=== PATIENT | male | born 1940 | race Caucasian/White ===

== ENCOUNTER 2017-02-04 22:18 | Inpatient (IN) | payer OTHER, MEDICARE ==
[2017-02-04 22:47] LABS: Basophils # (A) 0.1 k/uL (0-0.2); Basophils % (A) 0 %; CH 32.6; CHCM 33.8; Eosinophils # (A) 0.1 k/uL (0-0.7); Eosinophils % (A) 1 %; HCT 38.1 % (39.0-53.0); HDW 2.18; HGB 12.8 gm/dL (13.0-17.5); Luc # (Auto) 0.37; Luc % (Auto) 2; Lymphocytes % (A) 13 %; MCH 32.4 pg (25.0-35.0); MCHC 33.5 g/dL (31.0-37.0); MCV 96.7 fL (80.0-100.0); Monocytes % (A) 7 %; Neutrophils # (A) 11.8 k/uL (1.3-7.7); Neutrophils % (A) 77 %; RBC 3.94 m/uL (4.30-5.90); RDW 13.5 % (11.5-15.5); WBC 15.4 k/uL (3.8-10.6); WBC (Perox) 15.28
--- NOTE | 2017-02-04 22:56 | ED ---
General Adult HPI - General Chief complaint: Extremity Problem,Nontraumatic Stated complaint: Brusing Time Seen by Provider: 02/04/17 22:19 Source: patient, RN notes reviewed, old records reviewed Mode of arrival: EMS Limitations: physical limitation - History of Present Illness Initial comments: This is a 76-year-old male here for evaluation. Patient is here today for evaluation of right groin pain. Patient is noted heart catheterization with stent placement. Denies chest pain or shortness of breath. Patient's concerned bruising and pain in his right groin. Patient taking all medications as prescribed, he is currently taking Plavix and aspirin. Denies any feelings of lightheadedness dizziness or weakness. Denies foot pain or lower leg pain - Related Data Home Medications Medication Instructions Recorded Confirmed Ascorbic Acid [Vitamin C] 500 mg PO DAILY 02/04/17 02/04/17 Aspirin 81 mg PO DAILY 02/04/17 02/04/17 Atorvastatin [Lipitor] 80 mg PO DAILY 02/04/17 02/04/17 Calcium Carbonate 500 mg PO DAILY 02/04/17 02/04/17 Cholecalciferol [Vitamin D3] 400 unit PO DAILY 02/04/17 02/04/17 Clopidogrel Bisulfate [Plavix] 75 mg PO DAILY 02/04/17 02/04/17 Docusate [Colace] 300 mg PO DAILY PRN 02/04/17 02/04/17 Ferrous Sulfate [Feosol] 325 mg PO BID 02/04/17 02/04/17 Finasteride [Proscar] 5 mg PO DAILY 02/04/17 02/04/17 Lisinopril [Zestril] 5 mg PO DAILY 02/04/17 02/04/17 Metoprolol Tartrate [Lopressor] 12.5 mg PO BID 02/04/17 02/04/17 Multivitamins, Thera [Multivitamin 1 tab PO DAILY 02/04/17 02/04/17 (formulary)] Nitroglycerin Sl Tabs [Nitrostat] 0.4 mg SUBLINGUAL Q5M PRN 02/04/17 02/04/17 Omeprazole 20 mg PO DAILY 02/04/17 02/04/17 Sennosides-Docusate Sodium 2 tab PO HS 02/04/17 02/04/17 [Senokot-S] Tamsulosin [Flomax] 0.8 mg PO DAILY 02/04/17 02/04/17 Allergies Allergy/AdvReac Type Severity Reaction Status Date / Time No Known Allergies Allergy Verified 02/04/17 22:58 Review of Systems ROS Statement: Those systems with pertinent positive or pertinent negative responses have been documented in the HPI. ROS Other: All systems not noted in ROS Statement are negative. Past Medical History Past Medical History: Coronary Artery Disease (CAD), CVA/TIA, GERD/Reflux, Hyperlipidemia, Hypertension Additional Past Medical History / Comment(s): MS History of Any Multi-Drug Resistant Organisms: None Reported Past Surgical History: Adenoidectomy, Appendectomy, Heart Catheterization With Stent, Hernia Repair, Tonsillectomy Past Psychological History: No Psychological Hx Reported Smoking Status: Former smoker Past Alcohol Use History: None Reported Past Drug Use History: None Reported General Exam - General Exam Comments Initial Comments: Right groin has significant bruising Limitations: physical limitation General appearance: alert, in no apparent distress Head exam: Present: atraumatic, normocephalic, normal inspection Eye exam: Present: normal appearance, PERRL, EOMI. Absent: scleral icterus, conjunctival injection, periorbital swelling ENT exam: Present: normal exam, mucous membranes moist Neck exam: Present: normal inspection. Absent: tenderness, meningismus, lymphadenopathy Respiratory exam: Present: normal lung sounds bilaterally. Absent: respiratory distress, wheezes, rales, rhonchi, stridor Cardiovascular Exam: Present: regular rate, normal rhythm, normal heart sounds. Absent: systolic murmur, diastolic murmur, rubs, gallop, clicks GI/Abdominal exam: Present: soft, normal bowel sounds. Absent: distended, tenderness, guarding, rebound, rigid Extremities exam: Present: normal inspection, full ROM, normal capillary refill. Absent: tenderness, pedal edema, joint swelling, calf tenderness Back exam: Present: normal inspection Neurological exam: Present: alert, oriented X3, CN II-XII intact Psychiatric exam: Present: normal affect, normal mood Skin exam: Present: warm, dry, intact, normal color. Absent: rash Course Vital Signs 02/04/17 22:25 Temperature 98.1 F Pulse Rate 81 Respiratory 18 Rate Blood Pressure 157/71 O2 Sat by Pulse 94 L Oximetry - Reevaluation(s) Reevaluation #1: 02/05/17 00:37 Troponin is elevated Reevaluation #2: 02/05/17 01:00 patient has elevated troponin, likely from recent heart cath will obs for trending of troponin Medical Decision Making - Medical Decision Making 76 male to the ER for evaluation. Patient concern for postop edema and swelling of right groin, no significant pain, no pain in his feet, no neurological deficit, patient is concerned amount of color change and bruising. Ultrasound is negative, lab work is normal, hemoglobin is normal, troponin will be trended - Lab Data Result diagrams: 02/04/17 22:32 02/04/17 22:32 Lab Results 02/04/17 02/04/17 02/04/17 Range/Units 22:32 22:32 22:32 WBC 15.4 H (3.8-10.6) k/uL RBC 3.94 L (4.30-5.90) m/uL Hgb 12.8 L (13.0-17.5) gm/dL Hct 38.1 L (39.0-53.0) % MCV 96.7 (80.0-100.0) fL MCH 32.4 (25.0-35.0) pg MCHC 33.5 (31.0-37.0) g/dL RDW 13.5 (11.5-15.5) % Plt Count 222 (150-450) k/uL Neutrophils % 77 % Lymphocytes % 13 % Monocytes % 7 % Eosinophils % 1 % Basophils % 0 % Neutrophils # 11.8 H (1.3-7.7) k/uL Lymphocytes # 2.0 (1.0-4.8) k/uL Monocytes # 1.0 (0-1.0) k/uL Eosinophils # 0.1 (0-0.7) k/uL Basophils # 0.1 (0-0.2) k/uL PT (9.0-12.0) sec INR (<1.2) APTT (22.0-30.0) sec Sodium 136 L (137-145) mmol/L Potassium 4.9 (3.5-5.1) mmol/L Chloride 105 (98-107) mmol/L Carbon Dioxide 22 (22-30) mmol/L Anion Gap 9 mmol/L BUN 20 (9-20) mg/dL Creatinine 1.10 (0.66-1.25) mg/dL Est GFR (MDRD) Af Amer >60 (>60 ml/min/1.73 sqM) Est GFR (MDRD) Non-Af >60 (>60 ml/min/1.73 sqM) Glucose 117 H (74-99) mg/dL Calcium 9.8 (8.4-10.2) mg/dL Phosphorus 3.6 (2.5-4.5) mg/dL Magnesium 1.6 (1.6-2.3) mg/dL Total Bilirubin 0.5 (0.2-1.3) mg/dL AST 27 (17-59) U/L ALT 39 (21-72) U/L Alkaline Phosphatase 62 (38-126) U/L Total Creatine Kinase 94 (55-170) U/L CK-MB (CK-2) 2.4 (0.0-2.4) ng/mL CK-MB (CK-2) Rel Index 2.6 Troponin I 0.132 H* (0.000-0.034) ng/mL Total Protein 6.8 (6.3-8.2) g/dL Albumin 3.8 (3.5-5.0) g/dL 02/04/17 Range/Units 22:32 WBC (3.8-10.6) k/uL RBC (4.30-5.90) m/uL Hgb (13.0-17.5) gm/dL Hct (39.0-53.0) % MCV (80.0-100.0) fL MCH (25.0-35.0) pg MCHC (31.0-37.0) g/dL RDW (11.5-15.5) % Plt Count (150-450) k/uL Neutrophils % % Lymphocytes % % Monocytes % % Eosinophils % % Basophils % % Neutrophils # (1.3-7.7) k/uL Lymphocytes # (1.0-4.8) k/uL Monocytes # (0-1.0) k/uL Eosinophils # (0-0.7) k/uL Basophils # (0-0.2) k/uL PT 10.5 (9.0-12.0) sec INR 1.0 (<1.2) APTT 23.3 (22.0-30.0) sec Sodium (137-145) mmol/L Potassium (3.5-5.1) mmol/L Chloride (98-107) mmol/L Carbon Dioxide (22-30) mmol/L Anion Gap mmol/L BUN (9-20) mg/dL Creatinine (0.66-1.25) mg/dL Est GFR (MDRD) Af Amer (>60 ml/min/1.73 sqM) Est GFR (MDRD) Non-Af (>60 ml/min/1.73 sqM) Glucose (74-99) mg/dL Calcium (8.4-10.2) mg/dL Phosphorus (2.5-4.5) mg/dL Magnesium (1.6-2.3) mg/dL Total Bilirubin (0.2-1.3) mg/dL AST (17-59) U/L ALT (21-72) U/L Alkaline Phosphatase (38-126) U/L Total Creatine Kinase (55-170) U/L CK-MB (CK-2) (0.0-2.4) ng/mL CK-MB (CK-2) Rel Index Troponin I (0.000-0.034) ng/mL Total Protein (6.3-8.2) g/dL Albumin (3.5-5.0) g/dL - Radiology Data Radiology results: report reviewed (Ultrasound right groin is negative for pseudoaneurysm, chest x-ray negative for acute disease), image reviewed Critical Care Time Critical Care Time: Yes Total Critical Care Time: 31 Disposition Clinical Impression: Contusion of right groin, Postoperative hematoma, Elevated troponin Disposition: ADMITTED IP TO THIS [facility] Condition: Good Instructions: Hematoma (ED) Referrals: Rashi Briscoe DO [Primary Care Provider] - 1-2 days
[2017-02-04 22:57] LABS: Partial Thromboplastin Time 23.3 sec (22.0-30.0); Prothrombin Time 10.5 sec (9.0-12.0)
--- NOTE | 2017-02-04 23:01 | XR ---
EXAM: XR Chest, 2 Views CLINICAL HISTORY: Reason: Weakness TECHNIQUE: Frontal and lateral views of the chest. COMPARISON: No relevant prior studies available. FINDINGS: Lungs: Unremarkable. No consolidation. Pleural space: Unremarkable. No pneumothorax. Heart: Unremarkable. No cardiomegaly. Mediastinum: Unremarkable. Bones/joints: Unremarkable. IMPRESSION: Normal chest x-rays.
[2017-02-04 23:17] LABS: ALT 39 U/L (21-72); AST 27 U/L (17-59); Alkaline Phosphatase 62 U/L (38-126); Anion Gap 9 mmol/L; Blood Urea Nitrogen 20 mg/dL (9-20); Calcium 9.8 mg/dL (8.4-10.2); Carbon Dioxide 22 mmol/L (22-30); Chloride 105 mmol/L (98-107); Glucose 117 mg/dL (74-99); Magnesium 1.6 mg/dL (1.6-2.3); Non-African American GFR(MDRD) >60 (>60 ml/min/1.73 sqM); Phosphorous 3.6 mg/dL (2.5-4.5); Potassium 4.9 mmol/L (3.5-5.1); Sodium 136 mmol/L (137-145); Total Bilirubin 0.5 mg/dL (0.2-1.3); Total Protein 6.8 g/dL (6.3-8.2)
[2017-02-04 23:28] LABS: Creatine Kinase MB 2.4 ng/mL (0.0-2.4)
[2017-02-04 23:35] LABS: Troponin I 0.132 ng/mL (0.000-0.034)
--- NOTE | 2017-02-05 00:04 | US ---
ADDENDUM - Added by Eric Sykes MD on 02/08/2017 3:56 PM (-07:00) Addendum: Please disregard the subsections in the Findings regarding Right superficial femoral artery, Right popliteal artery, and Right calf/foot arteries. These areas were not imaged in this exam. The Impression above is still correct. Thank you Eric Sykes EXAM: US Duplex Right Lower Extremity Arteries CLINICAL HISTORY: Reason: Pain TECHNIQUE: Real-time ultrasound scan of the arteries of the right lower extremity with 2-D patrick scale, color Doppler flow and spectral waveform analysis. COMPARISON: No relevant prior studies available. FINDINGS: Right common femoral artery: Atherosclerotic calcified plaques noted in the right common femoral artery at the level of the right groin causing approximately 50% stenosis. Right superficial femoral artery: No acute findings. No occlusion or significant stenosis. Normal waveform. Right popliteal artery: No acute findings. No occlusion or significant stenosis. Normal waveform. Right calf/foot arteries: No acute findings. No occlusion or significant stenosis. Normal waveform. Soft tissues: Unremarkable. Other findings: No evidence of pseudoaneurysm or leak. IMPRESSION: 1. No evidence of pseudoaneurysm or leak. 2. Atherosclerotic plaque in the right common femoral artery causing approximately 50% stenosis.
[2017-02-05] MEDS ORDERED: NITROGLYCERIN SL TABS 0.4 MG TAB SUBLINGUAL PRN (00:58)
[2017-02-05] MEDS ORDERED: ASPIRIN 81 MG CHEW PO STA (00:58)
[2017-02-05 03:02] VITALS: BMI 29.1
[2017-02-05 05:00] LABS: Creatine Kinase MB 3.9 ng/mL (0.0-2.4); Troponin I 0.116 ng/mL (0.000-0.034)
[2017-02-05 11:26] LABS: Creatine Kinase MB 12.9 ng/mL (0.0-2.4); Troponin I 0.096 ng/mL (0.000-0.034)
[2017-02-05] MEDS: TAMSULOSIN 0.4 MG CAP.ER.24H PO SCH (14:25)
[2017-02-05] MEDS: CLOPIDOGREL 75 MG TAB PO SCH (17:07)
[2017-02-05] MEDS: METOPROLOL TARTRATE 12.5 MG TAB PO SCH (20:45)
[2017-02-05] MEDS: FERROUS SULFATE 325 MG TAB PO SCH (20:45)
[2017-02-05 21:23] LABS: Amorphous Sediment,Urine Rare /hpf; Appearance,Urine Cloudy (Clear); Bacteria,Urine Occasional /hpf; Bilirubin,Urine Negative (Negative); Glucose,Urine (UA) Negative (Negative); Ketones,Urine Negative (Negative); Leukocyte Esterase,Urine Large (Negative); Mucus,Urine Rare /hpf; Nitrite,Urine Positive (Negative); Particle Count 21541; Protein,Urine Negative (Negative); RBC,Urine 3 /hpf (0-5); Specific Gravity,Urine 1.011 (1.001-1.035); Squamous Epithelial Cell,Urine 3 /hpf (0-4); UA Billing (MACRO vs. MICRO) MICRO; Urobilinogen,Urine <2.0 mg/dL (<2.0); WBC,Urine 90 /hpf (0-5)
[2017-02-05] MEDS ORDERED: ACETAMINOPHEN TAB 325 MG TAB PO PRN (22:02)
[2017-02-05] MEDS ORDERED: traMADol 50 MG TAB PO PRN (22:25)
[2017-02-06 03:41] LABS: Cholesterol 133 mg/dL (<200); HDL Cholesterol 37 mg/dL (40-60)
[2017-02-06] MEDS: CLOPIDOGREL 75 MG TAB PO SCH (07:40)
[2017-02-06] MEDS: FERROUS SULFATE 325 MG TAB PO SCH (07:40)
[2017-02-06] MEDS: METOPROLOL TARTRATE 12.5 MG TAB PO SCH (07:40)
[2017-02-06] MEDS: TAMSULOSIN 0.4 MG CAP.ER.24H PO SCH (07:40)
[2017-02-06 08:50] VITALS: PULSE 80; RESP 16
[2017-02-06] MEDS ORDERED: FINASTERIDE 5 MG TAB PO SCH (09:00)
[2017-02-06] MEDS ORDERED: ASPIRIN 325 MG TAB PO SCH (09:00)
[2017-02-06] MEDS ORDERED: LISINOPRIL 5 MG TAB PO SCH (09:00)
[2017-02-06] MEDS ORDERED: ATORVASTATIN 80 MG TAB PO SCH (09:00)
--- NOTE | 2017-02-06 09:07 | P.GSCN ---
History of Present Illness History of present illness: 76-year-old white male, patient came to the emergency room he noticed some bruising and pain in his right groin post heart catheterization at [facility] in [place]. Patient had a heart catheterization and stent placement was consulted for hematoma and follow-up of the right groin post heart catheterization On examination patient was seen in his room Neck is supple no bruit appreciated Chest clear first and second sound normal Abdomen soft nontender Vascular examination brachial radial pulses are present patient has ecchymosis a right groin with slight tenderness femoral pulses palpable posterior tibial dorsal pedis by the Doppler Plan is ultrasound reviewed there is no evidence of pseudoaneurysm is some atherosclerosis occlusive disease involving the femoral artery and there is no evidence of expanding hematoma patient is stable from a vascular point of view we will follow with you thank very much Past Medical History Past Medical History: Coronary Artery Disease (CAD), CVA/TIA, GERD/Reflux, Hyperlipidemia, Hypertension Additional Past Medical History / Comment(s): MS History of Any Multi-Drug Resistant Organisms: None Reported Past Surgical History: Adenoidectomy, Appendectomy, Heart Catheterization With Stent, Hernia Repair, Tonsillectomy Additional Past Surgical History / Comment(s): RECENT HEART CATH AT [facility] ON 02/02/17, PT HAD THREE STENTS PLACED. UNSURE WHICH ARTERIES STENTS WERE PLACED IN. PT HAS RADHA GROIN BRUSING. Date of Last Stent Placement:: 02-02-17 Past Psychological History: No Psychological Hx Reported Smoking Status: Former smoker Past Alcohol Use History: None Reported Past Drug Use History: None Reported - Past Family History Father Family Medical History: Coronary Artery Disease (CAD) Medications and Allergies Home Medications Medication Instructions Recorded Confirmed Type Ascorbic Acid [Vitamin C] 500 mg PO DAILY 02/04/17 02/04/17 History Aspirin 81 mg PO DAILY 02/04/17 02/04/17 History Atorvastatin [Lipitor] 80 mg PO DAILY 02/04/17 02/04/17 History Calcium Carbonate 500 mg PO DAILY 02/04/17 02/04/17 History Cholecalciferol [Vitamin D3] 400 unit PO DAILY 02/04/17 02/04/17 History Clopidogrel Bisulfate [Plavix] 75 mg PO DAILY 02/04/17 02/04/17 History Docusate [Colace] 300 mg PO DAILY PRN 02/04/17 02/04/17 History Ferrous Sulfate [Feosol] 325 mg PO BID 02/04/17 02/04/17 History Finasteride [Proscar] 5 mg PO DAILY 02/04/17 02/04/17 History Lisinopril [Zestril] 5 mg PO DAILY 02/04/17 02/04/17 History Metoprolol Tartrate [Lopressor] 12.5 mg PO BID 02/04/17 02/04/17 History Multivitamins, Thera [Multivitamin 1 tab PO DAILY 02/04/17 02/04/17 History (formulary)] Nitroglycerin Sl Tabs [Nitrostat] 0.4 mg SUBLINGUAL Q5M PRN 02/04/17 02/04/17 History Omeprazole 20 mg PO DAILY 02/04/17 02/04/17 History Sennosides-Docusate Sodium 2 tab PO HS 02/04/17 02/04/17 History [Senokot-S] Tamsulosin [Flomax] 0.8 mg PO DAILY 02/04/17 02/04/17 History Allergies Allergy/AdvReac Type Severity Reaction Status Date / Time No Known Allergies Allergy Verified 02/04/17 22:58 Surgical - Exam Vital Signs Temp Pulse Resp BP Pulse Ox 98.1 F 81 18 157/71 94 L 02/04/17 22:25 02/04/17 22:25 02/04/17 22:25 02/04/17 22:25 02/04/17 22:25 Results - Labs 02/04/17 22:32 02/04/17 22:32 Abnormal Lab Results - Last 24 Hours (Table) 02/04/17 02/05/17 02/05/17 Range/Units 22:32 10:15 20:53 Total Creatine Kinase 441 H (55-170) U/L CK-MB (CK-2) 12.9 H* (0.0-2.4) ng/mL Troponin I 0.096 H* (0.000-0.034) ng/mL HDL Cholesterol 37 L (40-60) mg/dL Ur Leukocyte Esterase Large H (Negative) Urine WBC 90 H (0-5) /hpf Urine WBC Clumps Few H (None) /hpf Amorphous Sediment Rare H (None) /hpf Urine Bacteria Occasional H (None) /hpf Urine Mucus Rare H (None) /hpf Diabetes panel 02/04/17 Range/Units 22:32 Triglycerides 75 (<150) mg/dL HDL Cholesterol 37 L (40-60) mg/dL
--- NOTE | 2017-02-06 11:15 | HP ---
DATE OF ADMISSION: 02/05/17 CHIEF COMPLAINT: Bruising in the groin area. HISTORY OF PRESENT ILLNESS: This 76-year-old gentleman with past medical history of multiple medical problems including CAD, GERD, hypertension, hyperlipidemia, being followed by Dr. Briscoe in [facility] in the outpatient setting, recently was treated at [facility]. The patient had apparently cardiac catheterization, stent placement with backup LV support. The patient had catheterization marked in the right arm as well as both groins also. The patient went home. The patient complaining of significant swelling and also bruising and pain on walking also. The patient came to [facility] and was admitted to the hospital for further evaluation and treatment. A duplex scan of the lower extremity was done on admission which showed no evidence of pseudoaneurysm or leak but atherosclerotic plaque in the right common femoral artery causing approximately 50% stenosis noted, pulses are Doppler palpable in both lower legs. There is no history of fever, rigors or chills. No history of headache, loss of consciousness or seizures. Past medical history of stent to the LAD, CVA, TIA, GERD, hypertension, hyperlipidemia. Mediations prior to admission include: 1. Nitro 0.4 sublingual prn. 2. Multivitamins. 3. Colace 100 mg prn. 4. Omeprazole 20 mg daily. 5. Iron sulfate 320 mg b.i.d. 6. Vitamin D3 400 units daily. 7. Calcium carbonate 500 mg po daily. 8. Vitamin C 500 mg po daily. 9. Flomax 0.8 daily. 10. Senokot-S two tablets q.h.s. 11. Proscar 5 mg po daily. 12. Lopressor 12.5 mg po b.i.d. 13. Zestril 5 mg po daily. 14. Plavix 75 mg po daily. 15. Lipitor 80 mg po daily. 16. Aspirin 81 mg po daily. ALLERGIES: None. FAMILY HISTORY: History of coronary artery disease in the family. SOCIAL HISTORY: Previous history of smoking. Occasional alcohol intake. REVIEW OF SYSTEMS: HEENT: No diminished vision. No diminished hearing. Cardiovascular system: As mentioned earlier. Respiratory: No cough, hemoptysis. GI: No nausea or vomiting. : No dysuria. Nervous system: No numbness, weakness. Allergy/Immunology: No asthma or hayfever. Musculoskeletal: As mentioned earlier. Hematology/oncology: No history of anemia. Endocrine: No history of diabetes or hypothyroidism. Constitutional: As mentioned earlier. Dermatology: Negative. Rheumatology: Negative. Psychiatry: As mentioned earlier. PHYSICAL EXAMINATION: The patient is alert, oriented times three. Pulse 66. Blood pressure 131/77. Respiratory rate 18, temperature 98.2. Pulse ox 94% on room air. HEENT: Conjunctivae normal. Oral mucosa moist. NECK: No JVD. No thyroid enlargement. No lymph node enlargement. Cardiovascular: S1, S2 muffled. No S3, no S4. No murmur. No thrills Respiratory: Breath sounds diminished at the bases. No rhonchi and no crackles. Abdomen is soft , nontender. No mass palpable. Legs: No edema. No swelling. Examination of the groin, significant erythema and as well as swelling with in both groins , right more than the left. Pulses diminished. Nervous system: Higher functions as mentioned earlier. Cranial nerves 2 thru 12 grossly intact. No focal motor or sensory deficits. Lymphatics: No lymph nodes palpable in the neck, axilla or groin. Skin: No ulcer, rash or bleeding. LABS: WBC 15.1, hemoglobin 12.8, troponin noted. FINAL DIAGNOSES: 1. Bilateral groin hematomas. 2. Troponin 0.116, rule out acute non-ST segment elevation myocardial infarction. 3. History of recent cardiac catheterization and stenting from elsewhere. 4. Hyponatremia. 5. Increased WBC. 6. Anemia of chronic disease. 7. History of coronary artery disease. 8. Hypertension. 9. Hyperlipidemia. 10. History of multiple sclerosis. RECOMMENDATIONS AND DISCUSSION: Continue the current medications. Continue with monitoring and symptomatic treatment. Otherwise at this time, I would recommend continue with current medications. Cardiology consultation. I would also recommend vascular surgery consultation. Continue with antiplatelet agents because of recent stent. Guarded prognosis because of multiple medical problems. Further recommendations to follow. MTDD
[2017-02-06 11:42] VITALS: BP 99/55; TEMP 98.8
[2017-02-06] MEDS ORDERED: CHOLECALCIFEROL 400 UNIT TAB PO SCH (12:00)
--- NOTE | 2017-02-06 18:31 | P.DS ---
Providers Date of admission: 02/05/17 00:58 Attending physician: Delia Witt Consults: 02/05/17 16:05 Consult Physician Urgent Consulting Provider: Jadon Kuhn Consult Reason/Comments: hematoma. Do you want consulting provider notified?: Yes, Notify in am 02/05/17 16:06 Consult Physician Urgent Consulting Provider: Chuck Blackwood Consult Reason/Comments: Hematoma Do you want consulting provider notified?: Yes [facility] Course: This 76-year-old gentleman was admitted with bilateral white groin hematoma following cardiac cath done elsewhere. The patient had CAD stent placement in [facility] in [place] recently. Treated symptomatically. Seen by cardiology and restless surgery. No evidence of pseudoaneurysm. Patient improved significantly. Patient be discharged home. On exam vitals stable. S1 and S2 normal. Respirator system no rhonchi. Abdomen soft nontender. Groin hematomas. Legs pulses present. Final diagnosis 1. Bilateral groin hematoma. 2. Troponin 0.116 of undetermined etiology. 3. History of recent cardiac cath and CAD stent from elsewhere Patient Condition at Discharge: Good Plan - Discharge Summary New Discharge Prescriptions: New traMADol HCl [Ultram] 50 mg PO QID PRN #20 tab PRN Reason: Pain Cefuroxime Axetil [Ceftin] 500 mg PO BID #10 tab Continue Nitroglycerin Sl Tabs [Nitrostat] 0.4 mg SUBLINGUAL Q5M PRN PRN Reason: Chest Pain Multivitamins, Thera [Multivitamin (formulary)] 1 tab PO DAILY Omeprazole 20 mg PO DAILY Ferrous Sulfate [Feosol] 325 mg PO BID Cholecalciferol [Vitamin D3] 400 unit PO DAILY Calcium Carbonate 500 mg PO DAILY Ascorbic Acid [Vitamin C] 500 mg PO DAILY Tamsulosin [Flomax] 0.8 mg PO DAILY Sennosides-Docusate Sodium [Senokot-S] 2 tab PO HS Finasteride [Proscar] 5 mg PO DAILY Docusate [Colace] 300 mg PO DAILY PRN PRN Reason: Constipation Metoprolol Tartrate [Lopressor] 12.5 mg PO BID Lisinopril [Zestril] 5 mg PO DAILY Clopidogrel Bisulfate [Plavix] 75 mg PO DAILY Atorvastatin [Lipitor] 80 mg PO DAILY Aspirin 81 mg PO DAILY Discharge Medication List Ascorbic Acid [Vitamin C] 500 mg PO DAILY 02/04/17 [History] Aspirin 81 mg PO DAILY 02/04/17 [History] Atorvastatin [Lipitor] 80 mg PO DAILY 02/04/17 [History] Calcium Carbonate 500 mg PO DAILY 02/04/17 [History] Cholecalciferol [Vitamin D3] 400 unit PO DAILY 02/04/17 [History] Clopidogrel Bisulfate [Plavix] 75 mg PO DAILY 02/04/17 [History] Docusate [Colace] 300 mg PO DAILY PRN 02/04/17 [History] Ferrous Sulfate [Feosol] 325 mg PO BID 02/04/17 [History] Finasteride [Proscar] 5 mg PO DAILY 02/04/17 [History] Lisinopril [Zestril] 5 mg PO DAILY 02/04/17 [History] Metoprolol Tartrate [Lopressor] 12.5 mg PO BID 02/04/17 [History] Multivitamins, Thera [Multivitamin (formulary)] 1 tab PO DAILY 02/04/17 [History ] Nitroglycerin Sl Tabs [Nitrostat] 0.4 mg SUBLINGUAL Q5M PRN 02/04/17 [History] Omeprazole 20 mg PO DAILY 02/04/17 [History] Sennosides-Docusate Sodium [Senokot-S] 2 tab PO HS 02/04/17 [History] Tamsulosin [Flomax] 0.8 mg PO DAILY 02/04/17 [History] Cefuroxime Axetil [Ceftin] 500 mg PO BID #10 tab 02/06/17 [Rx] traMADol HCl [Ultram] 50 mg PO QID PRN #20 tab 02/06/17 [Rx] Follow up Appointment(s)/Referral(s): Rashi Briscoe DO [Primary Care Provider] - 3 Days Ambulatory/Diagnostic Orders: Complete Blood Count w/diff [LAB.AMB] Time Frame: 3 Days, Location: Determined By Patient Patient Instructions/Handouts: Hematoma (ED) Activity/Diet/Wound Care/Special Instructions: Confirm cardiology follow-up appointment prior to discharge. Diet: Cardiac Activity: Limited until follow up Final urine culture results to PCP Discharge Disposition: HOME SELF-CARE
== END 2017-02-06 13:36 | disposition home or self-care (01) | DRG 920 ==
LOC: EC 22:18 → 6SEL 02-05 00:58
PROVIDERS: ADMIT Hospitalist; ATTEND Hospitalist
DX: I97.630 Postprocedural hematoma of a circulatory system organ or structure following a cardiac catheterization (principal); E87.1 Hypo-osmolality and hyponatremia; D63.8 Anemia in other chronic diseases classified elsewhere; I70.201 Unspecified atherosclerosis of native arteries of extremities, right leg; D72.829 Elevated white blood cell count, unspecified; I25.10 Atherosclerotic heart disease of native coronary artery without angina pectoris; I10 Essential (primary) hypertension; E78.5 Hyperlipidemia, unspecified; K21.9 Gastro-esophageal reflux disease without esophagitis; R74.8 Abnormal levels of other serum enzymes; Z79.899 Other long term (current) drug therapy; Z79.82 Long term (current) use of aspirin; Z82.49 Family history of ischemic heart disease and other diseases of the circulatory system; Z86.73 Personal history of transient ischemic attack (TIA), and cerebral infarction without residual deficits; Z87.891 Personal history of nicotine dependence; Z79.02 Long term (current) use of antithrombotics/antiplatelets; Z95.5 Presence of coronary angioplasty implant and graft; Z90.49 Acquired absence of other specified parts of digestive tract; Z86.69 Personal history of other diseases of the nervous system and sense organs
CPT/HCPCS: 36415; 71020; 80053; 80061; 81001; 82550; 82553; 83735; 84100; 84484; 85025; 85610; 85730; 87077; 87086; 87186; 93005; 93975; 99291

== ENCOUNTER 2017-06-19 05:29 | Inpatient (IN) | payer OTHER, MEDICARE ==
[2017-06-19] MEDS ORDERED: LORazepam 2 MG/ML INJ IV STA (05:39)
[2017-06-19] MEDS ORDERED: SODIUM CHLORIDE 0.9% 500 ML IV STA (05:39)
[2017-06-19] MEDS ORDERED: DILTIAZEM 5 MG/ML 5 ML VIAL IVP STA ×2 (05:39→07:34)
[2017-06-19] MEDS ORDERED: DILTIAZEM 125 MG in SODIUM CHLORIDE 0.9% 100 ML IV ONE (05:39)
[2017-06-19] MEDS ORDERED: SODIUM CHLORIDE 0.9% 1,000 ML IV STA (05:39)
[2017-06-19 05:52] LABS: Basophils # (A) 0.1 k/uL (0-0.2); Basophils % (A) 0 %; Eosinophils # (A) 0.2 k/uL (0-0.7); Eosinophils % (A) 2 %; HCT 41.9 % (39.0-53.0); HGB 12.7 gm/dL (13.0-17.5); Lymphocytes # (A) 1.8 k/uL (1.0-4.8); Lymphocytes % (A) 12 %; MCH 28.6 pg (25.0-35.0); MCHC 30.4 g/dL (31.0-37.0); MCV 94.3 fL (80.0-100.0); Mean Platelet Volume 8.9; Monocytes # (A) 1.2 k/uL (0-1.0); Monocytes % (A) 8 %; Neutrophils % (A) 76 %; Platelet Count 214 k/uL (150-450); RBC 4.44 m/uL (4.30-5.90); RDW 14.9 % (11.5-15.5); WBC 14.6 k/uL (3.8-10.6)
--- NOTE | 2017-06-19 05:52 | ED ---
General Adult HPI - General Chief complaint: Shortness of Breath Stated complaint: SOB Time Seen by Provider: 06/19/17 05:33 Source: patient, RN notes reviewed, old records reviewed Mode of arrival: EMS Limitations: no limitations - History of Present Illness Initial comments: This is a 76-year-old male the ER for evaluation today. Patient's coming everything evaluation of anxiety and shortness of breath. Patient has multiple medical issues including heart disease. Patient denies history of smoking or COPD. Patient has no recent fevers. Does admit to increased shortness of breath, inability to lay down flat, increasing shortness of breath and inability to sleep. Exertional shortness of breath. Patient denies chest pain currently. No recent travel history no sick contacts. Patient denies anticoagulation - Related Data Home Medications Medication Instructions Recorded Confirmed Ascorbic Acid [Vitamin C] 500 mg PO DAILY 02/04/17 02/04/17 Aspirin 81 mg PO DAILY 02/04/17 02/04/17 Atorvastatin [Lipitor] 80 mg PO DAILY 02/04/17 02/04/17 Calcium Carbonate 500 mg PO DAILY 02/04/17 02/04/17 Cholecalciferol [Vitamin D3] 400 unit PO DAILY 02/04/17 02/04/17 Clopidogrel Bisulfate [Plavix] 75 mg PO DAILY 02/04/17 02/04/17 Docusate [Colace] 300 mg PO DAILY PRN 02/04/17 02/04/17 Ferrous Sulfate [Feosol] 325 mg PO BID 02/04/17 02/04/17 Finasteride [Proscar] 5 mg PO DAILY 02/04/17 02/04/17 Lisinopril [Zestril] 5 mg PO DAILY 02/04/17 02/04/17 Metoprolol Tartrate [Lopressor] 12.5 mg PO BID 02/04/17 02/04/17 Multivitamins, Thera [Multivitamin 1 tab PO DAILY 02/04/17 02/04/17 (formulary)] Nitroglycerin Sl Tabs [Nitrostat] 0.4 mg SUBLINGUAL Q5M PRN 02/04/17 02/04/17 Omeprazole 20 mg PO DAILY 02/04/17 02/04/17 Sennosides-Docusate Sodium 2 tab PO HS 02/04/17 02/04/17 [Senokot-S] Tamsulosin [Flomax] 0.8 mg PO DAILY 02/04/17 02/04/17 Previous Rx's Medication Instructions Recorded Cefuroxime Axetil [Ceftin] 500 mg PO BID #10 tab 02/06/17 traMADol HCl [Ultram] 50 mg PO QID PRN #20 tab 02/06/17 Allergies Allergy/AdvReac Type Severity Reaction Status Date / Time No Known Allergies Allergy Verified 06/19/17 05:41 Review of Systems ROS Statement: Those systems with pertinent positive or pertinent negative responses have been documented in the HPI. ROS Other: All systems not noted in ROS Statement are negative. Past Medical History Past Medical History: Coronary Artery Disease (CAD), CVA/TIA, GERD/Reflux, Hyperlipidemia, Hypertension Additional Past Medical History / Comment(s): MS History of Any Multi-Drug Resistant Organisms: None Reported Past Surgical History: Adenoidectomy, Appendectomy, Heart Catheterization With Stent, Hernia Repair, Tonsillectomy Additional Past Surgical History / Comment(s): RECENT HEART CATH AT [facility] ON 02/02/17, PT HAD THREE STENTS PLACED. UNSURE WHICH ARTERIES STENTS WERE PLACED IN. PT HAS RADHA GROIN BRUSING. Date of Last Stent Placement:: 02-02-17 Past Psychological History: No Psychological Hx Reported Smoking Status: Former smoker Past Alcohol Use History: None Reported Past Drug Use History: None Reported - Past Family History Father Family Medical History: Coronary Artery Disease (CAD) General Exam Limitations: no limitations General appearance: alert, anxious, in distress Head exam: Present: atraumatic, normocephalic, normal inspection Eye exam: Present: normal appearance, PERRL, EOMI. Absent: scleral icterus, conjunctival injection, periorbital swelling ENT exam: Present: normal exam, mucous membranes moist Neck exam: Present: normal inspection. Absent: tenderness, meningismus, lymphadenopathy Respiratory exam: Present: accessory muscle use, decreased breath sounds, prolonged expiratory. Absent: respiratory distress, wheezes, rales, rhonchi, stridor Cardiovascular Exam: Present: tachycardia, irregular rhythm, normal heart sounds. Absent: systolic murmur, diastolic murmur, rubs, gallop, clicks GI/Abdominal exam: Present: soft, normal bowel sounds. Absent: distended, tenderness, guarding, rebound, rigid Extremities exam: Present: normal inspection, full ROM, normal capillary refill. Absent: tenderness, pedal edema, joint swelling, calf tenderness Back exam: Present: normal inspection Neurological exam: Present: alert, oriented X3, CN II-XII intact Psychiatric exam: Present: normal affect, normal mood Skin exam: Present: warm, dry, intact, normal color. Absent: rash Course Vital Signs 06/19/17 06/19/17 06/19/17 05:35 06:11 07:09 Temperature 97.2 F L Pulse Rate 150 H 135 H 142 H Respiratory 20 20 17 Rate Blood Pressure 158/110 168/87 157/100 O2 Sat by Pulse 97 94 L 95 Oximetry - Reevaluation(s) Reevaluation #1: 06/19/17 07:22 Patient isn't improving slightly with rate control, there is a decreased anxiety , still short of breath EKG Findings - EKG Comments: EKG Findings:: EKG shows A. fib with RVR rate 160, QRS 120, QTc 447 Medical Decision Making - Medical Decision Making 70 formality ER for evaluation shortness of breath, patient significant shortness of breath A. fib with RVR CHF. Patient admitted for diaphoresis rate control. Anticoagulation secondary to elevated troponin - Lab Data Result diagrams: 06/19/17 05:37 06/19/17 05:37 Lab Results 06/19/17 06/19/17 06/19/17 Range/Units 05:37 05:37 05:37 WBC 14.6 H (3.8-10.6) k/uL RBC 4.44 (4.30-5.90) m/uL Hgb 12.7 L (13.0-17.5) gm/dL Hct 41.9 (39.0-53.0) % MCV 94.3 (80.0-100.0) fL MCH 28.6 (25.0-35.0) pg MCHC 30.4 L (31.0-37.0) g/dL RDW 14.9 (11.5-15.5) % Plt Count 214 (150-450) k/uL Neutrophils % 76 % Lymphocytes % 12 % Monocytes % 8 % Eosinophils % 2 % Basophils % 0 % Neutrophils # 11.0 H (1.3-7.7) k/uL Lymphocytes # 1.8 (1.0-4.8) k/uL Monocytes # 1.2 H (0-1.0) k/uL Eosinophils # 0.2 (0-0.7) k/uL Basophils # 0.1 (0-0.2) k/uL PT (9.0-12.0) sec INR (<1.2) APTT (22.0-30.0) sec Sodium 142 (137-145) mmol/L Potassium 4.9 (3.5-5.1) mmol/L Chloride 109 H (98-107) mmol/L Carbon Dioxide 26 (22-30) mmol/L Anion Gap 7 mmol/L BUN 14 (9-20) mg/dL Creatinine 0.90 (0.66-1.25) mg/dL Est GFR (MDRD) Af Amer >60 (>60 ml/min/1.73 sqM) Est GFR (MDRD) Non-Af >60 (>60 ml/min/1.73 sqM) Glucose 108 H (74-99) mg/dL Calcium 9.2 (8.4-10.2) mg/dL Phosphorus 3.2 (2.5-4.5) mg/dL Magnesium 1.8 (1.6-2.3) mg/dL Total Bilirubin 0.7 (0.2-1.3) mg/dL AST 41 (17-59) U/L ALT 43 (21-72) U/L Alkaline Phosphatase 74 (38-126) U/L Total Creatine Kinase 141 (55-170) U/L CK-MB (CK-2) 6.8 H* (0.0-2.4) ng/mL CK-MB (CK-2) Rel Index 4.8 Troponin I 0.327 H* (0.000-0.034) ng/mL Total Protein 6.7 (6.3-8.2) g/dL Albumin 3.6 (3.5-5.0) g/dL 06/19/17 Range/Units 05:37 WBC (3.8-10.6) k/uL RBC (4.30-5.90) m/uL Hgb (13.0-17.5) gm/dL Hct (39.0-53.0) % MCV (80.0-100.0) fL MCH (25.0-35.0) pg MCHC (31.0-37.0) g/dL RDW (11.5-15.5) % Plt Count (150-450) k/uL Neutrophils % % Lymphocytes % % Monocytes % % Eosinophils % % Basophils % % Neutrophils # (1.3-7.7) k/uL Lymphocytes # (1.0-4.8) k/uL Monocytes # (0-1.0) k/uL Eosinophils # (0-0.7) k/uL Basophils # (0-0.2) k/uL PT 10.4 (9.0-12.0) sec INR 1.1 (<1.2) APTT 23.1 (22.0-30.0) sec Sodium (137-145) mmol/L Potassium (3.5-5.1) mmol/L Chloride (98-107) mmol/L Carbon Dioxide (22-30) mmol/L Anion Gap mmol/L BUN (9-20) mg/dL Creatinine (0.66-1.25) mg/dL Est GFR (MDRD) Af Amer (>60 ml/min/1.73 sqM) Est GFR (MDRD) Non-Af (>60 ml/min/1.73 sqM) Glucose (74-99) mg/dL Calcium (8.4-10.2) mg/dL Phosphorus (2.5-4.5) mg/dL Magnesium (1.6-2.3) mg/dL Total Bilirubin (0.2-1.3) mg/dL AST (17-59) U/L ALT (21-72) U/L Alkaline Phosphatase (38-126) U/L Total Creatine Kinase (55-170) U/L CK-MB (CK-2) (0.0-2.4) ng/mL CK-MB (CK-2) Rel Index Troponin I (0.000-0.034) ng/mL Total Protein (6.3-8.2) g/dL Albumin (3.5-5.0) g/dL - Radiology Data Radiology results: report reviewed (Chest x-ray positive for CHF pulmonary edema bilateral pleural effusions), image reviewed Critical Care Time Critical Care Time: Yes Total Critical Care Time: 31 Disposition Clinical Impression: Elevated troponin, Congestive heart failure, Acute pulmonary edema, NSTEMI (non -ST elevated myocardial infarction), Atrial fibrillation with RVR Disposition: ADMITTED IP TO THIS HOSP Condition: Serious Referrals: Rashi Briscoe DO [Primary Care Provider] - 1-2 days
[2017-06-19 06:01] LABS: INR 1.1 (<1.2); Partial Thromboplastin Time 23.1 sec (22.0-30.0); Prothrombin Time 10.4 sec (9.0-12.0)
[2017-06-19 06:07] LABS: ALT 43 U/L (21-72); AST 41 U/L (17-59); Albumin 3.6 g/dL (3.5-5.0); Alkaline Phosphatase 74 U/L (38-126); Anion Gap 7 mmol/L; Blood Urea Nitrogen 14 mg/dL (9-20); Calcium 9.2 mg/dL (8.4-10.2); Carbon Dioxide 26 mmol/L (22-30); Chloride 109 mmol/L (98-107); Glucose 108 mg/dL (74-99); Magnesium 1.8 mg/dL (1.6-2.3); Phosphorus 3.2 mg/dL (2.5-4.5); Sodium 142 mmol/L (137-145); Total Bilirubin 0.7 mg/dL (0.2-1.3); Total Protein 6.7 g/dL (6.3-8.2)
[2017-06-19 06:09] LABS: Potassium 4.9 mmol/L (3.5-5.1)
[2017-06-19 06:26] LABS: Creatine Kinase MB 6.8 ng/mL (0.0-2.4); Troponin I 0.327 ng/mL (0.000-0.034)
--- NOTE | 2017-06-19 06:32 | XR ---
EXAM: XR Chest, 2 Views CLINICAL HISTORY: Reason: Weakness TECHNIQUE: Frontal and lateral views of the chest. COMPARISON: 02/04/17 FINDINGS: Lungs: Interstitial and air space opacities favoring edema. Flattening of the diaphragm and increased AP diameter of the lungs consistent with chronic obstructive pulmonary disease. Pleural space: Questionable small pleural effusions with blunting of the costophrenic sulci. No pneumothorax. Heart: Cardiomegaly. Bones/joints: Stable. Vasculature: Pulmonary venous congestion. Stable atherosclerosis and degenerative osseous changes. IMPRESSION: 1. Cardiomegaly with venous congestion as well as interstitial and airspace disease which could represent edema or other infiltrate such as pneumonia. Correlate for congestive failure. 2. COPD.
[2017-06-19] MEDS ORDERED: ASPIRIN 325 MG TAB PO STA (07:19)
[2017-06-19] MEDS ORDERED: IPRATROPIUM-ALBUTEROL 3 ML NEB INHALATION STA (07:37)
[2017-06-19] MEDS ORDERED: FUROSEMIDE 10 MG/ML 4 ML VIAL IV SCH (09:00)
[2017-06-19] MEDS ORDERED: METOPROLOL TARTRATE 25 MG TAB PO SCH (09:00)
[2017-06-19] MEDS ORDERED: HEPARIN SODIUM,PORCINE 5,000 UNIT/ML 1 ML VIAL IV PRN (09:18)
[2017-06-19] MEDS ORDERED: HEPARIN SODIUM,PORCINE 5,000 UNIT/ML 1 ML VIAL IV ONE (09:18)
[2017-06-19] MEDS: NITROGLYCERIN OINT 1 INCH/GM PACKET TOPICAL SCH ×4 (09:40→21:06)
[2017-06-19] MEDS: HEPARIN SOD,PORK IN 0.45% NACL 25,000 UNIT in 0.45% NACL 1 500ML.BAG IV SCH (09:41)
[2017-06-19] MEDS: METOPROLOL TARTRATE 50 MG TAB PO SCH ×2 (10:06→21:06)
--- NOTE | 2017-06-19 11:09 | CONS ---
CONSULTATION Mr. Tee is a 76-year-old male who [facility], who presented with symptoms of progressive dyspnea as well as symptoms of not feeling well. He has underwent stenting in the [facility] in [place] in January of 2017 and at that time received 3 stents, the details of that procedure is not available to me. According to him, he has been having some dyspnea, but much worse yesterday, came into the emergency room and was found to be in atrial fibrillation with rapid ventricular response and evidence of congestive heart failure. The patient denies any symptoms of chest discomfort, although it is out not clear that he had any discomfort at the time of his presentation in January. He denies any dizziness or palpitation. He is unaware of the arrhythmia. He has been having peripheral edema, but according to him, much worse recently. He has no clear PND. He denies any fever. No wheezing. He has a prior history of smoking, but not recently. He is on the BiPAP at the time my evaluation in the emergency room. His coronary risk factors are positive for hypertension, hyperlipidemia. He has a prior history of smoking. MEDICATION: Include Lipitor 80 mg daily, aspirin once a day, Plavix 75 mg daily. Proscar, Zestril 5 mg daily, metoprolol tartrate 12.5 mg twice a day, omeprazole, tramadol, and Flomax. REVIEW OF SYSTEMS: RESPIRATORY SYSTEM: He has a history of dyspnea on exertion. No recent wheezing. There is no clear documentation of chronic obstructive lung disease. GI SYSTEM: He denies any GI bleeding or no peptic ulcer disease. SYSTEM: No dysuria or hematuria. NERVOUS SYSTEM: No history of stroke or seizure. PHYSICAL EXAMINATION: He is a 76-year-old male, alert, oriented, on the BiPAP. Blood pressure 144/80 with a heart rate in the 130s to 140s. HEAD: Normocephalic. EYES: Sclerae anicteric. NECK: No bruit. LUNGS: With decreased air exchange and rales bilaterally. HEART: Irregular regular, tachycardic, S1, S2. No S3 with systolic murmur at the base. No diastolic murmur. ABDOMEN: Soft, nontender. Positive bowel sounds. No megaly. EXTREMITIES: +3 edema bilaterally. LAB DATA: Lab data revealed a hemoglobin 12.7, white blood cell 14.6, BUN and creatinine 14 and 0.9, troponin 0.327. EKG revealed atrial fibrillation with a left bundle branch block, left axis deviation and nonspecific ST-T wave changes. The left bundle branch block and the atrial fibrillation are new compared with an EKG that was performed in January. Chest x-ray is consistent with congestive heart failure. IMPRESSION: 1. Acute pulmonary edema with atrial fibrillation. It is unclear if the elevation of troponin is related to the congestive heart failure or if he had a primary ischemic event. The patient had no symptoms of chest pain at this time. I have no prior evaluation of his left ventricular systolic function. His peripheral edema apparently has been going on for a while. 2. Mild elevation of troponin, most likely representing a non ST elevation myocardial infarction. 3. History of coronary artery disease. 4. Atrial fibrillation, new since January. 5. History of hypertension. 6. Hyperlipidemia. 7. Prior history of smoking. RECOMMENDATION: I have recommended to add heparin to his regimen. I will increase his dose of intravenous diuretic. Continue on the beta efrain and the calcium channel efrain to control his ventricular response. I will try to obtain the report from the [facility] in [place] to see his prior workup. The patient will need further cardiac evaluation once he is stabilized and that can be done here or at the [facility] depending on the decision and his status. Thank you for this consult. We will follow with you. RORY / EDA: [id number] /
[2017-06-19 12:11] LABS: Creatine Kinase MB 19.5 ng/mL (0.0-2.4); Troponin I 1.83 ng/mL (0.000-0.034)
[2017-06-19 12:39] LABS: Glucose,Whole Blood 103 mg/dL (75-99)
[2017-06-19 15:11] LABS: Amorphous Sediment,Urine Rare /hpf; Appearance,Urine Turbid (Clear); Bilirubin,Urine Negative (Negative); Blood,Urine Trace (Negative); Color,Urine Yellow; Glucose,Urine (UA) Negative (Negative); Ketones,Urine 1+ (Negative); Leukocyte Esterase,Urine Large (Negative); Mucus,Urine Many /hpf; Nitrite,Urine Positive (Negative); Protein,Urine 1+ (Negative); RBC,Urine 27 /hpf (0-5); Specific Gravity,Urine 1.017 (1.001-1.035); Squamous Epithelial Cell,Urine 26 /hpf (0-4); WBC,Urine >182 /hpf (0-5)
[2017-06-19] MEDS ORDERED: NITROGLYCERIN SL TABS 0.4 MG TAB SUBLINGUAL PRN (15:14)
[2017-06-19] MEDS ORDERED: NALOXONE 0.4 MG/ML 1 ML VIAL IV PRN (15:20)
[2017-06-19] MEDS: SODIUM CHLORIDE 0.9% 1,000 ML IV SCH (15:49)
--- NOTE | 2017-06-19 15:53 | P.CNPUL ---
History of Present Illness Consult date: 06/19/17 Reason for consult: dyspnea History of present illness: This is a 76-year-old male patient, who has been followed up at the [facility], who presented to our emergency department this morning because of progressive increase in shortness of breath. The patient is known to have coronary artery disease and the patient undergone previous coronary stenting in the [facility] in [place] in January 2017. Apparently he was given a total of 3 coronary stents. The stents were inserted in the LAD and left main, 2 in the LAD and one in the left main. He also has history of hypertension, hyperlipidemia, BPH. The patient came into the hospital because of progressive increased shortness of breath. She was also found to be in atrial fibrillation with rapid ventricular response and he was found to be in acute heart failure. The patient denies having any chest pain or angina. No significant pleurisy. No hemoptysis. No palpitation. No dizziness. He has progressive increase in lower extremities edema typical of CHF. In the emergency department, the patient was found to track on a 14.6. Troponin was elevated. Initial troponin was at 0.3 and subsequent level came up that 1.8. There proBNP level is at 2760. TSH is at 1.2. LDL cholesterol is at 68. The EKG showed atrial fibrillation with rapid ventricular response. The patient also has an underlying left axis deviation and possible anterolateral infarct age undetermined. The chest x-ray showed Bjorn megaly and pulmonary vessel congestion as well as interstitial and airspace disease. This has typical of an underlying CHF. The patient was started on IV heparin. The patient was asked to continue the aspirin and Plavix. The patient was started on Cardizem drip for rate control. The patient was started on Lasix 60 mg IV push every 8 hours. The patient was placed on a BiPAP. The patient got moved to the intensive care unit for further evaluation and treatment. Review of Systems A full review of system was done and the positive findings were mentioned above in history of present illness. A 14 system review of system was done. Essentially negative other than things mentioned above. Past Medical History Past Medical History: Coronary Artery Disease (CAD), CVA/TIA, Diabetes Mellitus , GERD/Reflux, Hyperlipidemia, Hypertension Additional Past Medical History / Comment(s): 4 and a artery disease, hypertension, hyperlipidemia, BPH, diabetes mellitus which has been on diet: The patient is on no oral treatment, congestion heart failure, MS, acid reflux, history of CVA/TIA. History of Any Multi-Drug Resistant Organisms: None Reported Past Surgical History: Adenoidectomy, Appendectomy, Heart Catheterization With Stent, Hernia Repair, Tonsillectomy Additional Past Surgical History / Comment(s): RECENT HEART CATH AT [facility] ON 02/02/17: stents were placed in the mid LAD, proximal LAD, and LEFT MAIN. Right hip repair 2011 Past Anesthesia/Blood Transfusion Reactions: No Reported Reaction Date of Last Stent Placement:: 02-02-17 Past Psychological History: No Psychological Hx Reported Smoking Status: Former smoker Past Alcohol Use History: None Reported Past Drug Use History: None Reported - Past Family History Father Family Medical History: Coronary Artery Disease (CAD) Medications and Allergies Home Medications Medication Instructions Recorded Confirmed Type Ascorbic Acid [Vitamin C] 500 mg PO DAILY 02/04/17 06/19/17 History Aspirin 81 mg PO DAILY 02/04/17 06/19/17 History Atorvastatin [Lipitor] 80 mg PO HS 02/04/17 06/19/17 History Calcium Carbonate 500 mg PO DAILY 02/04/17 06/19/17 History Cholecalciferol [Vitamin D3] 800 unit PO DAILY 02/04/17 06/19/17 History Clopidogrel Bisulfate [Plavix] 75 mg PO DAILY 02/04/17 06/19/17 History Ferrous Sulfate [Feosol] 325 mg PO BID 02/04/17 06/19/17 History Finasteride [Proscar] 5 mg PO DAILY 02/04/17 06/19/17 History Lisinopril [Zestril] 5 mg PO DAILY 02/04/17 06/19/17 History Metoprolol Tartrate [Lopressor] 25 mg PO BID 02/04/17 06/19/17 History Multivitamins, Thera [Multivitamin 1 tab PO DAILY 02/04/17 06/19/17 History (formulary)] Nitroglycerin Sl Tabs [Nitrostat] 0.4 mg SUBLINGUAL Q5M PRN 02/04/17 06/19/17 History Omeprazole 20 mg PO DAILY 02/04/17 06/19/17 History Sennosides-Docusate Sodium 2 tab PO HS 02/04/17 06/19/17 History [Senokot-S] Tamsulosin [Flomax] 0.8 mg PO DAILY 02/04/17 06/19/17 History Allergies Allergy/AdvReac Type Severity Reaction Status Date / Time No Known Allergies Allergy Verified 06/19/17 10:01 Physical Exam Vitals: Vital Signs Temp Pulse Resp BP Pulse Ox 06/19/17 15:00 67 24 118/63 97 06/19/17 14:00 71 27 H 99/69 98 06/19/17 13:00 75 28 H 131/86 96 06/19/17 11:14 136 H 31 H 128/74 95 06/19/17 10:24 142 H 32 H 133/91 97 06/19/17 09:26 160 H 32 H 167/80 95 06/19/17 08:08 136 H 18 144/87 98 06/19/17 08:05 158 H 06/19/17 07:53 146 H 06/19/17 07:09 142 H 17 157/100 95 06/19/17 06:11 135 H 20 168/87 94 L 06/19/17 05:35 97.2 F L 150 H 20 158/110 97 Intake and Output 06/19/17 06/19/17 06/19/17 06:59 14:59 22:59 Intake Total 248 124 Output Total 150 Balance 248 -26 Intake: IV 248 124 Diltiazem 125 mg In 10 5 Sodium Chloride 0.9% 100 ml @ 5 MG/HR 5 mls/hr IV .Q24H ONE Rx#:[id number] Heparin Sod,Pork in 0.45% 38 19 NaCl 25,000 unit In 0.45 % NaCl 1 500ml.bag @ 10.1 UNITS/KG/HR 19.97 mls/hr IV .Q24H BLAYNE Rx#: [id number] Sodium Chloride 0.9% 1, 200 100 000 ml @ 100 mls/hr IV . Q10H STA Rx#:[id number] Output: Urine 150 Other: Voiding Method Self-Catheterization Weight 98.883 kg 106.8 kg Patient Weight 06/20/17 06:59 Weight 106.8 kg Examination shows a 76-year-old male patient was a mild degree of respiratory distress even at rest.Head exam was generally normal. There was no scleral icterus or corneal arcus. Mucous membranes were moist. Neck is supple and there is positive JVDs no bruits no goiter or neck masses. Lungs sounds are diminished bilaterally along with some bibasilar crackles. Heart sounds are irregular S1-S2 and there tachycardic. No significant murmurs could be appreciated.Abdominal exam revealed normal bowel sounds. The abdomen was soft, non-tender, and without masses, organomegaly, or appreciable enlargement of the abdominal aorta. Extremities shows +2-3 pitting edema there is no cyanosis or clubbing. Neurologically the patient is awake and alert and the patient is following commands and answering questions appropriately and there is no focal neurological deficit.Examination of the skin revealed no evidence of significant rashes, suspicious appearing nevi or other concerning lesions. Results - Laboratory Findings CBC and BMP: 06/19/17 05:37 06/19/17 05:37 PT/INR, D-dimer PT 10.4 sec (9.0-12.0) 06/19/17 05:37 INR 1.1 (<1.2) 06/19/17 05:37 Abnormal lab findings: Abnormal Labs 06/19/17 06/19/17 06/19/17 05:37 05:37 05:37 WBC 14.6 H Hgb 12.7 L MCHC 30.4 L Neutrophils # 11.0 H Monocytes # 1.2 H Chloride 109 H Glucose 108 H POC Glucose (mg/dL) CK-MB (CK-2) 6.8 H* Troponin I 0.327 H* HDL Cholesterol Urine Protein Urine Ketones Urine Blood Ur Leukocyte Esterase Urine RBC Urine WBC Urine WBC Clumps Ur Squamous Epith Cells Amorphous Sediment Urine Mucus 06/19/17 06/19/17 06/19/17 05:37 11:11 12:36 WBC Hgb MCHC Neutrophils # Monocytes # Chloride Glucose POC Glucose (mg/dL) 103 H CK-MB (CK-2) 19.5 H* Troponin I 1.830 H* HDL Cholesterol 38 L Urine Protein Urine Ketones Urine Blood Ur Leukocyte Esterase Urine RBC Urine WBC Urine WBC Clumps Ur Squamous Epith Cells Amorphous Sediment Urine Mucus 06/19/17 14:25 WBC Hgb MCHC Neutrophils # Monocytes # Chloride Glucose POC Glucose (mg/dL) CK-MB (CK-2) Troponin I HDL Cholesterol Urine Protein 1+ H Urine Ketones 1+ H Urine Blood Trace H Ur Leukocyte Esterase Large H Urine RBC 27 H Urine WBC >182 H Urine WBC Clumps Few H Ur Squamous Epith Cells 26 H Amorphous Sediment Rare H Urine Mucus Many H - Diagnostic Findings Chest x-ray: image reviewed Assessment and Plan Plan: Assessment 1 acute non-ST segment elevation myocardial infarction 2 coronary artery disease with recent coronary intervention and stenting of the LAD and left main that was done at [facility] in [place] 3 acute decompensated heart failure, rule out systolic dysfunction and echocardiogram is still pending. 4 acute pulmonary edema with secondary shortness of breath and acute hypoxic respiratory failure 5 progressive lower extremity edema secondary to CHF 6 atrial fibrillation with rapid better response currently on Cardizem drip for rate control 7 hypertension 8 hyperlipidemia 9 BPH 10 multiple sclerosis and the patient has significant limitation in exercise capacity and mobility due to MS. 11 neurogenic bladder secondary to a massive the patient performs self- catheterization at home and currently has a Esteves catheter in place. Plan The patient was moved to the intensive care unit. The patient will be supported with BiPAP if needed for respiratory support. The patient is currently on 6 L about 2 by nasal cannula and his saturations around 97%. Continue Cardizem for rate control. IV heparin. Aspirin and Plavix. Echocardiogram. Lasix to achieve a negative fluid balance and the patient will placed on 60 mg IV Lasix every 8 hours. Continue metoprolol. Continue Salty inhibitors. Resume outpatient medications. Cardiology is on the case. We'll continue to follow.
--- NOTE | 2017-06-19 16:15 | HP ---
HISTORY AND PHYSICAL DATE OF SERVICE: 06/19/2017 CHIEF COMPLAINT: Shortness of breath. HISTORY OF PRESENT ILLNESS: This 76-year-old gentleman with a past history of CAD, history of diabetes, GERD, hypertension, hyperlipidemia, history of multiple sclerosis, history of recurrent diabetes, being followed by [facility] in the outpatient setting also had stenting in [facility] also. Currently the patient complaining of shortness of breath. Patient is significantly anxious also. The patient did not have any fever, cough, or sputum. Minimal bilateral leg edema noted. Acute murmur is noted and patient started on IV diuretics. Patient improved significantly. Troponin elevated to 1.83. Patient also noted to have atrial fibrillation with fast ventricular rate. TSH is normal. UA showed UTI. PAST MEDICAL HISTORY: History of CVA, CAD, history of CVA, TIA, history of diabetes type 2, GERD, hypertension, multiple sclerosis, recurrent diabetes type 2, CAD stent. HOME MEDICATIONS: 1. Flomax 0.8 daily. 2. Senokot-S 2 tablets q.h.s. 3. Omeprazole 20 mg b.i.d. 4. Nitrostat 0.4 sublingual p.r.n. 5. Multivitamins 1 p.o. daily. 6. Lopressor 25 mg p.o. b.i.d. 7. Zestril 5 mg p.o. daily. 8. Proscar 5 mg p.o. daily. 9. Iron sulfate 325 mg p.o. b.i.d. 10.Plavix 75 mg p.o. daily. 11.Vitamin D3 800 units daily. 12.Calcium carbonate 500 mg p.o. daily. 13.Lipitor 80 mg q.h.s. 14.Aspirin 81 mg. 15.Vitamin C 500 mg p.o. daily. ALLERGIES: None. FAMILY HISTORY: History of coronary artery disease in the family. SOCIAL HISTORY: Previous history of smoking. No history of current smoking or alcohol. REVIEW OF SYSTEMS: ENT: No diminished hearing or vision. CARDIOVASCULAR: As mentioned. RESPIRATORY: As mentioned earlier. GI: No nausea. : No dysuria. NERVOUS SYSTEM: No numbness, weakness. ALLERGY/IMMUNOLOGY: No asthma or hayfever. MUSCULOSKELETAL: As mentioned earlier. HEMATOLOGY/ONCOLOGY: No history of anemia. ENDOCRINE: No history of diabetes or hypothyroidism. CONSTITUTIONAL: As mentioned. DERMATOLOGY: Negative. RHEUMATOLOGY: Negative. PSYCHIATRY: As mentioned earlier. PHYSICAL EXAMINATION: Alert and oriented x3. Pulse 71, blood pressure 131/86, respirations 20, temperature normal, pulse ox 96% on BiPAP. HEENT: Conjunctivae normal. Oral mucosa moist. NECK: Jugular venous distention at root of neck. No carotid bruit. CARDIOVASCULAR: S1, S1. RESPIRATORY: Breath sounds diminished in the bases. A few scattered rhonchi and crackles. Expiratory wheezing also present. ABDOMEN: Soft, nontender. No mass palpable. LEGS: Minimal leg edema bilaterally. NERVOUS SYSTEM: Higher functions as mentioned earlier, moves all 4 limbs, no focal motor sensory deficits. LYMPHATICS: No lymphadenopathy in the neck, axillae, groin. SKIN: No ulcer, rash, bleeding. JOINT: No active deforming arthropathy. LABS: WBC 14.6, hemoglobin 12.7. Otherwise, NT proBNP is 2760. Troponin 1.833. ASSESSMENT: 1. Congestive heart failure acute exacerbation with ejection fraction unknown. 2. Troponin 1.830, possible acute non ST-segment elevation myocardial infarction. 3. Atrial fibrillation with fast ventricular rate. 4. Acute urinary tract infection present on admission. 5. Increased WBC. 6. History of coronary artery disease, stent. 7. History of cerebrovascular accident, transient ischemic attack. 8. Diabetes mellitus type 2. 9. Hypertension. 10.Hyperlipidemia. 11.Gastroesophageal reflux disease. 12.Multiple sclerosis. 13.History recurrent diabetes mellitus type 2. 14.History atrial fibrillation. 15.History of hernia repair. RECOMMENDATIONS AND DISCUSSION: This 76-year-old gentleman who presented with multiple complex medical issues, will monitor the patient closely. Continue the current management and symptomatic treatment. I recommend broad-spectrum antibiotics, diuretics, resume the home medications and IV heparin, beta blockers, antiplatelet agents for the myocardial infarction. Overall prognosis is extremely guarded because of multiple complex medical issues. Further recommendations to follow. Home medications will be ordered. DVT prophylaxis. Prognosis guarded. Further recommendations to follow. MMODL / IJN: [id number] /
[2017-06-19] MEDS: FUROSEMIDE 10 MG/ML 10 ML VIAL IV SCH ×2 (16:53→23:50)
[2017-06-19] MEDS: FERROUS SULFATE 325 MG TAB PO SCH (16:53)
[2017-06-19 19:37] LABS: Creatine Kinase MB 22.9 ng/mL (0.0-2.4); Troponin I 3.94 ng/mL (0.000-0.034)
[2017-06-19] MEDS: LISINOPRIL 5 MG TAB PO SCH (21:06)
[2017-06-19] MEDS: SENNOSIDES-DOCUSATE SODIUM 1 EACH TAB PO SCH (21:06)
[2017-06-19] MEDS: ATORVASTATIN 80 MG TAB PO SCH (21:06)
[2017-06-20 04:33] LABS: Basophils # (A) 0.1 k/uL (0-0.2); Basophils % (A) 0 %; Eosinophils # (A) 0.2 k/uL (0-0.7); Eosinophils % (A) 1 %; HCT 36.5 % (39.0-53.0); HGB 11.6 gm/dL (13.0-17.5); Lymphocytes # (A) 2.3 k/uL (1.0-4.8); Lymphocytes % (A) 20 %; MCH 29.1 pg (25.0-35.0); MCHC 31.9 g/dL (31.0-37.0); MCV 91.2 fL (80.0-100.0); Mean Platelet Volume 8.2; Monocytes # (A) 0.9 k/uL (0-1.0); Monocytes % (A) 7 %; Neutrophils # (A) 8.2 k/uL (1.3-7.7); Neutrophils % (A) 69 %; Platelet Count 207 k/uL (150-450); RDW 13.3 % (11.5-15.5); WBC 11.9 k/uL (3.8-10.6)
[2017-06-20 05:07] LABS: Anion Gap 9 mmol/L; Blood Urea Nitrogen 16 mg/dL (9-20); Calcium 9.4 mg/dL (8.4-10.2); Carbon Dioxide 32 mmol/L (22-30); Chloride 101 mmol/L (98-107); Glucose 102 mg/dL (74-99); Magnesium 1.8 mg/dL (1.6-2.3); Phosphorus 3.7 mg/dL (2.5-4.5); Potassium 3.6 mmol/L (3.5-5.1); Sodium 142 mmol/L (137-145)
[2017-06-20] MEDS ORDERED: PANTOPRAZOLE 40 MG TABLET PO SCH (07:30)
[2017-06-20] MEDS ORDERED: POTASSIUM CHLORIDE ER 20 MEQ TAB.ER PO SCH (07:45)
[2017-06-20] MEDS: HEPARIN SOD,PORK IN 0.45% NACL 25,000 UNIT in 0.45% NACL 1 500ML.BAG IV SCH (07:49)
--- NOTE | 2017-06-20 08:23 | XR ---
EXAMINATION TYPE: XR chest 1V DATE OF EXAM: 06/20/2017 COMPARISON: Prior chest x-ray 06/19/2017 HISTORY: Congestive heart failure, pulmonary edema TECHNIQUE: Single frontal view of the chest is obtained. FINDINGS: There is improvement in aeration as compared to previous exam. Heart remains enlarged. No pneumothorax or sizable effusion. There are overlying cardiac leads. IMPRESSION: Improvement in patient's volume status and aeration.
[2017-06-20] MEDS ORDERED: ASPIRIN 325 MG TAB PO SCH (09:00)
[2017-06-20] MEDS: FERROUS SULFATE 325 MG TAB PO SCH ×2 (09:11→17:35)
[2017-06-20] MEDS: PANTOPRAZOLE 40 MG TABLET PO SCH (09:12)
[2017-06-20] MEDS: CLOPIDOGREL 75 MG TAB PO SCH (09:12)
[2017-06-20] MEDS: TAMSULOSIN 0.4 MG CAP.ER.24H PO SCH (09:12)
[2017-06-20] MEDS: ASPIRIN 81 MG PO SCH (09:12)
[2017-06-20] MEDS: FINASTERIDE 5 MG TAB PO SCH (09:13)
[2017-06-20] MEDS: METOPROLOL TARTRATE 50 MG TAB PO SCH ×3 (09:13→21:51)
[2017-06-20] MEDS: LISINOPRIL 5 MG TAB PO SCH ×2 (09:15→20:26)
[2017-06-20] MEDS: FUROSEMIDE 10 MG/ML 10 ML VIAL IV SCH (09:15)
[2017-06-20] MEDS: NITROGLYCERIN OINT 1 INCH/GM PACKET TOPICAL SCH ×4 (09:16→21:52)
[2017-06-20] MEDS: FUROSEMIDE 10 MG/ML 4 ML VIAL IV SCH ×2 (09:21→20:31)
--- NOTE | 2017-06-20 09:26 | P.PN ---
Subjective Progress Note Date: 06/20/17 Principal diagnosis: Acute non-ST segment elevation myocardial infarction This is a 76-year-old male patient, who has been followed up at the [facility], who presented to our emergency department this morning because of progressive increase in shortness of breath. The patient is known to have coronary artery disease and the patient undergone previous coronary stenting in the [facility] in [place] in January 2017. Apparently he was given a total of 3 coronary stents. The stents were inserted in the LAD and left main, 2 in the LAD and one in the left main. He also has history of hypertension, hyperlipidemia, BPH. The patient came into the hospital because of progressive increased shortness of breath. She was also found to be in atrial fibrillation with rapid ventricular response and he was found to be in acute heart failure. The patient denies having any chest pain or angina. No significant pleurisy. No hemoptysis. No palpitation. No dizziness. He has progressive increase in lower extremities edema typical of CHF. In the emergency department, the patient was found to track on a 14.6. Troponin was elevated. Initial troponin was at 0.3 and subsequent level came up that 1.8. There proBNP level is at 2760. TSH is at 1.2. LDL cholesterol is at 68. The EKG showed atrial fibrillation with rapid ventricular response. The patient also has an underlying left axis deviation and possible anterolateral infarct age undetermined. The chest x-ray showed Bjorn megaly and pulmonary vessel congestion as well as interstitial and airspace disease. This has typical of an underlying CHF. The patient was started on IV heparin. The patient was asked to continue the aspirin and Plavix. The patient was started on Cardizem drip for rate control. The patient was started on Lasix 60 mg IV push every 8 hours. The patient was placed on a BiPAP. The patient got moved to the intensive care unit for further evaluation and treatment. Patient was reevaluated today on 06/20/2017, seems to be doing much better today, not requiring any pressors, he is even off IV Cardizem, and he is in normal sinus rhythm today. Hemodynamically, the patient is stable. Chest x-ray is showing definite improvement in his pulmonary status, less pulmonary edema is noted. Labs showed relatively normal CBC and normal electrolytes and normal renal profile. Troponin is elevated at 3.94. Urine is suggestive of urinary tract infection. Hence urine cultures will be ordered, and the patient will be started empirically on Rocephin. Objective - Vital Signs Vital signs: Vital Signs Temp 98 F 06/20/17 08:00 Pulse 77 06/20/17 08:00 Resp 17 06/20/17 08:00 BP 134/69 06/20/17 08:00 Pulse Ox 96 06/20/17 07:00 Intake & Output 06/19/17 06/20/17 06/20/17 18:59 06:59 18:59 Intake Total 657.251 358.233 394.764 Output Total 1195 3145 130 Balance -537.749 -2786.767 264.764 Weight 106.8 kg 101.5 kg Intake: IV 513.8 268.9 40 Diltiazem 125 mg In 30 5 Sodium Chloride 0.9% 100 ml @ 5 MG/HR 5 mls/hr IV .Q24H ONE Rx#:[id number] Heparin Sod,Pork in 0.45% 123.8 23.9 NaCl 25,000 unit In 0.45 % NaCl 1 500ml.bag @ 10.1 UNITS/KG/HR 19.97 mls/hr IV .Q24H BLAYNE Rx#: [id number] Sodium Chloride 0.9% 1, 300 000 ml @ 100 mls/hr IV . Q10H STA Rx#:[id number] Sodium Chloride 0.9% 1, 60 240 40 000 ml @ 20 mls/hr IV . Q24H BLAYNE Rx#:[id number] Intake, IV Titration 143.451 89.333 354.764 Amount Diltiazem 125 mg In 89.333 Sodium Chloride 0.9% 100 ml @ 5 MG/HR 5 mls/hr IV .Q24H ONE Rx#:[id number] Heparin Sod,Pork in 0.45% 143.451 354.764 NaCl 25,000 unit In 0.45 % NaCl 1 500ml.bag @ 10.1 UNITS/KG/HR 19.97 mls/hr IV .Q24H BLAYNE Rx#: [id number] Output: Urine 1195 3145 130 Other: Voiding Method Self-Catheterization Indwelling Catheter - Exam Physical Exam: Revealed a 76-year-old white male in no distress. HEENT:[Neck is supple.] [No neck masses.] [No thyromegaly.] [No JVD.] Chest: [Minimal fine crackles at the bases with diminished breath sounds at the bases..] Cardiac Exam: [Normal S1 and S2, no S3 gallop, no murmur.] Abdomen: [Soft, nontender, no megaly, no rebound, no guarding, normal bowel sounds.] Extremities: [No clubbing, no edema, no cyanosis.] Neurological Exam: [No focal neurologic deficit.] Lymphatics: No lymphadenopathy. Psychiatric: Normal mood affect and mental status exam - Labs CBC & Chem 7: 06/20/17 04:08 06/20/17 04:08 Labs: Abnormal Lab Results - Last 24 Hours (Table) 06/19/17 06/19/17 06/19/17 Range/Units 05:37 11:11 12:36 WBC (3.8-10.6) k/uL RBC (4.30-5.90) m/uL Hgb (13.0-17.5) gm/dL Hct (39.0-53.0) % Neutrophils # (1.3-7.7) k/uL APTT (22.0-30.0) sec Carbon Dioxide (22-30) mmol/L Glucose (74-99) mg/dL POC Glucose (mg/dL) 103 H (75-99) mg/dL CK-MB (CK-2) 19.5 H* (0.0-2.4) ng/mL Troponin I 1.830 H* (0.000-0.034) ng/mL HDL Cholesterol 38 L (40-60) mg/dL Urine Protein (Negative) Urine Ketones (Negative) Urine Blood (Negative) Ur Leukocyte Esterase (Negative) Urine RBC (0-5) /hpf Urine WBC (0-5) /hpf Urine WBC Clumps (None) /hpf Ur Squamous Epith Cells (0-4) /hpf Amorphous Sediment (None) /hpf Urine Mucus (None) /hpf 06/19/17 06/19/17 06/19/17 Range/Units 14:25 15:30 18:24 WBC (3.8-10.6) k/uL RBC (4.30-5.90) m/uL Hgb (13.0-17.5) gm/dL Hct (39.0-53.0) % Neutrophils # (1.3-7.7) k/uL APTT 43.6 H (22.0-30.0) sec Carbon Dioxide (22-30) mmol/L Glucose (74-99) mg/dL POC Glucose (mg/dL) (75-99) mg/dL CK-MB (CK-2) 22.9 H* (0.0-2.4) ng/mL Troponin I 3.940 H* (0.000-0.034) ng/mL HDL Cholesterol (40-60) mg/dL Urine Protein 1+ H (Negative) Urine Ketones 1+ H (Negative) Urine Blood Trace H (Negative) Ur Leukocyte Esterase Large H (Negative) Urine RBC 27 H (0-5) /hpf Urine WBC >182 H (0-5) /hpf Urine WBC Clumps Few H (None) /hpf Ur Squamous Epith Cells 26 H (0-4) /hpf Amorphous Sediment Rare H (None) /hpf Urine Mucus Many H (None) /hpf 06/19/17 06/20/17 06/20/17 Range/Units 22:09 04:08 04:08 WBC 11.9 H (3.8-10.6) k/uL RBC 4.00 L (4.30-5.90) m/uL Hgb 11.6 L (13.0-17.5) gm/dL Hct 36.5 L (39.0-53.0) % Neutrophils # 8.2 H (1.3-7.7) k/uL APTT 61.3 H (22.0-30.0) sec Carbon Dioxide 32 H (22-30) mmol/L Glucose 102 H (74-99) mg/dL POC Glucose (mg/dL) (75-99) mg/dL CK-MB (CK-2) (0.0-2.4) ng/mL Troponin I (0.000-0.034) ng/mL HDL Cholesterol (40-60) mg/dL Urine Protein (Negative) Urine Ketones (Negative) Urine Blood (Negative) Ur Leukocyte Esterase (Negative) Urine RBC (0-5) /hpf Urine WBC (0-5) /hpf Urine WBC Clumps (None) /hpf Ur Squamous Epith Cells (0-4) /hpf Amorphous Sediment (None) /hpf Urine Mucus (None) /hpf 06/20/17 Range/Units 04:08 WBC (3.8-10.6) k/uL RBC (4.30-5.90) m/uL Hgb (13.0-17.5) gm/dL Hct (39.0-53.0) % Neutrophils # (1.3-7.7) k/uL APTT 55.0 H (22.0-30.0) sec Carbon Dioxide (22-30) mmol/L Glucose (74-99) mg/dL POC Glucose (mg/dL) (75-99) mg/dL CK-MB (CK-2) (0.0-2.4) ng/mL Troponin I (0.000-0.034) ng/mL HDL Cholesterol (40-60) mg/dL Urine Protein (Negative) Urine Ketones (Negative) Urine Blood (Negative) Ur Leukocyte Esterase (Negative) Urine RBC (0-5) /hpf Urine WBC (0-5) /hpf Urine WBC Clumps (None) /hpf Ur Squamous Epith Cells (0-4) /hpf Amorphous Sediment (None) /hpf Urine Mucus (None) /hpf Microbiology - Last 24 Hours (Table) 06/19/17 14:25 Urine Culture - Preliminary Urine,Catheterized Assessment and Plan Assessment: 1 acute non-ST segment elevation myocardial infarction 2 coronary artery disease with recent coronary intervention and stenting of the LAD and left main that was done at in [place] 3 acute decompensated heart failure, rule out systolic dysfunction and echocardiogram is still pending. 4 acute pulmonary edema with secondary shortness of breath and acute hypoxic respiratory failure 5 progressive lower extremity edema secondary to CHF 6 atrial fibrillation with rapid better response currently on Cardizem drip for rate control 7 hypertension 8 hyperlipidemia 9 BPH 10 multiple sclerosis and the patient has significant limitation in exercise capacity and mobility due to MS. 11 neurogenic bladder secondary to a massive the patient performs self- catheterization at home and currently has a Esteves catheter in place. Recommendation: Patient is doing quite well today, he is off BiPAP, presently on nasal cannula, in no distress, presently in normal sinus rhythm, off Cardizem , not requiring any pressors, hence we'll arrange for the patient be transferred to a monitored bed on selective, discussed with Dr. Yung who was planning to transfer the patient to the [place] hopefully today. Time with Patient: Less than 30
[2017-06-20] MEDS: cefTRIAXone IN SWFI 1,000 MG/10 ML SYRINGE IVP SCH (10:07)
[2017-06-20 11:05] VITALS: BMI 31.1
--- NOTE | 2017-06-20 11:14 | ECHOF ---
Referral Reason:Heart Failure MEASUREMENTS -------- HEIGHT: 162.6 cm WEIGHT: 101.2 kg BP: 146/67 RVIDd: 2.8 cm (< 3.3) IVSd: 1.2 cm (0.6 - 1.1) LVIDd: 4.7 cm (3.9 - 5.3) LVPWd: 1.1 cm (0.6 - 1.1) IVSs: 1.6 cm LVIDs: 3.2 cm LVPWs: 1.2 cm LA Diam: 4.2 cm (2.7 - 3.8) LAESV Index (A-L): 30.88 ml/m Ao Diam: 3.2 cm (2.0 - 3.7) AV Cusp: 1.5 cm (1.5 - 2.6) LA Diam: 3.8 cm (2.7 - 3.8) MV EXCURSION: 20.824 mm (> 18.000) MV EF SLOPE: 93 mm/s (70 - 150) EPSS: 0.6 cm MV E Gaudencio: 0.76 m/s MV DecT: 217 ms MV A Gaudencio: 0.81 m/s MV E/A Ratio: 0.93 RAP: 5.00 mmHg RVSP: 21.18 mmHg FINDINGS -------- Sinus rhythm. This was a technically adequate study. The left ventricular size is normal. There is mild concentric left ventricular hypertrophy. Overa ll left ventricular systolic function is normal with, an EF between 55 - 60 %. The right ventricle is normal in size. LA is midly dilated 29-33ml/m2. The right atrial size is normal. There is mild aortic valve sclerosis. There is no evidence of aortic regurgitation. Mild mitral regurgitation is present. Mild tricuspid regurgitation present. There is no evidence of pulmonary hypertension. The right v entricular systolic pressure, as measured by Doppler, is 21.18mmHg. Trace/mild (physiologic) pulmonic regurgitation. The aortic root size is normal. There is no pericardial effusion. CONCLUSIONS -------- 1. The left ventricular size is normal. 2. There is mild concentric left ventricular hypertrophy. 3. Overall left ventricular systolic function is normal with, an EF between 55 - 60 %. 4. LA is midly dilated 29-33ml/m2. 5. There is mild aortic valve sclerosis. 6. Mild mitral regurgitation is present. 7. Mild tricuspid regurgitation present. 8. There is no evidence of pulmonary hypertension. 9. The right ventricular systolic pressure, as measured by Doppler, is 21.18mmHg. 10. Trace/mild (physiologic) pulmonic regurgitation. 11. The aortic root size is normal. 12. There is no pericardial effusion. ANTIQUE FURNITURE RESTORER: Yaz Andrade RDCS
[2017-06-20] MEDS: MULTIVITAMINS, THERA 1 EACH TAB PO SCH (12:08)
[2017-06-20] MEDS: CALCIUM CARBONATE 500 MG CHEWABLE PO SCH (12:08)
[2017-06-20] MEDS: ASCORBIC ACID 500 MG TAB PO SCH (12:08)
[2017-06-20] MEDS: CHOLECALCIFEROL 400 UNIT TAB PO SCH (12:08)
--- NOTE | 2017-06-20 12:46 | PN ---
PROGRESS NOTE Mr. Tee is a 76-year-old male who presented to the emergency room with symptoms of pulmonary edema as well as evidence of atrial fibrillation with rapid ventricular response. He subsequently converted to normal sinus rhythm. He has rate-related intraventricular conduction delay. He is feeling much better today. He is on nasal cannula. He has no chest pain. His breathing is stable. He has no dizziness or palpitation. Hemodynamically, he is stable. He has no nausea or vomiting. He continues on aspirin once a day, Lipitor 80 mg daily, Plavix 75 mg daily, metoprolol tartrate 50 mg twice a day, lisinopril 5 mg twice a day, IV heparin, Lasix 60 mg IV q.6 hours, in addition to nitro paste 1 inch q.6 hours. PHYSICAL EXAMINATION: Blood pressure 134/60 with a heart rate in the 90s. LUNGS: Clear with a few crackles. HEART: Regular rate and rhythm, S1, S2. No S3 with systolic murmur. No diastolic murmur. ABDOMEN: Soft, nontender. EXTREMITIES: 1+ edema, improved compared with yesterday. I reviewed the results of his workup at the [facility] in [place]. He has underwent high- risk stenting of the left main and LAD using an Impella support. LAB WORK: Revealed a troponin of 3.94. His BUN and creatinine 16 and 1.0, potassium 3.6, hemoglobin 11.6. IMPRESSION: 1. Status post [id number] elevation myocardial infarction. 2. Pulmonary edema, improved. 3. History of paroxysmal atrial fibrillation, back in sinus mechanism. 4. Hypertension. 5. Hyperlipidemia. RECOMMENDATION: I will cut down his IV diuretics, continue rest of his medical regimen, except increasing the dose of his beta efrain. He had an echocardiogram and will review the results. Patient would require repeat coronary angiography because of the fact that he underwent a high-risk stenting using Impella done recently. I feel that he is better served going back to the [facility] to undergo the repeat procedure. I have discussed those findings with the patient. MMODL / IJN: [id number] /
[2017-06-20] MEDS: SODIUM CHLORIDE 0.9% 1,000 ML IV SCH (15:56)
[2017-06-20] MEDS: ATORVASTATIN 80 MG TAB PO SCH (20:26)
[2017-06-20] MEDS: SENNOSIDES-DOCUSATE SODIUM 1 EACH TAB PO SCH (20:26)
[2017-06-21] MEDS: HEPARIN SOD,PORK IN 0.45% NACL 25,000 UNIT in 0.45% NACL 1 500ML.BAG IV SCH (04:34)
[2017-06-21 05:14] LABS: Basophils % (A) 0 %; Eosinophils # (A) 0.2 k/uL (0-0.7); Eosinophils % (A) 2 %; HCT 36.6 % (39.0-53.0); HGB 11.8 gm/dL (13.0-17.5); Lymphocytes # (A) 2.2 k/uL (1.0-4.8); Lymphocytes % (A) 19 %; MCH 29.4 pg (25.0-35.0); MCHC 32.3 g/dL (31.0-37.0); MCV 90.8 fL (80.0-100.0); Monocytes # (A) 0.9 k/uL (0-1.0); Monocytes % (A) 8 %; Neutrophils # (A) 7.7 k/uL (1.3-7.7); Neutrophils % (A) 68 %; Platelet Count 186 k/uL (150-450); RBC 4.03 m/uL (4.30-5.90); RDW 13.1 % (11.5-15.5); WBC 11.4 k/uL (3.8-10.6)
[2017-06-21 05:43] LABS: Anion Gap 7 mmol/L; Blood Urea Nitrogen 21 mg/dL (9-20); Calcium 9.2 mg/dL (8.4-10.2); Carbon Dioxide 31 mmol/L (22-30); Chloride 101 mmol/L (98-107); Glucose 104 mg/dL (74-99); Magnesium 1.9 mg/dL (1.6-2.3); Phosphorus 3.6 mg/dL (2.5-4.5); Potassium 3.9 mmol/L (3.5-5.1); Sodium 139 mmol/L (137-145)
[2017-06-21] MEDS: CLOPIDOGREL 75 MG TAB PO SCH (08:44)
[2017-06-21] MEDS: FUROSEMIDE 10 MG/ML 4 ML VIAL IV SCH (08:44)
[2017-06-21] MEDS: PANTOPRAZOLE 40 MG TABLET PO SCH (08:44)
[2017-06-21] MEDS: ASPIRIN 81 MG PO SCH (08:44)
[2017-06-21] MEDS: FERROUS SULFATE 325 MG TAB PO SCH ×2 (08:44→16:11)
[2017-06-21] MEDS: TAMSULOSIN 0.4 MG CAP.ER.24H PO SCH (08:45)
[2017-06-21] MEDS: FINASTERIDE 5 MG TAB PO SCH (08:46)
[2017-06-21] MEDS: cefTRIAXone IN SWFI 1,000 MG/10 ML SYRINGE IVP SCH (08:46)
[2017-06-21] MEDS: METOPROLOL TARTRATE 50 MG TAB PO SCH ×2 (09:12→16:11)
--- NOTE | 2017-06-21 10:02 | P.PN ---
Subjective Progress Note Date: 06/21/17 Principal diagnosis: Acute non-ST segment elevation myocardial infarction This is a 76-year-old male patient, who has been followed up at the [facility], who presented to our emergency department this morning because of progressive increase in shortness of breath. The patient is known to have coronary artery disease and the patient undergone previous coronary stenting in the [facility] in [place] in January 2017. Apparently he was given a total of 3 coronary stents. The stents were inserted in the LAD and left main, 2 in the LAD and one in the left main. He also has history of hypertension, hyperlipidemia, BPH. The patient came into the hospital because of progressive increased shortness of breath. She was also found to be in atrial fibrillation with rapid ventricular response and he was found to be in acute heart failure. The patient denies having any chest pain or angina. No significant pleurisy. No hemoptysis. No palpitation. No dizziness. He has progressive increase in lower extremities edema typical of CHF. In the emergency department, the patient was found to track on a 14.6. Troponin was elevated. Initial troponin was at 0.3 and subsequent level came up that 1.8. There proBNP level is at 2760. TSH is at 1.2. LDL cholesterol is at 68. The EKG showed atrial fibrillation with rapid ventricular response. The patient also has an underlying left axis deviation and possible anterolateral infarct age undetermined. The chest x-ray showed Bjorn megaly and pulmonary vessel congestion as well as interstitial and airspace disease. This has typical of an underlying CHF. The patient was started on IV heparin. The patient was asked to continue the aspirin and Plavix. The patient was started on Cardizem drip for rate control. The patient was started on Lasix 60 mg IV push every 8 hours. The patient was placed on a BiPAP. The patient got moved to the intensive care unit for further evaluation and treatment. Patient was reevaluated today on 06/20/2017, seems to be doing much better today, not requiring any pressors, he is even off IV Cardizem, and he is in normal sinus rhythm today. Hemodynamically, the patient is stable. Chest x-ray is showing definite improvement in his pulmonary status, less pulmonary edema is noted. Labs showed relatively normal CBC and normal electrolytes and normal renal profile. Troponin is elevated at 3.94. Urine is suggestive of urinary tract infection. Hence urine cultures will be ordered, and the patient will be started empirically on Rocephin. Patient was reevaluated today on 07/01/2017, continues to do well, presently in sinus rhythm, he is hemodynamically stable, plans are in progress to consider sending the patient to the [facility] where he had his initial cardiac cath and stenting. Today the patient is relatively asymptomatic, his PTT is therapeutic at 61.7. CBC is relatively normal and his basic metabolic profile is normal. Objective - Vital Signs Vital signs: Vital Signs Temp 98.3 F 06/21/17 04:00 Pulse 57 L 06/21/17 06:00 Resp 10 L 06/21/17 06:00 BP 126/74 06/21/17 06:00 Pulse Ox 97 06/21/17 06:00 Intake & Output 06/20/17 06/21/17 06/21/17 18:59 06:59 18:59 Intake Total 1394.764 732.398 Output Total 1835 1270 Balance -440.236 -537.602 Weight 101.5 kg 100.6 kg Intake: IV 240 240 Sodium Chloride 0.9% 1, 240 240 000 ml @ 20 mls/hr IV . Q24H BLAYNE Rx#:[id number] Intake, IV Titration 354.764 492.398 Amount Heparin Sod,Pork in 0.45% 354.764 492.398 NaCl 25,000 unit In 0.45 % NaCl 1 500ml.bag @ 10.1 UNITS/KG/HR 19.97 mls/hr IV .Q24H BLAYNE Rx#: [id number] Oral 800 Output: Urine 1835 1270 Other: Voiding Method Indwelling Catheter Indwelling Catheter - Exam Physical Exam: Revealed a 76-year-old white male in no distress. HEENT:[Neck is supple.] [No neck masses.] [No thyromegaly.] [No JVD.] Chest: [Minimal fine crackles at the bases with diminished breath sounds at the bases..] Cardiac Exam: [Normal S1 and S2, no S3 gallop, no murmur.] Abdomen: [Soft, nontender, no megaly, no rebound, no guarding, normal bowel sounds.] Extremities: [No clubbing, no edema, no cyanosis.] Neurological Exam: [No focal neurologic deficit.] Lymphatics: No lymphadenopathy. Psychiatric: Normal mood affect and mental status exam - Labs CBC & Chem 7: 06/21/17 04:38 06/21/17 04:38 Labs: Abnormal Lab Results - Last 24 Hours (Table) 06/21/17 06/21/17 06/21/17 Range/Units 04:38 04:38 04:38 WBC 11.4 H (3.8-10.6) k/uL RBC 4.03 L (4.30-5.90) m/uL Hgb 11.8 L (13.0-17.5) gm/dL Hct 36.6 L (39.0-53.0) % APTT 61.7 H (22.0-30.0) sec Carbon Dioxide 31 H (22-30) mmol/L BUN 21 H (9-20) mg/dL Glucose 104 H (74-99) mg/dL Microbiology - Last 24 Hours (Table) 06/19/17 14:25 Urine Culture - Preliminary Urine,Catheterized Gram Neg Bacilli Aerococcus urinae Assessment and Plan Assessment: 1 acute non-ST segment elevation myocardial infarction 2 coronary artery disease with recent coronary intervention and stenting of the LAD and left main that was done at in [place] 3 acute decompensated heart failure, rule out systolic dysfunction and echocardiogram is still pending. 4 acute pulmonary edema with secondary shortness of breath and acute hypoxic respiratory failure 5 progressive lower extremity edema secondary to CHF 6 atrial fibrillation with rapid better response currently on Cardizem drip for rate control 7 hypertension 8 hyperlipidemia 9 BPH 10 multiple sclerosis and the patient has significant limitation in exercise capacity and mobility due to MS. 11 neurogenic bladder secondary to a massive the patient performs self- catheterization at home and currently has a Esteves catheter in place. Recommendation: Patient is doing quite well today, he is off BiPAP, presently on nasal cannula, in no distress, presently in normal sinus rhythm, off Cardizem , not requiring any pressors, and plans are in progress to possibly transfer the patient to the . In [place]. Time with Patient: Less than 30
[2017-06-21] MEDS: NITROGLYCERIN OINT 1 INCH/GM PACKET TOPICAL SCH ×3 (10:54→17:00)
[2017-06-21] MEDS: LISINOPRIL 5 MG TAB PO SCH (10:54)
[2017-06-21] MEDS: CALCIUM CARBONATE 500 MG CHEWABLE PO SCH (11:25)
[2017-06-21] MEDS: ASCORBIC ACID 500 MG TAB PO SCH (11:25)
[2017-06-21] MEDS: CHOLECALCIFEROL 400 UNIT TAB PO SCH (11:25)
[2017-06-21] MEDS: MULTIVITAMINS, THERA 1 EACH TAB PO SCH (11:26)
[2017-06-21 12:11] LABS: Glucose,Whole Blood 113 mg/dL (75-99)
--- NOTE | 2017-06-21 12:35 | PN ---
PROGRESS NOTE Mr. Tee is a 76-year-old male who presented with symptoms of congestive heart failure, atrial fibrillation, has a known history of coronary artery disease, status post high-risk stenting using Impella down in [facility] recently. He is feeling much better at this time. He is back in sinus mechanism. He has no chest pain. His breathing has been stable. He denies any dizziness or palpitation. He denies any nausea. He continues to be on aspirin once a day, Lipitor 80 mg daily, Plavix 75 mg daily, finasteride, Lasix 40 mg IV q.12 hours, lisinopril 5 mg twice a day, metoprolol tartrate 50 mg 3 times a day, and nitro paste 1 inch q.6 hours. PHYSICAL EXAMINATION: Blood pressure 99/50 with the heart rate in the 60s. LUNGS: No wheezes. HEART: Regular rate and rhythm. S1, S2. No S3 with systolic murmur. No diastolic murmur. No rub. ABDOMEN: Soft, nontender. EXTREMITIES: No edema. IMPRESSION: 1. Pulmonary edema, resolved. 2. [id number] elevation myocardial infarction in a patient recent high-risk stenting of the left main and the left anterior descending artery. 3. Paroxysmal atrial fibrillation, remains sinus mechanism. 4. Hypertension. RECOMMENDATION: I will change his Lasix to oral. Continue the rest of his medical regimen. Because of his high-risk procedure that was done recently, I feel that he is better served having the repeat cardiac catheterization done in [facility] and I have discussed with him those findings. We are awaiting an availability of a bed there to be transferred. Otherwise, we will continue present therapy and depending on his progress, further recommendation will be made. MMODL / IJN: [id number] /
--- NOTE | 2017-06-21 12:42 | XR ---
EXAMINATION TYPE: XR chest 1V DATE OF EXAM: 06/21/2017 COMPARISON: Prior chest x-ray 06/20/2017 HISTORY: Congestive heart failure, pulmonary edema TECHNIQUE: Single frontal view of the chest is obtained. FINDINGS: Patient is rotated. There are overlying cardiac leads. Heart is enlarged. No evident pneum othorax. Mild increased density present at the lung bases. Pulmonary vascularity and billie within norm al limits. IMPRESSION: There may be some small basilar effusions and associated atelectasis. Persistent cardiom egaly. Mild improvement in aeration suspected.
[2017-06-21] MEDS: SODIUM CHLORIDE 0.9% 1,000 ML IV SCH (14:32)
[2017-06-21 16:10] VITALS: BP 168/76; PULSE 75; RESP 18; TEMP 97.6
[2017-06-21 17:17] LABS: Glucose,Whole Blood 100 mg/dL (75-99)
[2017-06-21] MEDS ORDERED: FUROSEMIDE 40 MG TAB PO SCH (18:00)
--- NOTE | 2017-06-21 18:22 | P.PN ---
Subjective Progress Note Date: 06/20/17 Progress note being dictated for Dr. Witt. Interval history: This is a 76-year-old gentleman admitted with acute CHF exacerbation, elevated troponin, possible acute non-STEMI, atrial fibrillation with RVR, acute UTI, short runs of V. tach, and multiple other medical issues in a patient with recent cardiac stents in January 2017 at the [facility]. Cardizem drip weaned off at midnight, telemetry currently sinus rhythm with PACs , PVCs and bundle branch block. Chest x-ray reporting improving pulmonary edema. Maintained on Rocephin for acute UTI, cultures in progress. Troponins 0.327, 1.830, 3.94. Review of systems: CONSTITUTIONAL: No fever, no malaise, no fatigue. HEENT: No recent visual problems or hearing problems. Denied any sore throat. CARDIOVASCULAR: No chest pain, orthopnea, PND, no palpitations, no syncope. PULMONARY: No shortness of breath, no cough, no hemoptysis. GASTROINTESTINAL: No diarrhea, no nausea, no vomiting, no abdominal pain. Normoactive bowel sounds. NEUROLOGICAL: No headaches, no weakness, no numbness. HEMATOLOGICAL: Denies any bleeding or petechiae. GENITOURINARY: Denies any burning micturition, frequency, or urgency. MUSCULOSKELETAL/RHEUMATOLOGICAL: Denies any joint pain, swelling, or any muscle pain. ENDOCRINE: Denies any polyuria or polydipsia. PSYCHIATRIC: No anxiety, no depression The rest of the 14 point review of systems is negative Active Medications Ascorbic Acid (Vitamin C) 500 mg PO 1200 [facility] Last Admin: 06/20/17 12:08 Dose: 500 mg Aspirin (Aspirin) 81 mg PO DAILY [facility] Last Admin: 06/20/17 09:12 Dose: 81 mg Atorvastatin Calcium (Lipitor) 80 mg PO HS [facility] Last Admin: 06/19/17 21:06 Dose: 80 mg Calcium Carbonate/Glycine (Tums) 500 mg PO 1200 [facility] Last Admin: 06/20/17 12:08 Dose: 500 mg Ceftriaxone Sodium (Rocephin) 1,000 mg IVP Q24HR [facility] Last Admin: 06/20/17 10:07 Dose: 1,000 mg Cholecalciferol (Vitamin D3) 800 unit PO 1200 [facility] Last Admin: 06/20/17 12:08 Dose: 800 unit Clopidogrel Bisulfate (Plavix) 75 mg PO DAILY [facility] Last Admin: 06/20/17 09:12 Dose: 75 mg Ferrous Sulfate (Feosol) 325 mg PO BID-W/MEALS [facility] Last Admin: 06/20/17 17:35 Dose: 325 mg Finasteride (Proscar) 5 mg PO DAILY [facility] Last Admin: 06/20/17 09:13 Dose: 5 mg Furosemide (Lasix) 40 mg IV Q12HR [facility] Last Admin: 06/20/17 09:21 Dose: 40 mg Heparin Sodium (Porcine) (Heparin) 0 unit IV PER PROTOCOL PRN; Protocol PRN Reason: Low PTT Last Admin: 06/19/17 16:52 Dose: 2,500 unit Heparin Sodium/Sodium Chloride (25,000 unit/ Sodium Chloride) 500 mls @ 19.97 mls/hr IV .Q24H [facility]; 10.1 UNITS/KG/HR PRN Reason: Protocol Last Admin: 06/20/17 07:49 Dose: 12 units/kg/hr, 23.73 mls/hr Sodium Chloride (Saline 0.9%) 1,000 mls @ 20 mls/hr IV .Q24H [facility] Last Admin: 06/20/17 15:56 Dose: 20 mls/hr Lisinopril (Zestril) 5 mg PO BID [facility] Last Admin: 06/20/17 09:15 Dose: 5 mg Metoprolol Tartrate (Lopressor) 50 mg PO TID [facility] Last Admin: 06/20/17 15:55 Dose: 50 mg Multivitamins (Theragran) 1 each PO 1200 [facility] Last Admin: 06/20/17 12:08 Dose: 1 each Naloxone HCl (Narcan) 0.2 mg IV Q2M PRN PRN Reason: Opioid Reversal Nitroglycerin (Nitro-Bid Oint) 1 inch TOPICAL QID [facility] Last Admin: 06/20/17 14:20 Dose: 1 inch Nitroglycerin (Nitrostat) 0.4 mg SUBLINGUAL Q5M PRN PRN Reason: Chest Pain Pantoprazole Sodium (Protonix) 40 mg PO AC-BRKFST [facility] Last Admin: 06/20/17 09:12 Dose: 40 mg Senna/Docusate Sodium (Senokot-S) 2 each PO HS [facility] Last Admin: 06/19/17 21:06 Dose: 2 each Tamsulosin HCl (Flomax) 0.8 mg PO DAILY [facility] Last Admin: 06/20/17 09:12 Dose: 0.8 mg Objective - Vital Signs Vital signs: Vital Signs Temp 98.5 F 06/20/17 16:00 Pulse 79 06/20/17 17:00 Resp 30 H 06/20/17 17:00 BP 122/68 06/20/17 17:00 Pulse Ox 93 L 06/20/17 17:00 Intake & Output 06/19/17 06/20/17 06/20/17 18:59 06:59 18:59 Intake Total 657.251 019.793 7846.764 Output Total 1195 3145 1795 Balance -537.749 -2786.767 -420.236 Weight 106.8 kg 101.5 kg 101.5 kg Intake: IV 513.8 268.9 220 Diltiazem 125 mg In 30 5 Sodium Chloride 0.9% 100 ml @ 5 MG/HR 5 mls/hr IV .Q24H [facility] Rx#:[id number] Heparin Sod,Pork in 0.45% 123.8 23.9 NaCl 25,000 unit In 0.45 % NaCl 1 500ml.bag @ 10.1 UNITS/KG/HR 19.97 mls/hr IV .Q24H [facility] Rx#: [id number] Sodium Chloride 0.9% 1, 300 000 ml @ 100 mls/hr IV . Q10H [facility] Rx#:[id number] Sodium Chloride 0.9% 1, 60 240 220 000 ml @ 20 mls/hr IV . Q24H [facility] Rx#:[id number] Intake, IV Titration 143.451 89.333 354.764 Amount Diltiazem 125 mg In 89.333 Sodium Chloride 0.9% 100 ml @ 5 MG/HR 5 mls/hr IV .Q24H [facility] Rx#:[id number] Heparin Sod,Pork in 0.45% 143.451 354.764 NaCl 25,000 unit In 0.45 % NaCl 1 500ml.bag @ 10.1 UNITS/KG/HR 19.97 mls/hr IV .Q24H [facility] Rx#: [id number] Oral 800 Output: Urine 1195 3145 1795 Other: Voiding Method Self-Catheterization Indwelling Catheter Indwelling Catheter - Exam PHYSICAL EXAM: VITAL SIGNS: As above GENERAL: Sitting up in bed, no acute distress HEENT: Conjunctivae normal. eyes normal. NECK: No JVD. No thyroid enlargement. No LNs CARDIOVASCULAR: S1, S2 muffled. Positive systolic murmur RESPIRATION: Breath sounds diminished in the bases. Occasional scattered rhonchi, fine basilar crackles. No bronchial breathing. ABDOMEN: Soft, nontender . No guarding. no masses palpable..Bowel sounds heard. LEGS: No edema. no swelling PSYCHIATRY: Alert and oriented -3, mood and affect normal. NERVOUS SYSTEM: Cranial N 2-12 grossly normal. Moves all 4 limbs. Diffuse weakness No focal deficits. No sensory deficit. Skin: no ulcer no rash Joints: No active swelling. No inflammation. Lymphatic system. No LN neck axilla or groin. - Labs CBC & Chem 7: 06/21/17 04:38 06/21/17 04:38 Labs: Abnormal Lab Results - Last 24 Hours (Table) 06/19/17 06/19/17 06/20/17 Range/Units 18:24 22:09 04:08 WBC 11.9 H (3.8-10.6) k/uL RBC 4.00 L (4.30-5.90) m/uL Hgb 11.6 L (13.0-17.5) gm/dL Hct 36.5 L (39.0-53.0) % Neutrophils # 8.2 H (1.3-7.7) k/uL APTT 61.3 H (22.0-30.0) sec Carbon Dioxide (22-30) mmol/L Glucose (74-99) mg/dL CK-MB (CK-2) 22.9 H* (0.0-2.4) ng/mL Troponin I 3.940 H* (0.000-0.034) ng/mL 06/20/17 06/20/17 Range/Units 04:08 04:08 WBC (3.8-10.6) k/uL RBC (4.30-5.90) m/uL Hgb (13.0-17.5) gm/dL Hct (39.0-53.0) % Neutrophils # (1.3-7.7) k/uL APTT 55.0 H (22.0-30.0) sec Carbon Dioxide 32 H (22-30) mmol/L Glucose 102 H (74-99) mg/dL CK-MB (CK-2) (0.0-2.4) ng/mL Troponin I (0.000-0.034) ng/mL Microbiology - Last 24 Hours (Table) 06/19/17 14:25 Urine Culture - Preliminary Urine,Catheterized Assessment and Plan Assessment: 1. Acute non-STEMI 2. Acute CHF, EF currently unknown, acute hypoxic respiratory failure, status post BiPAP 3. Proximal acute on chronic atrial fibrillation with RVR, status post Cardizem drip, currently sinus rhythm 4. Acute UTI, present on admission 5. CAD, recent cardiac cath with stent of the LAD and left main in January 2017 at [facility] 6. Diabetes mellitus type 2 7. History of CVA, TIA 8. Hypertension 9. Hyperlipidemia 10. Gastroesophageal reflux disease 11. Multiple sclerosis 12. Neurogenic bladder secondary to the above Plan: Continue on current medication regime ,monitoring and symptomatic treatment. Maintained on IV heparin, beta blockers, antiplatelets. Evaluated by cardiology, recommendations noted and transfer is being arranged for [facility]. Prognosis guarded given multiple complex medical issues. The impression and plan of care has been dictated as directed. : I performed a history and examination of this patient, discussed the same with the dictator. I agree with the dictator's note ,documented as a scribe. Any additional findings or plans will be noted.
--- NOTE | 2017-06-21 18:31 | P.DS ---
Providers Date of admission: 06/19/17 07:19 Expected date of discharge: 06/21/17 Attending physician: Delia Santana Consults: 06/19/17 07:19 Consult Physician Routine Consulting Provider: Dario Castanon Consult Reason/Comments: nstemi Do you want consulting provider notified?: Yes 06/19/17 12:13 Consult Physician Stat Consulting Provider: Gabriel Landeros Consult Reason/Comments: ICU management Do you want consulting provider notified?: Already Contacted Primary care physician: Rashi Briscoe [facility] Course: Final Diagnoses: 1. Acute non-STEMI 2. Acute CHF, EF currently unknown, acute hypoxic respiratory failure, status post BiPAP 3. Proximal acute on chronic atrial fibrillation with RVR, status post Cardizem drip, currently sinus rhythm 4. Acute UTI, present on admission 5. CAD, recent cardiac cath with stent of the LAD and left main in January 2017 at [facility] 6. Diabetes mellitus type 2 7. History of CVA, TIA 8. Hypertension 9. Hyperlipidemia 10. Gastroesophageal reflux disease 11. Multiple sclerosis 12. Neurogenic bladder secondary to the above Hospital course:This is a 76-year-old gentleman admitted with acute CHF exacerbation, elevated troponin, possible acute non-STEMI, atrial fibrillation with RVR, acute UTI, short runs of nonsustained V. tach, and multiple other medical issues in a patient with recent cardiac stents in January 2017 at the [facility]. Evaluated by cardiology, pulmonology. Status post Cardizem drip. telemetry currently sinus rhythm with PACs, PVCs and bundle branch block. Chest x-ray reporting improving pulmonary edema. Maintained on Rocephin for acute UTI, cultures in progress. Troponins 0.327, 1.830, 3.94. Maintained on IV heparin, beta blockers, antiplatelets. Cardiology recommending repeat cardiac catheterization, felt to be high risk procedure; requesting transfer back to [facility]. Patient has been cleared for transfer by consults. [facility] has accepted and patient is being transferred to [facility] in a stable condition with guarded prognosis. Physical exam:VSS, CARDIOVASCULAR: S1, S2 muffled. Positive systolic murmur, no edema. RESPIRATION: Breath sounds diminished in the bases. Occasional scattered rhonchi, fine basilar crackles. ABDOMEN: Soft, nontender . No guarding. no masses palpable.Bowel sounds heard.PSYCHIATRY: Alert and oriented -3, mood and affect normal. Total Time taken: 35 minutes Patient Condition at Discharge: Stable Plan - Discharge Summary New Discharge Prescriptions: New cefTRIAXone [Rocephin] 1,000 mg IVP Q24HR syringe Clopidogrel [Plavix] 75 mg PO DAILY tab Furosemide [Lasix] 40 mg PO Q12H tab Heparin Sod,Pork in 0.45% NaCl [Heparin-1/2Ns 25,000 Units/500Ml Pmx] 25,000 unit IV .Q24H bag Lisinopril [Zestril] 5 mg PO BID tab Metoprolol Tartrate [Lopressor] 50 mg PO TID tab Nitroglycerin Oint [Nitro-Bid Oint] 1 inch TRANSDERM Q6H #1 gm Pantoprazole [Protonix] 40 mg PO AC-BRKFST tablet.dr Continue Nitroglycerin Sl Tabs [Nitrostat] 0.4 mg SUBLINGUAL Q5M PRN PRN Reason: Chest Pain Multivitamins, Thera [Multivitamin (formulary)] 1 tab PO DAILY Ferrous Sulfate [Feosol] 325 mg PO BID Cholecalciferol [Vitamin D3] 800 unit PO DAILY Calcium Carbonate 500 mg PO DAILY Ascorbic Acid [Vitamin C] 500 mg PO DAILY Tamsulosin [Flomax] 0.8 mg PO DAILY Sennosides-Docusate Sodium [Senokot-S] 2 tab PO HS Finasteride [Proscar] 5 mg PO DAILY Atorvastatin [Lipitor] 80 mg PO HS Aspirin 81 mg PO DAILY Discontinued Omeprazole 20 mg PO DAILY Metoprolol Tartrate [Lopressor] 25 mg PO BID Lisinopril [Zestril] 5 mg PO DAILY Clopidogrel Bisulfate [Plavix] 75 mg PO DAILY Discharge Medication List Ascorbic Acid [Vitamin C] 500 mg PO DAILY 02/04/17 [History] Aspirin 81 mg PO DAILY 02/04/17 [History] Atorvastatin [Lipitor] 80 mg PO HS 02/04/17 [History] Calcium Carbonate 500 mg PO DAILY 02/04/17 [History] Cholecalciferol [Vitamin D3] 800 unit PO DAILY 02/04/17 [History] Ferrous Sulfate [Feosol] 325 mg PO BID 02/04/17 [History] Finasteride [Proscar] 5 mg PO DAILY 02/04/17 [History] Multivitamins, Thera [Multivitamin (formulary)] 1 tab PO DAILY 02/04/17 [History ] Nitroglycerin Sl Tabs [Nitrostat] 0.4 mg SUBLINGUAL Q5M PRN 02/04/17 [History] Sennosides-Docusate Sodium [Senokot-S] 2 tab PO HS 02/04/17 [History] Tamsulosin [Flomax] 0.8 mg PO DAILY 02/04/17 [History] Clopidogrel [Plavix] 75 mg PO DAILY tab 06/21/17 [Rx] Furosemide [Lasix] 40 mg PO Q12H tab 06/21/17 [Rx] Heparin Sod,Pork in 0.45% NaCl [Heparin-1/2Ns 25,000 Units/500Ml Pmx] 25,000 unit IV .Q24H bag 06/21/17 [Rx] Lisinopril [Zestril] 5 mg PO BID tab 06/21/17 [Rx] Metoprolol Tartrate [Lopressor] 50 mg PO TID tab 06/21/17 [Rx] Nitroglycerin Oint [Nitro-Bid Oint] 1 inch TRANSDERM Q6H #1 gm 06/21/17 [Rx] Pantoprazole [Protonix] 40 mg PO AC-BRKFST tablet. 06/21/17 [Rx] cefTRIAXone [Rocephin] 1,000 mg IVP Q24HR syringe 06/21/17 [Rx] Follow up Appointment(s)/Referral(s): [facility], Dr. Iliana Hernandez MA [Other] - 1 Week Rashi Briscoe DO [Primary Care Provider] - 3 Days (After discharge from the [facility]) Activity/Diet/Wound Care/Special Instructions: [facility] to [facility]
--- NOTE | 2017-06-24 08:13 | CDI ---
Last Revision, May 2017 Documentation Clarification Form Date: 06/24/2017 7:59:00 AM From: Ijeoma López Admit Date: 06/19/2017 7:19:00 AM Patient Name: Wesly Tee Visit Number: [id number] Discharge Date: 06/21/17 ATTENTION: The Clinical Documentation Specialists (CDI) and [facility] Coding Staff appreciate your assistance in clarifying documentation. Please respond to the clarification below the line at the bottom and electronically sign. The CDI & [facility] Coding staff will review the response and follow-up if needed. Please note: Queries are made part of the Legal Health Record. If you have any questions, please contact the author of this message via ITS. Dr. Walter Santana 76 year old male with past hx of CAD, diabetes, GERD, HTN, hyperlipoidemia and MS. Presents with acute non-STEMI and acute CHF. BNP 2760. CXR on admission: cardiomegaly with venous congestion. Echo: Overall left ventricular systolic function is normal with an EF between 55 -60%. Treated on admission w IV Lasix 40 mg Q12 hrs, 06/19 changed to 60 mg Q 8 hrs, 06/20 changed to 40 mg Q 12 hr. On discharge changed to Lasix 40 mg PO Q 12 hrs. In your professional opinion, can you please clarify the acuity and type of CHF if known? Systolic Heart Failure: Acute Chronic Acute on Chronic Diastolic Heart Failure: Acute Chronic Acute on Chronic Systolic & Diastolic Heart Failure: Acute Chronic Acute on Chronic Heart Failure Unable to Determine Other, please specify If you have a question about this query, please contact Rena Mauricio, Doctor Of Naprapathic Medicine, [facility] at [phone] between 8am and 5pm. Please continue to document in your progress notes and discharge summary in order to capture severity of illness and risk of mortality. Include clinical findings that support your diagnosis. Unknown if diastolic or systolic MTDD
== END 2017-06-21 19:16 | disposition still patient (30) | DRG 280 ==
LOC: EC 05:29 → 6SEL 07:19 → 6ICU 09:39 → 6SEL 06-21 11:37
PROVIDERS: ADMIT Hospitalist; ATTEND Hospitalist
DX: I21.4 Non-ST elevation (NSTEMI) myocardial infarction (principal); J96.01 Acute respiratory failure with hypoxia; G35 Multiple sclerosis; I11.0 Hypertensive heart disease with heart failure; I50.9 Heart failure, unspecified; E11.9 Type 2 diabetes mellitus without complications; I48.0 Paroxysmal atrial fibrillation; N31.9 Neuromuscular dysfunction of bladder, unspecified; E78.5 Hyperlipidemia, unspecified; N39.0 Urinary tract infection, site not specified; I45.4 Nonspecific intraventricular block; I25.10 Atherosclerotic heart disease of native coronary artery without angina pectoris; F41.9 Anxiety disorder, unspecified; K21.9 Gastro-esophageal reflux disease without esophagitis; Z79.02 Long term (current) use of antithrombotics/antiplatelets; Z79.82 Long term (current) use of aspirin; Z79.899 Other long term (current) drug therapy; Z95.5 Presence of coronary angioplasty implant and graft; Z86.73 Personal history of transient ischemic attack (TIA), and cerebral infarction without residual deficits; Z87.891 Personal history of nicotine dependence; Z90.49 Acquired absence of other specified parts of digestive tract; N40.0 Benign prostatic hyperplasia without lower urinary tract symptoms; Z82.49 Family history of ischemic heart disease and other diseases of the circulatory system
CPT/HCPCS: 36415; 71045; 71046; 80048; 80053; 80061; 81001; 82550; 82553; 83735; 83880; 84100; 84132; 84443; 84484; 85025; 85610; 85730; 87077; 87086; 87186; 93005; 93306; 94640; 94660; 96365; 96366; 96368; 96375; 96376; 99291

== ENCOUNTER 2017-06-24 21:56 | Observation (INO) | payer MEDICARE, OTHER ==
[2017-06-24 22:35] LABS: Basophils # (A) 0.1 k/uL (0-0.2); Basophils % (A) 0 %; Eosinophils # (A) 0.2 k/uL (0-0.7); Eosinophils % (A) 2 %; HCT 41.7 % (39.0-53.0); HGB 13.6 gm/dL (13.0-17.5); Lymphocytes # (A) 1.6 k/uL (1.0-4.8); Lymphocytes % (A) 15 %; MCH 29.1 pg (25.0-35.0); MCHC 32.5 g/dL (31.0-37.0); MCV 89.5 fL (80.0-100.0); Mean Platelet Volume 8.5; Monocytes # (A) 0.8 k/uL (0-1.0); Monocytes % (A) 7 %; Neutrophils % (A) 73 %; Platelet Count 199 k/uL (150-450); RBC 4.66 m/uL (4.30-5.90); RDW 13.1 % (11.5-15.5); WBC 10.9 k/uL (3.8-10.6)
--- NOTE | 2017-06-24 22:42 | XR ---
EXAMINATION TYPE: XR chest 1V portable DATE OF EXAM: 06/24/2017 COMPARISON: 06/21/2017 HISTORY: Short of breath TECHNIQUE: Single frontal view of the chest is obtained. FINDINGS: There is no heart failure nor confluent pneumonic infiltrate. There are chest leads. Thora cic aorta is atheromatous. There is no definite pleural effusion. IMPRESSION: No heart failure. No pulmonary consolidation. Inspiration is improved compared to last e xam.
[2017-06-24 22:44] LABS: D-Dimer 0.91 mg/L FEU (<0.60)
[2017-06-24 22:47] LABS: Albumin 3.6 g/dL (3.5-5.0); Anion Gap 10 mmol/L; Calcium 9.5 mg/dL (8.4-10.2); Carbon Dioxide 22 mmol/L (22-30); Chloride 105 mmol/L (98-107); Glucose 109 mg/dL (74-99); Sodium 137 mmol/L (137-145); Total Bilirubin 0.6 mg/dL (0.2-1.3); Total Protein 6.9 g/dL (6.3-8.2)
[2017-06-24 22:48] LABS: INR 1.1 (<1.2); Partial Thromboplastin Time 23.9 sec (22.0-30.0); Prothrombin Time 10.7 sec (9.0-12.0)
[2017-06-24 22:53] LABS: ALT 49 U/L (21-72); AST 43 U/L (17-59); Alkaline Phosphatase 69 U/L (38-126); Blood Urea Nitrogen 18 mg/dL (9-20); Magnesium 1.9 mg/dL (1.6-2.3)
--- NOTE | 2017-06-24 22:54 | ED ---
SOB HPI - General Chief Complaint: Shortness of Breath Stated Complaint: SOB Time Seen by Provider: 06/24/17 22:08 Source: patient Mode of arrival: EMS Limitations: no limitations - History of Present Illness Initial Comments: This patient is a 76-year-old man who presents tonight to be evaluated for dyspnea. The symptoms started this evening while he was hanging clothes. He states that he felt like he could not catch his breath. When the symptoms did not resolve promptly he had called EMS and they bring him to be evaluated. He states that the symptoms resolved after the ambulance crew had arrived and started attending to him. He states that it did feel a little similar to last week when he had an episode of atrial fibrillation. The patient did spend approximately the last 5 days at the [facility] and [place] where he was seen regarding atrial fibrillation. The patient believes that the atrial fibrillation had resolved. He is currently wearing a temporary monitor. The patient did not have any chest pain associated with tonight's episode, nor any palpitations. No fever or chills. He has had a little bit of a nonproductive cough which is been going on over the past week. No change in urination or bowel movements. No swelling or pain in the legs. MD Complaint: shortness of breath -: hour(s) Consistency: now resolved Improves With: nothing Worsens With: nothing Known History Of: other (Atrial fibrillation) Associated Symptoms: cough Treatments Prior to Arrival: oxygen - Related Data Home Medications Medication Instructions Recorded Confirmed Atorvastatin [Lipitor] 80 mg PO HS 02/04/17 06/24/17 Calcium Carbonate 500 mg PO DAILY 02/04/17 06/24/17 Cholecalciferol [Vitamin D3] 800 unit PO DAILY 02/04/17 06/24/17 Ferrous Sulfate [Feosol] 325 mg PO BID 02/04/17 06/24/17 Finasteride [Proscar] 5 mg PO DAILY 02/04/17 06/24/17 Multivitamins, Thera [Multivitamin 1 tab PO DAILY 02/04/17 06/24/17 (formulary)] Sennosides-Docusate Sodium 2 tab PO HS 02/04/17 06/24/17 [Senokot-S] Tamsulosin [Flomax] 0.8 mg PO DAILY 02/04/17 06/24/17 Apixaban [Eliquis] 5 mg PO BID 06/24/17 06/24/17 Ascorbic Acid [Vitamin C] 500 mg PO DAILY 06/24/17 06/24/17 Furosemide [Lasix] 40 mg PO DAILY 06/24/17 06/24/17 Lisinopril [Zestril] 5 mg PO DAILY 06/24/17 06/24/17 Metoprolol Succinate [Toprol XL] 200 mg PO DAILY 06/24/17 06/24/17 Omeprazole 20 mg PO DAILY 06/24/17 06/24/17 Previous Rx's Medication Instructions Recorded Clopidogrel [Plavix] 75 mg PO DAILY tab 06/21/17 Allergies Allergy/AdvReac Type Severity Reaction Status Date / Time No Known Allergies Allergy Verified 06/24/17 22:32 Review of Systems ROS Statement: Those systems with pertinent positive or pertinent negative responses have been documented in the HPI. ROS Other: All systems not noted in ROS Statement are negative. Constitutional: Denies: fever, chills Respiratory: Reports: cough, dyspnea. Denies: wheezes, hemoptysis Cardiovascular: Reports: dyspnea on exertion. Denies: chest pain, palpitations , orthopnea, edema, syncope Gastrointestinal: Denies: abdominal pain, nausea, vomiting Genitourinary: Denies: dysuria, hematuria Musculoskeletal: Denies: back pain Skin: Denies: rash Neurological: Denies: headache, weakness, numbness Past Medical History Past Medical History: Coronary Artery Disease (CAD), CVA/TIA, Diabetes Mellitus , GERD/Reflux, Hyperlipidemia, Hypertension Additional Past Medical History / Comment(s): 4 and a artery disease, hypertension, hyperlipidemia, BPH, diabetes mellitus which has been on diet: The patient is on no oral treatment, congestion heart failure, MS, acid reflux, history of CVA/TIA. History of Any Multi-Drug Resistant Organisms: None Reported Past Surgical History: Adenoidectomy, Appendectomy, Heart Catheterization With Stent, Hernia Repair, Tonsillectomy Additional Past Surgical History / Comment(s): RECENT HEART CATH AT [facility] ON 02/02/17: stents were placed in the mid LAD, proximal LAD, and LEFT MAIN. Right hip repair 2011 Past Anesthesia/Blood Transfusion Reactions: No Reported Reaction Date of Last Stent Placement:: 02-02-17 Past Psychological History: No Psychological Hx Reported Smoking Status: Former smoker Past Alcohol Use History: None Reported Past Drug Use History: None Reported - Past Family History Father Family Medical History: Coronary Artery Disease (CAD) General Exam Limitations: no limitations General appearance: alert, in no apparent distress Head exam: Present: atraumatic, normocephalic Eye exam: Present: normal appearance. Absent: scleral icterus, conjunctival injection ENT exam: Present: normal oropharynx Respiratory exam: Present: normal lung sounds bilaterally. Absent: respiratory distress, wheezes, rales, rhonchi, stridor Cardiovascular Exam: Present: normal rhythm, bradycardia (Rate approximately 56 bpm), normal heart sounds. Absent: systolic murmur, diastolic murmur, rubs, gallop GI/Abdominal exam: Present: soft. Absent: distended, tenderness, guarding, rebound, rigid, mass Extremities exam: Present: normal inspection, normal capillary refill. Absent: pedal edema, calf tenderness Back exam: Present: normal inspection. Absent: CVA tenderness (R), CVA tenderness (L) Neurological exam: Present: alert Skin exam: Present: warm, dry, intact, normal color. Absent: rash Course Vital Signs 06/24/17 06/24/17 06/24/17 22:01 22:27 23:54 Temperature 98.0 F Pulse Rate 66 58 L 70 Respiratory 19 18 18 Rate Blood Pressure 215/84 181/81 160/100 O2 Sat by Pulse 98 98 98 Oximetry 06/25/17 01:21 Temperature Pulse Rate 55 L Respiratory 18 Rate Blood Pressure 190/76 O2 Sat by Pulse 97 Oximetry Medical Decision Making - Lab Data Result diagrams: 06/24/17 22:25 06/24/17 22:25 Lab Results 06/24/17 06/24/17 06/24/17 Range/Units 22:25 22:25 22:25 WBC 10.9 H (3.8-10.6) k/uL RBC 4.66 (4.30-5.90) m/uL Hgb 13.6 (13.0-17.5) gm/dL Hct 41.7 (39.0-53.0) % MCV 89.5 (80.0-100.0) fL MCH 29.1 (25.0-35.0) pg MCHC 32.5 (31.0-37.0) g/dL RDW 13.1 (11.5-15.5) % Plt Count 199 (150-450) k/uL Neutrophils % 73 % Lymphocytes % 15 % Monocytes % 7 % Eosinophils % 2 % Basophils % 0 % Neutrophils # 8.0 H (1.3-7.7) k/uL Lymphocytes # 1.6 (1.0-4.8) k/uL Monocytes # 0.8 (0-1.0) k/uL Eosinophils # 0.2 (0-0.7) k/uL Basophils # 0.1 (0-0.2) k/uL PT (9.0-12.0) sec INR (<1.2) APTT (22.0-30.0) sec D-Dimer (<0.60) mg/L FEU Sodium 137 (137-145) mmol/L Potassium 5.0 (3.5-5.1) mmol/L Chloride 105 (98-107) mmol/L Carbon Dioxide 22 (22-30) mmol/L Anion Gap 10 mmol/L BUN 18 (9-20) mg/dL Creatinine 1.00 (0.66-1.25) mg/dL Est GFR (MDRD) Af Amer >60 (>60 ml/min/1.73 sqM) Est GFR (MDRD) Non-Af >60 (>60 ml/min/1.73 sqM) Glucose 109 H (74-99) mg/dL Calcium 9.5 (8.4-10.2) mg/dL Magnesium 1.9 (1.6-2.3) mg/dL Total Bilirubin 0.6 (0.2-1.3) mg/dL AST 43 (17-59) U/L ALT 49 (21-72) U/L Alkaline Phosphatase 69 (38-126) U/L Total Creatine Kinase 95 (55-170) U/L CK-MB (CK-2) 2.5 H* (0.0-2.4) ng/mL CK-MB (CK-2) Rel Index 2.6 Troponin I 0.236 H* (0.000-0.034) ng/mL NT-Pro-B Natriuret Pep pg/mL Total Protein 6.9 (6.3-8.2) g/dL Albumin 3.6 (3.5-5.0) g/dL 06/24/17 06/24/17 Range/Units 22:25 22:25 WBC (3.8-10.6) k/uL RBC (4.30-5.90) m/uL Hgb (13.0-17.5) gm/dL Hct (39.0-53.0) % MCV (80.0-100.0) fL MCH (25.0-35.0) pg MCHC (31.0-37.0) g/dL RDW (11.5-15.5) % Plt Count (150-450) k/uL Neutrophils % % Lymphocytes % % Monocytes % % Eosinophils % % Basophils % % Neutrophils # (1.3-7.7) k/uL Lymphocytes # (1.0-4.8) k/uL Monocytes # (0-1.0) k/uL Eosinophils # (0-0.7) k/uL Basophils # (0-0.2) k/uL PT 10.7 (9.0-12.0) sec INR 1.1 (<1.2) APTT 23.9 (22.0-30.0) sec D-Dimer 0.91 H (<0.60) mg/L FEU Sodium (137-145) mmol/L Potassium (3.5-5.1) mmol/L Chloride (98-107) mmol/L Carbon Dioxide (22-30) mmol/L Anion Gap mmol/L BUN (9-20) mg/dL Creatinine (0.66-1.25) mg/dL Est GFR (MDRD) Af Amer (>60 ml/min/1.73 sqM) Est GFR (MDRD) Non-Af (>60 ml/min/1.73 sqM) Glucose (74-99) mg/dL Calcium (8.4-10.2) mg/dL Magnesium (1.6-2.3) mg/dL Total Bilirubin (0.2-1.3) mg/dL AST (17-59) U/L ALT (21-72) U/L Alkaline Phosphatase (38-126) U/L Total Creatine Kinase (55-170) U/L CK-MB (CK-2) (0.0-2.4) ng/mL CK-MB (CK-2) Rel Index Troponin I (0.000-0.034) ng/mL NT-Pro-B Natriuret Pep 1130 pg/mL Total Protein (6.3-8.2) g/dL Albumin (3.5-5.0) g/dL - EKG Data -: EKG Interpreted by Me EKG shows normal: sinus rhythm, axis (Normal), intervals (Normal), QRS complexes (Normal) Rate: bradycardia (Rate approximately 53 bpm) Interpretation: nonspecific ST-T wave changes Disposition Clinical Impression: Elevated troponin, Dyspnea Disposition: ADMITTED IP TO THIS HOSP Condition: Fair Referrals: Rashi Briscoe DO [Primary Care Provider] - 1-2 days
[2017-06-24 23:10] LABS: Creatine Kinase MB 2.5 ng/mL (0.0-2.4); Troponin I 0.236 ng/mL (0.000-0.034)
[2017-06-24] MEDS ORDERED: RX INFO: IV CONTRAST WAS GIVEN 1 EACH MISC MISCELLANE PRN (23:12)
--- NOTE | 2017-06-24 23:59 | CT ---
EXAMINATION TYPE: CT chest angio for PE DATE OF EXAM: 06/24/2017 COMPARISON: NONE HISTORY: R/O PE, A-fib CT DLP: 348.20 mGycm Automated exposure control for dose reduction was used. CONTRAST: CT Chest for pulmonary embolism performed with with IV Contrast, patient injected with 80 mL of Omnip aque 350. There are 3-D post processed images. FINDINGS: Thoracic aorta is atheromatous. There is no evidence of dissection. Ascending aorta measures 3.7 cm. There are large central pulmonary arteries. Heart is enlarged. I see no filling defects in the pulmon arturo arteries. There are a few mediastinal and bronchial lymph nodes that measure less than 1 cm. Ther e is no pericardial effusion. There is interstitial infiltrate in the subpleural lower lobes. There i s a small right pleural effusion. IMPRESSION: No evidence of pulmonary embolism. Atherosclerotic vascular disease. Cardiomegaly. Changes of the pulmonary arteries consistent with pulmonary hypertension. Pulmonary fibrotic changes. Small right pleural effusion. Large hiatal hernia is noted.
[2017-06-25] MEDS ORDERED: NITROGLYCERIN SL TABS 0.4 MG TAB SUBLINGUAL PRN (01:49)
[2017-06-25] MEDS ORDERED: ENALAPRILAT 1.25 MG/ML 1 ML VIAL IVP STA (02:02)
[2017-06-25 03:20] VITALS: BMI 25.2
[2017-06-25 04:56] LABS: Creatine Kinase MB 2.3 ng/mL (0.0-2.4)
[2017-06-25 05:06] LABS: Troponin I 0.219 ng/mL (0.000-0.034)
[2017-06-25] MEDS: PANTOPRAZOLE 40 MG TABLET PO SCH (06:40)
[2017-06-25] MEDS: APIXABAN 5 MG TAB PO SCH ×2 (08:59→21:31)
[2017-06-25] MEDS: CALCIUM CARBONATE 500 MG CHEWABLE PO SCH (09:00)
[2017-06-25] MEDS: FERROUS SULFATE 325 MG TAB PO SCH ×2 (09:00→21:31)
[2017-06-25] MEDS: ASCORBIC ACID 500 MG TAB PO SCH (09:00)
[2017-06-25] MEDS: CHOLECALCIFEROL 400 UNIT TAB PO SCH (09:00)
[2017-06-25] MEDS: CLOPIDOGREL 75 MG TAB PO SCH (09:00)
[2017-06-25] MEDS: FINASTERIDE 5 MG TAB PO SCH (09:00)
[2017-06-25] MEDS: MULTIVITAMINS, THERA 1 EACH TAB PO SCH (09:01)
[2017-06-25] MEDS: TAMSULOSIN 0.4 MG CAP.ER.24H PO SCH (09:01)
[2017-06-25] MEDS: METOPROLOL SUCCINATE (ER) 100 MG TAB.ER.24H PO SCH (09:01)
[2017-06-25] MEDS: LISINOPRIL 5 MG TAB PO SCH (09:01)
[2017-06-25] MEDS: FUROSEMIDE 40 MG TAB PO SCH (09:45)
[2017-06-25 10:48] LABS: Creatine Kinase MB 2.1 ng/mL (0.0-2.4)
[2017-06-25 10:51] LABS: Troponin I 0.197 ng/mL (0.000-0.034)
[2017-06-25] MEDS ORDERED: FUROSEMIDE 10 MG/ML 4 ML VIAL IV STA (12:31)
--- NOTE | 2017-06-25 12:41 | P.CRDCN ---
History of Present Illness Consult date: 06/25/17 Requesting physician: Sree Santana Reason for Consult (text): mildly elevated troponin Chief complaint: shortness of breath History of present illness: This is a pleasant 76-year-old gentleman who follows through [facility]. He was recently admitted to the hospital with complaints of progressive dyspnea as well as symptoms and overall not feeling well and he does have a history of recent stenting at the [facility] in [place] in January 2017 at which time he received 3 stents. Recent admission last week patient was transferred to the [facility] for further workup with elevated troponins, acute on chronic diastolic CHF and atrial fibrillation. He was transferred to the [facility] at that time for further evaluation. He reports that this admission with complaints of sudden onset shortness of breath while hanging his clothes in his closet. Upon admission, d-dimer was elevated at 0.[address] of the chest was negative for pulmonary embolism. Troponins were minimally elevated at 0.236, 0.219 with previous troponin peaking at 3.8. According to the patient while he was at the [facility] they did some sort of testing and told him that his stents were patent however he did not undergo cardiac catheterization. This admission, BNP came back at 1130. Upon examination, patient is resting comfortably in bed. He does not complain of any shortness of breath however has not been up ambulating at all. He's had no chest discomfort, dizziness or palpitations. EKG on admission showed sinus rhythm. Past Medical History Past Medical History: Atrial Fibrillation, Coronary Artery Disease (CAD), CVA/ TIA, Diabetes Mellitus, GERD/Reflux, Hyperlipidemia, Hypertension Additional Past Medical History / Comment(s): BPH, self caths three times daily at home, diabetes mellitus which has been diet controlled, MS History of Any Multi-Drug Resistant Organisms: None Reported Past Surgical History: Adenoidectomy, Appendectomy, Heart Catheterization With Stent, Hernia Repair, Tonsillectomy Additional Past Surgical History / Comment(s): RECENT HEART CATH AT [facility] ON 02/02/17: stents were placed in the mid LAD, proximal LAD, and LEFT MAIN. Right hip repair 2011 Past Anesthesia/Blood Transfusion Reactions: No Reported Reaction Date of Last Stent Placement:: 02-02-17 Past Psychological History: No Psychological Hx Reported Smoking Status: Former smoker Past Alcohol Use History: None Reported Past Drug Use History: None Reported - Past Family History Father Family Medical History: Coronary Artery Disease (CAD) Mother Family Medical History: No Reported History Medications and Allergies Home Medications Medication Instructions Recorded Confirmed Type Atorvastatin [Lipitor] 80 mg PO HS 02/04/17 06/24/17 History Calcium Carbonate 500 mg PO DAILY 02/04/17 06/24/17 History Cholecalciferol [Vitamin D3] 800 unit PO DAILY 02/04/17 06/24/17 History Ferrous Sulfate [Feosol] 325 mg PO BID 02/04/17 06/24/17 History Finasteride [Proscar] 5 mg PO DAILY 02/04/17 06/24/17 History Multivitamins, Thera [Multivitamin 1 tab PO DAILY 02/04/17 06/24/17 History (formulary)] Sennosides-Docusate Sodium 2 tab PO HS 02/04/17 06/24/17 History [Senokot-S] Tamsulosin [Flomax] 0.8 mg PO DAILY 02/04/17 06/24/17 History Clopidogrel [Plavix] 75 mg PO DAILY tab 06/21/17 06/24/17 Rx Apixaban [Eliquis] 5 mg PO BID 06/24/17 06/24/17 History Ascorbic Acid [Vitamin C] 500 mg PO DAILY 06/24/17 06/24/17 History Furosemide [Lasix] 40 mg PO DAILY 06/24/17 06/24/17 History Lisinopril [Zestril] 5 mg PO DAILY 06/24/17 06/24/17 History Metoprolol Succinate [Toprol XL] 200 mg PO DAILY 06/24/17 06/24/17 History Omeprazole 20 mg PO DAILY 06/24/17 06/24/17 History Allergies Allergy/AdvReac Type Severity Reaction Status Date / Time No Known Allergies Allergy Verified 06/24/17 22:32 Physical Exam Vitals: Vital Signs Temp Pulse Pulse Resp BP BP Pulse Ox 06/25/17 08:00 97.0 F L 60 18 154/73 97 06/25/17 04:15 52 L 18 171/77 97 06/25/17 03:12 96.9 F L 60 18 187/77 97 06/25/17 02:50 96.9 F L 60 18 187/77 97 06/25/17 02:12 59 L 173/74 98 06/25/17 02:09 97.0 F L 54 L 18 172/75 99 06/25/17 01:21 55 L 18 190/76 97 06/24/17 23:54 70 18 160/100 98 06/24/17 22:27 58 L 18 181/81 98 06/24/17 22:01 98.0 F 66 19 215/84 98 Intake and Output 06/24/17 06/25/17 06/25/17 22:59 06:59 14:59 Other: Voiding Method Incontinent Incontinent Weight 92.986 kg 82 kg PHYSICAL EXAMINATION: HEENT: Head is atraumatic, normocephalic. Pupils equal, round. Neck is supple. There is no elevated jugular venous pressure. HEART EXAMINATION: Heart sounds regular, S1 and S2 with a systolic murmur. CHEST EXAMINATION: Lungs reveal crackles at bilateral bases. No chest wall tenderness is noted on palpation or with deep breathing. ABDOMEN: Soft, nontender. Bowel sounds are heard. No organomegaly noted. EXTREMITIES: 2+ peripheral pulses with no evidence of peripheral edema and no calf tenderness noted. NEUROLOGIC patient is awake, alert and oriented x3. . Results 06/24/17 22:25 06/24/17 22:25 Cardiac Enzymes 06/24/17 06/24/17 06/25/17 Range/Units 22:25 22:25 03:56 AST 43 (17-59) U/L CK-MB (CK-2) 2.5 H* 2.3 (0.0-2.4) ng/mL Troponin I 0.236 H* 0.219 H* (0.000-0.034) ng/mL 06/25/17 Range/Units 09:55 AST (17-59) U/L CK-MB (CK-2) 2.1 (0.0-2.4) ng/mL Troponin I 0.197 H* (0.000-0.034) ng/mL Coagulation 06/24/17 Range/Units 22:25 PT 10.7 (9.0-12.0) sec APTT 23.9 (22.0-30.0) sec CBC 06/24/17 Range/Units 22:25 WBC 10.9 H (3.8-10.6) k/uL RBC 4.66 (4.30-5.90) m/uL Hgb 13.6 (13.0-17.5) gm/dL Hct 41.7 (39.0-53.0) % Plt Count 199 (150-450) k/uL Comprehensive Metabolic Panel 06/24/17 Range/Units 22:25 Sodium 137 (137-145) mmol/L Potassium 5.0 (3.5-5.1) mmol/L Chloride 105 (98-107) mmol/L Carbon Dioxide 22 (22-30) mmol/L BUN 18 (9-20) mg/dL Creatinine 1.00 (0.66-1.25) mg/dL Glucose 109 H (74-99) mg/dL Calcium 9.5 (8.4-10.2) mg/dL AST 43 (17-59) U/L ALT 49 (21-72) U/L Alkaline Phosphatase 69 (38-126) U/L Total Protein 6.9 (6.3-8.2) g/dL Albumin 3.6 (3.5-5.0) g/dL Current Medications Generic Name Dose Route Start Last Admin Trade Name Freq PRN Reason Stop Dose Admin Apixaban 5 mg 06/25/17 09:00 06/25/17 08:59 Eliquis PO 5 mg BID [facility] Administration Ascorbic Acid 500 mg 06/25/17 09:00 06/25/17 09:00 Vitamin C PO 500 mg DAILY [facility] Administration Aspirin 81 mg 06/26/17 09:00 Aspirin PO DAILY [facility] Atorvastatin Calcium 80 mg 06/25/17 21:00 Lipitor PO HS [facility] Calcium Carbonate/Glycine 500 mg 06/25/17 09:00 06/25/17 09:00 Tums PO 500 mg DAILY [facility] Administration Cholecalciferol 800 unit 06/25/17 09:00 06/25/17 09:00 Vitamin D3 PO 800 unit DAILY [facility] Administration Clopidogrel Bisulfate 75 mg 06/25/17 09:00 06/25/17 09:00 Plavix PO 75 mg DAILY [facility] Administration Ferrous Sulfate 325 mg 06/25/17 09:00 06/25/17 09:00 Feosol PO 325 mg BID [facility] Administration Finasteride 5 mg 06/25/17 09:00 06/25/17 09:00 Proscar PO 5 mg DAILY [facility] Administration Furosemide 40 mg 06/25/17 09:00 06/25/17 09:45 Lasix PO 40 mg DAILY [facility] Administration Lisinopril 5 mg 06/25/17 09:00 06/25/17 09:01 Zestril PO 5 mg DAILY [facility] Administration Metoprolol Succinate 200 mg 06/25/17 09:00 06/25/17 09:01 Toprol Xl PO 200 mg DAILY [facility] Administration Miscellaneous Information 1 each 06/24/17 23:12 06/25/17 00:05 Rx Info: Iv Contrast Was Given MISCELLANE 06/26/17 23:13 1 each DAILY PRN Administration Per Protocol Multivitamins 1 each 06/25/17 09:00 06/25/17 09:01 Theragran PO 1 each DAILY [facility] Administration Nitroglycerin 0.4 mg 06/25/17 01:49 Nitrostat SUBLINGUAL Q5M PRN Chest Pain Pantoprazole Sodium 40 mg 06/25/17 07:30 06/25/17 06:40 Protonix PO 40 mg [id number]-[id number] [facility] Administration Senna/Docusate Sodium 2 each 06/25/17 21:00 Senokot-S PO HS [facility] Tamsulosin HCl 0.8 mg 06/25/17 09:00 06/25/17 09:01 Flomax PO 0.8 mg DAILY [facility] Administration Intake and Output 06/24/17 06/25/17 06/25/17 22:59 06:59 14:59 Other: Voiding Method Incontinent Incontinent Weight 92.986 kg 82 kg 06/24/17 22:25 06/24/17 22:25 Assessment and Plan Assessment: #1 symptoms of acute onset shortness of breath with recent admission for acute pulmonary edema and atrial fibrillation #2 minimal elevation of troponin was likely trending down from previous admission at which time he was felt to be ruled in for non-ST elevation IA #3 history of coronary artery disease with recent stent placement in January at the [facility] [place] #4 paroxysmal atrial fibrillation #5 hypertension #6 hyperlipidemia Plan: From cardiology's perspective, we will obtain records from the [facility] in [place] from most recent admission. We will give the patient one dose of IV Lasix. Further recommendations to follow. TILE EDGER note has been reviewed, I agree with a documented findings and plan of care. Patient was seen and examined.
--- NOTE | 2017-06-25 14:18 | P.HPIM ---
History of Present Illness This is a pleasant 76-year-old gentleman who follows throughOR. He was recently admitted to the hospital with complaints of progressive dyspnea as well as symptoms and overall not feeling well and he does have a history of recent stenting at the OR in [place] in January 2017 at which time he received 3 stents. Recent admission last week patient was transferred to the OR for further workup with elevated troponins, acute on chronic diastolic CHF and atrial fibrillation. He was transferred to the OR at that time for further evaluation. He reports that this admission with complaints of sudden onset shortness of breath while hanging his clothes in his closet. Upon admission, d- dimer was elevated at 0.[address] of the chest was negative for pulmonary embolism. Troponins were minimally elevated at 0.236, 0.219 with previous troponin peaking at 3.8. According to the patient while he was at the OR they did some sort of testing and told him that his stents were patent however he did not undergo cardiac catheterization. This admission, BNP came back at 1130. Upon examination, patient is resting comfortably in bed. He does not complain of any shortness of breath however has not been up ambulating at all. He's had no chest discomfort, dizziness or palpitations. EKG on admission showed sinus rhythm. Patient denied any orthopnea PND I did review the CAT scan of the chest which did not show any significant abnormality did discuss the case with cardiology there is recommending monitoring and obtain medical records from [facility]. Review of Systems REVIEW OF SYSTEMS: CONSTITUTIONAL: No fever, no malaise, no fatigue. HEENT: No recent visual problems or hearing problems. Denied any sore throat. CARDIOVASCULAR: No chest pain, orthopnea, PND, no palpitations, no syncope. PULMONARY: no cough, no hemoptysis. GASTROINTESTINAL: No diarrhea, no nausea, no vomiting, no abdominal pain. Normoactive bowel sounds. NEUROLOGICAL: No headaches, no weakness, no numbness. HEMATOLOGICAL: Denies any bleeding or petechiae. GENITOURINARY: Denies any burning micturition, frequency, or urgency. MUSCULOSKELETAL/RHEUMATOLOGICAL: Denies any joint pain, swelling, or any muscle pain. ENDOCRINE: Denies any polyuria or polydipsia. The rest of the 14-point review of systems is negative. Past Medical History Past Medical History: Atrial Fibrillation, Coronary Artery Disease (CAD), CVA/ TIA, Diabetes Mellitus, GERD/Reflux, Hyperlipidemia, Hypertension Additional Past Medical History / Comment(s): BPH, self caths three times daily at home, diabetes mellitus which has been diet controlled, MS History of Any Multi-Drug Resistant Organisms: None Reported Past Surgical History: Adenoidectomy, Appendectomy, Heart Catheterization With Stent, Hernia Repair, Tonsillectomy Additional Past Surgical History / Comment(s): RECENT HEART CATH AT [facility] ON 02/02/17: stents were placed in the mid LAD, proximal LAD, and LEFT MAIN. Right hip repair 2011 Past Anesthesia/Blood Transfusion Reactions: No Reported Reaction Date of Last Stent Placement:: 02-02-17 Past Psychological History: No Psychological Hx Reported Smoking Status: Former smoker Past Alcohol Use History: None Reported Past Drug Use History: None Reported - Past Family History Father Family Medical History: Coronary Artery Disease (CAD) Mother Family Medical History: No Reported History Medications and Allergies Home Medications Medication Instructions Recorded Confirmed Type Atorvastatin [Lipitor] 80 mg PO HS 02/04/17 06/24/17 History Calcium Carbonate 500 mg PO DAILY 02/04/17 06/24/17 History Cholecalciferol [Vitamin D3] 800 unit PO DAILY 02/04/17 06/24/17 History Ferrous Sulfate [Feosol] 325 mg PO BID 02/04/17 06/24/17 History Finasteride [Proscar] 5 mg PO DAILY 02/04/17 06/24/17 History Multivitamins, Thera [Multivitamin 1 tab PO DAILY 02/04/17 06/24/17 History (formulary)] Sennosides-Docusate Sodium 2 tab PO HS 02/04/17 06/24/17 History [Senokot-S] Tamsulosin [Flomax] 0.8 mg PO DAILY 02/04/17 06/24/17 History Clopidogrel [Plavix] 75 mg PO DAILY tab 06/21/17 06/24/17 Rx Apixaban [Eliquis] 5 mg PO BID 06/24/17 06/24/17 History Ascorbic Acid [Vitamin C] 500 mg PO DAILY 06/24/17 06/24/17 History Furosemide [Lasix] 40 mg PO DAILY 06/24/17 06/24/17 History Lisinopril [Zestril] 5 mg PO DAILY 06/24/17 06/24/17 History Metoprolol Succinate [Toprol XL] 200 mg PO DAILY 06/24/17 06/24/17 History Omeprazole 20 mg PO DAILY 06/24/17 06/24/17 History Allergies Allergy/AdvReac Type Severity Reaction Status Date / Time No Known Allergies Allergy Verified 06/24/17 22:32 Physical Exam Vitals: Vital Signs Temp Pulse Pulse Resp BP BP Pulse Ox 06/25/17 12:00 96.3 F L 73 18 145/66 97 06/25/17 08:00 97.0 F L 60 18 154/73 97 06/25/17 04:15 52 L 18 171/77 97 06/25/17 03:12 96.9 F L 60 18 187/77 97 06/25/17 02:50 96.9 F L 60 18 187/77 97 06/25/17 02:12 59 L 173/74 98 06/25/17 02:09 97.0 F L 54 L 18 172/75 99 06/25/17 01:21 55 L 18 190/76 97 06/24/17 23:54 70 18 160/100 98 06/24/17 22:27 58 L 18 181/81 98 06/24/17 22:01 98.0 F 66 19 215/84 98 Intake and Output 06/24/17 06/25/17 06/25/17 22:59 06:59 14:59 Intake Total 480 Balance 480 Intake: Oral 480 Other: Voiding Method Incontinent Incontinent # Voids 3 Weight 92.986 kg 82 kg PHYSICAL EXAMINATION: GENERAL: The patient is alert and oriented x3, not in any acute distress. Well developed, well nourished. HEENT: Pupils are round and equally reacting to light. EOMI. No scleral icterus. No conjunctival pallor. Normocephalic, atraumatic. No pharyngeal erythema. No thyromegaly. CARDIOVASCULAR: S1 and S2 present. No murmurs, rubs, or gallops. PULMONARY: Chest is clear to auscultation, no wheezing or crackles. ABDOMEN: Soft, nontender, nondistended, normoactive bowel sounds. No palpable organomegaly. MUSCULOSKELETAL: No joint swelling or deformity. EXTREMITIES: No cyanosis, clubbing, or pedal edema. NEUROLOGICAL: Gross neurological examination did not reveal any focal deficits. SKIN: No rashes. Results CBC & Chem 7: 06/24/17 22:25 06/24/17 22:25 Labs: Abnormal Lab Results - Last 24 Hours (Table) 06/24/17 06/24/17 06/24/17 Range/Units 22:25 22:25 22:25 WBC 10.9 H (3.8-10.6) k/uL Neutrophils # 8.0 H (1.3-7.7) k/uL D-Dimer (<0.60) mg/L FEU Glucose 109 H (74-99) mg/dL CK-MB (CK-2) 2.5 H* (0.0-2.4) ng/mL Troponin I 0.236 H* (0.000-0.034) ng/mL 06/24/17 06/25/17 06/25/17 Range/Units 22:25 03:56 09:55 WBC (3.8-10.6) k/uL Neutrophils # (1.3-7.7) k/uL D-Dimer 0.91 H (<0.60) mg/L FEU Glucose (74-99) mg/dL CK-MB (CK-2) (0.0-2.4) ng/mL Troponin I 0.219 H* 0.197 H* (0.000-0.034) ng/mL Thrombosis Risk Factor Assmnt - Choose All That Apply Each Factor Represents 1 point: Swollen legs (current) Each Risk Factor Represents 2 Points: Age 61-74 years Thrombosis Risk Factor Assessment Total Risk Factor Score: 3 Thrombosis Risk Factor Assessment Level: Moderate Risk Assessment and Plan Plan: -Shortness of breath: Symptoms resolved at this point of time patient may have had acute pulmonary edema from atrial fibrillation, cardiology evaluated the patient patient using one dose of Lasix monitor overnight possibly of discharge tomorrow. -Minimally elevated troponin and patient was diagnosed with non-ST elevation myocardial infarction during his previous hospital physician was subsequently transferred to be a [place] although patient didn't undergo cardiac catheterization it appears like he has this residual trending down troponins from that hospitalization, cardiology is obtaining medical records from the [place]. -Proximal atrial fibrillation -Hypertension -Hyperlipidemia -Ruled out pulmonary embolism with a CT angios the chest For above-mentioned chronic medical problems will continue on appropriate home medications
[2017-06-25 18:45] LABS: Hemoglobin A1C 5.8 % (4.0-6.0)
[2017-06-25] MEDS: SENNOSIDES-DOCUSATE SODIUM 1 EACH TAB PO SCH (21:31)
[2017-06-25] MEDS: ATORVASTATIN 80 MG TAB PO SCH (21:31)
[2017-06-26] MEDS: PANTOPRAZOLE 40 MG TABLET PO SCH (06:35)
[2017-06-26 06:49] LABS: Anion Gap 11 mmol/L; Blood Urea Nitrogen 19 mg/dL (9-20); Calcium 9.3 mg/dL (8.4-10.2); Carbon Dioxide 27 mmol/L (22-30); Chloride 103 mmol/L (98-107); Cholesterol 138 mg/dL (<200); Glucose 92 mg/dL (74-99); HDL Cholesterol 31 mg/dL (40-60); LDL Cholesterol,Calculated 94 mg/dL (0-99); Potassium 4.3 mmol/L (3.5-5.1); Sodium 141 mmol/L (137-145); Triglycerides 63 mg/dL (<150)
[2017-06-26] MEDS: ASCORBIC ACID 500 MG TAB PO SCH (08:22)
[2017-06-26] MEDS: CALCIUM CARBONATE 500 MG CHEWABLE PO SCH (08:22)
[2017-06-26] MEDS: CLOPIDOGREL 75 MG TAB PO SCH (08:22)
[2017-06-26] MEDS: CHOLECALCIFEROL 400 UNIT TAB PO SCH (08:22)
[2017-06-26] MEDS: ASPIRIN 81 MG PO SCH (08:22)
[2017-06-26] MEDS: FERROUS SULFATE 325 MG TAB PO SCH ×2 (08:22→20:15)
[2017-06-26] MEDS: APIXABAN 5 MG TAB PO SCH ×2 (08:22→20:15)
[2017-06-26] MEDS: TAMSULOSIN 0.4 MG CAP.ER.24H PO SCH (08:23)
[2017-06-26] MEDS: METOPROLOL SUCCINATE (ER) 100 MG TAB.ER.24H PO SCH (08:23)
[2017-06-26] MEDS: MULTIVITAMINS, THERA 1 EACH TAB PO SCH (08:23)
[2017-06-26] MEDS: LISINOPRIL 5 MG TAB PO SCH (08:23)
[2017-06-26] MEDS: FINASTERIDE 5 MG TAB PO SCH (08:23)
[2017-06-26] MEDS: FUROSEMIDE 40 MG TAB PO SCH (08:23)
[2017-06-26] MEDS ORDERED: ASPIRIN 325 MG TAB PO SCH (09:00)
--- NOTE | 2017-06-26 09:59 | P.PN ---
Subjective Principal diagnosis: Patient seen and examined on Tuesday, 25 June 2017 in the ICU Plan discussed with nurse Pimentel Patient is sitting up comfortably in a chair. Vitals are stable heart rate 7 between 80-100 beats a minute blood pressure is normal Breath sounds are equal bilaterally no rhonchi no crackles No respiratory distress no tachypnea Heart sounds are [place] soft no murmurs or gallops Abdomen soft nontender Patient is a warm edema in the groins have healed well Impression Typical atrial flutter, status post successful ablation under general anesthesia , elective Active nasal bleeding, right nostril, secondary to placement of a nasal trumpet As a result patient was not extubated after the procedure and was transferred to the ICU, intubated Nasal cavity packed by Dr. Nicholas on the day of the admission Nasal packing has been removed and there has been no further active bleeding XARELTO has been reinitiated at 15 mg daily along with Plavix LV dysfunction, chronic congestive heart failure, stable Dual-chamber pacemaker implantation intermittent heart block A. fib with RVR intermittently only Beta efrain dose was increased by Dr. Yung Plan Increase metoprolol succinate 50 mg twice daily Continue all other cardiac medications and discharge planning over the next 24- 48 hours Objective - Vital Signs Vital signs: Vital Signs Temp 97.6 F 06/26/17 04:00 Pulse 58 L 06/26/17 04:00 Resp 18 06/26/17 04:00 BP 143/64 06/26/17 04:00 Pulse Ox 94 L 06/26/17 04:00 Intake & Output 06/25/17 06/26/17 06/26/17 18:59 06:59 18:59 Intake Total 720 360 Balance 720 360 Weight 91.4 kg Intake: Oral 720 360 Other: Voiding Method Incontinent Incontinent # Voids 3 1 # Bowel Movements 1 - Labs CBC & Chem 7: 06/24/17 22:25 06/26/17 05:50 Labs: Abnormal Lab Results - Last 24 Hours (Table) 06/25/17 06/26/17 Range/Units 09:55 05:50 Troponin I 0.197 H* (0.000-0.034) ng/mL HDL Cholesterol 31 L (40-60) mg/dL
--- NOTE | 2017-06-26 11:31 | PN ---
PROGRESS NOTE Mr. Tee is a 76-year-old male with a history of coronary artery disease, history of paroxysmal atrial fibrillation. Recent episode of CHF with non ST-segment elevation myocardial infarction who was transferred to the [facility] in [place]. Details of the workup at that time is not available. He has underwent stenting in the past of his left main and the LAD with assist from [facility]. He is feeling better today. He denying any chest pain, no palpitation. He continues to be in sinus mechanism. On the monitor, he had an episode of nonsustained ventricular tachycardia. He continues to be on Eliquis 5 mg twice a day, aspirin 81 mg daily, Plavix 75 mg daily, Lasix 40 mg daily, metoprolol succinate 200 mg daily, Zestril 5 mg daily, Protonix, and Flomax. PHYSICAL EXAMINATION: Blood pressure 111/60 with a heart rate in 60s. Lungs no wheeze or rales. Heart regular rate and rhythm S1, S2. No S3 with systolic murmur 2/6 heard at the base. No diastolic murmur. ABDOMEN: Soft, nontender. EXTREMITIES: No edema. LAB DATA: BUN and creatinine 19 and 1.2. Cholesterol 138, LDL of 94. IMPRESSION: 1. Episode of dyspnea with mild CHF, improving. 2. Episode of nonsustained ventricular tachycardia. 3. Prior episode of atrial fibrillation, remains sinus mechanism. 4. Status post recent high-risk percutaneous revascularization. 5. Hyperlipidemia. RECOMMENDATION: We will continue present therapy. Increase his level of activity. Follow his renal function. I am awaiting the workup that was done recently in the [place]. If he remains stable by tomorrow after increasing physical activity and if he has no further episodes of ventricular tachycardia, I would expect he should be able to be discharged home tomorrow and follow up as an outpatient at the [facility]. MMMAMADOUL / ANKITAN: [id number] /
--- NOTE | 2017-06-26 11:33 | P.PN ---
Subjective Patient with history of atrial fibrillation is admitted for shortness of breath patient is fairly euvolemic patient was also treated for CHF exacerbation chronic diastolic dysfunction with acute exacerbation. Patient was recently discharged to [facility] for management of non-ST elevation myocardial infarction. Patient did not have any cardiac catheterization done there we're awaiting medical records from [facility]. Although patient was told that his stents were clear. Patient has a residual troponins that were coming down probably from his previous hospitalization and previous non-ST elevation myocardial infarction Objective - Vital Signs Vital signs: Vital Signs Temp 96.6 F L 06/26/17 08:00 Pulse 69 06/26/17 08:00 Resp 18 06/26/17 08:00 BP 111/60 06/26/17 08:00 Pulse Ox 93 L 06/26/17 08:00 Intake & Output 06/25/17 06/26/17 06/26/17 18:59 06:59 18:59 Intake Total 720 360 Balance 720 360 Weight 91.4 kg Intake: Oral 720 360 Other: Voiding Method Incontinent Incontinent Incontinent # Voids 3 1 # Bowel Movements 1 - Exam PHYSICAL EXAMINATION: GENERAL: The patient is alert and oriented x3, not in any acute distress. Well developed, well nourished. HEENT: Pupils are round and equally reacting to light. EOMI. No scleral icterus. No conjunctival pallor. Normocephalic, atraumatic. No pharyngeal erythema. No thyromegaly. CARDIOVASCULAR: S1 and S2 present. No murmurs, rubs, or gallops. PULMONARY: Chest is clear to auscultation, no wheezing or crackles. ABDOMEN: Soft, nontender, nondistended, normoactive bowel sounds. No palpable organomegaly. MUSCULOSKELETAL: No joint swelling or deformity. EXTREMITIES: No cyanosis, clubbing, or pedal edema. NEUROLOGICAL: Gross neurological examination did not reveal any focal deficits. SKIN: No rashes. - Labs CBC & Chem 7: 06/24/17 22:25 06/26/17 05:50 Labs: Abnormal Lab Results - Last 24 Hours (Table) 06/26/17 Range/Units 05:50 HDL Cholesterol 31 L (40-60) mg/dL Assessment and Plan Plan: -Shortness of breath: Symptoms resolved at this point of time patient may have had acute pulmonary edema from atrial fibrillation, cardiology evaluated. Awaiting medical records from the [facility] once we get those medical records further management medications depending on the medical records. -Minimally elevated troponin and patient was diagnosed with non-ST elevation myocardial infarction during his previous hospital physician was subsequently transferred to be a [facility] although patient didn't undergo cardiac catheterization it appears like he has this residual trending down troponins from that hospitalization, cardiology is obtaining medical records from the [facility]. -Proximal atrial fibrillation -Hypertension -Hyperlipidemia -Ruled out pulmonary embolism with a CT angios the chest For above-mentioned chronic medical problems will continue on appropriate home medications
[2017-06-26] MEDS: SENNOSIDES-DOCUSATE SODIUM 1 EACH TAB PO SCH (20:15)
[2017-06-26] MEDS: ATORVASTATIN 80 MG TAB PO SCH (20:15)
[2017-06-27 01:03] VITALS: RESP 18
[2017-06-27] MEDS: PANTOPRAZOLE 40 MG TABLET PO SCH (06:49)
[2017-06-27 07:30] LABS: Anion Gap 8 mmol/L; Blood Urea Nitrogen 23 mg/dL (9-20); Calcium 9.3 mg/dL (8.4-10.2); Carbon Dioxide 25 mmol/L (22-30); Chloride 107 mmol/L (98-107); Glucose 91 mg/dL (74-99); Potassium 4.3 mmol/L (3.5-5.1); Sodium 140 mmol/L (137-145)
[2017-06-27] MEDS: CHOLECALCIFEROL 400 UNIT TAB PO SCH (09:18)
[2017-06-27] MEDS: CLOPIDOGREL 75 MG TAB PO SCH (09:19)
[2017-06-27] MEDS: FINASTERIDE 5 MG TAB PO SCH (09:19)
[2017-06-27] MEDS: ASCORBIC ACID 500 MG TAB PO SCH (09:19)
[2017-06-27] MEDS: FERROUS SULFATE 325 MG TAB PO SCH (09:19)
[2017-06-27] MEDS: APIXABAN 5 MG TAB PO SCH (09:19)
[2017-06-27] MEDS: ASPIRIN 81 MG PO SCH ×2 (09:19→13:16)
[2017-06-27] MEDS: CALCIUM CARBONATE 500 MG CHEWABLE PO SCH (09:19)
[2017-06-27] MEDS: LISINOPRIL 5 MG TAB PO SCH (09:20)
[2017-06-27] MEDS: MULTIVITAMINS, THERA 1 EACH TAB PO SCH (09:20)
[2017-06-27] MEDS: TAMSULOSIN 0.4 MG CAP.ER.24H PO SCH (09:20)
[2017-06-27] MEDS: METOPROLOL SUCCINATE (ER) 100 MG TAB.ER.24H PO SCH (09:20)
[2017-06-27] MEDS: FUROSEMIDE 40 MG TAB PO SCH (09:32)
--- NOTE | 2017-06-27 12:37 | PN ---
PROGRESS NOTE Mr. Tee 76-year-old male who has a history of coronary artery disease, paroxysmal atrial fibrillation, who presented with evidence of progressive dyspnea. He is feeling much better today. His breathing is stable. He denies any dizziness or palpitation. He denies any nausea. He continued to be in sinus mechanism. He continued to be on Eliquis 5 mg twice a day, Plavix 75 mg daily, aspirin 81 mg daily, iron, furosemide 40 mg daily, lisinopril 5 mg daily, metoprolol succinate 200 mg daily. PHYSICAL EXAMINATION: Blood pressure 122/60 with the heart rate in the 60s. LUNGS: Clear. HEART: Regular rate and rhythm. S1, S2. No S3. No rub. ABDOMEN: Soft, nontender. EXTREMITIES: No edema. LAB DATA: Lab data revealed BUN and creatinine 23 and 1.19. Potassium 4.3. IMPRESSION: 1. Symptoms of congestive heart failure, stable. 2. History of coronary artery disease. 3. History of paroxysmal fibrillation. 4. Hypertension. 5. Hyperlipidemia. RECOMMENDATION: Patient will stop his aspirin. Continue on the Eliquis and the Plavix. He should be able to be discharged home today and follow up as an outpatient with the [facility]. MMODL / IJN: [id number] /
--- NOTE | 2017-06-27 14:42 | P.DS ---
Providers Date of admission: 06/25/17 02:03 Attending physician: Sree Santana Consults: 06/25/17 01:50 Consult Physician Routine Consulting Provider: Bon Castaneda Consult Reason/Comments: mildly elevated troponin Do you want consulting provider notified?: Yes Primary care physician: [facility] Course: Patient with history of atrial fibrillation is admitted for shortness of breath patient is fairly euvolemic patient was also treated for CHF exacerbation chronic diastolic dysfunction with acute exacerbation. Patient was recently discharged to [facility] for management of non-ST elevation myocardial infarction. Patient did not have any cardiac catheterization done there we're awaiting medical records from [facility]. Although patient was told that his stents were clear. Patient has a residual troponins that were coming down probably from his previous hospitalization and previous non-ST elevation myocardial infarction Jun 27 2017 We're able to get medical records from him [facility]. He cleared for discharge. Patient apparently never had any chest pain with elevated troponins because of which there is no benefit and improvement of quality of life with cardiac catheterization and stenting, as per cardiology. PHYSICAL EXAMINATION: GENERAL: The patient is alert and oriented x3, not in any acute distress. Well developed, well nourished. HEENT: Pupils are round and equally reacting to light. EOMI. No scleral icterus. No conjunctival pallor. Normocephalic, atraumatic. No pharyngeal erythema. No thyromegaly. CARDIOVASCULAR: S1 and S2 present. No murmurs, rubs, or gallops. PULMONARY: Chest is clear to auscultation, no wheezing or crackles. ABDOMEN: Soft, nontender, nondistended, normoactive bowel sounds. No palpable organomegaly. MUSCULOSKELETAL: No joint swelling or deformity. EXTREMITIES: No cyanosis, clubbing, or pedal edema. NEUROLOGICAL: Gross neurological examination did not reveal any focal deficits. SKIN: No rashes. Assessment and Plan Plan: -Shortness of breath: Symptoms resolved at this point of time patient may have had acute pulmonary edema from atrial fibrillation, cardiology evaluated. As of breath improved and patient is being discharged today -Minimally elevated troponin and patient was diagnosed with non-ST elevation myocardial infarction during his previous hospital -Proximal atrial fibrillation -Hypertension -Hyperlipidemia -Ruled out pulmonary embolism with a CT angios the chest Patient Condition at Discharge: Fair Plan - Discharge Summary Discharge Rx Participant: Yes New Discharge Prescriptions: No Action Multivitamins, Thera [Multivitamin (formulary)] 1 tab PO DAILY Ferrous Sulfate [Feosol] 325 mg PO BID Cholecalciferol [Vitamin D3] 800 unit PO DAILY Calcium Carbonate 500 mg PO DAILY Tamsulosin [Flomax] 0.8 mg PO DAILY Sennosides-Docusate Sodium [Senokot-S] 2 tab PO HS Finasteride [Proscar] 5 mg PO DAILY Atorvastatin [Lipitor] 80 mg PO HS Clopidogrel [Plavix] 75 mg PO DAILY tab Omeprazole 20 mg PO DAILY Ascorbic Acid [Vitamin C] 500 mg PO DAILY Metoprolol Succinate [Toprol XL] 200 mg PO DAILY Lisinopril [Zestril] 5 mg PO DAILY Furosemide [Lasix] 40 mg PO DAILY Apixaban [Eliquis] 5 mg PO BID Discharge Medication List Atorvastatin [Lipitor] 80 mg PO HS 02/04/17 [History] Calcium Carbonate 500 mg PO DAILY 02/04/17 [History] Cholecalciferol [Vitamin D3] 800 unit PO DAILY 02/04/17 [History] Ferrous Sulfate [Feosol] 325 mg PO BID 02/04/17 [History] Finasteride [Proscar] 5 mg PO DAILY 02/04/17 [History] Multivitamins, Thera [Multivitamin (formulary)] 1 tab PO DAILY 02/04/17 [History ] Sennosides-Docusate Sodium [Senokot-S] 2 tab PO HS 02/04/17 [History] Tamsulosin [Flomax] 0.8 mg PO DAILY 02/04/17 [History] Clopidogrel [Plavix] 75 mg PO DAILY tab 06/21/17 [Rx] Apixaban [Eliquis] 5 mg PO BID 06/24/17 [History] Ascorbic Acid [Vitamin C] 500 mg PO DAILY 06/24/17 [History] Furosemide [Lasix] 40 mg PO DAILY 06/24/17 [History] Lisinopril [Zestril] 5 mg PO DAILY 06/24/17 [History] Metoprolol Succinate [Toprol XL] 200 mg PO DAILY 06/24/17 [History] Omeprazole 20 mg PO DAILY 06/24/17 [History] Follow up Appointment(s)/Referral(s): McPhilimy,Rashi, DO [Primary Care Provider] - 07/14/17 3:00 pm ([facility] [phone] ) Patient Instructions/Handouts: Myocardial Infarction (DC), A-fib (Atrial Fibrillation) (DC) Activity/Diet/Wound Care/Special Instructions: 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 Discharge Disposition: HOME SELF-CARE
[2017-06-27 15:39] VITALS: BP 109/59; PULSE 73; TEMP 97.6
== END 2017-06-27 17:03 | disposition home or self-care (01) ==
LOC: EC 21:56 → 6SEL 06-25 02:03
PROVIDERS: ADMIT Internal Medicine; ATTEND Internal Medicine
DX: R06.02 Shortness of breath (principal); I48.0 Paroxysmal atrial fibrillation; I47.2 Ventricular tachycardia; R74.8 Abnormal levels of other serum enzymes; R79.89 Other specified abnormal findings of blood chemistry; I25.2 Old myocardial infarction; I50.32 Chronic diastolic (congestive) heart failure; I11.0 Hypertensive heart disease with heart failure; I50.33 Acute on chronic diastolic (congestive) heart failure; I25.10 Atherosclerotic heart disease of native coronary artery without angina pectoris; E11.9 Type 2 diabetes mellitus without complications; K21.9 Gastro-esophageal reflux disease without esophagitis; E78.5 Hyperlipidemia, unspecified; N40.0 Benign prostatic hyperplasia without lower urinary tract symptoms; G35 Multiple sclerosis; Z79.01 Long term (current) use of anticoagulants; Z79.899 Other long term (current) drug therapy; Z79.02 Long term (current) use of antithrombotics/antiplatelets; Z95.5 Presence of coronary angioplasty implant and graft; Z86.73 Personal history of transient ischemic attack (TIA), and cerebral infarction without residual deficits; Z87.891 Personal history of nicotine dependence
CPT/HCPCS: 99285 ×2; 96374 ×2; 96375; 36415; 93005; 85379; 83880; 80061; 80053; 80048 ×2; 82550 ×2; 82553 ×2; 83735 ×2; 84484 ×2; 85025; 85610; 85730; 83036; 71045; 71275; G0378 ×3; S0138 ×3; J1940; Q9967

== ENCOUNTER 2017-06-29 16:36 | Observation (INO) | payer OTHER, MEDICARE ==
[2017-06-29] MEDS ORDERED: SODIUM CHLORIDE 0.9% 500 ML IV ONE (16:54)
[2017-06-29 17:11] LABS: Basophils % (A) 0 %; Eosinophils # (A) 0.3 k/uL (0-0.7); Eosinophils % (A) 4 %; HCT 41.1 % (39.0-53.0); HGB 13.2 gm/dL (13.0-17.5); Lymphocytes # (A) 1.8 k/uL (1.0-4.8); Lymphocytes % (A) 22 %; MCH 29.3 pg (25.0-35.0); MCHC 32.3 g/dL (31.0-37.0); MCV 90.9 fL (80.0-100.0); Mean Platelet Volume 8.7; Monocytes # (A) 0.5 k/uL (0-1.0); Monocytes % (A) 6 %; Neutrophils # (A) 5.4 k/uL (1.3-7.7); Neutrophils % (A) 65 %; Platelet Count 241 k/uL (150-450); RBC 4.51 m/uL (4.30-5.90); WBC 8.2 k/uL (3.8-10.6)
[2017-06-29 17:16] LABS: Albumin 3.7 g/dL (3.5-5.0); Calcium 9.5 mg/dL (8.4-10.2); INR 1.1 (<1.2); Magnesium 1.9 mg/dL (1.6-2.3); Partial Thromboplastin Time 22.8 sec (22.0-30.0); Potassium 4.8 mmol/L (3.5-5.1); Prothrombin Time 10.4 sec (9.0-12.0); Total Bilirubin 0.3 mg/dL (0.2-1.3); Total Protein 6.6 g/dL (6.3-8.2)
[2017-06-29 17:36] LABS: Troponin I 0.029 ng/mL (0.000-0.034)
[2017-06-29 17:48] LABS: Creatine Kinase MB 5.2 ng/mL (0.0-2.4)
[2017-06-29] MEDS ORDERED: NALOXONE 0.4 MG/ML 1 ML VIAL IV PRN (18:53)
--- NOTE | 2017-06-29 19:01 | ED ---
General Adult HPI - General Chief complaint: Recheck/Abnormal Lab/Rx Stated complaint: Hypotension Time Seen by Provider: 06/29/17 16:44 Source: EMS Mode of arrival: EMS Limitations: no limitations - History of Present Illness Initial comments: This is a 76-year-old male with a history of CHF, para H of fibrillation, CAD who presents emergency department for lightheadedness and symptomatically cardia. The patient was at his doctor's office today for an earache when he suddenly became very lightheaded and passed out. It was noted that his heart rate was low and his blood pressure was low as well the 70s over 40s. He was merely sent here for further evaluation. The patient currently has no symptoms. States he no longer feels lightheaded or dizzy. Has no chest pain or shortness of breath. X-ray spoke with his son-in-law on the phone who was able to give me a history for him. He was recently admitted to [facility] and had a heart cath done. He was found to be going into atrial fibrillation at that time and his propranolol was increased to 125 mg. He feels that this may be the cause of the patient symptomatically bradycardia. He gave me phone numbers for the [facility] which is [phone]. He also given a phone number for the [facility] which is [phone]. The son-in-law's name was Jonny in his phone number was [phone]. - Related Data Home Medications Medication Instructions Recorded Confirmed Atorvastatin [Lipitor] 80 mg PO HS 02/04/17 06/29/17 Calcium Carbonate 500 mg PO DAILY 02/04/17 06/29/17 Cholecalciferol [Vitamin D3] 800 unit PO DAILY 02/04/17 06/29/17 Ferrous Sulfate [Feosol] 325 mg PO BID 02/04/17 06/29/17 Finasteride [Proscar] 5 mg PO DAILY 02/04/17 06/29/17 Multivitamins, Thera [Multivitamin 1 tab PO DAILY 02/04/17 06/29/17 (formulary)] Sennosides-Docusate Sodium 2 tab PO HS 02/04/17 06/29/17 [Senokot-S] Tamsulosin [Flomax] 0.8 mg PO DAILY 02/04/17 06/29/17 Apixaban [Eliquis] 5 mg PO BID 06/24/17 06/29/17 Ascorbic Acid [Vitamin C] 500 mg PO DAILY 06/24/17 06/29/17 Furosemide [Lasix] 40 mg PO DAILY 06/24/17 06/29/17 Lisinopril [Zestril] 5 mg PO DAILY 06/24/17 06/29/17 Metoprolol Succinate [Toprol XL] 200 mg PO DAILY 06/24/17 06/29/17 Omeprazole 20 mg PO DAILY 06/24/17 06/29/17 Previous Rx's Medication Instructions Recorded Clopidogrel [Plavix] 75 mg PO DAILY tab 06/21/17 Allergies Allergy/AdvReac Type Severity Reaction Status Date / Time No Known Allergies Allergy Verified 06/29/17 16:44 Review of Systems ROS Statement: Those systems with pertinent positive or pertinent negative responses have been documented in the HPI. ROS Other: All systems not noted in ROS Statement are negative. Past Medical History Past Medical History: Atrial Fibrillation, Coronary Artery Disease (CAD), CVA/ TIA, Diabetes Mellitus, GERD/Reflux, Hyperlipidemia, Hypertension Additional Past Medical History / Comment(s): BPH, self caths three times daily at home, diabetes mellitus which has been diet controlled, MS History of Any Multi-Drug Resistant Organisms: None Reported Past Surgical History: Adenoidectomy, Appendectomy, Heart Catheterization With Stent, Hernia Repair, Tonsillectomy Additional Past Surgical History / Comment(s): RECENT HEART CATH AT [facility] ON 02/02/17: stents were placed in the mid LAD, proximal LAD, and LEFT MAIN. Right hip repair 2011 Past Anesthesia/Blood Transfusion Reactions: No Reported Reaction Date of Last Stent Placement:: 02-02-17 Past Psychological History: No Psychological Hx Reported Smoking Status: Former smoker Past Alcohol Use History: None Reported Past Drug Use History: None Reported - Past Family History Father Family Medical History: Coronary Artery Disease (CAD) Mother Family Medical History: No Reported History General Exam - General Exam Comments Initial Comments: Constitutional: Awake alert Appears comfortable Head: Normocephalic atraumatic Eyes: no conjunctival injection No scleral icterus EOMI Neck: No JVD Supple Heart: Bradycardia with normal rhythm normal S1-S2 no murmurs Lungs: Clear to auscultation bilaterally No wheezing No rales Abdomen: Soft nondistended nontender Extremities: Non edematous DP pulses intact Radial pulses intact Neuro: A&Ox3 No focal neurologic deficits Psych: Appropriate mood and affect Limitations: no limitations Course Vital Signs 06/29/17 06/29/17 16:40 17:19 Temperature 96.9 F L Pulse Rate 52 L 49 L Respiratory 16 16 Rate Blood Pressure 135/62 137/65 O2 Sat by Pulse 95 98 Oximetry EKG Findings - EKG Comments: EKG Findings:: EKG showing sinus bradycardia democrat with a rate of 49. Nor normal ST segment changes or T-wave inversions. QTC is 408. Other intervals normal. No ectopy. Medical Decision Making - Medical Decision Making Is a 76-year-old male who presented for hypotension and presyncope with bradycardia. The patient was monitored in the ER and had no further symptoms here. Blood work was reviewed and showed a mild achy eye however no other abnormalities. I feel that the patient's symptoms may be related to his increase in propranolol dose however due to his history of CHF and CAD I'm concerned that he may worsen at home. He does have a Holter monitor on and this needs to be interrogated. This should be able to be done here.. I did request records from the patient's last admission from [place]. Hopefully these can be faxed to us. I spoke with Dr. Antonio about the case and he would like cardiology to see the patient. Patient stated that he did not want to go to [place] and preferred to stay here. Patient will be observed here tonight. - Lab Data Result diagrams: 06/29/17 16:52 06/29/17 16:52 Lab Results 06/29/17 06/29/17 06/29/17 Range/Units 16:52 16:52 16:52 WBC 8.2 (3.8-10.6) k/uL RBC 4.51 (4.30-5.90) m/uL Hgb 13.2 (13.0-17.5) gm/dL Hct 41.1 (39.0-53.0) % MCV 90.9 (80.0-100.0) fL MCH 29.3 (25.0-35.0) pg MCHC 32.3 (31.0-37.0) g/dL RDW 13.0 (11.5-15.5) % Plt Count 241 (150-450) k/uL Neutrophils % 65 % Lymphocytes % 22 % Monocytes % 6 % Eosinophils % 4 % Basophils % 0 % Neutrophils # 5.4 (1.3-7.7) k/uL Lymphocytes # 1.8 (1.0-4.8) k/uL Monocytes # 0.5 (0-1.0) k/uL Eosinophils # 0.3 (0-0.7) k/uL Basophils # 0.0 (0-0.2) k/uL PT (9.0-12.0) sec INR (<1.2) APTT (22.0-30.0) sec Sodium 138 (137-145) mmol/L Potassium 4.8 (3.5-5.1) mmol/L Chloride 104 (98-107) mmol/L Carbon Dioxide 24 (22-30) mmol/L Anion Gap 10 mmol/L BUN 30 H (9-20) mg/dL Creatinine 1.62 H (0.66-1.25) mg/dL Est GFR (MDRD) Af Amer 51 (>60 ml/min/1.73 sqM) Est GFR (MDRD) Non-Af 42 (>60 ml/min/1.73 sqM) Glucose 140 H (74-99) mg/dL Calcium 9.5 (8.4-10.2) mg/dL Magnesium 1.9 (1.6-2.3) mg/dL Total Bilirubin 0.3 (0.2-1.3) mg/dL AST 35 (17-59) U/L ALT 42 (21-72) U/L Alkaline Phosphatase 71 (38-126) U/L CK-MB (CK-2) 5.2 H* (0.0-2.4) ng/mL Troponin I 0.029 (0.000-0.034) ng/mL NT-Pro-B Natriuret Pep pg/mL Total Protein 6.6 (6.3-8.2) g/dL Albumin 3.7 (3.5-5.0) g/dL 06/29/17 06/29/17 Range/Units 16:52 16:52 WBC (3.8-10.6) k/uL RBC (4.30-5.90) m/uL Hgb (13.0-17.5) gm/dL Hct (39.0-53.0) % MCV (80.0-100.0) fL MCH (25.0-35.0) pg MCHC (31.0-37.0) g/dL RDW (11.5-15.5) % Plt Count (150-450) k/uL Neutrophils % % Lymphocytes % % Monocytes % % Eosinophils % % Basophils % % Neutrophils # (1.3-7.7) k/uL Lymphocytes # (1.0-4.8) k/uL Monocytes # (0-1.0) k/uL Eosinophils # (0-0.7) k/uL Basophils # (0-0.2) k/uL PT 10.4 (9.0-12.0) sec INR 1.1 (<1.2) APTT 22.8 (22.0-30.0) sec Sodium (137-145) mmol/L Potassium (3.5-5.1) mmol/L Chloride (98-107) mmol/L Carbon Dioxide (22-30) mmol/L Anion Gap mmol/L BUN (9-20) mg/dL Creatinine (0.66-1.25) mg/dL Est GFR (MDRD) Af Amer (>60 ml/min/1.73 sqM) Est GFR (MDRD) Non-Af (>60 ml/min/1.73 sqM) Glucose (74-99) mg/dL Calcium (8.4-10.2) mg/dL Magnesium (1.6-2.3) mg/dL Total Bilirubin (0.2-1.3) mg/dL AST (17-59) U/L ALT (21-72) U/L Alkaline Phosphatase (38-126) U/L CK-MB (CK-2) (0.0-2.4) ng/mL Troponin I (0.000-0.034) ng/mL NT-Pro-B Natriuret Pep 550 pg/mL Total Protein (6.3-8.2) g/dL Albumin (3.5-5.0) g/dL Disposition Clinical Impression: Symptomatic bradycardia Disposition: ADMITTED IP TO THIS [facility] Condition: Stable
[2017-06-29 20:55] LABS: Glucose,Whole Blood 120 mg/dL (75-99)
[2017-06-29 21:05] VITALS: BMI 28.0
[2017-06-29] MEDS: ATORVASTATIN 80 MG TAB PO SCH (22:25)
[2017-06-29] MEDS: APIXABAN 5 MG TAB PO SCH (22:25)
[2017-06-29] MEDS: SENNOSIDES-DOCUSATE SODIUM 1 EACH TAB PO SCH (22:26)
[2017-06-30 02:42] LABS: Troponin I 0.022 ng/mL (0.000-0.034)
[2017-06-30 02:50] LABS: Creatine Kinase MB 3.5 ng/mL (0.0-2.4)
[2017-06-30 07:14] LABS: Troponin I 0.021 ng/mL (0.000-0.034)
[2017-06-30 07:22] LABS: Creatine Kinase MB 3.1 ng/mL (0.0-2.4)
[2017-06-30 07:46] LABS: Glucose,Whole Blood 84 mg/dL (75-99)
[2017-06-30] MEDS ORDERED: LISINOPRIL 2.5 MG TAB PO SCH (10:15)
--- NOTE | 2017-06-30 10:47 | P.CRDCN ---
History of Present Illness Consult date: 06/30/17 History of present illness: Mr. Tee is a pleasant 76-year-old male past medical history significant for paroxysmal atrial fibrillation on Eliquis, coronary artery disease, diastolic heart failure, diabetes mellitus, hypertension and dyslipidemia. 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 He had an episode yesterday where he felt as though he had water in his ears and became acutely dizzy with room spinning and he felt off balance. He ate a bowl of soup and felt better with all symptoms of dizziness resolved. He went to the clinic in [place] for evaluation and was found to be hypotensive 70s/40s. For this reason he was sent to the hospital for evaluation. His vital signs have been stable since admission. He received a 500cc bolus in ED and all cardiac meds have been on hold. He is currently maintaining sinus mechanism and denies any further episodes of dizziness. Telemetry tracings reveals sinus racquel with heart rate going down to as low as 48 while sleeping with a 5-beat run of non-sustained VT last night at 2230. He was symptomatic at that time. He has been admitted several times recently and medications have been adjusted. He started on metoprolol 12.5 mg BID in January s/p PCI and this has since been increased for tighter control of his ventricular response up to Toprol 200 mg daily. EKG on arrival reveals sinus bradycardia with heart rate 49 with non-specific ST abnormalities. These abnormalities are consistent with old EKG's. Most recent cardiac catheterization performed at the [place] 01/2017 was performed with Impella assist and he underwent stenting of the left main and LAD. Most recent echocardiogram 06/2017 reveals preserved LV systolic function with EF 55-60%. Laboratory data reviewed, hgb 13.2, plt 241, potassium 4.8, magnesium 1.9, creatinine 1.62, cardiac enzymes negative x3. Current cardiac medications include toprol 200 mg daily, lisinopril 5 mg daily, lasix 40 mg daily, plavix 75 mg daily, atorvastatin 80 mg daily and eliquis 5 mg BID. Review of Systems At the time of my exam: CONSTITUTIONAL: Denies fever. Denies chills. EYES: Denies blurred vision. Denies vision changes. Denies eye pain. EARS, NOSE, MOUTH & THROAT: Denies headache. Denies sore throat. Denies ear pain. CARDIOVASCULAR: Denies chest pain. Denies shortness of breath. Denies orthopnea. Denies PND. Denies palpitations. RESPIRATORY: Denies cough. GASTROINTESTINAL: Denies abdominal pain. Denies diarrhea. Denies constipation. Denies nausea. Denies vomiting. MUSCULOSKELETAL: Denies myalgias. INTEGUMENTARY: Denies pruitis. Denies rash. NEUROLOGIC: Denies numbness. Denies tingling. Denies weakness. PSYCHIATRIC: Denies anxiety. Denies depression. ENDOCRINE: Denies fatigue. Denies weight change. Denies polydipsia. Denies polyurina. GENITOURINARY: Denies burning, hematuria or urgency with micturation. HEMATOLOGIC: Denies history of anemia. Denies bleeding. Past Medical History Past Medical History: Atrial Fibrillation, Coronary Artery Disease (CAD), Heart Failure, CVA/TIA, Diabetes Mellitus, GERD/Reflux, Hyperlipidemia, Hypertension, Myocardial Infarction (PR), Neurologic Disorder, Prostate Disorder Additional Past Medical History / Comment(s): BPH, neurogenic bladder - pt self caths three times daily at home, diabetes mellitus which has been diet controlled, MS, incontinence, 06/29/17 - holter monitor placed approx 1 week ago to wear for 3 weeks Last Myocardial Infarction Date:: 06/25/2017 History of Any Multi-Drug Resistant Organisms: None Reported Past Surgical History: Adenoidectomy, Appendectomy, Heart Catheterization With Stent, Hernia Repair, Tonsillectomy Additional Past Surgical History / Comment(s): RECENT HEART CATH AT [facility] ON 02/02/17: stents were placed in the mid LAD, proximal LAD, and LEFT MAIN. Right hip repair 2011 Past Anesthesia/Blood Transfusion Reactions: No Reported Reaction Date of Last Stent Placement:: 02-02-17 Past Psychological History: No Psychological Hx Reported Smoking Status: Former smoker Past Alcohol Use History: None Reported Past Drug Use History: None Reported - Past Family History Father Family Medical History: Coronary Artery Disease (CAD) Mother Family Medical History: No Reported History Medications and Allergies Home Medications Medication Instructions Recorded Confirmed Type Atorvastatin [Lipitor] 80 mg PO HS 02/04/17 06/29/17 History Calcium Carbonate 500 mg PO DAILY 02/04/17 06/29/17 History Cholecalciferol [Vitamin D3] 800 unit PO DAILY 02/04/17 06/29/17 History Ferrous Sulfate [Feosol] 325 mg PO BID 02/04/17 06/29/17 History Finasteride [Proscar] 5 mg PO DAILY 02/04/17 06/29/17 History Multivitamins, Thera [Multivitamin 1 tab PO DAILY 02/04/17 06/29/17 History (formulary)] Sennosides-Docusate Sodium 2 tab PO HS 02/04/17 06/29/17 History [Senokot-S] Tamsulosin [Flomax] 0.8 mg PO DAILY 02/04/17 06/29/17 History Clopidogrel [Plavix] 75 mg PO DAILY tab 06/21/17 06/29/17 Rx Apixaban [Eliquis] 5 mg PO BID 06/24/17 06/29/17 History Ascorbic Acid [Vitamin C] 500 mg PO DAILY 06/24/17 06/29/17 History Furosemide [Lasix] 40 mg PO DAILY 06/24/17 06/29/17 History Lisinopril [Zestril] 5 mg PO DAILY 06/24/17 06/29/17 History Metoprolol Succinate [Toprol XL] 200 mg PO DAILY 06/24/17 06/29/17 History Omeprazole 20 mg PO DAILY 06/24/17 06/29/17 History Allergies Allergy/AdvReac Type Severity Reaction Status Date / Time No Known Allergies Allergy Verified 06/29/17 16:44 Physical Exam Vitals: Vital Signs Temp Pulse Pulse Resp BP BP Pulse Ox 06/30/17 07:46 98.7 F 55 L 16 119/56 98 06/30/17 04:00 48 L 16 06/30/17 03:24 98.2 F 58 L 16 126/57 94 L 06/30/17 00:00 98.2 F 18 127/69 99 06/29/17 23:24 48 L 18 06/29/17 20:40 48 L 18 06/29/17 20:30 98.7 F 57 L 18 95/64 97 06/29/17 18:00 56 L 16 145/74 97 06/29/17 17:19 49 L 16 137/65 98 06/29/17 16:40 96.9 F L 52 L 16 135/62 95 Intake and Output 01/17/18 01/18/18 01/18/18 22:59 06:59 14:59 Other: Voiding Method Diaper Diaper # Voids 1 4 Weight 91.172 kg Blood pressure 126/57 heart rate 58 afebrile GENERAL: This is a 76-year-old male in no apparent distress at the time of my examination. HEENT: Head is atraumatic, normocephalic. Pupils are equal, round. Sclerae anicteric. Conjunctivae are clear. Mucous membranes of the mouth are moist. Neck is supple. There is no jugular venous distention. No carotid bruit is heard. LUNGS: Clear to auscultation no wheezes, rales or rhonchi. No chest wall tenderness is noted on palpation or with deep breathing. HEART: Regular rate and rhythm with systolic murmur at the base, no rubs or gallops. S1 and S2 heard. ABDOMEN: Soft, nontender. Bowel sounds are heard. No organomegaly noted. EXTREMITIES: No evidence of peripheral edema and no calf tenderness noted. VASCULAR: Radial and dorsalis pedis pulses palpated, no evidence of clubbing. NEUROLOGIC: Patient is awake, alert and oriented x3. Results 06/29/17 16:52 06/29/17 16:52 Cardiac Enzymes 18 18 06/30/17 Range/Units 16:52 16:52 01:52 AST 35 (17-59) U/L CK-MB (CK-2) 5.2 H* 3.5 H* (0.0-2.4) ng/mL Troponin I 0.029 0.022 (0.000-0.034) ng/mL 06/30/17 Range/Units 06:14 AST (17-59) U/L CK-MB (CK-2) 3.1 H* (0.0-2.4) ng/mL Troponin I 0.021 (0.000-0.034) ng/mL Coagulation 06/29/17 Range/Units 16:52 PT 10.4 (9.0-12.0) sec APTT 22.8 (22.0-30.0) sec CBC 06/29/17 Range/Units 16:52 WBC 8.2 (3.8-10.6) k/uL RBC 4.51 (4.30-5.90) m/uL Hgb 13.2 (13.0-17.5) gm/dL Hct 41.1 (39.0-53.0) % Plt Count 241 (150-450) k/uL Comprehensive Metabolic Panel 06/29/17 Range/Units 16:52 Sodium 138 (137-145) mmol/L Potassium 4.8 (3.5-5.1) mmol/L Chloride 104 (98-107) mmol/L Carbon Dioxide 24 (22-30) mmol/L BUN 30 H (9-20) mg/dL Creatinine 1.62 H (0.66-1.25) mg/dL Glucose 140 H (74-99) mg/dL Calcium 9.5 (8.4-10.2) mg/dL AST 35 (17-59) U/L ALT 42 (21-72) U/L Alkaline Phosphatase 71 (38-126) U/L Total Protein 6.6 (6.3-8.2) g/dL Albumin 3.7 (3.5-5.0) g/dL Current Medications Generic Name Dose Route Start Last Admin Trade Name Freq PRN Reason Stop Dose Admin Apixaban 5 mg 06/29/17 21:45 06/29/17 22:25 Eliquis PO 5 mg BID BLAYNE Administration Atorvastatin Calcium 80 mg 06/29/17 21:45 06/29/17 22:25 Lipitor PO 80 mg HS BLAYNE Administration Naloxone HCl 0.2 mg 06/29/17 18:53 Narcan IV Q2M PRN Opioid Reversal Senna/Docusate Sodium 2 each 06/29/17 21:45 06/29/17 22:26 Senokot-S PO 2 each HS BLAYNE Administration Intake and Output 06/29/17 06/30/17 06/30/17 22:59 06:59 14:59 Other: Voiding Method Diaper Diaper # Voids 1 4 Weight 91.172 kg 06/29/17 16:52 06/29/17 16:52 Assessment and Plan Assessment: ASSESSMENT 1. Hypotension 2. Known coronary artery disease with recent PCI of left main and LAD, continue with plavix 3. Paroxysmal atrial fibrillation on long-term anticoagulation with eliquis. Currently maintaining sinus mechanism. 4. Chronic diastolic heart failure, currently compensated. 5. Dyslipidemia 6. Hypertension 7. Gastoesophageal reflux disease 8. Non-sustained ventricular tachycardia PLAN Decrease metoprolol tartrate to 50 mg BID; Decrease lasix to 20 mg daily; Resume eliquis, atorvastatin. lisinopril and plavix. Continue telemetry tracings and monitor overnight. The above impression and plan of care have been discussed and directed by the signing physician. Paola Hernandez, nurse practitioner, acting as scribe for signing physician.
[2017-06-30] MEDS: APIXABAN 5 MG TAB PO SCH ×2 (11:16→21:27)
[2017-06-30] MEDS: METOPROLOL TARTRATE 50 MG TAB PO SCH ×2 (11:17→21:27)
[2017-06-30] MEDS: CLOPIDOGREL 75 MG TAB PO SCH (11:17)
[2017-06-30] MEDS: FUROSEMIDE 20 MG TAB PO SCH (11:17)
[2017-06-30 12:22] LABS: Glucose,Whole Blood 110 mg/dL (75-99)
--- NOTE | 2017-06-30 14:27 | P.HPIM ---
History of Present Illness pleasant 76-year-old male past medical history significant for paroxysmal atrial fibrillation on Eliquis, coronary artery disease, diastolic heart failure, diabetes mellitus, hypertension and dyslipidemia. He follows with a training professional out of the [place]. He had an episode yesterday where he felt as though he had water in his ears and became acutely dizzy with room spinning and he felt off balance. He ate a bowl of soup and felt better with all symptoms of dizziness resolved. He went to the clinic in [place] for evaluation and was found to be hypotensive 70s/40s. For this reason he was sent to the hospital for evaluation. His vital signs have been stable since admission. He received a 500cc bolus in ED and all cardiac meds have been on hold. He is currently maintaining sinus mechanism and denies any further episodes of dizziness. Telemetry tracings reveals sinus racquel with heart rate going down to as low as 48 while sleeping with a 5-beat run of non-sustained VT last night at 2230. He was symptomatic at that time. He has been admitted several times recently and medications have been adjusted. He started on metoprolol 12.5 mg BID in January s /p PCI and this has since been increased for tighter control of his ventricular response up to Toprol 200 mg daily. EKG on arrival reveals sinus bradycardia with heart rate 49 with non-specific ST abnormalities. These abnormalities are consistent with old EKG's. Most recent cardiac catheterization performed at the [place] 01/2017 was performed with Impella assist and he underwent stenting of the left main and LAD. Most recent echocardiogram 06/2017 reveals preserved LV systolic function with EF 55-60%. Patient was evaluated by cardiology and decrease the dose of metoprolol from 50 3 times a day to 50 twice a day was monitored overnight since patient is being continued on lisinopril and metoprolol at a lower dose it's reasonable to monitor him overnight, before we can discharge him. Patient blood pressure although normalizing now heart rate is better now patient received a Holter monitor Review of Systems REVIEW OF SYSTEMS: CONSTITUTIONAL: No fever, no malaise, no fatigue. HEENT: No recent visual problems or hearing problems. Denied any sore throat. CARDIOVASCULAR: No chest pain, orthopnea, PND, no palpitations, no syncope. PULMONARY: No shortness of breath, no cough, no hemoptysis. GASTROINTESTINAL: No diarrhea, no nausea, no vomiting, no abdominal pain. Normoactive bowel sounds. NEUROLOGICAL: No headaches, no weakness, no numbness. HEMATOLOGICAL: Denies any bleeding or petechiae. GENITOURINARY: Denies any burning micturition, frequency, or urgency. MUSCULOSKELETAL/RHEUMATOLOGICAL: Denies any joint pain, swelling, or any muscle pain. ENDOCRINE: Denies any polyuria or polydipsia. The rest of the 14-point review of systems is negative. Past Medical History Past Medical History: Atrial Fibrillation, Coronary Artery Disease (CAD), Heart Failure, CVA/TIA, Diabetes Mellitus, GERD/Reflux, Hyperlipidemia, Hypertension, Myocardial Infarction (AL), Neurologic Disorder, Prostate Disorder Additional Past Medical History / Comment(s): BPH, neurogenic bladder - pt self caths three times daily at home, diabetes mellitus which has been diet controlled, MS, incontinence, 06/29/17 - holter monitor placed approx 1 week ago to wear for 3 weeks Last Myocardial Infarction Date:: 06/25/2017 History of Any Multi-Drug Resistant Organisms: None Reported Past Surgical History: Adenoidectomy, Appendectomy, Heart Catheterization With Stent, Hernia Repair, Tonsillectomy Additional Past Surgical History / Comment(s): RECENT HEART CATH AT [facility] ON 02/02/17: stents were placed in the mid LAD, proximal LAD, and LEFT MAIN. Right hip repair 2011 Past Anesthesia/Blood Transfusion Reactions: No Reported Reaction Date of Last Stent Placement:: 02-02-17 Past Psychological History: No Psychological Hx Reported Smoking Status: Former smoker Past Alcohol Use History: None Reported Past Drug Use History: None Reported - Past Family History Father Family Medical History: Coronary Artery Disease (CAD) Mother Family Medical History: No Reported History Medications and Allergies Home Medications Medication Instructions Recorded Confirmed Type Atorvastatin [Lipitor] 80 mg PO HS 02/04/17 06/29/17 History Calcium Carbonate 500 mg PO DAILY 02/04/17 06/29/17 History Cholecalciferol [Vitamin D3] 800 unit PO DAILY 02/04/17 06/29/17 History Ferrous Sulfate [Feosol] 325 mg PO BID 02/04/17 06/29/17 History Finasteride [Proscar] 5 mg PO DAILY 02/04/17 06/29/17 History Multivitamins, Thera [Multivitamin 1 tab PO DAILY 02/04/17 06/29/17 History (formulary)] Sennosides-Docusate Sodium 2 tab PO HS 02/04/17 06/29/17 History [Senokot-S] Tamsulosin [Flomax] 0.8 mg PO DAILY 02/04/17 06/29/17 History Clopidogrel [Plavix] 75 mg PO DAILY tab 06/21/17 06/29/17 Rx Apixaban [Eliquis] 5 mg PO BID 06/24/17 06/29/17 History Ascorbic Acid [Vitamin C] 500 mg PO DAILY 06/24/17 06/29/17 History Furosemide [Lasix] 40 mg PO DAILY 06/24/17 06/29/17 History Lisinopril [Zestril] 5 mg PO DAILY 06/24/17 06/29/17 History Metoprolol Succinate [Toprol XL] 200 mg PO DAILY 06/24/17 06/29/17 History Omeprazole 20 mg PO DAILY 06/24/17 06/29/17 History Allergies Allergy/AdvReac Type Severity Reaction Status Date / Time No Known Allergies Allergy Verified 06/29/17 16:44 Physical Exam Vitals: Vital Signs Temp Pulse Pulse Resp BP BP Pulse Ox 06/30/17 12:00 98.2 F 62 16 122/49 97 06/30/17 07:46 98.7 F 55 L 16 119/56 98 06/30/17 04:00 48 L 16 06/30/17 03:24 98.2 F 58 L 16 126/57 94 L 06/30/17 00:00 98.2 F 18 127/69 99 06/29/17 23:24 48 L 18 06/29/17 20:40 48 L 18 06/29/17 20:30 98.7 F 57 L 18 95/64 97 06/29/17 18:00 56 L 16 145/74 97 06/29/17 17:19 49 L 16 137/65 98 06/29/17 16:40 96.9 F L 52 L 16 135/62 95 Intake and Output 06/29/17 06/30/17 06/30/17 22:59 06:59 14:59 Output Total 2 Balance -2 Output: Urine 2 Other: Voiding Method Diaper Diaper Diaper # Voids 1 4 2 Weight 91.172 kg PHYSICAL EXAMINATION: GENERAL: The patient is alert and oriented x3, not in any acute distress. Well developed, well nourished. HEENT: Pupils are round and equally reacting to light. EOMI. No scleral icterus. No conjunctival pallor. Normocephalic, atraumatic. No pharyngeal erythema. No thyromegaly. CARDIOVASCULAR: S1 and S2 present. No murmurs, rubs, or gallops. PULMONARY: Chest is clear to auscultation, no wheezing or crackles. ABDOMEN: Soft, nontender, nondistended, normoactive bowel sounds. No palpable organomegaly. MUSCULOSKELETAL: No joint swelling or deformity. EXTREMITIES: No cyanosis, clubbing, or pedal edema. NEUROLOGICAL: Gross neurological examination did not reveal any focal deficits. SKIN: No rashes. Results CBC & Chem 7: 06/29/17 16:52 06/29/17 16:52 Labs: Abnormal Lab Results - Last 24 Hours (Table) 06/29/17 06/29/17 06/29/17 Range/Units 16:52 16:52 20:46 BUN 30 H (9-20) mg/dL Creatinine 1.62 H (0.66-1.25) mg/dL Glucose 140 H (74-99) mg/dL POC Glucose (mg/dL) 120 H (75-99) mg/dL Total Creatine Kinase (55-170) U/L CK-MB (CK-2) 5.2 H* (0.0-2.4) ng/mL 06/30/17 06/30/17 06/30/17 Range/Units 01:52 06:14 12:19 BUN (9-20) mg/dL Creatinine (0.66-1.25) mg/dL Glucose (74-99) mg/dL POC Glucose (mg/dL) 110 H (75-99) mg/dL Total Creatine Kinase 220 H 198 H (55-170) U/L CK-MB (CK-2) 3.5 H* 3.1 H* (0.0-2.4) ng/mL Thrombosis Risk Factor Assmnt - Choose All That Apply Each Factor Represents 1 point: Heart failure (<1month), Obesity (BMI >25) Each Risk Factor Represents 2 Points: Age 61-74 years, Patient confined to bed Thrombosis Risk Factor Assessment Total Risk Factor Score: 6 Thrombosis Risk Factor Assessment Level: High Risk Assessment and Plan Plan: 1 dizziness and lightheadedness: Secondary to hypotension and bradycardia metoprolol dose is being decreased and Lasix dose is being decreased lisinopril is being continued. -Proximal atrial fibrillation on long-term anticoagulation with the new anticoagulants -History of coronary disease and a history of stents in the past patient is on Plavix at this time. -Chronic diastolic heart failure not in acute exacerbation patient is euvolemic at this time. -Hypertension -dyslipidemia -Gastroesophageal reflux disease For above-mentioned chronic medical problems patient will be resumed on his home medications will monitor him overnight possibly of discharge tomorrow if his blood pressure and heart rate remains stable. -
[2017-06-30 17:42] LABS: Glucose,Whole Blood 88 mg/dL (75-99)
[2017-06-30 18:53] LABS: Hemoglobin A1C 5.6 % (4.0-6.0)
[2017-06-30 21:24] LABS: Glucose,Whole Blood 83 mg/dL (75-99)
[2017-06-30] MEDS: ATORVASTATIN 80 MG TAB PO SCH (21:27)
[2017-06-30] MEDS: SENNOSIDES-DOCUSATE SODIUM 1 EACH TAB PO SCH (22:32)
[2017-07-01 08:10] VITALS: RESP 18
[2017-07-01] MEDS: APIXABAN 5 MG TAB PO SCH (08:41)
[2017-07-01] MEDS: FUROSEMIDE 20 MG TAB PO SCH (08:41)
[2017-07-01] MEDS: CLOPIDOGREL 75 MG TAB PO SCH (08:41)
[2017-07-01] MEDS: METOPROLOL TARTRATE 50 MG TAB PO SCH (08:41)
[2017-07-01] MEDS ORDERED: LISINOPRIL 5 MG TAB PO SCH (09:00)
--- NOTE | 2017-07-01 09:56 | P.PN ---
Subjective Progress Note Date: 07/01/17 Mr. Tee is a pleasant 76-year-old male past medical history significant for paroxysmal atrial fibrillation on Eliquis, coronary artery disease, diastolic heart failure, diabetes mellitus, hypertension and dyslipidemia. He follows with a call manager out of the [place]. He had an episode yesterday where he felt as though he had water in his ears and became acutely dizzy with room spinning and he felt off balance. He ate a bowl of soup and felt better with all symptoms of dizziness resolved. He went to the clinic in [place] for evaluation and was found to be hypotensive 70s/40s. For this reason he was sent to the hospital for evaluation. His vital signs have been stable since admission. He received a 500cc bolus in ED and all cardiac meds have been on hold. He is currently maintaining sinus mechanism and denies any further episodes of dizziness. Telemetry tracings reveals sinus racquel with heart rate going down to as low as 48 while sleeping with a 5-beat run of non-sustained VT last night at 2230. He was symptomatic at that time. He has been admitted several times recently and medications have been adjusted. He started on metoprolol 12.5 mg BID in January s/p PCI and this has since been increased for tighter control of his ventricular response up to Toprol 200 mg daily. EKG on arrival reveals sinus bradycardia with heart rate 49 with non-specific ST abnormalities. These abnormalities are consistent with old EKG's. Most recent cardiac catheterization performed at the [place] 01/2017 was performed with Impella assist and he underwent stenting of the left main and LAD. Most recent echocardiogram 06/2017 reveals preserved LV systolic function with EF 55-60%. Laboratory data reviewed, hgb 13.2, plt 241, potassium 4.8, magnesium 1.9, creatinine 1.62, cardiac enzymes negative x3. Current cardiac medications include toprol 200 mg daily, lisinopril 5 mg daily, lasix 40 mg daily, plavix 75 mg daily, atorvastatin 80 mg daily and eliquis 5 mg BID. 07/01/2017 Mr. Tee is seen sitting up in bed in no acute distress. He denies any further episodes of dizziness. He also denies chest pain, shortness of breath, palpitations, diaphoresis, nausea or vomiting. Telemetry reveals a 13-beat run of non-sustained VT around noon-time yesterday and then another 5-beat run around midnight. During these episodes he is asymptomatic completely. Beta efrain was restarted yesterday at a lower dose secondary to dizziness. Blood pressures have been acceptable. He continues to maintain sinus mechanism. Objective - Vital Signs Vital signs: Vital Signs Temp 98.0 F 07/01/17 08:00 Pulse 52 L 07/01/17 08:00 Resp 18 07/01/17 08:00 BP 150/70 07/01/17 08:00 Pulse Ox 98 07/01/17 08:00 Intake & Output 06/30/17 07/01/17 07/01/17 18:59 06:59 18:59 Intake Total 250 240 Output Total 2 Balance -2 250 240 Intake: Oral 250 240 Output: Urine 2 Other: Voiding Method Diaper Diaper # Voids 2 1 1 - Exam Blood pressure 150/70 heart rate 52 afebrile GENERAL: Well-appearing, well-nourished and in no acute distress. NECK: Supple without JVD or thyromegaly. LUNGS: Breath sounds clear to auscultation bilaterally. Respiration equal and unlabored. No wheezes, rales or rhonchi. Breathing stable on room air. HEART: Regular rate and rhythm with systolic ejection murmur at the base, no rubs or gallops. S1 and S2 heard. EXTREMITIES: Normal range of motion, no edema. No clubbing or cyanosis. Peripheral pulses intact and strong. - Labs CBC & Chem 7: 06/29/17 16:52 06/29/17 16:52 Labs: Abnormal Lab Results - Last 24 Hours (Table) 06/30/17 Range/Units 12:19 POC Glucose (mg/dL) 110 H (75-99) mg/dL Assessment and Plan Assessment: ASSESSMENT 1. Hypotension 2. Known coronary artery disease with recent PCI of left main and LAD, continue with plavix 3. Paroxysmal atrial fibrillation on long-term anticoagulation with eliquis. Currently maintaining sinus mechanism. 4. Chronic diastolic heart failure, currently compensated. 5. Dyslipidemia 6. Hypertension 7. Gastoesophageal reflux disease 8. Non-sustained ventricular tachycardia PLAN From cardiac perspective he is stable. Metoprolol should be continued at 50 mg BID to avoid further episodes of dizziness. Continue with event monitor per his primary call manager. Non-sustained ventricular tachycardia may be secondary to beta blockers being discontinued initially. He is now back on a regimen and should continue as prescribed. [facility]. The above impression and plan of care have been discussed and directed by the signing physician. Paola Hernandez, nurse practitioner, acting as scribe for signing physician.
--- NOTE | 2017-07-01 10:57 | P.DS ---
Providers Date of admission: 06/29/17 18:46 Attending physician: Carolyn Antonio Consults: 06/29/17 18:57 Consult Physician Routine Consulting Provider: Salbador Yung Consult Reason/Comments: Bradycardia Do you want consulting provider notified?: Yes Primary care physician: Rashi [facility] Course: Patient was admitted for hypotension some chronic sinus bradycardia and the metoprolol dose was decreased to 50 short-acting twice a day and lyse Lasix dose was decreased to 20 mg and patient blood pressure is doing well and heart rate is fairly stable at this time and patient was cleared for discharge from cardiology perspective and patient will follow with cardiology and [facility]. Patient is not in heart failure at this time. PHYSICAL EXAMINATION: GENERAL: The patient is alert and oriented x3, not in any acute distress. Well developed, well nourished. HEENT: Pupils are round and equally reacting to light. EOMI. No scleral icterus. No conjunctival pallor. Normocephalic, atraumatic. No pharyngeal erythema. No thyromegaly. CARDIOVASCULAR: S1 and S2 present. No murmurs, rubs, or gallops. PULMONARY: Chest is clear to auscultation, no wheezing or crackles. ABDOMEN: Soft, nontender, nondistended, normoactive bowel sounds. No palpable organomegaly. MUSCULOSKELETAL: No joint swelling or deformity. EXTREMITIES: No cyanosis, clubbing, or pedal edema. NEUROLOGICAL: Gross neurological examination did not reveal any focal deficits. SKIN: No rashes. For other medical issues medical problems please refer to my HPI from yesterday Patient Condition at Discharge: Stable Plan - Discharge Summary New Discharge Prescriptions: New Furosemide [Lasix] 20 mg PO DAILY tab Metoprolol Tartrate [Lopressor] 50 mg PO BID #60 tab Continue Multivitamins, Thera [Multivitamin (formulary)] 1 tab PO DAILY Ferrous Sulfate [Feosol] 325 mg PO BID Cholecalciferol [Vitamin D3] 800 unit PO DAILY Calcium Carbonate 500 mg PO DAILY Tamsulosin [Flomax] 0.8 mg PO DAILY Sennosides-Docusate Sodium [Senokot-S] 2 tab PO HS Finasteride [Proscar] 5 mg PO DAILY Atorvastatin [Lipitor] 80 mg PO HS Clopidogrel [Plavix] 75 mg PO DAILY tab Omeprazole 20 mg PO DAILY Ascorbic Acid [Vitamin C] 500 mg PO DAILY Lisinopril [Zestril] 5 mg PO DAILY Apixaban [Eliquis] 5 mg PO BID Discontinued Metoprolol Succinate [Toprol XL] 200 mg PO DAILY Furosemide [Lasix] 40 mg PO DAILY Discharge Medication List Atorvastatin [Lipitor] 80 mg PO HS 02/04/17 [History] Calcium Carbonate 500 mg PO DAILY 02/04/17 [History] Cholecalciferol [Vitamin D3] 800 unit PO DAILY 02/04/17 [History] Ferrous Sulfate [Feosol] 325 mg PO BID 02/04/17 [History] Finasteride [Proscar] 5 mg PO DAILY 02/04/17 [History] Multivitamins, Thera [Multivitamin (formulary)] 1 tab PO DAILY 02/04/17 [History ] Sennosides-Docusate Sodium [Senokot-S] 2 tab PO HS 02/04/17 [History] Tamsulosin [Flomax] 0.8 mg PO DAILY 02/04/17 [History] Clopidogrel [Plavix] 75 mg PO DAILY tab 06/21/17 [Rx] Apixaban [Eliquis] 5 mg PO BID 06/24/17 [History] Ascorbic Acid [Vitamin C] 500 mg PO DAILY 06/24/17 [History] Lisinopril [Zestril] 5 mg PO DAILY 06/24/17 [History] Omeprazole 20 mg PO DAILY 06/24/17 [History] Furosemide [Lasix] 20 mg PO DAILY tab 07/01/17 [Rx] Metoprolol Tartrate [Lopressor] 50 mg PO BID #60 tab 07/01/17 [Rx] Discharge Disposition: HOME SELF-CARE
[2017-07-01 11:46] VITALS: BP 147/65; PULSE 53; TEMP 97.7
[2017-07-01 12:02] LABS: Glucose,Whole Blood 91 mg/dL (75-99)
== END 2017-07-01 13:25 | disposition home or self-care (01) ==
LOC: EC 16:36 → 3OBS 18:46
PROVIDERS: ADMIT Internal Medicine; ATTEND Internal Medicine
DX: R00.1 Bradycardia, unspecified (principal); I48.0 Paroxysmal atrial fibrillation; I25.10 Atherosclerotic heart disease of native coronary artery without angina pectoris; R42 Dizziness and giddiness; E11.9 Type 2 diabetes mellitus without complications; K21.9 Gastro-esophageal reflux disease without esophagitis; E78.5 Hyperlipidemia, unspecified; I11.0 Hypertensive heart disease with heart failure; N40.0 Benign prostatic hyperplasia without lower urinary tract symptoms; I50.32 Chronic diastolic (congestive) heart failure; G35 Multiple sclerosis; R55 Syncope and collapse; Z79.899 Other long term (current) drug therapy; Z79.01 Long term (current) use of anticoagulants; Z79.02 Long term (current) use of antithrombotics/antiplatelets; Z86.73 Personal history of transient ischemic attack (TIA), and cerebral infarction without residual deficits; Z95.5 Presence of coronary angioplasty implant and graft; Z87.891 Personal history of nicotine dependence; Z82.49 Family history of ischemic heart disease and other diseases of the circulatory system; N31.9 Neuromuscular dysfunction of bladder, unspecified; R32 Unspecified urinary incontinence; I25.2 Old myocardial infarction; I47.2 Ventricular tachycardia; I95.9 Hypotension, unspecified; E66.9 Obesity, unspecified; Z68.28 Body mass index [BMI] 28.0-28.9, adult; Z71.3 Dietary counseling and surveillance
CPT/HCPCS: 99285; 36415; 93005; 83880; 80053; 82550; 82553 ×2; 83735; 84484 ×2; 85025; 85610; 85730; 83036; G0378 ×3

== ENCOUNTER → 2018-01-19 | Outpatient (CLI) | payer MEDICARE ==
--- NOTE | 2018-01-19 16:47 | CONS ---
CONSULTATION DATE OF SERVICE: 01/19/2018 This patient is a 77-year-old gentleman who has been seen in the sleep center for evaluation for possible obstructive sleep apnea-hypopnea syndrome. HISTORY OF PRESENT ILLNESS/SLEEP-WAKE EVALUATION: Patient sleeps by himself, so there is no clear information about his snoring and breathing. His sleep schedule is from 9 p.m. to 5 a.m. He does have a problem with falling asleep. At night he wakes up several times with nocturia and also urinary incontinence. No TV in bedroom. Usually he sleeps on the back position. Usually he does not take naps during the day. [place] Sleepiness Scale is 4. PAST MEDICAL HISTORY: 1. Multiple sclerosis. 2. Urinary incontinence. 3. Coronary artery disease. 4. Difficulties with walking secondary to multiple sclerosis. PAST SURGICAL HISTORY: 1. Three stent insertions to coronary arteries. 2. Surgical treatment for right hip fracture. 3. Two hernia repairs. 4. Tonsillectomy. SOCIAL HISTORY: Positive for smoking for about 20 pack/years, quit about 18 years ago. Alcohol consumption in the past. No alcohol for the last 8 years. FAMILY HISTORY: Positive for multiple sclerosis , hypertension, heart problems, snoring, cancer, diabetes. REVIEW OF SYSTEMS: Urinary incontinence. MEDICATIONS: 1. Lisinopril. 2. Furosemide. 3. Apixaban. 4. Clopidogrel. 5. Atorvastatin. 6. Docusate. 7. Finasteride. 8. Tamsulosin. 9. Omeprazole. 10.Iron supplement. PHYSICAL EXAMINATION: GENERAL A pleasant 77-year-old gentleman in a wheelchair. He cannot walk. Without distress. VITAL SIGNS: BP 143/70, HR 64, RR 16, height 5 feet 10 inches, weight 205.8. Body mass index 29.4. Temperature 98.1. Oxygen saturation at room air 99%. HEENT: PERRLA, EOMI. Evaluation of oropharynx showed tongue protrudes midline; moderately low position of soft palate. Big uvula. NECK: Supple. No JVD. Thyroid is not palpable. Wide neck; 17-1/4 inches in circumference. LUNGS: Clear to percussion and to auscultation. Good air exchange. No wheezing or rhonchi. HEART: S1, S2 regular. No murmurs, gallops or rubs. ABDOMEN: Soft and nontender. Bowel sounds are present. No organomegaly appreciated. EXTREMITIES : No clubbing or cyanosis. 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 No abnormality in strength of muscles. IMPRESSION: 1. Multiple awakenings from sleep with urinary incontinence, moderately low position of soft palate, wide neck; obstructive sleep apnea-hypopnea syndrome. 2. Overweight; body mass index 29.4. 3. Multiple sclerosis with difficulty walking. 4. Status post right hip fracture. 5. Status post 2 hernia repairs. 6. Status post tonsillectomy. 7. Coronary artery disease, status post 3 stent insertions. 8. Hypertension. 9. Acid reflux. PLAN: 1. Polysomnography for evaluation of patient's breathing during sleep. 2. CPAP/BiPAP titration if sleep study confirms obstructive sleep apnea-hypopnea syndrome. 3. Preferable position during sleep on the side. 4. No driving if patient feels any sleepiness. Patient is aware of civil and criminal liability for unsafe driving. 5. I will see patient for follow-up visit to explain results of testing and following plan. Thank you very much for referring this patient for consultation. Sincerely, Rolando Edwards MD, PhD, FAASM Diplomat of [employer] [employer] [facility] [place] MMODL / ANKITAN: [id number] /
== END | disposition home or self-care (01) ==
LOC: SLEEP 13:27
PROVIDERS: ATTEND Internal Medicine
DX: G47.33 Obstructive sleep apnea (adult) (pediatric) (principal); R32 Unspecified urinary incontinence; E66.3 Overweight; I25.10 Atherosclerotic heart disease of native coronary artery without angina pectoris; I10 Essential (primary) hypertension; K21.9 Gastro-esophageal reflux disease without esophagitis; Z95.1 Presence of aortocoronary bypass graft; Z99.89 Dependence on other enabling machines and devices; Z90.89 Acquired absence of other organs; Z87.81 Personal history of (healed) traumatic fracture; Z68.29 Body mass index [BMI] 29.0-29.9, adult; Z79.899 Other long term (current) drug therapy; Z87.891 Personal history of nicotine dependence
CPT/HCPCS: 99211

== ENCOUNTER 2018-03-20 11:26 | Inpatient (IN) | payer OTHER, MEDICARE ==
--- NOTE | 2018-03-20 12:11 | ED ---
Arrhythmia/Palpitations HPI - General Chief Complaint: Arrhythmia/Palpitations Stated Complaint: Palpitations Time Seen by Provider: 03/20/18 11:45 Source: patient, family, RN notes reviewed Mode of arrival: wheelchair Limitations: no limitations - History of Present Illness Initial Comments: This is a 77-year-old male who states he had the onset last evening of a very fast heart rate he states he went to bed and did not go sleep for at least a couple hours when he felt his heart rate was going really fast she had no chest pain shortness breath fevers chills nausea vomiting sweats or other symptoms. He states he's on no new medications he only drinks 2 cups of coffee per day. Radiology feels back to normal no lightheadedness or dizziness he states his normal blood pressures about 120 systolic. 94 systolic today Complaint: rapid heart beat - Related Data Home Medications Medication Instructions Recorded Confirmed Atorvastatin [Lipitor] 80 mg PO HS 02/04/17 03/20/18 Calcium Carbonate 500 mg PO DAILY 02/04/17 03/20/18 Cholecalciferol [Vitamin D3] 800 unit PO DAILY 02/04/17 03/20/18 Ferrous Sulfate [Feosol] 325 mg PO BID 02/04/17 03/20/18 Finasteride [Proscar] 5 mg PO DAILY 02/04/17 03/20/18 Multivitamins, Thera [Multivitamin 1 tab PO DAILY 02/04/17 03/20/18 (formulary)] Sennosides-Docusate Sodium 2 tab PO HS 02/04/17 03/20/18 [Senokot-S] Tamsulosin [Flomax] 0.8 mg PO DAILY 02/04/17 03/20/18 Apixaban [Eliquis] 5 mg PO BID 06/24/17 03/20/18 Ascorbic Acid [Vitamin C] 500 mg PO DAILY 06/24/17 03/20/18 Lisinopril [Zestril] 5 mg PO DAILY 06/24/17 03/20/18 Omeprazole 20 mg PO DAILY 06/24/17 03/20/18 Ergocalciferol [Vitamin D2] 50,000 unit PO Q7D 03/20/18 03/20/18 Previous Rx's Medication Instructions Recorded Clopidogrel [Plavix] 75 mg PO DAILY tab 01/09/18 Furosemide [Lasix] 20 mg PO DAILY tab 07/01/17 Allergies Allergy/AdvReac Type Severity Reaction Status Date / Time No Known Allergies Allergy Verified 03/20/18 12:19 Review of Systems ROS Statement: Those systems with pertinent positive or pertinent negative responses have been documented in the HPI. ROS Other: All systems not noted in ROS Statement are negative. Past Medical History Past Medical History: Atrial Fibrillation, Coronary Artery Disease (CAD), Heart Failure, CVA/TIA, Diabetes Mellitus, GERD/Reflux, Hyperlipidemia, Hypertension, Myocardial Infarction ([place]), Neurologic Disorder, Prostate Disorder Additional Past Medical History / Comment(s): BPH, neurogenic bladder - pt self caths three times daily at home, diabetes mellitus which has been diet controlled, MS, incontinence, 06/29/17 - holter monitor placed approx 1 week ago to wear for 3 weeks Last Myocardial Infarction Date:: 06/25/2017 History of Any Multi-Drug Resistant Organisms: None Reported Past Surgical History: Adenoidectomy, Appendectomy, Heart Catheterization With Stent, Hernia Repair, Tonsillectomy Additional Past Surgical History / Comment(s): RECENT HEART CATH AT [facility] ON 02/02/17: stents were placed in the mid LAD, proximal LAD, and LEFT MAIN. Right hip repair 2011 Past Anesthesia/Blood Transfusion Reactions: No Reported Reaction Date of Last Stent Placement:: 02-02-17 Past Psychological History: No Psychological Hx Reported Smoking Status: Former smoker Past Alcohol Use History: None Reported Past Drug Use History: None Reported - Past Family History Father Family Medical History: Coronary Artery Disease (CAD) Mother Family Medical History: No Reported History General Exam - General Exam Comments Initial Comments: This is a well-developed well-nourished awake alert oriented times 3 male Limitations: no limitations General appearance: alert, in no apparent distress Head exam: Present: atraumatic, normocephalic, normal inspection Eye exam: Present: normal appearance, PERRL, EOMI. Absent: scleral icterus, conjunctival injection, periorbital swelling ENT exam: Present: normal exam, mucous membranes moist Neck exam: Present: normal inspection. Absent: tenderness, meningismus, lymphadenopathy Respiratory exam: Present: normal lung sounds bilaterally. Absent: respiratory distress, wheezes, rales, rhonchi, stridor Cardiovascular Exam: Present: regular rate, normal rhythm, normal heart sounds. Absent: systolic murmur, diastolic murmur, rubs, gallop, clicks GI/Abdominal exam: Present: soft, normal bowel sounds. Absent: distended, tenderness, guarding, rebound, rigid Extremities exam: Present: normal inspection, full ROM, normal capillary refill. Absent: tenderness, pedal edema, joint swelling, calf tenderness Back exam: Present: normal inspection Neurological exam: Present: alert, oriented X3, CN II-XII intact Psychiatric exam: Present: normal affect, normal mood Skin exam: Present: warm, dry, intact, normal color. Absent: rash Course Vital Signs 03/20/18 03/20/18 11:34 13:28 Temperature 97.9 F Pulse Rate 73 65 Respiratory 18 16 Rate Blood Pressure 114/63 101/62 O2 Sat by Pulse 96 99 Oximetry - Reevaluation(s) Reevaluation #1: 03/20/18 16:23 I did reevaluate the patient he has no further complaints he has had no chest pain no shortness breath no palpitations. EKG Findings - EKG Results: EKG: interpreted by INGRIS, sinus rhythm (Sinus rhythm with sinus arrhythmia rate was 62. Interval 138 QRS duration 86 QT since QTC 420/426 nonspecific T-wave configuration) Medical Decision Making - Medical Decision Making I did discuss findings with the patient and his brother also with Dr. Santana who did come the emergency department see the patient. Patient will be admitted with cardiology consultation. - Lab Data Result diagrams: 03/20/18 12:00 03/20/18 12:00 Lab Results 03/20/18 03/20/18 03/20/18 Range/Units 12:00 12:00 12:00 WBC 9.3 (3.8-10.6) k/uL RBC 4.31 (4.30-5.90) m/uL Hgb 13.1 (13.0-17.5) gm/dL Hct 39.2 (39.0-53.0) % MCV 90.9 (80.0-100.0) fL MCH 30.4 (25.0-35.0) pg MCHC 33.5 (31.0-37.0) g/dL RDW 13.2 (11.5-15.5) % Plt Count 206 (150-450) k/uL Neutrophils % 69 % Lymphocytes % 20 % Monocytes % 7 % Eosinophils % 1 % Basophils % 0 % Neutrophils # 6.4 (1.3-7.7) k/uL Lymphocytes # 1.8 (1.0-4.8) k/uL Monocytes # 0.7 (0-1.0) k/uL Eosinophils # 0.1 (0-0.7) k/uL Basophils # 0.0 (0-0.2) k/uL PT (9.0-12.0) sec INR (<1.2) APTT (22.0-30.0) sec D-Dimer (<0.60) mg/L FEU Sodium 140 (137-145) mmol/L Potassium 4.5 (3.5-5.1) mmol/L Chloride 108 H (98-107) mmol/L Carbon Dioxide 23 (22-30) mmol/L Anion Gap 9 mmol/L BUN 13 (9-20) mg/dL Creatinine 0.80 (0.66-1.25) mg/dL Est GFR (CKD-EPI)AfAm >90 (>60 ml/min/1.73 sqM) Est GFR (CKD-EPI)NonAf 88 (>60 ml/min/1.73 sqM) Glucose 91 (74-99) mg/dL Calcium 9.4 (8.4-10.2) mg/dL Magnesium 1.8 (1.6-2.3) mg/dL Total Bilirubin 0.6 (0.2-1.3) mg/dL AST 37 (17-59) U/L ALT 24 (21-72) U/L Alkaline Phosphatase 78 (38-126) U/L Total Creatine Kinase 94 (55-170) U/L CK-MB (CK-2) 3.8 H (0.0-2.4) ng/mL CK-MB (CK-2) Rel Index 4.0 Troponin I 0.357 H* (0.000-0.034) ng/mL Total Protein 6.6 (6.3-8.2) g/dL Albumin 3.6 (3.5-5.0) g/dL TSH 0.917 (0.465-4.680) mIU/L 03/20/18 Range/Units 12:00 WBC (3.8-10.6) k/uL RBC (4.30-5.90) m/uL Hgb (13.0-17.5) gm/dL Hct (39.0-53.0) % MCV (80.0-100.0) fL MCH (25.0-35.0) pg MCHC (31.0-37.0) g/dL RDW (11.5-15.5) % Plt Count (150-450) k/uL Neutrophils % % Lymphocytes % % Monocytes % % Eosinophils % % Basophils % % Neutrophils # (1.3-7.7) k/uL Lymphocytes # (1.0-4.8) k/uL Monocytes # (0-1.0) k/uL Eosinophils # (0-0.7) k/uL Basophils # (0-0.2) k/uL PT 10.3 (9.0-12.0) sec INR 1.1 (<1.2) APTT 24.6 (22.0-30.0) sec D-Dimer 0.54 (<0.60) mg/L FEU Sodium (137-145) mmol/L Potassium (3.5-5.1) mmol/L Chloride (98-107) mmol/L Carbon Dioxide (22-30) mmol/L Anion Gap mmol/L BUN (9-20) mg/dL Creatinine (0.66-1.25) mg/dL Est GFR (CKD-EPI)AfAm (>60 ml/min/1.73 sqM) Est GFR (CKD-EPI)NonAf (>60 ml/min/1.73 sqM) Glucose (74-99) mg/dL Calcium (8.4-10.2) mg/dL Magnesium (1.6-2.3) mg/dL Total Bilirubin (0.2-1.3) mg/dL AST (17-59) U/L ALT (21-72) U/L Alkaline Phosphatase (38-126) U/L Total Creatine Kinase (55-170) U/L CK-MB (CK-2) (0.0-2.4) ng/mL CK-MB (CK-2) Rel Index Troponin I (0.000-0.034) ng/mL Total Protein (6.3-8.2) g/dL Albumin (3.5-5.0) g/dL TSH (0.465-4.680) mIU/L - Radiology Data Radiology results: report reviewed (I did review the imaging and report no acute findings.), image reviewed Critical Care Time Critical Care Time: Yes Critical Care Time: 31 minutes of critical care time which includes initial presentation with history physical labs x-rays reevaluation patient on several occasions discuss with the patient his brother the admitting physician. Admission orders and documentation of the above Disposition Clinical Impression: Non-ST elevation myocardial infarction (NSTEMI), Palpitations Disposition: ADMITTED IP TO THIS [facility] Condition: Stable Referrals: None,Stated [REFERRING] - 1-2 days
[2018-03-20 12:33] LABS: Basophils % (A) 0 %; Eosinophils # (A) 0.1 k/uL (0-0.7); Eosinophils % (A) 1 %; HCT 39.2 % (39.0-53.0); HGB 13.1 gm/dL (13.0-17.5); Lymphocytes # (A) 1.8 k/uL (1.0-4.8); Lymphocytes % (A) 20 %; MCH 30.4 pg (25.0-35.0); MCHC 33.5 g/dL (31.0-37.0); MCV 90.9 fL (80.0-100.0); Mean Platelet Volume 8.1; Monocytes # (A) 0.7 k/uL (0-1.0); Monocytes % (A) 7 %; Neutrophils # (A) 6.4 k/uL (1.3-7.7); Neutrophils % (A) 69 %; Platelet Count 206 k/uL (150-450); RBC 4.31 m/uL (4.30-5.90); RDW 13.2 % (11.5-15.5); WBC 9.3 k/uL (3.8-10.6)
--- NOTE | 2018-03-20 12:39 | XR ---
EXAMINATION TYPE: XR chest 2V DATE OF EXAM: 03/20/2018 COMPARISON: 06/24/2017 HISTORY: Tachycardia TECHNIQUE: Frontal and lateral views of the chest are obtained. FINDINGS: There is no focal air space opacity, pleural effusion, or pneumothorax seen. The cardiac silhouette size is mildly enlarged. The osseous structures are intact. Pulmonary hyperinflation and flattening the diaphragms relates underlying COPD small blebs are noted along the right lateral lung apex. There is diffuse osseous demineralization. IMPRESSION: No acute cardiopulmonary process.
[2018-03-20 12:44] LABS: ALT 24 U/L (21-72); AST 37 U/L (17-59); Albumin 3.6 g/dL (3.5-5.0); Alkaline Phosphatase 78 U/L (38-126); Anion Gap 9 mmol/L; Blood Urea Nitrogen 13 mg/dL (9-20); Calcium 9.4 mg/dL (8.4-10.2); Carbon Dioxide 23 mmol/L (22-30); Chloride 108 mmol/L (98-107); Glucose 91 mg/dL (74-99); Magnesium 1.8 mg/dL (1.6-2.3); Sodium 140 mmol/L (137-145); Total Bilirubin 0.6 mg/dL (0.2-1.3); Total Protein 6.6 g/dL (6.3-8.2)
[2018-03-20 12:53] LABS: Potassium 4.5 mmol/L (3.5-5.1)
[2018-03-20 12:56] LABS: D-Dimer 0.54 mg/L FEU (<0.60); INR 1.1 (<1.2); Partial Thromboplastin Time 24.6 sec (22.0-30.0); Prothrombin Time 10.3 sec (9.0-12.0)
[2018-03-20 13:12] LABS: Creatine Kinase MB 3.8 ng/mL (0.0-2.4)
[2018-03-20 13:35] LABS: Troponin I 0.357 ng/mL (0.000-0.034)
--- NOTE | 2018-03-20 15:24 | P.HPIM ---
History of Present Illness 77-year-old gentleman with history of proximal atrial fibrillation on anticoagulation came in because of palpitations last night which lasted for 2 hours denied any chest pain shortness of breath orthopnea proximal nocturnal dyspnea. Patient is not on any rate control medication. Patient is on anticoagulation with eliquis. Patient does have minimally elevated troponin of 0.357 creatinine is okay and within normal limits. Patient had normal ejection fraction the past from the echocardiac and that was done in June of this year at the time he presented with Some pulmonary edema secondary to atrial fibrillation. Patient is on lisinopril which is being held because of low normal blood pressure. Review of Systems REVIEW OF SYSTEMS: CONSTITUTIONAL: No fever, no malaise, no fatigue. HEENT: No recent visual problems or hearing problems. Denied any sore throat. CARDIOVASCULAR: No chest pain, orthopnea, PND, no syncope. PULMONARY: No shortness of breath, no cough, no hemoptysis. GASTROINTESTINAL: No diarrhea, no nausea, no vomiting, no abdominal pain. Normoactive bowel sounds. NEUROLOGICAL: No headaches, no weakness, no numbness. HEMATOLOGICAL: Denies any bleeding or petechiae. GENITOURINARY: Denies any burning micturition, frequency, or urgency. MUSCULOSKELETAL/RHEUMATOLOGICAL: Denies any joint pain, swelling, or any muscle pain. ENDOCRINE: Denies any polyuria or polydipsia. The rest of the 14-point review of systems is negative. Past Medical History Past Medical History: Atrial Fibrillation, Coronary Artery Disease (CAD), Heart Failure, CVA/TIA, Diabetes Mellitus, GERD/Reflux, Hyperlipidemia, Hypertension, Myocardial Infarction ([place]), Neurologic Disorder, Prostate Disorder Additional Past Medical History / Comment(s): BPH, neurogenic bladder - pt self caths three times daily at home, diabetes mellitus which has been diet controlled, MS, incontinence, 06/29/17 - holter monitor placed approx 1 week ago to wear for 3 weeks Last Myocardial Infarction Date:: 06/25/2017 History of Any Multi-Drug Resistant Organisms: None Reported Past Surgical History: Adenoidectomy, Appendectomy, Heart Catheterization With Stent, Hernia Repair, Tonsillectomy Additional Past Surgical History / Comment(s): RECENT HEART CATH AT [facility] ON 02/02/17: stents were placed in the mid LAD, proximal LAD, and LEFT MAIN. Right hip repair 2011 Past Anesthesia/Blood Transfusion Reactions: No Reported Reaction Date of Last Stent Placement:: 02-02-17 Past Psychological History: No Psychological Hx Reported Smoking Status: Former smoker Past Alcohol Use History: None Reported Past Drug Use History: None Reported - Past Family History Father Family Medical History: Coronary Artery Disease (CAD) Mother Family Medical History: No Reported History Medications and Allergies Home Medications Medication Instructions Recorded Confirmed Type Atorvastatin [Lipitor] 80 mg PO HS 02/04/17 03/20/18 History Calcium Carbonate 500 mg PO DAILY 02/04/17 03/20/18 History Cholecalciferol [Vitamin D3] 800 unit PO DAILY 02/04/17 03/20/18 History Ferrous Sulfate [Feosol] 325 mg PO BID 02/04/17 03/20/18 History Finasteride [Proscar] 5 mg PO DAILY 02/04/17 03/20/18 History Multivitamins, Thera [Multivitamin 1 tab PO DAILY 02/04/17 03/20/18 History (formulary)] Sennosides-Docusate Sodium 2 tab PO HS 02/04/17 03/20/18 History [Senokot-S] Tamsulosin [Flomax] 0.8 mg PO DAILY 02/04/17 03/20/18 History Clopidogrel [Plavix] 75 mg PO DAILY tab 06/21/17 03/20/18 Rx Apixaban [Eliquis] 5 mg PO BID 06/24/17 03/20/18 History Ascorbic Acid [Vitamin C] 500 mg PO DAILY 06/24/17 03/20/18 History Lisinopril [Zestril] 5 mg PO DAILY 06/24/17 03/20/18 History Omeprazole 20 mg PO DAILY 06/24/17 03/20/18 History Furosemide [Lasix] 20 mg PO DAILY tab 07/01/17 03/20/18 Rx Ergocalciferol [Vitamin D2] 50,000 unit PO Q7D 03/20/18 03/20/18 History Allergies Allergy/AdvReac Type Severity Reaction Status Date / Time No Known Allergies Allergy Verified 03/20/18 12:19 Physical Exam Vitals: Vital Signs Temp Pulse Resp BP Pulse Ox 03/20/18 13:28 65 16 101/62 99 03/20/18 11:34 97.9 F 73 18 114/63 96 Intake and Output 03/20/18 03/20/18 03/20/18 06:59 14:59 22:59 Other: Weight 90.718 kg PHYSICAL EXAMINATION: GENERAL: The patient is alert and oriented x3, not in any acute distress. Well developed, well nourished. HEENT: Pupils are round and equally reacting to light. EOMI. No scleral icterus. No conjunctival pallor. Normocephalic, atraumatic. No pharyngeal erythema. No thyromegaly. CARDIOVASCULAR: S1 and S2 present. No murmurs, rubs, or gallops. PULMONARY: Chest is clear to auscultation, no wheezing or crackles. ABDOMEN: Soft, nontender, nondistended, normoactive bowel sounds. No palpable organomegaly. MUSCULOSKELETAL: No joint swelling or deformity. EXTREMITIES: No cyanosis, clubbing, or pedal edema. NEUROLOGICAL: Gross neurological examination did not reveal any focal deficits. SKIN: No rashes. Results CBC & Chem 7: 03/20/18 12:00 03/20/18 12:00 Labs: Abnormal Lab Results - Last 24 Hours (Table) 03/20/18 03/20/18 Range/Units 12:00 12:00 Chloride 108 H (98-107) mmol/L CK-MB (CK-2) 3.8 H (0.0-2.4) ng/mL Troponin I 0.357 H* (0.000-0.034) ng/mL Assessment and Plan Plan: -Proximal atrial fibrillation: Presently rate controlled sinus rhythm no changes in the medication will be made cardiology will be consulted. -Mildly elevated troponin secondary to atrial fibrillation and rapid and regular rate last night which resolved at this point of time anti-correlation will be continued and repeat troponins -Coronary artery disease with stents in the past and patient is on Plavix patient last and was in January of last year -Gastroesophageal reflux disease -Hyperlipidemia -Benign prostatic hypertrophy For above-mentioned chronic medical problems patient will be resumed and continued on appropriate home medications
[2018-03-20] MEDS ORDERED: HEPARIN SODIUM,PORCINE 5,000 UNIT/ML 1 ML VIAL IV ONE (16:27)
[2018-03-20] MEDS ORDERED: NITROGLYCERIN SL TABS 0.4 MG TAB SUBLINGUAL PRN (16:27)
[2018-03-20] MEDS ORDERED: HEPARIN SOD,PORK IN 0.45% NACL 25,000 UNIT in 0.45% NACL 1 500ML.BAG IV SCH (16:30)
[2018-03-20 19:05] LABS: Creatine Kinase MB 3.9 ng/mL (0.0-2.4)
[2018-03-20 19:10] LABS: Troponin I 0.433 ng/mL (0.000-0.034)
[2018-03-20] MEDS: NITROGLYCERIN OINT 1 INCH/GM PACKET TOPICAL SCH ×2 (19:58→23:10)
[2018-03-20] MEDS: SODIUM CHLORIDE 0.9% 1,000 ML IV SCH (19:58)
[2018-03-20] MEDS: APIXABAN 5 MG TAB PO SCH (20:08)
[2018-03-20] MEDS: ATORVASTATIN 80 MG TAB PO SCH (20:08)
[2018-03-20] MEDS: FERROUS SULFATE 325 MG TAB PO SCH (20:09)
[2018-03-20] MEDS ORDERED: SENNOSIDES-DOCUSATE SODIUM 1 EACH TAB PO SCH (21:00)
[2018-03-20 21:07] LABS: Glucose,Whole Blood 177 mg/dL (75-99)
[2018-03-21 00:59] LABS: Creatine Kinase MB 4.3 ng/mL (0.0-2.4)
[2018-03-21 01:04] LABS: Troponin I 0.534 ng/mL (0.000-0.034)
[2018-03-21 02:28] LABS: Cholesterol 120 mg/dL (<200); HDL Cholesterol 32 mg/dL (40-60); LDL Cholesterol,Calculated 73 mg/dL (0-99); Triglycerides 74 mg/dL (<150)
[2018-03-21 05:59] LABS: Glucose,Whole Blood 97 mg/dL (75-99)
[2018-03-21] MEDS: NITROGLYCERIN OINT 1 INCH/GM PACKET TOPICAL SCH ×4 (06:21→23:53)
[2018-03-21] MEDS ORDERED: PANTOPRAZOLE 40 MG TABLET PO SCH (07:30)
[2018-03-21] MEDS ORDERED: NITROGLYCERIN SL TABS 0.4 MG TAB SUBLINGUAL PRN (08:39)
[2018-03-21] MEDS ORDERED: LISINOPRIL 5 MG TAB PO SCH (09:00)
--- NOTE | 2018-03-21 09:06 | CONS ---
CONSULTATION CHIEF COMPLAINT: Palpitations. Wesly is a 77-year-old gentleman with history of multiple sclerosis, coronary artery disease, status post angioplasty, paroxysmal atrial fibrillation, who comes to hospital with sustained palpitations that lasted for more than 24 hours. When he came to the ER, he was in sinus rhythm with T-wave inversions in the precordial leads and the troponins came back mildly elevated. At the time of my evaluation, he is in sinus rhythm and free of symptoms. He denies chest pain, difficulty in breathing, palpitations, dizziness or syncope. PAST MEDICAL HISTORY: Past medical history is significant for multiple sclerosis, coronary artery disease, status post angioplasty of proximal mid LAD and left main coronary artery, paroxysmal atrial fibrillation, hypertension, dyslipidemia, diabetes. MEDICATIONS: Medications include Lipitor, vitamin D, iron sulfate, Proscar, Senokot, Flomax, Plavix Eliquis 5 b.i.d., vitamin C, Lasix, Zestril, Toprol XL and omeprazole. ALLERGIES: There are no known drug allergies. FAMILY HISTORY: Family history is negative for premature coronary artery disease. His twin brother had multiple sclerosis. SOCIAL HISTORY: Negative for smoking, EtOH abuse or drug abuse. REVIEW OF SYSTEMS: HEENT is unremarkable. CARDIAC: As described above. RESPIRATORY: Negative. GI: Negative. GENITOURINARY: Negative. ALLERGY/IMMUNOLOGICAL: Negative. MUSCULOSKELETAL: Significant for multiple sclerosis. PSYCHOSOCIAL: Negative. ENDOCRINE: Negative. HEMATOLOGIC: Negative. DERM: Negative. CONSTITUTIONAL: Negative. ONCOLOGICAL: Negative. Rest of the system review is not relevant. PHYSICAL EXAMINATION: On exam, patient is afebrile. Heart rate is 60 beats per minute. Blood pressure is 152/66. Respiratory rate is 18. O2 sat is 95% on room air. There is no jugular venous distention. Carotid upstroke is normal. There is no bruit. Chest exam reveals good air entry bilaterally. Heart exam reveals first and second heart sounds. No gallop. No murmur. No rub. Abdomen is soft, nontender. Examination of the extremities did not reveal any edema. Peripheral pulses are palpable. LABS: Labs show that the hemoglobin is 13.1, platelet count is 206. Potassium is 4.5. Creatinine is 0.8. Troponin elevated at 0.3, 0.4 and 0.5. EKG shows sinus rhythm with T-wave inversions in the precordial leads suggestive of ischemia. Labs showed that the hemoglobin is 13.1, creatinine is normal. Tropes are elevated at 0.3, 0.4 and 0.5. LDL cholesterol is 73. ASSESSMENT: 1. Acute non ST-segment elevation myocardial infarction. 2. Palpitations, probably related to atrial fibrillation. 3. History of multiple sclerosis. 4. Coronary artery disease, status post left main stenting. PLAN: I advised the patient to undergo cardiac catheterization to evaluate his coronary anatomy. He had been explained of risks, benefits and alternatives, understood and accepted. MMODL / IJN: [id number] /
[2018-03-21] MEDS: CLOPIDOGREL 75 MG TAB PO SCH (09:12)
[2018-03-21] MEDS: ASPIRIN 325 MG TAB PO SCH (09:12)
[2018-03-21] MEDS: APIXABAN 5 MG TAB PO SCH ×2 (09:12→20:25)
[2018-03-21] MEDS: TAMSULOSIN 0.4 MG CAP.ER.24H PO SCH (09:12)
[2018-03-21] MEDS: FINASTERIDE 5 MG TAB PO SCH (09:12)
[2018-03-21] MEDS: PANTOPRAZOLE 40 MG TABLET PO SCH (09:13)
[2018-03-21] MEDS: FUROSEMIDE 20 MG TAB PO SCH (09:13)
[2018-03-21] MEDS: FERROUS SULFATE 325 MG TAB PO SCH ×2 (09:13→20:25)
[2018-03-21] MEDS: ASCORBIC ACID 500 MG TAB PO SCH (09:13)
[2018-03-21 12:13] LABS: Glucose,Whole Blood 109 mg/dL (75-99)
--- NOTE | 2018-03-21 12:28 | ECHOF ---
Referral Reason:nstemi MEASUREMENTS -------- HEIGHT: 182.9 cm WEIGHT: 91.6 kg BP: 152/66 IVSd: 1.3 cm (0.6 - 1.1) LVIDd: 3.8 cm (3.9 - 5.3) LVPWd: 1.6 cm (0.6 - 1.1) IVSs: 1.9 cm LVIDs: 1.9 cm LVPWs: 2.1 cm Ao Diam: 3.4 cm (2.0 - 3.7) AV Cusp: 1.9 cm (1.5 - 2.6) LA Diam: 3.8 cm (2.7 - 3.8) MV EXCURSION: 13.536 mm (> 18.000) MV EF SLOPE: 54 mm/s (70 - 150) EPSS: 0.9 cm MV E Gaudencio: 0.76 m/s MV DecT: 153 ms MV A Gaudencio: 0.94 m/s MV E/A Ratio: 0.81 RAP: 5.00 mmHg RVSP: 11.77 mmHg FINDINGS -------- Sinus rhythm. This was a technically difficult study with suboptimal views. The left ventricular size is normal. There is moderate concentric left ventricular hypertrophy. O verall left ventricular systolic function is normal with, an EF between 55 - 60 %. The right ventricle is normal in size and function. The left atrium is normal in size. The right atrium is normal in size. Lumason used The aortic valve is trileaflet and appears structurally normal. There is trace mitral regurgitation. Trace tricuspid regurgitation present. The right ventricular systolic pressure, as measured by Dopp ler, is 11.77mmHg. Pulmonic valve appears structurally normal. The aortic root size is normal. The pericardium is normal. CONCLUSIONS -------- 1. Sinus rhythm. 2. This was a technically difficult study with suboptimal views. 3. The left ventricular size is normal. 4. There is moderate concentric left ventricular hypertrophy. 5. Overall left ventricular systolic function is normal with, an EF between 55 - 60 %. 6. The right ventricle is normal in size and function. 7. The left atrium is normal in size. 8. The right atrium is normal in size. 9. Lumason used 10. The aortic valve is trileaflet and appears structurally normal. 11. There is trace mitral regurgitation. 12. Trace tricuspid regurgitation present. 13. The right ventricular systolic pressure, as measured by Doppler, is 11.77mmHg. 14. Pulmonic valve appears structurally normal. 15. The aortic root size is normal. 16. The pericardium is normal. HEATING WORKER: Annel Riggins RDCS
[2018-03-21 13:01] LABS: Hemoglobin A1C 5.7 % (4.0-6.0)
--- NOTE | 2018-03-21 15:09 | P.PN ---
Subjective Progress Note Date: 03/21/18 Progress note being dictated for Dr. Santana. Interval history:77-year-old gentleman with history of proximal atrial fibrillation on anticoagulation came in because of palpitations last night which lasted for 2 hours denied any chest pain shortness of breath orthopnea proximal nocturnal dyspnea. Patient is not on any rate control medication. Patient is on anticoagulation with eliquis. Patient does have minimally elevated troponin of 0.357 creatinine is okay and within normal limits. Patient had normal ejection fraction the past from the echocardiac and that was done in June of this year at the time he presented with Some pulmonary edema secondary to atrial fibrillation. Patient is on lisinopril which is being held because of low normal blood pressure. Review of Systems REVIEW OF SYSTEMS: CONSTITUTIONAL: No fever, no malaise, no fatigue. HEENT: No recent visual problems or hearing problems. Denied any sore throat. CARDIOVASCULAR: No chest pain, orthopnea, PND, no syncope. PULMONARY: No shortness of breath, no cough, no hemoptysis. GASTROINTESTINAL: No diarrhea, no nausea, no vomiting, no abdominal pain. Normoactive bowel sounds. NEUROLOGICAL: No headaches, no weakness, no numbness. HEMATOLOGICAL: Denies any bleeding or petechiae. GENITOURINARY: Denies any burning micturition, frequency, or urgency. MUSCULOSKELETAL/RHEUMATOLOGICAL: Denies any joint pain, swelling, or any muscle pain. ENDOCRINE: Denies any polyuria or polydipsia. The rest of the 14-point review of systems is negative. 03/21/18 telemetry reporting sinus rhythm. No further palpitations. Denies chest pain, palpitations or increased shortness of breath. Troponins 0.357, 0.433, 0.534. Denies focal deficits, lightheadedness or dizziness. Evaluated by cardiology and cardiac catheterization recommended. Patient requests transfer to the [facility] in [place], where his prior cardiac intervention had been completed. Objective - Vital Signs Vital signs: Vital Signs Temp 97.6 F 03/21/18 08:20 Pulse 83 03/21/18 11:45 Resp 16 03/21/18 11:45 BP 139/74 03/21/18 11:45 Pulse Ox 95 03/21/18 11:45 Intake & Output 03/20/18 03/21/18 03/21/18 18:59 06:59 18:59 Intake Total 718 Output Total 200 Balance 518 Weight 90.718 kg 91.9 kg Intake: Oral 718 Output: Urine 200 Other: Voiding Method Self-Catheterization Self-Catheterization # Voids 2 1 - Exam GENERAL: The patient is alert and oriented x3, no acute distress. Well developed , well nourished. HEENT: Pupils are round and equally reacting to light. EOMI. No scleral icterus. No conjunctival pallor. Normocephalic, atraumatic. No pharyngeal erythema. No thyromegaly. CARDIOVASCULAR: S1 and S2 present. No murmurs, rubs, or gallops. PULMONARY: Chest is clear to auscultation, no wheezing or crackles. ABDOMEN: Soft, nontender, nondistended, normoactive bowel sounds. No palpable organomegaly. MUSCULOSKELETAL: No joint swelling or deformity. EXTREMITIES: No cyanosis, clubbing, or pedal edema. NEUROLOGICAL: Gross neurological examination did not reveal any focal deficits. SKIN: No rashes. - Labs CBC & Chem 7: 03/20/18 12:00 03/20/18 12:00 Labs: Abnormal Lab Results - Last 24 Hours (Table) 03/20/18 03/20/18 03/20/18 Range/Units 12:00 18:08 21:03 POC Glucose (mg/dL) 177 H (75-99) mg/dL CK-MB (CK-2) 3.9 H (0.0-2.4) ng/mL Troponin I 0.433 H* (0.000-0.034) ng/mL HDL Cholesterol 32 L (40-60) mg/dL 03/21/18 03/21/18 Range/Units 00:09 12:11 POC Glucose (mg/dL) 109 H (75-99) mg/dL CK-MB (CK-2) 4.3 H (0.0-2.4) ng/mL Troponin I 0.534 H* (0.000-0.034) ng/mL HDL Cholesterol (40-60) mg/dL Assessment and Plan Assessment: -Acute non-STEMI -Proximal atrial fibrillation: Presently rate controlled sinus rhythm no changes in the medication will be made cardiology will be consulted. -Mildly elevated troponin secondary to atrial fibrillation and rapid and regular rate last night which resolved at this point of time anti-correlation will be continued and repeat troponins -Coronary artery disease with stents in the past and patient is on Plavix patient last and was in January of last year -Gastroesophageal reflux disease -Hyperlipidemia -Benign prostatic hypertrophy Plan: Continue on current medication regime ,monitoring and symptomatic treatment. Case management assisting in transfer to [facility] in [place] pending available bed. Gentle IV fluid hydration. Acute coronary syndrome pathway. Anticoagulation , beta efrain as per cardiology. The impression and plan of care has been dictated as directed. : I performed a history and examination of this patient, discussed the same with the dictator. I agree with the dictator's note ,documented as a scribe. Any additional findings or plans will be noted.
[2018-03-21] MEDS: SODIUM CHLORIDE 0.9% 1,000 ML IV SCH (16:45)
[2018-03-21 17:08] LABS: Glucose,Whole Blood 114 mg/dL (75-99)
[2018-03-21] MEDS: SENNOSIDES-DOCUSATE SODIUM 1 EACH TAB PO SCH (20:25)
[2018-03-21] MEDS: ATORVASTATIN 80 MG TAB PO SCH (20:25)
[2018-03-21 21:01] LABS: Glucose,Whole Blood 113 mg/dL (75-99)
[2018-03-22] LABS: Anion Gap 7 mmol/L; Blood Urea Nitrogen 13 mg/dL (9-20); Calcium 8.9 mg/dL (8.4-10.2); Carbon Dioxide 24 mmol/L (22-30); Chloride 107 mmol/L (98-107); Glucose 169 mg/dL (74-99); Magnesium 1.8 mg/dL (1.6-2.3); Potassium 3.9 mmol/L (3.5-5.1); Sodium 138 mmol/L (137-145)
[2018-03-22] MEDS: ASPIRIN 325 MG TAB PO SCH (05:14)
[2018-03-22] MEDS ORDERED: ASPIRIN 325 MG TAB PO ONE (06:00)
[2018-03-22] MEDS ORDERED: SODIUM CHLORIDE 0.9% 1,000 ML in EMPTY BAG 1 BAG IV ONE (06:00)
[2018-03-22] MEDS ORDERED: ALPRAZolam 0.5 MG TAB PO PRN (06:00)
[2018-03-22] MEDS ORDERED: ATORVASTATIN 80 MG TAB PO ONE (06:00)
[2018-03-22] MEDS ORDERED: ALPRAZolam 0.25 MG TAB PO PRN (06:00)
[2018-03-22] MEDS: PANTOPRAZOLE 40 MG TABLET PO SCH (06:45)
[2018-03-22] MEDS: FINASTERIDE 5 MG TAB PO SCH (06:45)
[2018-03-22] MEDS: NITROGLYCERIN OINT 1 INCH/GM PACKET TOPICAL SCH ×3 (06:45→18:27)
[2018-03-22] MEDS: CLOPIDOGREL 75 MG TAB PO SCH (06:46)
[2018-03-22] MEDS: FERROUS SULFATE 325 MG TAB PO SCH ×2 (06:46→21:57)
[2018-03-22 06:47] LABS: Basophils % (A) 0 %; Eosinophils # (A) 0.3 k/uL (0-0.7); Eosinophils % (A) 3 %; HCT 37.8 % (39.0-53.0); HGB 12.5 gm/dL (13.0-17.5); Lymphocytes # (A) 2.1 k/uL (1.0-4.8); Lymphocytes % (A) 22 %; MCH 29.6 pg (25.0-35.0); MCV 89.5 fL (80.0-100.0); Mean Platelet Volume 7.5; Monocytes # (A) 0.9 k/uL (0-1.0); Monocytes % (A) 9 %; Neutrophils # (A) 6.2 k/uL (1.3-7.7); Neutrophils % (A) 63 %; Platelet Count 205 k/uL (150-450); RBC 4.22 m/uL (4.30-5.90); WBC 9.7 k/uL (3.8-10.6)
[2018-03-22] MEDS: ASCORBIC ACID 500 MG TAB PO SCH (06:47)
[2018-03-22 06:57] LABS: Anion Gap 6 mmol/L; Blood Urea Nitrogen 11 mg/dL (9-20); Calcium 8.8 mg/dL (8.4-10.2); Carbon Dioxide 26 mmol/L (22-30); Chloride 109 mmol/L (98-107); Glucose 95 mg/dL (74-99); Magnesium 1.8 mg/dL (1.6-2.3); Sodium 141 mmol/L (137-145)
[2018-03-22] MEDS: TAMSULOSIN 0.4 MG CAP.ER.24H PO SCH (09:40)
[2018-03-22] MEDS: FUROSEMIDE 20 MG TAB PO SCH (09:40)
[2018-03-22] MEDS: APIXABAN 5 MG TAB PO SCH ×2 (09:40→21:56)
[2018-03-22] MEDS: METOPROLOL TARTRATE 25 MG TAB PO SCH ×2 (09:43→22:04)
[2018-03-22] MEDS ORDERED: LIDOCAINE 1% INJ 10MG/ML (20 ML MDV) ONE ×2 (10:41→16:12)
[2018-03-22] MEDS ORDERED: MIDAZOLAM 2 MG/2 ML VIAL ONE ×2 (10:41→16:12)
[2018-03-22] MEDS ORDERED: fentaNYL (PF) 50 MCG/ML 2 ML AMP ONE (10:41)
[2018-03-22] MEDS ORDERED: MIDAZOLAM 2 MG/2 ML VIAL IVP ONE ×2 (10:55→16:33)
[2018-03-22] MEDS ORDERED: LIDOCAINE 1% (PF) 10MG/ML VIAL SQ ONE (10:56)
[2018-03-22] MEDS ORDERED: IV FLUID CONTINUATION 1,000 ML IV ONE (10:56)
[2018-03-22] MEDS ORDERED: ENALAPRILAT 1.25 MG/ML 1 ML VIAL ONE (11:03)
[2018-03-22] MEDS ORDERED: NITROGLYCERIN OINT 1 INCH/GM PACKET TOPICAL ONE ×2 (11:03→11:05)
[2018-03-22] MEDS ORDERED: ENALAPRILAT 1.25 MG/ML 1 ML VIAL IVP ONE (11:05)
[2018-03-22] MEDS ORDERED: fentaNYL (PF) 50 MCG/ML 2 ML AMP IVP ONE (11:24)
[2018-03-22] MEDS ORDERED: IOPAMIDOL-370 125ML BTL INJ ONE ×2 (11:24→16:58)
--- NOTE | 2018-03-22 11:49 | CC ---
CARDIAC CATHETERIZATION REPORT INDICATION: Non ST-segment elevation OK. This is a pleasant 77-year-old gentleman with history of multiple sclerosis, coronary artery disease, status post angioplasty with stent placement in the LAD and left main, who presented to us with non ST-segment elevation OK. Patient wanted to be transferred to [place] at [place], but because of inability to find bed we decided to go ahead and have his angiogram done right here. The patient had been explained of risks, benefits and alternatives, understood and accepted. He has evidence of peripheral vascular disease. PROCEDURE NOTE: After obtaining informed consent, left heart catheterization and coronary angiogram were performed via the right femoral artery using standard Manas catheters. We had to use a Glidewire to manipulate the catheters across the iliacs. The patient tolerated the procedure well without any obvious immediate complications. The patient received conscious sedation. Total sedation time was 16 minute. FINDINGS: 1. HEMODYNAMICS: Left ventricular end-diastolic pressure is 16 mm. There is no significant gradient across the aortic valve. 2. LEFT VENTRICULOGRAM: Left ventriculogram is not performed. 3. ANGIOGRAPHIC DATA: 4. Left main coronary artery: Left main coronary artery appears calcified but is free of stenosis. Divides into left anterior descending coronary artery and circumflex coronary artery. The previous stent in the left main and LAD appears patent. Circumflex coronary artery is a nondominant vessel and is free of stenosis. Circumflex coronary artery gives off a large caliber OM branch that shows a 70% to 80% focal stenosis. Right coronary artery is a large dominant vessel that shows mild diffuse disease with a focal area of 40% to 50% stenosis in the distal RCA as it bifurcates into PDA and PLV. CONCLUSIONS: 1. Patent stent within the left main coronary artery. 2. A 70% to 80% stenosis involving an OM branch. PLAN: I am going to review angiographic data with Dr. Castanon, the on-call executive director, and decide on whether to do angioplasty of the OM with stent placement or manage him with continued optimal medical therapy. MMODL / IJN: [id number] /
[2018-03-22 12:10] LABS: Glucose,Whole Blood 103 mg/dL (75-99)
[2018-03-22] MEDS: SODIUM CHLORIDE 0.9% 1,000 ML IV SCH (13:43)
--- NOTE | 2018-03-22 16:07 | P.PN ---
Subjective 37-year-old admitted for atrial fibrillation and non-ST elevation microinfarction underwent cardiac catheterization he does have blockade in the RCA for which we'll he will need to undergo stenting. Patient denied any chest pain at this time. Constitutional: Denied any fatigue denied any fever. Cardio vascular: denied any chest pain, palpitations Gastrointestinal denied any nausea vomiting Pulmonary: Denied any shortness of breath cough Neurologic denied any new focal deficits Objective - Vital Signs Vital signs: Vital Signs Temp 97.9 F 03/22/18 14:57 Pulse 74 03/22/18 15:57 Resp 16 03/22/18 15:57 BP 169/79 03/22/18 15:57 Pulse Ox 95 03/22/18 15:57 Intake & Output 03/21/18 03/22/18 03/22/18 18:59 06:59 18:59 Intake Total 720 Output Total 100 Balance -100 720 Weight 89.9 kg Intake: Intake, IV Titration 720 Amount Sodium Chloride 0.9% 1, 720 000 ml In Empty Bag 1 bag @ 1 ML/KG/HR 91.9 mls/hr IV .[id number] ONE Rx#: [id number] Output: Urine 100 Other: Voiding Method Self-Catheterization Self-Catheterization Self-Catheterization # Voids 2 1 2 # Bowel Movements 1 - Exam PHYSICAL EXAMINATION: GENERAL: The patient is alert and oriented x3, not in any acute distress. Well developed, well nourished. HEENT: Pupils are round and equally reacting to light. EOMI. No scleral icterus. No conjunctival pallor. Normocephalic, atraumatic. No pharyngeal erythema. No thyromegaly. CARDIOVASCULAR: S1 and S2 present. No murmurs, rubs, or gallops. PULMONARY: Chest is clear to auscultation, no wheezing or crackles. ABDOMEN: Soft, nontender, nondistended, normoactive bowel sounds. No palpable organomegaly. MUSCULOSKELETAL: No joint swelling or deformity. EXTREMITIES: No cyanosis, clubbing, or pedal edema. NEUROLOGICAL: Gross neurological examination did not reveal any focal deficits. SKIN: No rashes. - Labs CBC & Chem 7: 03/22/18 06:14 03/22/18 06:14 Labs: Abnormal Lab Results - Last 24 Hours (Table) 03/21/18 03/21/18 03/21/18 Range/Units 17:07 20:59 23:27 RBC (4.30-5.90) m/uL Hgb (13.0-17.5) gm/dL Hct (39.0-53.0) % Chloride (98-107) mmol/L Glucose 169 H (74-99) mg/dL POC Glucose (mg/dL) 114 H 113 H (75-99) mg/dL 03/22/18 03/22/18 03/22/18 Range/Units 06:14 06:14 11:57 RBC 4.22 L (4.30-5.90) m/uL Hgb 12.5 L (13.0-17.5) gm/dL Hct 37.8 L (39.0-53.0) % Chloride 109 H (98-107) mmol/L Glucose (74-99) mg/dL POC Glucose (mg/dL) 103 H (75-99) mg/dL Assessment and Plan Plan: -Acute non-ST elevation microinfarction: Status post cardiac catheterization is complete occlusion of right coronary artery will undergo stenting of this vessel. Patient is on dual antiplatelet therapy along with beta efrain now -Proximal atrial fibrillation: Presently rate controlled sinus rhythm no changes in the medication will be made cardiology will be consulted. -Coronary artery disease with stents in the past -Hyperlipidemia -Benign prostatic hypertrophy Continue the rest of the medications for his chronic medical problems
[2018-03-22] MEDS ORDERED: SODIUM CHLORIDE 0.9% 1,000 ML IV ONE (16:28)
[2018-03-22] MEDS ORDERED: BIVALIRUDIN BOLUS 250 MG/50 ML IV ONE (16:33)
[2018-03-22] MEDS ORDERED: BIVALIRUDIN 250 MG in SODIUM CHLORIDE 0.9% 35 ML IV ONE (16:33)
[2018-03-22] MEDS: NITROGLYCERIN 1000MCG/10ML SYRINGE INTRACORON ONE ×2 (16:49→16:53)
[2018-03-22] MEDS ORDERED: CLOPIDOGREL 75 MG TAB ONE (16:55)
[2018-03-22] MEDS ORDERED: CLOPIDOGREL 75 MG TAB PO ONE (16:57)
[2018-03-22] MEDS ORDERED: ZOLPIDEM 5 MG TAB PO PRN (16:59)
[2018-03-22] MEDS ORDERED: MAG HYDROX/AL HYDROX/SIMETH 30 ML CUP PO PRN (16:59)
[2018-03-22] MEDS ORDERED: ATROPINE SULFATE 0.1 MG/ML 10ML SYRINGE IV PRN (16:59)
[2018-03-22] MEDS ORDERED: RX INFO: IV CONTRAST WAS GIVEN 1 EACH MISC MISCELLANE PRN (16:59)
[2018-03-22] MEDS ORDERED: NITROGLYCERIN SL TABS 0.4 MG TAB SUBLINGUAL PRN (16:59)
[2018-03-22] MEDS ORDERED: SODIUM CHLORIDE 0.9% 1,000 ML IV SCH (17:00)
[2018-03-22] MEDS: MORPHINE SULFATE 4 MG/ML SYRINGE IVP PRN (18:27)
--- NOTE | 2018-03-22 18:58 | PCN ---
PROCEDURE NOTE DATE OF PROCEDURE: 03/22/2018 PERFORMING PHYSICIAN: Dario Castanon MD, hand washer. PROCEDURE PERFORMED: Successful stenting of the first obtuse marginal branch of the circumflex using 2.0 x 18 mm [place] drug-eluting stent with good angiographic results. INDICATION: This is a pleasant 77-year-old gentleman with known history of coronary artery disease who presented to the hospital with chest discomfort and mildly abnormal cardiac enzymes. He underwent heart catheterization by Dr. Castaneda and was found to have critical disease involving OM branch of the left circumflex. COMPLICATIONS: None. LEVEL OF SEDATION: Moderate; sedation length of 25 minutes. PROCEDURE DESCRIPTION: After diagnostic heart catheterization was performed by Dr. Castaneda and after reviewing the angiogram, we decided to pursue an intervention on the left circumflex. Anticoagulation was initiated using Angiomax. Initially I tried to engage the left main using an XB 3.5 LAD guide, but I was unable. Subsequently I was able using JL4 guide. After that I wired the left circumflex at the OM 1 using a Whisper wire. Then I did balloon angioplasty using a 2.0 x 12 mm balloon before I deployed a 2.0 x 18 mm [place] drug-eluting stent where the stent was positioned under fluoroscopy guidance and deployed under 12 atmospheres for 20 seconds with the following angiogram showing good angiographic results. The procedure was completed without any complication. POST-PROCEDURE MANAGEMENT: 1. Dual anti-platelet therapy. 2. Risk factor modifications. 3. Follow up with the patient. MMODL / IJN: [id number] /
[2018-03-22 21:00] LABS: Glucose,Whole Blood 110 mg/dL (75-99)
[2018-03-22] MEDS: SENNOSIDES-DOCUSATE SODIUM 1 EACH TAB PO SCH (21:57)
[2018-03-22] MEDS: ATORVASTATIN 80 MG TAB PO SCH (22:04)
[2018-03-23 00:32] VITALS: RESP 18
[2018-03-23 06:19] LABS: Glucose,Whole Blood 97 mg/dL (75-99)
[2018-03-23 06:51] LABS: Basophils % (A) 0 %; Eosinophils # (A) 0.1 k/uL (0-0.7); Eosinophils % (A) 1 %; HCT 39.6 % (39.0-53.0); HGB 13.4 gm/dL (13.0-17.5); Lymphocytes # (A) 1.7 k/uL (1.0-4.8); Lymphocytes % (A) 13 %; MCH 30.1 pg (25.0-35.0); MCHC 33.9 g/dL (31.0-37.0); MCV 88.7 fL (80.0-100.0); Mean Platelet Volume 7.5; Monocytes # (A) 0.9 k/uL (0-1.0); Monocytes % (A) 7 %; Neutrophils # (A) 10.2 k/uL (1.3-7.7); Neutrophils % (A) 77 %; Platelet Count 205 k/uL (150-450); RBC 4.47 m/uL (4.30-5.90); WBC 13.3 k/uL (3.8-10.6)
[2018-03-23] MEDS: PANTOPRAZOLE 40 MG TABLET PO SCH (06:58)
[2018-03-23] MEDS: NITROGLYCERIN OINT 1 INCH/GM PACKET TOPICAL SCH ×3 (06:58→11:17)
[2018-03-23] MEDS: MORPHINE SULFATE 4 MG/ML SYRINGE IVP PRN (07:01)
[2018-03-23 07:06] LABS: Anion Gap 8 mmol/L; Blood Urea Nitrogen 9 mg/dL (9-20); Calcium 8.9 mg/dL (8.4-10.2); Carbon Dioxide 22 mmol/L (22-30); Chloride 110 mmol/L (98-107); Glucose 104 mg/dL (74-99); Potassium 4.3 mmol/L (3.5-5.1); Sodium 140 mmol/L (137-145)
[2018-03-23] MEDS: FERROUS SULFATE 325 MG TAB PO SCH (08:06)
[2018-03-23] MEDS: TAMSULOSIN 0.4 MG CAP.ER.24H PO SCH (08:06)
[2018-03-23] MEDS: METOPROLOL TARTRATE 25 MG TAB PO SCH (08:06)
[2018-03-23] MEDS: CLOPIDOGREL 75 MG TAB PO SCH (08:07)
[2018-03-23] MEDS: FINASTERIDE 5 MG TAB PO SCH (08:07)
[2018-03-23] MEDS: APIXABAN 5 MG TAB PO SCH (08:07)
[2018-03-23] MEDS: ASCORBIC ACID 500 MG TAB PO SCH (08:07)
[2018-03-23] MEDS: ASPIRIN 325 MG TAB PO SCH (08:07)
[2018-03-23] MEDS: FUROSEMIDE 20 MG TAB PO SCH (08:08)
[2018-03-23] MEDS ORDERED: MORPHINE ORAL SOLN 10 MG/5 ML CUP PO PRN (11:26)
[2018-03-23 11:44] VITALS: BP 128/71; PULSE 69; TEMP 97.5
[2018-03-23 12:03] LABS: Glucose,Whole Blood 113 mg/dL (75-99)
--- NOTE | 2018-03-23 14:26 | P.DS ---
Providers Date of admission: 03/20/18 16:29 Expected date of discharge: 03/23/18 Attending physician: Sree Santana Consults: 03/20/18 16:27 Consult Physician Urgent Consulting Provider: Arnaldo Ruff Consult Reason/Comments: Non-ST elevation myocardial infarction, palpitations Do you want consulting provider notified?: Yes 03/22/18 16:59 Consult Physician Routine Consulting Provider: [facility] Consult Reason/Comments: Post Interventional patient Do you want consulting provider notified?: Already Contacted Primary care physician: [facility] Hospital Course: Final Diagnoses: -Acute non-ST elevation microinfarction: Status post cardiac catheterization is complete occlusion of right coronary artery , s/p stenting of the first OM of circumflex. Patient is on dual antiplatelet therapy along with beta efrain now -Proximal atrial fibrillation: Presently rate controlled sinus rhythm no changes in the medication will be made cardiology will be consulted. -Coronary artery disease with stents in the past -Hyperlipidemia -Benign prostatic hypertrophy Hospital course: This is a 77-year-old admitted for atrial fibrillation and non- ST elevation microinfarction underwent cardiac catheterization he does have blockade in the RCA , status post successful stenting. Patient denied any chest pain at this time. Significant clinical improvement. Patient has been cleared by cardiology for discharge. Patient is being discharged home in a stable condition with guarded prognosis. EXAMINATION: GENERAL: The patient is alert and oriented x3, not in any acute distress. CARDIOVASCULAR: S1 and S2 present. No murmurs, rubs, or gallops. PULMONARY: Chest is clear to auscultation, no wheezing or crackles. ABDOMEN: Soft, nontender, nondistended, normoactive bowel sounds. No palpable organomegaly. NEUROLOGICAL: Gross neurological examination did not reveal any focal deficits. The impression and plan of care has been dictated as directed. : I performed a history and examination of this patient, discussed the same with the dictator. I agree with the dictator's note ,documented as a scribe. Any additional findings or plans will be noted. Time taken: 35 minutes Patient Condition at Discharge: Stable Plan - Discharge Summary Discharge Rx Participant: No New Discharge Prescriptions: New Metoprolol Tartrate [Lopressor] 25 mg PO BID #60 tab Nitroglycerin Sl Tabs [Nitrostat] 0.4 mg SUBLINGUAL Q5M PRN #100 tab PRN Reason: Chest Pain Aspirin EC [Ecotrin Low Dose] 81 mg PO DAILY #30 tablet.dr Gloria Multivitamins, Thera [Multivitamin (formulary)] 1 tab PO DAILY Ferrous Sulfate [Feosol] 325 mg PO BID Cholecalciferol [Vitamin D3] 800 unit PO DAILY Calcium Carbonate 500 mg PO DAILY Tamsulosin [Flomax] 0.8 mg PO DAILY Sennosides-Docusate Sodium [Senokot-S] 2 tab PO HS Finasteride [Proscar] 5 mg PO DAILY Atorvastatin [Lipitor] 80 mg PO HS Clopidogrel [Plavix] 75 mg PO DAILY tab Omeprazole 20 mg PO DAILY Ascorbic Acid [Vitamin C] 500 mg PO DAILY Apixaban [Eliquis] 5 mg PO BID Furosemide [Lasix] 20 mg PO DAILY tab Ergocalciferol [Vitamin D2 (DRISDOL)] 50,000 unit PO Q7D Discontinued Lisinopril [Zestril] 5 mg PO DAILY Discharge Medication List Atorvastatin [Lipitor] 80 mg PO HS 02/04/17 [History] Calcium Carbonate 500 mg PO DAILY 02/04/17 [History] Cholecalciferol [Vitamin D3] 800 unit PO DAILY 02/04/17 [History] Ferrous Sulfate [Feosol] 325 mg PO BID 02/04/17 [History] Finasteride [Proscar] 5 mg PO DAILY 02/04/17 [History] Multivitamins, Thera [Multivitamin (formulary)] 1 tab PO DAILY 02/04/17 [History ] Sennosides-Docusate Sodium [Senokot-S] 2 tab PO HS 02/04/17 [History] Tamsulosin [Flomax] 0.8 mg PO DAILY 02/04/17 [History] Clopidogrel [Plavix] 75 mg PO DAILY tab 06/21/17 [Rx] Apixaban [Eliquis] 5 mg PO BID 06/24/17 [History] Ascorbic Acid [Vitamin C] 500 mg PO DAILY 06/24/17 [History] Omeprazole 20 mg PO DAILY 06/24/17 [History] Furosemide [Lasix] 20 mg PO DAILY tab 07/01/17 [Rx] Ergocalciferol [Vitamin D2 (DRISDOL)] 50,000 unit PO Q7D 03/20/18 [History] Aspirin EC [Ecotrin Low Dose] 81 mg PO DAILY #30 tablet.dr 03/23/18 [Rx] Metoprolol Tartrate [Lopressor] 25 mg PO BID #60 tab 03/23/18 [Rx] Nitroglycerin Sl Tabs [Nitrostat] 0.4 mg SUBLINGUAL Q5M PRN #100 tab 03/23/18 [ Rx] Follow up Appointment(s)/Referral(s): Rashi Briscoe DO [Doctor of Osteopathic Medicine] - 3 Days Bon Castaneda MD [STAFF PHYSICIAN] - 03/30/18 10:45 am () Ambulatory/Diagnostic Orders: Complete Blood Count w/diff [LAB.AMB] Time Frame: 3 Days, Location: None Selected Patient Instructions/Handouts: *[facility] - After Heart Catheterization - Steward/Stewardess Dining Room Instructions, Left Heart Catheterization (DC) Activity/Diet/Wound Care/Special Instructions: Aspirin decreased to 81 mg as per cardiology.
[2018-03-23 15:12] VITALS: BMI 27.8
--- NOTE | 2018-03-23 15:13 | P.PN ---
Subjective Progress Note Date: 03/23/18 This is a pleasant 77-year-old gentleman with history of multiple sclerosis, CAD , status post angioplasty, paroxysmal atrial fibrillation. He came to the hospital with sustained palpitations that lasted for more than 24 hours. When he presented to the emergency department he was found to be in sinus rhythm with Q wave inversions in the precordial leads and troponins came back mildly elevated. He was subsequently recommended to undergo cardiac catheterization. This revealed RCA to be a large dominant vessel that shows mild diffuse disease with a focal area of around 40-50% stenosis in the distal RCA, patent stent within the left main coronary artery and a 70-80% stenosis involving the OM branch. He subsequently underwent stenting of the OM by Dr. Castanon. Upon examination today, patient is sitting up in a chair. He has not been up and ambulated as he is essentially wheelchair bound at home secondary to debilitating MS. He is feeling well. He denies any further complaints of palpitations and has had no chest discomfort. Objective - Vital Signs Vital signs: Vital Signs Temp 97.5 F L 03/23/18 11:36 Pulse 69 03/23/18 11:47 Resp 18 03/23/18 11:47 BP 128/71 03/23/18 11:36 Pulse Ox 93 L 03/23/18 11:36 Intake & Output 03/22/18 03/23/18 03/23/18 18:59 06:59 18:59 Intake Total 900 Output Total 200 Balance 900 -200 Weight 90.5 kg Intake: IV 180 Intake, IV Titration 720 Amount Sodium Chloride 0.9% 1, 720 000 ml In Empty Bag 1 bag @ 1 ML/KG/HR 91.9 mls/hr IV .[id number] ONE Rx#: [id number] Output: Urine 200 Other: Voiding Method Self-Catheterization Self-Catheterization Self-Catheterization # Voids 2 2 - Exam PHYSICAL EXAMINATION: HEENT: Head is atraumatic, normocephalic. Pupils equal, round. Neck is supple. There is no elevated jugular venous pressure. HEART EXAMINATION: Heart sounds regular, S1 and S2 normal. No murmur or gallop heard. CHEST EXAMINATION: Lungs are clear to auscultation and precussion. No chest wall tenderness is noted on palpation or with deep breathing. ABDOMEN: Soft, nontender. Bowel sounds are heard. No organomegaly noted. EXTREMITIES: 2+ peripheral pulses with no evidence of peripheral edema and no calf tenderness noted. Right femoral puncture site is soft without ecchymosis or hematoma. NEUROLOGIC patient is awake, alert and oriented x3. . - Labs CBC & Chem 7: 03/23/18 06:36 03/23/18 06:36 Labs: Abnormal Lab Results - Last 24 Hours (Table) 03/22/18 03/23/18 03/23/18 Range/Units 20:58 06:36 06:36 WBC 13.3 H (3.8-10.6) k/uL Neutrophils # 10.2 H (1.3-7.7) k/uL Chloride 110 H (98-107) mmol/L Glucose 104 H (74-99) mg/dL POC Glucose (mg/dL) 110 H (75-99) mg/dL 03/23/18 Range/Units 12:00 WBC (3.8-10.6) k/uL Neutrophils # (1.3-7.7) k/uL Chloride (98-107) mmol/L Glucose (74-99) mg/dL POC Glucose (mg/dL) 113 H (75-99) mg/dL Assessment and Plan Assessment: #1 non-ST elevation myocardial infarction, status post stent to the OM #2 paroxysmal atrial fibrillation #3 multiple sclerosis Plan: From straightener perspective, medications were reviewed, continue plavix, Eliquis and decrease aspirin to 81 mg daily. [facility] The above dictated assessment and findings were discussed with signing physician. The impression and plan of care have been directed as dictated. Vangie Krishnan, Nurse Practitioner, acting as scribe for signing physician.
--- NOTE | 2018-03-27 14:21 | CDI ---
Last Revision, May 2017 Documentation Clarification Form Date: 03/27/18 From: Ijeoma Rene Rena Mauricio, Mobile Disc Jockey Hours-8:30 am & 5 pm MEb Admit Date: 03/20/2018 4:29:00 PM Patient Name: Wesly Tee Visit Number: [id number] Discharge Date: 03/23/18 ATTENTION: The Clinical Documentation Specialists (CDI) and [facility] Coding Staff appreciate your assistance in clarifying documentation. Please respond to the clarification below the line at the bottom and electronically sign. The CDI & [facility] Coding staff will review the response and follow-up if needed. Please note: Queries are made part of the Legal Health Record. If you have any questions, please contact the author of this message via ITS. Dr. SALINAS, Bon Pizarro MD Acute non ST-segment elevation myocardial infarction with hypertension and CHF and paroxysmal atrial fib. History/Risk Factors: MS, DM PVD, VS/Pulse OX: P-73, R-18, BP-114/63 BNP: none Echocardiogram Results: normal systolic function, EF between 55-60% Chest X Ray: no acute cardiopulmonary process Treatment: Lasix 20 mg po daily In your professional opinion, can you please clarify the type of CHF if known? Chronic Systolic Heart Failure: Chronic Diastolic Heart Failure: Chronic Systolic & Diastolic Heart Failure: Unable to Determine Other, please specify Please continue to document in your progress notes and discharge summary in order to capture severity of illness and risk of mortality. Include clinical findings that support your diagnosis. MTDD
== END 2018-03-23 17:31 | disposition home or self-care (01) | DRG 247 ==
LOC: EC 11:26 → 6SEL 16:29
PROVIDERS: ADMIT Internal Medicine; ATTEND Internal Medicine
PROC: 4A023N7 Measurement of Cardiac Sampling and Pressure, Left Heart, Percutaneous Approach (ICD-10-PCS; 2018-03-22)
PROC: B211YZZ Fluoroscopy of Multiple Coronary Arteries using Other Contrast (ICD-10-PCS; 2018-03-22)
PROC: 027034Z Dilation of Coronary Artery, One Artery with Drug-eluting Intraluminal Device, Percutaneous Approach (ICD-10-PCS; principal; 2018-03-22 10:30)
DX: I21.4 Non-ST elevation (NSTEMI) myocardial infarction (principal); E11.51 Type 2 diabetes mellitus with diabetic peripheral angiopathy without gangrene; G35 Multiple sclerosis; I11.0 Hypertensive heart disease with heart failure; N31.9 Neuromuscular dysfunction of bladder, unspecified; I48.0 Paroxysmal atrial fibrillation; I25.10 Atherosclerotic heart disease of native coronary artery without angina pectoris; E78.5 Hyperlipidemia, unspecified; N40.0 Benign prostatic hyperplasia without lower urinary tract symptoms; K21.9 Gastro-esophageal reflux disease without esophagitis; R32 Unspecified urinary incontinence; I25.2 Old myocardial infarction; Z79.01 Long term (current) use of anticoagulants; Z79.02 Long term (current) use of antithrombotics/antiplatelets; Z79.899 Other long term (current) drug therapy; Z86.73 Personal history of transient ischemic attack (TIA), and cerebral infarction without residual deficits; Z95.5 Presence of coronary angioplasty implant and graft; Z87.891 Personal history of nicotine dependence; Z99.3 Dependence on wheelchair; Z90.49 Acquired absence of other specified parts of digestive tract; Z82.49 Family history of ischemic heart disease and other diseases of the circulatory system; Z82.0 Family history of epilepsy and other diseases of the nervous system; I50.9 Heart failure, unspecified
CPT/HCPCS: 36415; 71046; 80048; 80053; 80061; 82550; 82553; 83036; 83735; 84443; 84484; 85025; 85379; 85610; 85730; 93005; 93306; 93458; 99291

== ENCOUNTER → 2018-03-28 | Outpatient (CLI) | payer OTHER ==
[2018-03-28 16:34] LABS: Basophils # (A) 0.1 k/uL (0-0.2); Basophils % (A) 0 %; Eosinophils # (A) 0.3 k/uL (0-0.7); Eosinophils % (A) 3 %; HCT 38.2 % (39.0-53.0); HGB 12.4 gm/dL (13.0-17.5); Lymphocytes # (A) 1.9 k/uL (1.0-4.8); Lymphocytes % (A) 18 %; MCH 29.9 pg (25.0-35.0); MCHC 32.6 g/dL (31.0-37.0); Mean Platelet Volume 8.5; Monocytes # (A) 0.7 k/uL (0-1.0); Monocytes % (A) 6 %; Neutrophils # (A) 7.5 k/uL (1.3-7.7); Neutrophils % (A) 71 %; Platelet Count 236 k/uL (150-450); RBC 4.15 m/uL (4.30-5.90); RDW 13.1 % (11.5-15.5); WBC 10.6 k/uL (3.8-10.6)
[2018-03-28 16:45] LABS: Anion Gap 8 mmol/L; Blood Urea Nitrogen 14 mg/dL (9-20); Calcium 9.4 mg/dL (8.4-10.2); Carbon Dioxide 24 mmol/L (22-30); Chloride 106 mmol/L (98-107); Glucose 150 mg/dL (74-99); Potassium 4.3 mmol/L (3.5-5.1); Sodium 138 mmol/L (137-145)
== END | disposition home or self-care (01) ==
LOC: LABPAT 15:03
PROVIDERS: ATTEND Urology
DX: Z01.812 Encounter for preprocedural laboratory examination (principal); N30.21 Other chronic cystitis with hematuria
CPT/HCPCS: 36415; 80048; 85025

== ENCOUNTER 2018-03-31 08:22 | Day surgery (SDC) | payer OTHER ==
[2018-03-27 16:14] VITALS: BMI 28.0
--- NOTE | 2018-03-30 19:03 | P.GSHP ---
History of Present Illness H&P Date: 03/30/18 77 yo male from [facility] The patient has MS for 40 years and is on chronic cic to empty his bladder He came to me because of persistent debris that clogs his catheter. A cystoscopy identifeid alot of necrotic debris The cysto was challenging because of discomfort He comes for anesthetic cysto with biopsies. - Constitutional Constitutional: Reports fatigue, Reports lethargy - Cardiovascular Cardiovascular: Reports chest pain - Genitourinary (Female) Genitourinary: Reports as per HPI Past Medical History Past Medical History: Atrial Fibrillation, Coronary Artery Disease (CAD), Heart Failure, Diabetes Mellitus, GERD/Reflux, Hyperlipidemia, Hypertension, Myocardial Infarction (HI), Neurologic Disorder, Prostate Disorder Additional Past Medical History / Comment(s): BPH, neurogenic bladder - Pt does Self Caths , diabetes-diet controlled, Multiple Sclerosis., Incontinence - wears briefs, States repeat sleep study scheduled., patient uses wheel chair and "scooter ". , Patient was admitted 03/20/18 or heart palpitations with HI and had heart cath with stent 03/22/18, was discharged from [facility] on 03/23/18. Last Myocardial Infarction Date:: 03/20/18 History of Any Multi-Drug Resistant Organisms: None Reported Past Surgical History: Adenoidectomy, Appendectomy, Heart Catheterization With Stent, Hernia Repair, Tonsillectomy Additional Past Surgical History / Comment(s): HEART CATH AT [facility] ON 02/02/17: stents were placed in the mid LAD, proximal LAD, and LEFT MAIN., Right hip repair 2011, HEART CATH 03/22/18 WITH STENT ([facility]) Past Anesthesia/Blood Transfusion Reactions: No Reported Reaction Date of Last Stent Placement:: 03/22/18 Past Psychological History: No Psychological Hx Reported Smoking Status: Former smoker Past Alcohol Use History: None Reported Additional Past Alcohol Use History / Comment(s): QUIT JUN 13, 1989. . HX OF 1 PPD SMOKER. Past Drug Use History: None Reported - Past Family History Father Family Medical History: Coronary Artery Disease (CAD), Myocardial Infarction ([place] ) Mother Family Medical History: No Reported History Brother(s) Additional Family Medical History / Comment(s): TWIN BROTHER HAS MS. Medications and Allergies Home Medications Medication Instructions Recorded Confirmed Type Atorvastatin [Lipitor] 80 mg PO HS 02/04/17 03/27/18 History Calcium Carbonate 500 mg PO DAILY 02/04/17 03/27/18 History Cholecalciferol [Vitamin D3] 800 unit PO DAILY 02/04/17 03/27/18 History Ferrous Sulfate [Feosol] 325 mg PO BID 02/04/17 03/27/18 History Finasteride [Proscar] 5 mg PO DAILY 02/04/17 03/27/18 History Multivitamins, Thera [Multivitamin 1 tab PO DAILY 02/04/17 03/27/18 History (formulary)] Tamsulosin [Flomax] 0.8 mg PO DAILY 02/04/17 03/27/18 History Clopidogrel [Plavix] 75 mg PO DAILY tab 06/21/17 03/27/18 Rx Apixaban [Eliquis] 5 mg PO BID 06/24/17 03/27/18 History Ascorbic Acid [Vitamin C] 500 mg PO DAILY 06/24/17 03/27/18 History Omeprazole 20 mg PO DAILY 06/24/17 03/27/18 History Furosemide [Lasix] 20 mg PO DAILY tab 07/01/17 03/27/18 Rx Ergocalciferol [Vitamin D2 50,000 unit PO Q7D 03/20/18 03/27/18 History (DRISDKELLIE)] Aspirin EC [Ecotrin Low Dose] 81 mg PO DAILY #30 tablet.dr 03/23/18 03/27/18 Rx Nitroglycerin Sl Tabs [Nitrostat] 0.4 mg SUBLINGUAL Q5M PRN #100 tab 03/23/18 Rx Docusate Sodium [Dok] 50 mg PO HS 03/27/18 03/27/18 History Metoprolol Tartrate [Lopressor] 25 mg PO BID 03/27/18 03/27/18 History Allergies Allergy/AdvReac Type Severity Reaction Status Date / Time No Known Allergies Allergy Verified 03/27/18 13:44 Surgical - Exam - General well developed, well nourished, no distress - Eyes PERRL - ENT no hearing loss - Neck no masses, trachea midline - Respiratory normal expansion, normal respiratory effort - Cardiovascular Rhythm: regular - Abdomen Abdomen: soft, non tender - Genitourinary normal penis with no external lesions, testicles present - Integumentary no rash, no growths - Neurologic normal coordination, normal sensation - Musculoskeletal normal posture - Psychiatric oriented to time, oriented to person, oriented to place, speech is normal, memory intact Assessment and Plan Assessment: Impression: 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
[~2018-03-31 08:22] MED LIST: DEXAMETHASONE SOD PHOSPHATE 10 MG/ML 1 ML VIAL IV ONE; HYDROmorphone 1 MG/ML 1 ML SYRINGE IVP PRN; LACTATED RINGERS 1,000 ML IV SCH; MIDAZOLAM 2 MG/2 ML VIAL IV PRN; ONDANSETRON 4 MG/2 ML VIAL IVP ONE; ceFAZolin IN SWFI 2 GM/20 ML SYRINGE IVP ONE
[2018-03-31] MEDS ORDERED: LIDOCAINE 1% 20 ML VIAL (10MG/ML) FOR IV START INTRADERMA ONE (09:04)
[2018-03-31] MEDS ORDERED: LACTATED RINGERS 1,000 ML IV ONE (09:04)
[2018-03-31 09:06] VITALS: BP 166/74; PULSE 52; RESP 16; TEMP 98.4
[2018-03-31 09:19] LABS: Glucose,Whole Blood 101 mg/dL (75-99)
== END 2018-03-31 11:45 | disposition home or self-care (01) ==
LOC: OR 08:22
PROVIDERS: ATTEND Urology
DX: Z53.8 Procedure and treatment not carried out for other reasons (principal); G35 Multiple sclerosis; I48.91 Unspecified atrial fibrillation; I25.10 Atherosclerotic heart disease of native coronary artery without angina pectoris; I11.0 Hypertensive heart disease with heart failure; I50.9 Heart failure, unspecified; Z87.891 Personal history of nicotine dependence; E11.9 Type 2 diabetes mellitus without complications; K21.9 Gastro-esophageal reflux disease without esophagitis; E78.5 Hyperlipidemia, unspecified; I25.2 Old myocardial infarction; N40.0 Benign prostatic hyperplasia without lower urinary tract symptoms; R39.81 Functional urinary incontinence; Z95.5 Presence of coronary angioplasty implant and graft; Z79.01 Long term (current) use of anticoagulants; Z79.02 Long term (current) use of antithrombotics/antiplatelets; Z79.82 Long term (current) use of aspirin; Z79.899 Other long term (current) drug therapy; N30.21 Other chronic cystitis with hematuria
CPT/HCPCS: J1100; J2405

== ENCOUNTER → 2018-05-09 | Outpatient (CLI) | payer OTHER ==
[2018-05-09 15:16] LABS: Basophils % (A) 0 %; Eosinophils # (A) 0.2 k/uL (0-0.7); Eosinophils % (A) 2 %; HCT 37.9 % (39.0-53.0); HGB 12.3 gm/dL (13.0-17.5); Lymphocytes # (A) 2.1 k/uL (1.0-4.8); Lymphocytes % (A) 21 %; MCHC 32.5 g/dL (31.0-37.0); MCV 92.4 fL (80.0-100.0); Mean Platelet Volume 7.8; Monocytes # (A) 0.7 k/uL (0-1.0); Monocytes % (A) 7 %; Neutrophils # (A) 6.8 k/uL (1.3-7.7); Neutrophils % (A) 68 %; Platelet Count 213 k/uL (150-450); RDW 13.3 % (11.5-15.5)
[2018-05-09 18:55] LABS: Anion Gap 7.2 mmol/L (4.00-12.00); Calcium 9.5 mg/dL (8.7-10.3); Carbon Dioxide 27.8 mmol/L (21.6-31.8); Potassium 4.3 mmol/L (3.5-5.5)
[2018-05-09 20:41] LABS: Amorphous Sediment,Urine Occasional /hpf; Appearance,Urine Cloudy (Clear); Bacteria,Urine Moderate /hpf; Bilirubin,Urine Negative (Negative); Blood,Urine Negative (Negative); Color,Urine Yellow; Glucose,Urine (UA) Negative (Negative); Ketones,Urine Negative (Negative); Leukocyte Esterase,Urine Large (Negative); Mucus,Urine Occasional /hpf; Nitrite,Urine Negative (Negative); Protein,Urine Negative (Negative); RBC,Urine 1 /hpf (0-5); Specific Gravity,Urine 1.015 (1.001-1.035); Squamous Epithelial Cell,Urine 2 /hpf (0-4); WBC,Urine 86 /hpf (0-5)
== END | disposition home or self-care (01) ==
LOC: LABWHC1 14:09
PROVIDERS: ATTEND Urology
DX: N30.21 Other chronic cystitis with hematuria (principal)
CPT/HCPCS: 36415; 80048; 81001; 85025; 87086

== ENCOUNTER 2018-05-28 08:23 | Emergency (ER) | payer OTHER ==
[2018-05-28 08:35] VITALS: RESP 18
--- NOTE | 2018-05-28 08:49 | ED ---
General Adult HPI - General Chief complaint: Urogenital Stated complaint: Male Time Seen by Provider: 05/28/18 08:29 Source: patient, RN notes reviewed Mode of arrival: EMS Limitations: no limitations - History of Present Illness Initial comments: Patient is a pleasant 77-year-old male presenting to the emergency Department with hematuria. Onset was last night. Patient does do self catheterizations. Patient states there is mild discomfort. Patient states there is also been some mild blood. Patient does admit to being on blood thinners, Eliquis. Patient believes she is on the secondary to history of atrial fibrillation. No flank or abdominal pain. No other areas of bleeding. No dyspnea or new weakness. Patient does have chronic MS. - Related Data Home Medications Medication Instructions Recorded Confirmed Atorvastatin [Lipitor] 80 mg PO HS 02/04/17 05/28/18 Calcium Carbonate 500 mg PO DAILY 02/04/17 05/28/18 Cholecalciferol [Vitamin D3] 800 unit PO DAILY 02/04/17 05/28/18 Ferrous Sulfate [Feosol] 325 mg PO BID 02/04/17 05/28/18 Finasteride [Proscar] 5 mg PO DAILY 02/04/17 05/28/18 Multivitamins, Thera [Multivitamin 1 tab PO DAILY 02/04/17 05/28/18 (formulary)] Tamsulosin [Flomax] 0.8 mg PO DAILY 02/04/17 05/28/18 Apixaban [Eliquis] 5 mg PO BID 06/24/17 05/28/18 Ascorbic Acid [Vitamin C] 500 mg PO DAILY 06/24/17 05/28/18 Omeprazole 20 mg PO DAILY 06/24/17 05/28/18 Ergocalciferol [Vitamin D2 50,000 unit PO SA 03/20/18 05/28/18 (DRISDOL)] Lisinopril [Zestril] 5 mg PO DAILY 05/28/18 05/28/18 Metoprolol Tartrate [Lopressor] 50 mg PO BID 05/28/18 05/28/18 Phenyleph/Mineral Oil/Petrolat 1 applic RECTAL BID PRN 05/28/18 05/28/18 [Preparation H Ointment] Sennosides-Docusate Sodium 2 tab PO HS PRN 05/28/18 05/28/18 [Senokot-S] Previous Rx's Medication Instructions Recorded Clopidogrel [Plavix] 75 mg PO DAILY tab 06/21/17 Furosemide [Lasix] 20 mg PO DAILY tab 07/01/17 Nitroglycerin Sl Tabs [Nitrostat] 0.4 mg SUBLINGUAL Q5M PRN #100 tab 03/23/18 Cephalexin [Keflex] 500 mg PO QID #40 cap 05/28/18 Allergies Allergy/AdvReac Type Severity Reaction Status Date / Time No Known Allergies Allergy Verified 05/28/18 09:36 Review of Systems ROS Statement: Those systems with pertinent positive or pertinent negative responses have been documented in the HPI. ROS Other: All systems not noted in ROS Statement are negative. Constitutional: Denies: fever Eyes: Denies: eye pain ENT: Denies: ear pain Respiratory: Denies: cough Cardiovascular: Denies: chest pain Endocrine: Denies: fatigue Gastrointestinal: Denies: abdominal pain Genitourinary: Reports: as per HPI, hematuria. Denies: urgency Musculoskeletal: Denies: back pain Skin: Denies: rash Past Medical History Past Medical History: Atrial Fibrillation, Coronary Artery Disease (CAD), Heart Failure, CVA/TIA, Diabetes Mellitus, GERD/Reflux, Hyperlipidemia, Hypertension, Myocardial Infarction ([place]), Neurologic Disorder, Prostate Disorder Additional Past Medical History / Comment(s): BPH, neurogenic bladder - pt self caths 2-3 times daily at home/some incont, wears briefs, diabetes mellitus which has been diet controlled, MS, Last Myocardial Infarction Date:: 06/25/2017 History of Any Multi-Drug Resistant Organisms: None Reported Past Surgical History: Adenoidectomy, Appendectomy, Heart Catheterization With Stent, Hernia Repair, Tonsillectomy Additional Past Surgical History / Comment(s): RECENT HEART CATH AT [facility] ON 02/02/17: stents were placed in the mid LAD, proximal LAD, and LEFT MAIN. Right hip repair 2011, BIOPSY IN APR 2018 Past Anesthesia/Blood Transfusion Reactions: No Reported Reaction Date of Last Stent Placement:: 02-02-17 Past Psychological History: No Psychological Hx Reported Smoking Status: Former smoker Past Alcohol Use History: Daily Past Drug Use History: None Reported - Past Family History Father Family Medical History: Coronary Artery Disease (CAD), Myocardial Infarction ([place] ) Additional Family Medical History / Comment(s): at age 65 Mother Family Medical History: No Reported History Additional Family Medical History / Comment(s): at age 80 not sure what cause Brother(s) Additional Family Medical History / Comment(s): TWIN BROTHER HAS MS. General Exam Limitations: no limitations General appearance: alert, in no apparent distress Head exam: Present: atraumatic Eye exam: Present: normal appearance Neck exam: Present: normal inspection Respiratory exam: Present: normal lung sounds bilaterally Cardiovascular Exam: Present: irregular rhythm GI/Abdominal exam: Present: soft. Absent: tenderness exam: Present: normal inspection, other (There is some blood present in the patient's undergarments) Extremities exam: Present: normal inspection Neurological exam: Present: alert Psychiatric exam: Present: normal affect, normal mood Skin exam: Present: normal color. Absent: rash Course Vital Signs 05/28/18 08:29 Temperature 98.8 F Pulse Rate 67 Respiratory 18 Rate Blood Pressure 147/81 O2 Sat by Pulse 99 Oximetry EKG Findings - EKG Comments: EKG Findings:: Sinus rhythm at 62. PVC is present. ID 152. QRS 92. QT 438. QTC 444. Normal axis. Normal QRS. Nonspecific ST-T. Previous EKG dated 03/20 reviewed. Medical Decision Making - Medical Decision Making Patient reevaluated and resting comfortably in bed. Patient advised to hold Eliquis today. Patient will be covered with antibiotics for possible urinary tract infection. Patient recommended close follow-up with his primary care physician and urology. - Lab Data Result diagrams: 05/28/18 09:19 05/28/18 09:19 Lab Results 05/28/18 05/28/18 05/28/18 Range/Units 09:19 09:19 09:19 WBC 11.9 H (3.8-10.6) k/uL RBC 4.06 L (4.30-5.90) m/uL Hgb 11.7 L (13.0-17.5) gm/dL Hct 36.6 L (39.0-53.0) % MCV 89.9 (80.0-100.0) fL MCH 28.9 (25.0-35.0) pg MCHC 32.1 (31.0-37.0) g/dL RDW 12.9 (11.5-15.5) % Plt Count 247 (150-450) k/uL Neutrophils % 76 % Lymphocytes % 14 % Monocytes % 7 % Eosinophils % 1 % Basophils % 0 % Neutrophils # 9.0 H (1.3-7.7) k/uL Lymphocytes # 1.7 (1.0-4.8) k/uL Monocytes # 0.8 (0-1.0) k/uL Eosinophils # 0.1 (0-0.7) k/uL Basophils # 0.1 (0-0.2) k/uL PT 10.7 (9.0-12.0) sec INR 1.0 (<1.2) APTT 27.0 (22.0-30.0) sec Sodium 141 (137-145) mmol/L Potassium 4.3 (3.5-5.1) mmol/L Chloride 107 (98-107) mmol/L Carbon Dioxide 25 (22-30) mmol/L Anion Gap 9 mmol/L BUN 15 (9-20) mg/dL Creatinine 0.97 (0.66-1.25) mg/dL Est GFR (CKD-EPI)AfAm 89 (>60 ml/min/1.73 sqM) Est GFR (CKD-EPI)NonAf 77 (>60 ml/min/1.73 sqM) Glucose 107 H (74-99) mg/dL Calcium 9.2 (8.4-10.2) mg/dL Urine Color Urine Appearance (Clear) Urine RBC (0-5) /hpf Urine WBC (0-5) /hpf /16/18 Range/Units 10:00 WBC (3.8-10.6) k/uL RBC (4.30-5.90) m/uL Hgb (13.0-17.5) gm/dL Hct (39.0-53.0) % MCV (80.0-100.0) fL MCH (25.0-35.0) pg MCHC (31.0-37.0) g/dL RDW (11.5-15.5) % Plt Count (150-450) k/uL Neutrophils % % Lymphocytes % % Monocytes % % Eosinophils % % Basophils % % Neutrophils # (1.3-7.7) k/uL Lymphocytes # (1.0-4.8) k/uL Monocytes # (0-1.0) k/uL Eosinophils # (0-0.7) k/uL Basophils # (0-0.2) k/uL PT (9.0-12.0) sec INR (<1.2) APTT (22.0-30.0) sec Sodium (137-145) mmol/L Potassium (3.5-5.1) mmol/L Chloride (98-107) mmol/L Carbon Dioxide (22-30) mmol/L Anion Gap mmol/L BUN (9-20) mg/dL Creatinine (0.66-1.25) mg/dL Est GFR (CKD-EPI)AfAm (>60 ml/min/1.73 sqM) Est GFR (CKD-EPI)NonAf (>60 ml/min/1.73 sqM) Glucose (74-99) mg/dL Calcium (8.4-10.2) mg/dL Urine Color Red Urine Appearance Bloody (Clear) Urine RBC >182 H (0-5) /hpf Urine WBC >182 H (0-5) /hpf - Radiology Data Radiology results: image reviewed (KUB shows no acute process) Disposition Clinical Impression: Hematuria Disposition: HOME SELF-CARE Condition: Stable Instructions: Hematuria (ED) Additional Instructions: Hold Eliquis today. Please follow-up with primary care physician and cardiology and urology in the next day or 2 for further recommendations. Have follow-up doctor review urine culture results. Return for increased bleeding, weakness, shortness of breath, pallor, change or worsening symptoms or other concerns. Prescriptions: Cephalexin [Keflex] 500 mg PO QID #40 cap Is patient prescribed a controlled substance at d/c from ED?: No Referrals: [facility]inic [Primary Care Provider] - 1-2 days Edson Allred MD [STAFF PHYSICIAN] - 1-2 days Claudette Hernandez MD [STAFF PHYSICIAN] - 1-2 days Time of Disposition: 11:47
--- NOTE | 2018-05-28 09:51 | XR ---
EXAMINATION TYPE: XR KUB portable , 3 VIEWS DATE OF EXAM ORDERED: 05/28/2018 HISTORY: Pain. COMPARISON: None. FINDINGS: There has been a dynamic hip pinning of the right hip. There are mild degenerative changes in both hips and the lumbar spine. Osseous structures about the pelvis are unremarkable. There is so me vascular calcification present. IMPRESSION: NO ACUTE OSSEOUS LESION.
[2018-05-28 09:54] LABS: Prothrombin Time 10.7 sec (9.0-12.0)
[2018-05-28 09:56] LABS: Calcium 9.2 mg/dL (8.4-10.2); Potassium 4.3 mmol/L (3.5-5.1)
[2018-05-28 10:12] LABS: Basophils # (A) 0.1 k/uL (0-0.2); Basophils % (A) 0 %; Eosinophils # (A) 0.1 k/uL (0-0.7); Eosinophils % (A) 1 %; HCT 36.6 % (39.0-53.0); HGB 11.7 gm/dL (13.0-17.5); Lymphocytes # (A) 1.7 k/uL (1.0-4.8); Lymphocytes % (A) 14 %; MCH 28.9 pg (25.0-35.0); MCHC 32.1 g/dL (31.0-37.0); MCV 89.9 fL (80.0-100.0); Mean Platelet Volume 7.7; Monocytes # (A) 0.8 k/uL (0-1.0); Monocytes % (A) 7 %; Neutrophils % (A) 76 %; Platelet Count 247 k/uL (150-450); RBC 4.06 m/uL (4.30-5.90); RDW 12.9 % (11.5-15.5); WBC 11.9 k/uL (3.8-10.6)
[2018-05-28 10:42] LABS: RBC,Urine >182 /hpf (0-5); WBC,Urine >182 /hpf (0-5)
[2018-05-28 10:50] LABS: Appearance,Urine Bloody (Clear); Color,Urine Red
[2018-05-28] MEDS ORDERED: CEPHALEXIN 500 MG CAP PO STA (11:45)
[2018-05-28 12:37] VITALS: BP 129/99; PULSE 58; TEMP 98.5
== END 2018-05-28 12:35 | disposition home or self-care (01) ==
LOC: EC 08:23 → SUPCPDRO 08:23 → EC 12:35
DX: R31.9 Hematuria, unspecified (principal); G35 Multiple sclerosis; I48.91 Unspecified atrial fibrillation; E78.5 Hyperlipidemia, unspecified; E11.9 Type 2 diabetes mellitus without complications; I11.0 Hypertensive heart disease with heart failure; I50.9 Heart failure, unspecified; I25.10 Atherosclerotic heart disease of native coronary artery without angina pectoris; K21.9 Gastro-esophageal reflux disease without esophagitis; N31.9 Neuromuscular dysfunction of bladder, unspecified; N40.0 Benign prostatic hyperplasia without lower urinary tract symptoms; I25.2 Old myocardial infarction; Z87.891 Personal history of nicotine dependence; Z79.01 Long term (current) use of anticoagulants; Z79.899 Other long term (current) drug therapy; Z82.0 Family history of epilepsy and other diseases of the nervous system; Z82.49 Family history of ischemic heart disease and other diseases of the circulatory system; Z95.818 Presence of other cardiac implants and grafts
CPT/HCPCS: 36415; 51702; 74018; 80048; 81001; 85025; 85610; 85730; 87077; 87086; 87186; 93005; 99284

== ENCOUNTER 2018-05-28 15:26 | Inpatient (IN) | payer OTHER, MEDICARE ==
[2018-05-28] MEDS ORDERED: SODIUM CHLORIDE 0.9% 500 ML 500 ML IV ONE (15:59)
--- NOTE | 2018-05-28 16:05 | ED ---
General Adult HPI - General Chief complaint: Weakness Stated complaint: WEAKNESS Time Seen by Provider: 05/28/18 15:42 Source: patient, EMS Mode of arrival: EMS Limitations: no limitations - History of Present Illness Initial comments: Patient presents with a CC of weakness after recent discharge today where he was evaluated for hematuria. he was diagnosed with a UTI, started on keflex, and instructed to skip 1 dose of eliquis. he returns because after discharge, he went to eat lunch and felt weak. he was taken back to the ER for further evaluation. he cannot identify an inciting incident, there are no aggravating or alleviating factors, timing is constant. he denies chest pain, SOB, nausea, vomiting, though he endorses lower abdominal pain which is the same as previous visit. he has a history of recent stent placement, total of 3 lifetime stents. - Related Data Home Medications Medication Instructions Recorded Confirmed Atorvastatin [Lipitor] 80 mg PO HS 02/04/17 05/28/18 Calcium Carbonate 500 mg PO DAILY 02/04/17 05/28/18 Cholecalciferol [Vitamin D3] 800 unit PO DAILY 02/04/17 05/28/18 Ferrous Sulfate [Feosol] 325 mg PO BID 02/04/17 05/28/18 Finasteride [Proscar] 5 mg PO DAILY 02/04/17 05/28/18 Multivitamins, Thera [Multivitamin 1 tab PO DAILY 02/04/17 05/28/18 (formulary)] Tamsulosin [Flomax] 0.8 mg PO DAILY 02/04/17 05/28/18 Apixaban [Eliquis] 5 mg PO BID 06/24/17 05/28/18 Ascorbic Acid [Vitamin C] 500 mg PO DAILY 06/24/17 05/28/18 Omeprazole 20 mg PO DAILY 06/24/17 05/28/18 Ergocalciferol [Vitamin D2 50,000 unit PO SA 03/20/18 05/28/18 (DRISDOL)] Lisinopril [Zestril] 5 mg PO DAILY 05/28/18 05/28/18 Metoprolol Tartrate [Lopressor] 50 mg PO BID 05/28/18 05/28/18 Phenyleph/Mineral Oil/Petrolat 1 applic RECTAL BID PRN 05/28/18 05/28/18 [Preparation H Ointment] Sennosides-Docusate Sodium 2 tab PO HS PRN 05/28/18 05/28/18 [Senokot-S] Previous Rx's Medication Instructions Recorded Clopidogrel [Plavix] 75 mg PO DAILY tab 06/21/17 Furosemide [Lasix] 20 mg PO DAILY tab 07/01/17 Nitroglycerin Sl Tabs [Nitrostat] 0.4 mg SUBLINGUAL Q5M PRN #100 tab 03/23/18 Cephalexin [Keflex] 500 mg PO QID #40 cap 05/28/18 Allergies Allergy/AdvReac Type Severity Reaction Status Date / Time No Known Allergies Allergy Verified 05/28/18 15:43 Review of Systems ROS Statement: Those systems with pertinent positive or pertinent negative responses have been documented in the HPI. ROS Other: All systems not noted in ROS Statement are negative. Gastrointestinal: Reports: abdominal pain Neurological: Reports: weakness Past Medical History Past Medical History: Atrial Fibrillation, Coronary Artery Disease (CAD), Heart Failure, CVA/TIA, Diabetes Mellitus, GERD/Reflux, Hyperlipidemia, Hypertension, Myocardial Infarction ([place]), Neurologic Disorder, Prostate Disorder Additional Past Medical History / Comment(s): BPH, neurogenic bladder - pt self caths 2-3 times daily at home/some incont, wears briefs, diabetes mellitus which has been diet controlled, MS, Last Myocardial Infarction Date:: 06/25/2017 History of Any Multi-Drug Resistant Organisms: None Reported Past Surgical History: Adenoidectomy, Appendectomy, Heart Catheterization With Stent, Hernia Repair, Tonsillectomy Additional Past Surgical History / Comment(s): RECENT HEART CATH AT [facility] ON 02/02/17: stents were placed in the mid LAD, proximal LAD, and LEFT MAIN. Right hip repair 2011, BIOPSY IN APR 2018 Past Anesthesia/Blood Transfusion Reactions: No Reported Reaction Date of Last Stent Placement:: 02-02-17 Past Psychological History: No Psychological Hx Reported Smoking Status: Former smoker Past Alcohol Use History: Daily Past Drug Use History: None Reported - Past Family History Father Family Medical History: Coronary Artery Disease (CAD), Myocardial Infarction ([place] ) Additional Family Medical History / Comment(s): at age 65 Mother Family Medical History: No Reported History Additional Family Medical History / Comment(s): at age 80 not sure what cause Brother(s) Additional Family Medical History / Comment(s): TWIN BROTHER HAS MS. General Exam Limitations: no limitations General appearance: alert, in no apparent distress Head exam: Present: atraumatic, normocephalic Eye exam: Present: normal appearance ENT exam: Present: normal exam Neck exam: Present: normal inspection Respiratory exam: Present: normal lung sounds bilaterally. Absent: respiratory distress, wheezes Cardiovascular Exam: Present: regular rate, irregular rhythm, other (patient has a regularly irregular rhythm consistent with bigeminy. ) Course Vital Signs 05/28/18 05/28/18 05/28/18 15:30 16:51 18:05 Temperature 98.3 F 98.6 F Pulse Rate 76 67 66 Respiratory 18 16 18 Rate Blood Pressure 171/82 132/78 141/73 O2 Sat by Pulse 96 97 98 Oximetry Medical Decision Making - Medical Decision Making Patient is a 77-year-old male who presents with a chief complaint of weakness after recent discharge from the emergency Department for hematuria and a urinary tract infection. On initial evaluation, vitals are stable, patient is a no acute distress. EKG performed at 1550 shows sinus rhythm with frequent PVCs in a bigeminy pattern, ventricular rate of 71 bpm. There are no acute signs of ischemia, segments were within normal limits. Bigeminy is new from previous visit today though at that time PVCs were present. When compared to previous study performed on 03/23/2018 patient was in sinus rhythm at that time without PVCs. Patient to be evaluated with repeat basic labs now to include cardiac enzymes, CXR, liver profile and lipase, and CT head. 7:01 PM lab evaluation of this patient shows interval increase in WBC's to 19,000 and an elevation in Cr. to 1.19. bigeminy is persistent on re-evaluation though patient remains stable. given acute EKG changes and known UTI and elevated white count, patient will be placed in observation. case discussed with Dr. Witt who is agreeable with care plan. patient updated on results and care plan , he is agreeable. - Lab Data Result diagrams: 05/28/18 16:13 05/28/18 16:13 Lab Results 05/28/18 05/28/18 05/28/18 Range/Units 16:13 16:13 16:13 WBC 19.1 H (3.8-10.6) k/uL RBC 4.20 L (4.30-5.90) m/uL Hgb 12.2 L (13.0-17.5) gm/dL Hct 37.2 L (39.0-53.0) % MCV 88.7 (80.0-100.0) fL MCH 29.1 (25.0-35.0) pg MCHC 32.8 (31.0-37.0) g/dL RDW 12.9 (11.5-15.5) % Plt Count 234 (150-450) k/uL Neutrophils % 87 % Lymphocytes % 6 % Monocytes % 6 % Eosinophils % 0 % Basophils % 0 % Neutrophils # 16.6 H (1.3-7.7) k/uL Lymphocytes # 1.1 (1.0-4.8) k/uL Monocytes # 1.1 H (0-1.0) k/uL Eosinophils # 0.0 (0-0.7) k/uL Basophils # 0.0 (0-0.2) k/uL PT (9.0-12.0) sec INR (<1.2) VBG pH (7.31-7.41) VBG pCO2 (37-51) mmHg VBG HCO3 (24-28) mmol/L Sodium 140 (137-145) mmol/L Potassium 4.2 (3.5-5.1) mmol/L Chloride 108 H (98-107) mmol/L Carbon Dioxide 21 L (22-30) mmol/L Anion Gap 11 mmol/L BUN 16 (9-20) mg/dL Creatinine 1.19 (0.66-1.25) mg/dL Est GFR (CKD-EPI)AfAm 69 (>60 ml/min/1.73 sqM) Est GFR (CKD-EPI)NonAf 60 (>60 ml/min/1.73 sqM) Glucose 135 H (74-99) mg/dL Plasma Lactic Acid Robe 1.4 (0.7-2.0) mmol/L Calcium 9.3 (8.4-10.2) mg/dL Total Bilirubin 0.5 (0.2-1.3) mg/dL AST 27 (17-59) U/L ALT 43 (21-72) U/L Alkaline Phosphatase 83 (38-126) U/L Troponin I (0.000-0.034) ng/mL NT-Pro-B Natriuret Pep pg/mL Total Protein 6.5 (6.3-8.2) g/dL Albumin 3.4 L (3.5-5.0) g/dL Lipase 191 (23-300) U/L 05/28/18 05/28/18 05/28/18 Range/Units 16:13 16:13 16:13 WBC (3.8-10.6) k/uL RBC (4.30-5.90) m/uL Hgb (13.0-17.5) gm/dL Hct (39.0-53.0) % MCV (80.0-100.0) fL MCH (25.0-35.0) pg MCHC (31.0-37.0) g/dL RDW (11.5-15.5) % Plt Count (150-450) k/uL Neutrophils % % Lymphocytes % % Monocytes % % Eosinophils % % Basophils % % Neutrophils # (1.3-7.7) k/uL Lymphocytes # (1.0-4.8) k/uL Monocytes # (0-1.0) k/uL Eosinophils # (0-0.7) k/uL Basophils # (0-0.2) k/uL PT 11.4 (9.0-12.0) sec INR 1.1 (<1.2) VBG pH (7.31-7.41) VBG pCO2 (37-51) mmHg VBG HCO3 (24-28) mmol/L Sodium (137-145) mmol/L Potassium (3.5-5.1) mmol/L Chloride (98-107) mmol/L Carbon Dioxide (22-30) mmol/L Anion Gap mmol/L BUN (9-20) mg/dL Creatinine (0.66-1.25) mg/dL Est GFR (CKD-EPI)AfAm (>60 ml/min/1.73 sqM) Est GFR (CKD-EPI)NonAf (>60 ml/min/1.73 sqM) Glucose (74-99) mg/dL Plasma Lactic Acid Robe (0.7-2.0) mmol/L Calcium (8.4-10.2) mg/dL Total Bilirubin (0.2-1.3) mg/dL AST (17-59) U/L ALT (21-72) U/L Alkaline Phosphatase (38-126) U/L Troponin I 0.017 (0.000-0.034) ng/mL NT-Pro-B Natriuret Pep 1110 pg/mL Total Protein (6.3-8.2) g/dL Albumin (3.5-5.0) g/dL Lipase (23-300) U/L //18 Range/Units 16:51 WBC (3.8-10.6) k/uL RBC (4.30-5.90) m/uL Hgb (13.0-17.5) gm/dL Hct (39.0-53.0) % MCV (80.0-100.0) fL MCH (25.0-35.0) pg MCHC (31.0-37.0) g/dL RDW (11.5-15.5) % Plt Count (150-450) k/uL Neutrophils % % Lymphocytes % % Monocytes % % Eosinophils % % Basophils % % Neutrophils # (1.3-7.7) k/uL Lymphocytes # (1.0-4.8) k/uL Monocytes # (0-1.0) k/uL Eosinophils # (0-0.7) k/uL Basophils # (0-0.2) k/uL PT (9.0-12.0) sec INR (<1.2) VBG pH 7.42 H (7.31-7.41) VBG pCO2 33 L (37-51) mmHg VBG HCO3 21 L (24-28) mmol/L Sodium (137-145) mmol/L Potassium (3.5-5.1) mmol/L Chloride (98-107) mmol/L Carbon Dioxide (22-30) mmol/L Anion Gap mmol/L BUN (9-20) mg/dL Creatinine (0.66-1.25) mg/dL Est GFR (CKD-EPI)AfAm (>60 ml/min/1.73 sqM) Est GFR (CKD-EPI)NonAf (>60 ml/min/1.73 sqM) Glucose (74-99) mg/dL Plasma Lactic Acid Robe (0.7-2.0) mmol/L Calcium (8.4-10.2) mg/dL Total Bilirubin (0.2-1.3) mg/dL AST (17-59) U/L ALT (21-72) U/L Alkaline Phosphatase (38-126) U/L Troponin I (0.000-0.034) ng/mL NT-Pro-B Natriuret Pep pg/mL Total Protein (6.3-8.2) g/dL Albumin (3.5-5.0) g/dL Lipase (23-300) U/L Disposition Clinical Impression: UTI (urinary tract infection), Abnormal EKG, Bigeminy, Leukocytosis, Dizziness , Weakness Disposition: ADMITTED IP TO THIS HOSP Condition: Good Is patient prescribed a controlled substance at d/c from ED?: No Referrals: [facility],Clinic [Primary Care Provider] - 1-2 days Decision to Admit Reason: Admit from EC - Out of Hospital Transfer - Req. Specs Out of Hospital Transfer - Requested Specifics: Other Non-Acute
[2018-05-28 16:42] LABS: Basophils % (A) 0 %; Eosinophils % (A) 0 %; HCT 37.2 % (39.0-53.0); HGB 12.2 gm/dL (13.0-17.5); Lymphocytes # (A) 1.1 k/uL (1.0-4.8); Lymphocytes % (A) 6 %; MCH 29.1 pg (25.0-35.0); MCHC 32.8 g/dL (31.0-37.0); MCV 88.7 fL (80.0-100.0); Monocytes # (A) 1.1 k/uL (0-1.0); Monocytes % (A) 6 %; Neutrophils # (A) 16.6 k/uL (1.3-7.7); Neutrophils % (A) 87 %; Platelet Count 234 k/uL (150-450); RDW 12.9 % (11.5-15.5); WBC 19.1 k/uL (3.8-10.6)
--- NOTE | 2018-05-28 16:49 | CT ---
EXAMINATION TYPE: CT brain wo con DATE OF EXAM: 05/28/2018 HISTORY: weakness, hematuria CT DLP: 1111.4 mGycm. Automated Exposure Control for Dose Reduction was Utilized. TECHNIQUE: CT scan of the head is performed without contrast. COMPARISON: None. FINDINGS: There is no acute intracranial hemorrhage or midline shift identified. There is diffuse v entricular and sulcal prominence consistent with diffuse age-related cerebral atrophy. Degree of vent ricular prominence is slightly out of proportion to degree of sulcal effacement. A normal pressure hy drocephalus is not excluded. There is low-attenuation in the periventricular white matter consistent with chronic small vessel ischemic change. The globes are intact and the visualized sinuses are gregg r. Densely calcified plaque supraclinoid segment distal internal carotid arteries is present bilatera lly. IMPRESSION: No acute intracranial hemorrhage or midline shift. There is moderate to severe diffuse age-related cerebral atrophy and chronic small vessel ischemic change noted. Cannot exclude underlyi ng normal pressure hydrocephalus, correlation with old outside CT or MRI would be beneficial.
--- NOTE | 2018-05-28 16:50 | XR ---
EXAMINATION TYPE: XR chest 2V DATE OF EXAM: 05/28/2018 COMPARISON: Chest x-ray March 20, 2018. CT chest June 24, 2017. HISTORY: Dizziness and hematuria today. Chest pain. TECHNIQUE: Frontal and lateral views of the chest are obtained. FINDINGS: There is some chronic parenchymal change without suspicious focal air space opacity, pleur al effusion, or pneumothorax seen. The cardiac silhouette size remains enlarged with atherosclerotic aorta. The osseous structures are intact. IMPRESSION: Chronic changes and cardiomegaly without acute pulmonary process.
[2018-05-28 16:52] LABS: INR 1.1 (<1.2); Prothrombin Time 11.4 sec (9.0-12.0)
[2018-05-28 16:53] LABS: Albumin 3.4 g/dL (3.5-5.0); Calcium 9.3 mg/dL (8.4-10.2); Potassium 4.2 mmol/L (3.5-5.1); Total Bilirubin 0.5 mg/dL (0.2-1.3); Total Protein 6.5 g/dL (6.3-8.2)
[2018-05-28 17:01] LABS: VBG PH 7.42 (7.31-7.41)
[2018-05-28] MEDS ORDERED: NALOXONE 0.4 MG/ML 1 ML VIAL IV PRN (18:58)
[2018-05-28 21:07] VITALS: BMI 28.7
[2018-05-28 21:11] LABS: Glucose,Whole Blood 130 mg/dL (75-99)
[2018-05-28] MEDS ORDERED: BENZOCAINE 20% HEMORRHOIDAL OINT 28GM RECTAL PRN (22:35)
[2018-05-28] MEDS ORDERED: NITROGLYCERIN SL TABS 0.4 MG TAB SUBLINGUAL PRN (22:35)
[2018-05-28] MEDS ORDERED: ACETAMINOPHEN TAB 325 MG TAB PO PRN (22:40)
[2018-05-29] MEDS: CEPHALEXIN 500 MG CAP PO SCH ×3 (00:06→13:29)
[2018-05-29] MEDS: FERROUS SULFATE 325 MG TAB PO SCH ×3 (00:06→22:02)
[2018-05-29] MEDS: SENNOSIDES-DOCUSATE SODIUM 1 EACH TAB PO PRN (00:06)
[2018-05-29] MEDS: METOPROLOL TARTRATE 50 MG TAB PO SCH ×2 (00:06→09:43)
[2018-05-29] MEDS: ATORVASTATIN 80 MG TAB PO SCH ×2 (00:06→22:02)
[2018-05-29 03:52] LABS: Basophils % (A) 0 %; Eosinophils % (A) 0 %; HCT 30.5 % (39.0-53.0); Lymphocytes # (A) 1.6 k/uL (1.0-4.8); Lymphocytes % (A) 10 %; MCH 29.3 pg (25.0-35.0); MCHC 32.8 g/dL (31.0-37.0); MCV 89.5 fL (80.0-100.0); Monocytes # (A) 1.2 k/uL (0-1.0); Monocytes % (A) 8 %; Neutrophils % (A) 80 %; Platelet Count 204 k/uL (150-450); RBC 3.41 m/uL (4.30-5.90); RDW 13.1 % (11.5-15.5); WBC 16.2 k/uL (3.8-10.6)
[2018-05-29 04:13] LABS: Albumin 2.8 g/dL (3.5-5.0); Calcium 8.9 mg/dL (8.4-10.2); Magnesium 1.9 mg/dL (1.6-2.3); Potassium 3.9 mmol/L (3.5-5.1); Total Bilirubin 0.4 mg/dL (0.2-1.3); Total Protein 5.5 g/dL (6.3-8.2)
[2018-05-29] MEDS ORDERED: APIXABAN 5 MG TAB PO SCH (09:00)
--- NOTE | 2018-05-29 09:33 | P.CRDCN ---
History of Present Illness Consult date: 05/29/18 Requesting physician: Delia Witt Reason for Consult (text): History of CADJacques Chief complaint: Weakness History of present illness: This is a pleasant 77-year-old gentleman with past medical history significant for multiple sclerosis, coronary artery disease with prior angioplasty, most recently the patient was in the hospital here in March at which time he underwent a cardiac catheterization by Dr. Ybarra with subsequent stenting of the first obtuse marginal branch of the circumflex by Dr. Jimenez. Patient also has history of LAD stenting and left main stenting, paroxysmal atrial fibrillation, hypertension, hyperlipidemia, and diabetes. Patient primarily follows at the [facility] in [place] for his cardiac needs. At the time of his discharge in March following his stent placement, patient was discharged home on a baby aspirin along with Plavix and Eliquis 5 mg one tablet by mouth twice a day. Tuesday night, patient states that he noticed a significant amount of blood in his urine and went to the emergency room yesterday, he was released from the emergency room yesterday morning, states that he went out for breakfast, had no appetite, became extremely pale and weak and was brought back to the hospital for further evaluation. The patient does straight cath himself because of his history of multiple sclerosis and subsequent incontinence. EKG shows normal sinus rhythm with occasional PVC and nonspecific ST-T wave changes. KUB did not reveal any acute osseus lesion. CAT scan of the brain did not reveal any acute intracranial hemorrhage or midline shift. There is moderate to severe diffuse age-related cerebral atrophy and chronic small vessel ischemic change noted. Cannot exclude underlying normal pressure hydrocephalus. Blood pressure 152/60 with a heart rate in the 70s, 98% on room air. White blood cell count on admission 19.1, 16.2 this morning. Hemoglobin on admission 12.2, 10.0 this morning. Platelet count 204. Blood gases were obtained, pH 7.4, pCO2 33, HCO3 21. Sodium 140, potassium 3.9, BUN 18, creatinine 1.1. Magnesium 1.9. Troponins 0.017, 0.032, 0.034. Upon review of prior records, patient was noted to have abnormality in troponin, his troponins on this admission are lower than previous. A urinalysis was obtained which came back with large amount of leukocyte Estrace, moderate bacteria. Past Medical History Past Medical History: Atrial Fibrillation, Coronary Artery Disease (CAD), Heart Failure, CVA/TIA, Diabetes Mellitus, GERD/Reflux, Hyperlipidemia, Hypertension, Myocardial Infarction (AK), Neurologic Disorder, Prostate Disorder Additional Past Medical History / Comment(s): BPH, neurogenic bladder - pt self caths 2-3 times daily at home/some incont, wears briefs, diabetes mellitus which has been diet controlled, MS, Last Myocardial Infarction Date:: 06/25/2017 History of Any Multi-Drug Resistant Organisms: None Reported Past Surgical History: Adenoidectomy, Appendectomy, Heart Catheterization With Stent, Hernia Repair, Tonsillectomy Additional Past Surgical History / Comment(s): RECENT HEART CATH AT [facility] ON 02/02/17: stents were placed in the mid LAD, proximal LAD, and LEFT MAIN (4 stents total). Right hip repair 2011, BIOPSY IN APR 2018 Past Anesthesia/Blood Transfusion Reactions: No Reported Reaction Date of Last Stent Placement:: 02-02-17 Past Psychological History: No Psychological Hx Reported Additional Psychological History / Comment(s): lives with his brother mariam. uses electric scooter when outside the home and w/c in the house. receives no home care services. Smoking Status: Former smoker Past Alcohol Use History: Daily Additional Past Alcohol Use History / Comment(s): started smoking in 1964 and quit 1989, smoked 1 ppd. quit drinking 2009 used to have 2 drinks per day Past Drug Use History: None Reported - Past Family History Father Family Medical History: Coronary Artery Disease (CAD), Myocardial Infarction (AK ) Additional Family Medical History / Comment(s): at age 65 Mother Family Medical History: No Reported History Additional Family Medical History / Comment(s): at age 80 not sure what cause Brother(s) Additional Family Medical History / Comment(s): TWIN BROTHER HAS MS. Medications and Allergies Home Medications Medication Instructions Recorded Confirmed Type Atorvastatin [Lipitor] 80 mg PO HS 02/04/17 05/28/18 History Calcium Carbonate 500 mg PO DAILY 02/04/17 05/28/18 History Cholecalciferol [Vitamin D3] 800 unit PO DAILY 02/04/17 05/28/18 History Ferrous Sulfate [Feosol] 325 mg PO BID 02/04/17 05/28/18 History Finasteride [Proscar] 5 mg PO DAILY 02/04/17 05/28/18 History Multivitamins, Thera [Multivitamin 1 tab PO DAILY 02/04/17 05/28/18 History (formulary)] Tamsulosin [Flomax] 0.8 mg PO DAILY 02/04/17 05/28/18 History Clopidogrel [Plavix] 75 mg PO DAILY tab 06/21/17 05/28/18 Rx Apixaban [Eliquis] 5 mg PO BID 06/24/17 05/28/18 History Ascorbic Acid [Vitamin C] 500 mg PO DAILY 06/24/17 05/28/18 History Omeprazole 20 mg PO DAILY 06/24/17 05/28/18 History Furosemide [Lasix] 20 mg PO DAILY tab 07/01/17 05/28/18 Rx Ergocalciferol [Vitamin D2 50,000 unit PO SA 03/20/18 05/28/18 History (DRISDOL)] Nitroglycerin Sl Tabs [Nitrostat] 0.4 mg SUBLINGUAL Q5M PRN #100 tab 03/23/18 Rx Cephalexin [Keflex] 500 mg PO QID #40 cap 05/28/18 05/28/18 Rx Lisinopril [Zestril] 5 mg PO DAILY 05/28/18 05/28/18 History Metoprolol Tartrate [Lopressor] 50 mg PO BID 05/28/18 05/28/18 History Phenyleph/Mineral Oil/Petrolat 1 applic RECTAL BID PRN 05/28/18 05/28/18 History [Preparation H Ointment] Sennosides-Docusate Sodium 2 tab PO HS PRN 05/28/18 05/28/18 History [Senokot-S] Allergies Allergy/AdvReac Type Severity Reaction Status Date / Time No Known Allergies Allergy Verified 05/28/18 15:43 Physical Exam Vitals: Vital Signs Temp Pulse Pulse Resp BP BP BP 05/29/18 08:00 99.6 F 71 20 153/64 05/29/18 04:00 98.7 F 50 L 16 144/61 05/29/18 00:00 98.9 F 56 L 18 142/76 05/28/18 20:30 98.7 F 65 18 188/73 05/28/18 20:17 100 18 161/83 05/28/18 19:08 98.5 F 76 18 155/85 05/28/18 18:05 98.6 F 66 18 141/73 05/28/18 16:51 67 16 132/78 05/28/18 15:30 98.3 F 76 18 171/82 Pulse Ox 05/29/18 08:00 98 05/29/18 04:00 99 05/29/18 00:00 94 L 05/28/18 20:30 97 05/28/18 20:17 98 05/28/18 19:08 98 05/28/18 18:05 98 05/28/18 16:51 97 05/28/18 15:30 96 Intake and Output 05/28/18 05/29/18 05/29/18 22:59 06:59 14:59 Intake Total 180 Balance 180 Intake: Oral 180 Other: Voiding Method Self-Catheterization # Voids 1 2 Weight 90.718 kg 95.5 kg PHYSICAL EXAMINATION: GENERAL: 77-year-old gentleman in no acute distress at the time of my examination HEENT: Head is atraumatic, normocephalic. Pupils equal, round. Sclera anicteric. Conjunctiva are clear. Mucous membranes of the mouth are moist. Neck is supple. There is no elevated jugular venous pressure. No carotid bruit is heard. HEART EXAMINATION: Heart S1, S2 normal. No murmur or gallop heard. CHEST EXAMINATION: Lungs are clear to auscultation and precussion. No chest wall tenderness is noted on palpation or with deep breathing. ABDOMEN: Soft, nontender. Bowel sounds are heard. No organomegaly noted. EXTREMITIES: 2+ peripheral pulses with no evidence of peripheral edema and no calf tenderness noted. NEUROLOGIC patient is awake, alert and oriented 3 . . Results 05/29/18 03:38 05/29/18 03:38 Cardiac Enzymes 05/28/18 05/28/18 05/28/18 Range/Units 16:13 16:13 22:11 AST 27 (17-59) U/L Troponin I 0.017 0.032 (0.000-0.034) ng/mL 05/29/18 05/29/18 Range/Units 03:38 03:38 AST 26 (17-59) U/L Troponin I 0.034 (0.000-0.034) ng/mL Coagulation 05/28/18 Range/Units 16:13 PT 11.4 (9.0-12.0) sec CBC 05/28/18 05/29/18 Range/Units 16:13 03:38 WBC 19.1 H 16.2 H (3.8-10.6) k/uL RBC 4.20 L 3.41 L (4.30-5.90) m/uL Hgb 12.2 L 10.0 L D (13.0-17.5) gm/dL Hct 37.2 L 30.5 L (39.0-53.0) % Plt Count 234 204 (150-450) k/uL Comprehensive Metabolic Panel 05/28/18 05/29/18 Range/Units 16:13 03:38 Sodium 140 140 (137-145) mmol/L Potassium 4.2 3.9 (3.5-5.1) mmol/L Chloride 108 H 110 H (98-107) mmol/L Carbon Dioxide 21 L 23 (22-30) mmol/L BUN 16 18 (9-20) mg/dL Creatinine 1.19 1.16 (0.66-1.25) mg/dL Glucose 135 H 112 H (74-99) mg/dL Calcium 9.3 8.9 (8.4-10.2) mg/dL AST 27 26 (17-59) U/L ALT 43 38 (21-72) U/L Alkaline Phosphatase 83 57 (38-126) U/L Total Protein 6.5 5.5 L (6.3-8.2) g/dL Albumin 3.4 L 2.8 L (3.5-5.0) g/dL Current Medications Generic Name Dose Route Start Last Admin Trade Name Freq PRN Reason Stop Dose Admin Acetaminophen 650 mg 05/28/18 22:40 05/29/18 00:06 Tylenol Tab PO 650 mg Q6HR PRN Administration Fever and/ or Pain Apixaban 5 mg 05/29/18 09:00 Eliquis PO BID BLAYNE Ascorbic Acid 500 mg 05/29/18 09:00 Vitamin C PO DAILY [facility] Atorvastatin Calcium 80 mg 05/28/18 23:00 05/29/18 00:06 Lipitor PO 80 mg HS BLAYNE Administration Benzocaine 1 applic 05/28/18 22:35 Americaine Hemorrhoidal Oint RECTAL BID PRN Hemorrhoids Calcium Carbonate/Glycine 500 mg 05/29/18 09:00 Tums PO DAILY [facility] Cephalexin 500 mg 05/28/18 23:00 05/29/18 00:06 Keflex PO 500 mg QID [facility] Administration Cholecalciferol 800 unit 05/29/18 09:00 Vitamin D3 PO DAILY [facility] Clopidogrel Bisulfate 75 mg 05/29/18 09:00 Plavix PO DAILY [facility] Ergocalciferol 50,000 unit 06/03/18 09:00 Vitamin D2 PO Sa@0900 [facility] Ferrous Sulfate 325 mg 05/28/18 23:00 05/29/18 00:06 Feosol PO 325 mg BID [facility] Administration Finasteride 5 mg 05/29/18 09:00 Proscar PO DAILY [facility] Furosemide 20 mg 05/29/18 09:00 Lasix PO DAILY [facility] Lisinopril 5 mg 05/29/18 09:00 Zestril PO DAILY [facility] Metoprolol Tartrate 50 mg 05/28/18 23:00 05/29/18 00:06 Lopressor PO 50 mg BID [facility] Administration Multivitamins 1 each 05/29/18 09:00 Theragran PO DAILY@1200 [facility] Naloxone HCl 0.2 mg 05/28/18 18:58 Narcan IV Q2M PRN Opioid Reversal Nitroglycerin 0.4 mg 05/28/18 22:35 Nitrostat SUBLINGUAL Q5M PRN Chest Pain Pantoprazole Sodium 40 mg 05/29/18 09:00 Protonix PO DAILY [facility] Senna/Docusate Sodium 2 each 05/28/18 22:35 05/29/18 00:06 Senokot-S PO 2 each HS PRN Administration Constipation Tamsulosin HCl 0.8 mg 05/29/18 09:00 Flomax PO DAILY [facility] Intake and Output 05/28/18 05/29/18 05/29/18 22:59 06:59 14:59 Intake Total 180 Balance 180 Intake: Oral 180 Other: Voiding Method Self-Catheterization # Voids 1 2 Weight 90.718 kg 95.5 kg 05/29/18 03:38 05/29/18 03:38 EKG Interpretations (text) EKG shows a normal sinus rhythm with occasional PVC, nonspecific ST-T wave changes. Assessment and Plan Plan: Assessment and plan #1 symptoms of weakness and fatigue #2 hematuria #3 history of coronary artery disease with prior PCI, he has history of LAD and left main stenting, most recently patient underwent stent placement of the OM branch in March of this year, on Plavix and aspirin #4 paroxysmal atrial fibrillation, on Eliquis 5 mg twice a day #5 hypertension #6 multiple sclerosis #7 diabetes #8 hyperlipidemia #9 elevated white blood cell count with evidence of positive UTI on urinalysis #10 anemia, hemoglobin 10.0 Plan From cardiology's perspective, we will not repeat an echocardiogram with Doppler study as patient recently had one in March, revealed a normal left ventricular systolic function. We will decrease Eliquis 2-1/2 mg one tablet by mouth twice a day and continue Plavix, discontinue aspirin. Continue to monitor CBC. Patient is currently on antibiotics for his UTI. Further recommendations to follow. DNP note has been reviewed, I agree with a documented findings and plan of care. Patient was seen and examined.
[2018-05-29] MEDS: CALCIUM CARBONATE 500 MG CHEWABLE PO SCH (09:43)
[2018-05-29] MEDS: PANTOPRAZOLE 40 MG TABLET PO SCH (09:43)
[2018-05-29] MEDS: TAMSULOSIN 0.4 MG CAP.ER.24H PO SCH (09:43)
[2018-05-29] MEDS: FINASTERIDE 5 MG TAB PO SCH (09:44)
[2018-05-29] MEDS: CLOPIDOGREL 75 MG TAB PO SCH (09:44)
[2018-05-29] MEDS: FUROSEMIDE 20 MG TAB PO SCH (09:44)
[2018-05-29] MEDS: ASCORBIC ACID 500 MG TAB PO SCH (09:44)
[2018-05-29] MEDS ORDERED: APIXABAN 2.5 MG TABLET PO STA (09:54)
[2018-05-29] MEDS: CHOLECALCIFEROL 400 UNIT TAB PO SCH (10:02)
[2018-05-29 13:26] LABS: Hemoglobin A1C 5.9 % (4.0-6.0)
[2018-05-29] MEDS: MULTIVITAMINS, THERA 1 EACH TAB PO SCH ×2 (13:29→13:30)
[2018-05-29] MEDS: LISINOPRIL 5 MG TAB PO SCH (13:29)
[2018-05-29 14:06] LABS: Appearance,Urine Bloody (Clear); Color,Urine Red; RBC,Urine >182 /hpf (0-5); WBC,Urine >182 /hpf (0-5)
--- NOTE | 2018-05-29 20:13 | HP ---
HISTORY AND PHYSICAL CHIEF COMPLAINTS: Weakness. HISTORY OF PRESENT ILLNESS: This 77-year-old gentleman with a past medical history of multiple medical problems including history of atrial fibrillation, CAD, multiple stents, history of CHF, CVA, TIA, diabetes, GERD, hypertension, hyperlipidemia, myocardial infarction, history of prostate disorder, history of adenoidectomy, being followed by [facility] and Dr. Briscoe in the outpatient setting complaining of generalized tiredness and weakness. The patient also being evaluated for hematuria recently. Patient diagnosed with urinary tract infection. Patient started on Keflex. The patient was instructed to skip one dose of Eliquis at this time. The patient went to eat lunch and felt extremely weak and almost had a presyncopal episode and the patient taken to [facility] and admitted for further evaluation and treatment. In the in the hospital, initial evaluation showed glucose 130. Troponins are 0.032 and 0.034, and the initial EKG showed almost bigeminy and the patient admitted to the hospital for further evaluation and treatment. There is no history of fever, rigors or chills. No history of headache, loss of consciousness, seizures. PAST MEDICAL HISTORY: History of atrial fibrillation, CAD, stent, CHF, CVA, TIA, diabetes, history of GERD, hypertension, hyperlipidemia, history of myocardial infarction, BPH, adenoidectomy. MEDICATIONS: Prior to admission include home medications are: 1. Flomax 0.8 daily. 2. Senokot-S 2 tabs q.h.s. p.r.n. 3. Preparation H. 4. Omeprazole 20 mg p.o. daily. 5. Nitrostat 0.4 mg p.r.n. 6. Multivitamins 1 p.o. daily. 7. Lopressor 50 mg p.o. b.i.d. 8. Zestril 5 mg p.o. daily. 9. Lasix 20 mg p.o. daily. 10.Proscar 5 mg p.o. daily. 11.Iron sulfate 320 mg p.o. b.i.d. 12.Drisdol 44484 p.o. Tuesday. 13.Plavix 75 mg p.o. daily. 14.Vitamin D3 800 units daily. 15.Keflex 500 mg p.o. q.i.d. 16.Calcium carbonate 500 mg p.o. daily. 17.Lipitor 80 mg. 18.Vitamin C 500 mg p.o. 19.Eliquis 5 mg p.o. b.i.d. ALLERGIES: None. FAMILY HISTORY: History of CAD, myocardial infarction in the family. SOCIAL HISTORY: Previous history of smoking. No history of current smoking. No alcohol intake. REVIEW OF SYSTEMS: ENT: Diminished hearing and diminished vision. CARDIOVASCULAR: As mentioned earlier. RESPIRATION: No cough or hemoptysis. GI as mentioned earlier. : As mentioned earlier. NERVOUS SYSTEM: No numbness or weakness. ALLERGY/IMMUNOLOGY: No asthma or hayfever. MUSCULOSKELETAL: As mentioned earlier. HEMATOLOGY/ONCOLOGY: No history of anemia. ENDOCRINE: No history of diabetes or hypothyroidism. CONSTITUTIONAL: As mentioned earlier. Dermatology: Negative. Rheumatology: Negative. Psychiatry: As mentioned earlier. PHYSICAL EXAMINATION: GENERAL: The patient is alert, oriented x3. VITAL SIGNS: Pulse 60, blood pressure is 136/61, respiration 20, temperature 98.4, pulse ox 94% on room air. HEENT: Conjunctivae normal. Oral mucosa moist. Neck is no jugular venous distention. No lymph node enlargement. CARDIOVASCULAR: S1, S2 muffled. No S3, no S4. RESPIRATORY: Breath sounds diminished in the bases. Scattered rhonchi. No crackles. ABDOMEN: Soft, nontender. No mass palpable. LEGS: No edema and no swelling. NERVOUS SYSTEM: Higher functions as mentioned earlier. Moves all 4 limbs. No focal motor or sensory deficits. LYMPHATICS: No lymph nodes palpable in the neck, axillae or groin. SKIN: No ulcer, rashes or bleeding. LAB STUDIES: WBC 16.2, hemoglobin 10. Sodium 140, potassium 3.9. Other labs are noted. UA noted. ASSESSMENT: 1. Generalized weakness and tiredness for evaluation. 2. Rule out cardiac arrhythmia. 3. Ventricular bigeminy. 4. Acute urinary tract infection present on admission. 5. History of coronary artery disease/stent. 6. Hematuria for evaluation. 7. History of atrial fibrillation. 8. History of congestive heart failure. 9. History of cerebrovascular accident, transient ischemic attack. 10.Diabetes mellitus type 2. 11.Gastroesophageal reflux disease. 12.Hypertension. 13.Hyperlipidemia. 14.Myocardial infarction. 15.History of prostate disorder. 16.History of neurogenic bladder. Patient self-catheterizes at home. 17.History of coronary artery disease/stent. 18.History of recent cardiac cath and stents at [facility]. 19.History of nicotine dependence. 20.FULL CODE. RECOMMENDATIONS AND DISCUSSION: This 77-year-old gentleman who presented with multiple complex medical issues, we will monitor the patient closely. Continue the current medications, management and symptomatic treatment at this time. I recommend initiate broad-spectrum IV antibiotics. Cardiology consultation and telemetry. Resume the home medications. Urology consultation for hematuria. Otherwise, we will repeat labs. Hemoglobin is 10 from 12.2. Prognosis guarded because of multiple complex medical issues. Further recommendations to follow. MMODL / IJN: [id number] / HERMILO
[2018-05-29] MEDS ORDERED: APIXABAN 2.5 MG TABLET PO SCH (21:00)
[2018-05-29] MEDS: METOPROLOL TARTRATE 12.5 MG TAB PO SCH (22:01)
[2018-05-30 06:34] LABS: Basophils % (A) 0 %; Eosinophils # (A) 0.2 k/uL (0-0.7); Eosinophils % (A) 2 %; HCT 28.5 % (39.0-53.0); HGB 9.3 gm/dL (13.0-17.5); Lymphocytes # (A) 1.9 k/uL (1.0-4.8); Lymphocytes % (A) 16 %; MCH 29.5 pg (25.0-35.0); MCHC 32.7 g/dL (31.0-37.0); MCV 90.1 fL (80.0-100.0); Mean Platelet Volume 8.1; Monocytes # (A) 0.9 k/uL (0-1.0); Monocytes % (A) 7 %; Neutrophils # (A) 8.5 k/uL (1.3-7.7); Neutrophils % (A) 73 %; Platelet Count 205 k/uL (150-450); RBC 3.16 m/uL (4.30-5.90); RDW 13.1 % (11.5-15.5); WBC 11.7 k/uL (3.8-10.6)
[2018-05-30 06:51] LABS: Calcium 8.8 mg/dL (8.4-10.2)
--- NOTE | 2018-05-30 07:49 | P.GSCN ---
History of Present Illness Consult date: 05/30/18 Reason for Consult: Hematuria Requesting physician: Delia Witt History of present illness: The patient is a 77 yo male with a 40 year history of MS. He performs intermittent self catheterization for urinary retention. He was evaluated by Dr. Corbin for persistent debris clogging his catheter. Cystoscopy on 2017 revealed a marked amount of debris within the bladder, as well as inflamed and denuded mucosa throughout the bladder. The mucosa had a bluegreen appearance suggestive of necrosis. Biopsies were consistent with chronic cystitis with squamous metaplasia. He quit catheterizing himself several days ago, and since that time has been incontinent. His urine has been mostly bloody , and he compares it to a "menstrual period". Review of Systems - Constitutional Reports weakness, Denies chills, Denies fever - Cardiovascular Denies chest pain - Respiratory Denies dyspnea Past Medical History Past Medical History: Atrial Fibrillation, Coronary Artery Disease (CAD), Heart Failure, CVA/TIA, Diabetes Mellitus, GERD/Reflux, Hyperlipidemia, Hypertension, Myocardial Infarction ([place]), Neurologic Disorder, Prostate Disorder Additional Past Medical History / Comment(s): BPH, neurogenic bladder - pt self caths 2-3 times daily at home/some incont, wears briefs, diabetes mellitus which has been diet controlled, MS, Last Myocardial Infarction Date:: 06/25/2017 History of Any Multi-Drug Resistant Organisms: None Reported Past Surgical History: Adenoidectomy, Appendectomy, Heart Catheterization With Stent, Hernia Repair, Tonsillectomy Additional Past Surgical History / Comment(s): RECENT HEART CATH AT [facility] ON 02/02/17: stents were placed in the mid LAD, proximal LAD, and LEFT MAIN (4 stents total). Right hip repair 2011, BIOPSY IN APR 2018 Past Anesthesia/Blood Transfusion Reactions: No Reported Reaction Date of Last Stent Placement:: 02-02-17 Past Psychological History: No Psychological Hx Reported Additional Psychological History / Comment(s): lives with his brother mariam. uses electric scooter when outside the home and w/c in the house. receives no home care services. Smoking Status: Former smoker Past Alcohol Use History: Daily Additional Past Alcohol Use History / Comment(s): started smoking in 1964 and quit 1989, smoked 1 ppd. quit drinking 2009 used to have 2 drinks per day Past Drug Use History: None Reported - Past Family History Father Family Medical History: Coronary Artery Disease (CAD), Myocardial Infarction ([place] ) Additional Family Medical History / Comment(s): at age 65 Mother Family Medical History: No Reported History Additional Family Medical History / Comment(s): at age 80 not sure what cause Brother(s) Additional Family Medical History / Comment(s): TWIN BROTHER HAS MS. Medications and Allergies Home Medications Medication Instructions Recorded Confirmed Type Atorvastatin [Lipitor] 80 mg PO HS 02/04/17 05/28/18 History Calcium Carbonate 500 mg PO DAILY 02/04/17 05/28/18 History Cholecalciferol [Vitamin D3] 800 unit PO DAILY 02/04/17 05/28/18 History Ferrous Sulfate [Feosol] 325 mg PO BID 02/04/17 05/28/18 History Finasteride [Proscar] 5 mg PO DAILY 02/04/17 05/28/18 History Multivitamins, Thera [Multivitamin 1 tab PO DAILY 02/04/17 05/28/18 History (formulary)] Tamsulosin [Flomax] 0.8 mg PO DAILY 02/04/17 05/28/18 History Clopidogrel [Plavix] 75 mg PO DAILY tab 06/21/17 05/28/18 Rx Apixaban [Eliquis] 5 mg PO BID 06/24/17 05/28/18 History Ascorbic Acid [Vitamin C] 500 mg PO DAILY 06/24/17 05/28/18 History Omeprazole 20 mg PO DAILY 06/24/17 05/28/18 History Furosemide [Lasix] 20 mg PO DAILY tab 07/01/17 05/28/18 Rx Ergocalciferol [Vitamin D2 50,000 unit PO SA 03/20/18 05/28/18 History (DRISDOL)] Nitroglycerin Sl Tabs [Nitrostat] 0.4 mg SUBLINGUAL Q5M PRN #100 tab 03/23/18 Rx Cephalexin [Keflex] 500 mg PO QID #40 cap 05/28/18 05/28/18 Rx Lisinopril [Zestril] 5 mg PO DAILY 05/28/18 05/28/18 History Metoprolol Tartrate [Lopressor] 50 mg PO BID 05/28/18 05/28/18 History Phenyleph/Mineral Oil/Petrolat 1 applic RECTAL BID PRN 05/28/18 05/28/18 History [Preparation H Ointment] Sennosides-Docusate Sodium 2 tab PO HS PRN 05/28/18 05/28/18 History [Senokot-S] Allergies Allergy/AdvReac Type Severity Reaction Status Date / Time No Known Allergies Allergy Verified 05/28/18 15:43 Surgical - Exam Vital Signs Temp Pulse Resp BP Pulse Ox 98.3 F 76 18 171/82 96 05/28/18 15:30 05/28/18 15:30 05/28/18 15:30 05/28/18 15:30 05/28/18 15:30 - General well developed, well nourished, no distress - Respiratory normal respiratory effort - Abdomen Abdomen: soft, non tender, no guarding, no rigid, no rebound - Genitourinary normal penis with no external lesions, testicles non-tender - Psychiatric oriented to time, oriented to person, oriented to place, speech is normal, memory intact Results - Labs 05/30/18 05:49 05/30/18 05:49 Abnormal Lab Results - Last 24 Hours (Table) 05/29/18 05/30/18 05/30/18 Range/Units 13:30 05:49 05:49 WBC 11.7 H (3.8-10.6) k/uL RBC 3.16 L (4.30-5.90) m/uL Hgb 9.3 L (13.0-17.5) gm/dL Hct 28.5 L (39.0-53.0) % Neutrophils # 8.5 H (1.3-7.7) k/uL Chloride 110 H (98-107) mmol/L Urine RBC >182 H (0-5) /hpf Urine WBC >182 H (0-5) /hpf Urine WBC Clumps Many H (None) /hpf Microbiology - Last 24 Hours (Table) 05/29/18 17:10 Urine Culture - Preliminary Urine,Voided 05/28/18 19:30 Blood Culture - Preliminary Blood No Growth after 24 hours Diabetes panel 05/29/18 05/30/18 Range/Units 03:38 05:49 Sodium 138 (137-145) mmol/L Potassium 4.0 (3.5-5.1) mmol/L Chloride 110 H (98-107) mmol/L Carbon Dioxide 22 (22-30) mmol/L BUN 17 (9-20) mg/dL Creatinine 1.25 (0.66-1.25) mg/dL Glucose 95 (74-99) mg/dL Hemoglobin A1c 5.9 (4.0-6.0) % Calcium 8.8 (8.4-10.2) mg/dL Calcium panel 05/30/18 Range/Units 05:49 Calcium 8.8 (8.4-10.2) mg/dL Pituitary panel 05/30/18 Range/Units 05:49 Sodium 138 (137-145) mmol/L Potassium 4.0 (3.5-5.1) mmol/L Chloride 110 H (98-107) mmol/L Carbon Dioxide 22 (22-30) mmol/L BUN 17 (9-20) mg/dL Creatinine 1.25 (0.66-1.25) mg/dL Glucose 95 (74-99) mg/dL Calcium 8.8 (8.4-10.2) mg/dL Adrenal panel 05/30/18 Range/Units 05:49 Sodium 138 (137-145) mmol/L Potassium 4.0 (3.5-5.1) mmol/L Chloride 110 H (98-107) mmol/L Carbon Dioxide 22 (22-30) mmol/L BUN 17 (9-20) mg/dL Creatinine 1.25 (0.66-1.25) mg/dL Glucose 95 (74-99) mg/dL Calcium 8.8 (8.4-10.2) mg/dL Assessment and Plan (1) Gross hematuria Current Visit: Yes Status: Acute Code(s): R31.0 - GROSS HEMATURIA SNOMED Code(s): 533541106 Plan: The cause of Mr. Tee's hematuria is obviously his chronic cystitis. This is exacerbated by the fact that he requires multiple anticoagulants. Eliquis is currently being held, but he continues to receive Plavix. Bladder scan will be utilized to assess bladder emptying and determine the need for him to resume intermittent self-catheterization. I will make Dr. Corbin aware of his admission.
[2018-05-30] MEDS: CHOLECALCIFEROL 400 UNIT TAB PO SCH (09:23)
[2018-05-30] MEDS: FUROSEMIDE 20 MG TAB PO SCH (09:24)
[2018-05-30] MEDS: CALCIUM CARBONATE 500 MG CHEWABLE PO SCH (09:24)
[2018-05-30] MEDS: MULTIVITAMINS, THERA 1 EACH TAB PO SCH (09:25)
[2018-05-30] MEDS: LISINOPRIL 5 MG TAB PO SCH (09:25)
[2018-05-30] MEDS: TAMSULOSIN 0.4 MG CAP.ER.24H PO SCH (09:25)
[2018-05-30] MEDS: METOPROLOL TARTRATE 12.5 MG TAB PO SCH ×2 (09:25→19:50)
[2018-05-30] MEDS: CLOPIDOGREL 75 MG TAB PO SCH (09:26)
[2018-05-30] MEDS: FINASTERIDE 5 MG TAB PO SCH (09:26)
[2018-05-30] MEDS: FERROUS SULFATE 325 MG TAB PO SCH ×2 (09:26→19:50)
[2018-05-30] MEDS: ASCORBIC ACID 500 MG TAB PO SCH (09:26)
[2018-05-30] MEDS: PANTOPRAZOLE 40 MG TABLET PO SCH (09:27)
--- NOTE | 2018-05-30 13:50 | P.PN ---
Subjective Progress Note Date: 05/30/18 This is a pleasant 77-year-old gentleman with past medical history significant for multiple sclerosis, coronary artery disease with prior angioplasty, most recently the patient was in the hospital here in March at which time he underwent a cardiac catheterization by Dr. Ybarra with subsequent stenting of the first obtuse marginal branch of the circumflex by Dr. Jimenez. Patient also has history of LAD stenting and left main stenting, paroxysmal atrial fibrillation, hypertension, hyperlipidemia, and diabetes. Patient primarily follows at [facility] in [place] for his cardiac needs. At the time of his discharge in March following his stent placement, patient was discharged home on a baby aspirin along with Plavix and Eliquis 5 mg one tablet by mouth twice a day. Tuesday night, patient states that he noticed a significant amount of blood in his urine and went to the emergency room yesterday, he was released from the emergency room yesterday morning, states that he went out for breakfast, had no appetite, became extremely pale and weak and was brought back to the hospital for further evaluation. The patient does straight cath himself because of his history of multiple sclerosis and subsequent incontinence. EKG shows normal sinus rhythm with occasional PVC and nonspecific ST-T wave changes. KUB did not reveal any acute osseus lesion. CAT scan of the brain did not reveal any acute intracranial hemorrhage or midline shift. There is moderate to severe diffuse age-related cerebral atrophy and chronic small vessel ischemic change noted. Cannot exclude underlying normal pressure hydrocephalus. Blood pressure 152/60 with a heart rate in the 70s, 98% on room air. White blood cell count on admission 19.1, 16.2 this morning. Hemoglobin on admission 12.2, 10.0 this morning. Platelet count 204. Blood gases were obtained, pH 7.4, pCO2 33, HCO3 21. Sodium 140, potassium 3.9, BUN 18, creatinine 1.1. Magnesium 1.9. Troponins 0.017, 0.032, 0.034. Upon review of prior records, patient was noted to have abnormality in troponin, his troponins on this admission are lower than previous. A urinalysis was obtained which came back with large amount of leukocyte Estrace, moderate bacteria. 05/30/2018 Patient was seen and examined this morning, continues to have mild hematuria. Blood pressure 150/60, heart rate in the 70s, 97% on room air. White blood cell count 11.7, hemoglobin 9.3, platelet count 205. Sodium 138, potassium 4.0 , BUN 17, creatinine 1.2. Objective - Vital Signs Vital signs: Vital Signs Temp 98.0 F 05/30/18 11:05 Pulse 79 05/30/18 11:14 Resp 16 05/30/18 11:14 BP 150/68 05/30/18 11:05 Pulse Ox 97 05/30/18 11:05 Intake & Output 05/29/18 05/30/18 05/30/18 18:59 06:59 18:59 Intake Total 600 480 Balance 600 480 Weight 95.5 kg Intake: Oral 600 480 Other: Voiding Method Incontinent Incontinent Incontinent # Voids 1 1 1 - Exam PHYSICAL EXAMINATION: GENERAL: 77-year-old gentleman in no acute distress at the time of my examination HEENT: Head is atraumatic, normocephalic. Pupils equal, round. Sclera anicteric. Conjunctiva are clear. Mucous membranes of the mouth are moist. Neck is supple. There is no elevated jugular venous pressure. No carotid bruit is heard. HEART EXAMINATION: Heart S1, S2 normal. No murmur or gallop heard. CHEST EXAMINATION: Lungs are clear to auscultation and precussion. No chest wall tenderness is noted on palpation or with deep breathing. ABDOMEN: Soft, nontender. Bowel sounds are heard. No organomegaly noted. EXTREMITIES: 2+ peripheral pulses with no evidence of peripheral edema and no calf tenderness noted. NEUROLOGIC patient is awake, alert and oriented 3 . - Labs CBC & Chem 7: 05/30/18 05:49 05/30/18 05:49 Labs: Abnormal Lab Results - Last 24 Hours (Table) 05/29/18 05/30/18 05/30/18 Range/Units 13:30 05:49 05:49 WBC 11.7 H (3.8-10.6) k/uL RBC 3.16 L (4.30-5.90) m/uL Hgb 9.3 L (13.0-17.5) gm/dL Hct 28.5 L (39.0-53.0) % Neutrophils # 8.5 H (1.3-7.7) k/uL Chloride 110 H (98-107) mmol/L Urine RBC >182 H (0-5) /hpf Urine WBC >182 H (0-5) /hpf Urine WBC Clumps Many H (None) /hpf Microbiology - Last 24 Hours (Table) 05/29/18 17:10 Urine Culture - Preliminary Urine,Voided 05/28/18 19:30 Blood Culture - Preliminary Blood No Growth after 24 hours Assessment and Plan Plan: Assessment and plan #1 symptoms of weakness and fatigue #2 hematuria #3 history of coronary artery disease with prior PCI, he has history of LAD and left main stenting, most recently patient underwent stent placement of the OM branch in March of this year, on Plavix and aspirin #4 paroxysmal atrial fibrillation, on Eliquis 5 mg twice a day #5 hypertension #6 multiple sclerosis #7 diabetes #8 hyperlipidemia #9 elevated white blood cell count with evidence of positive UTI on urinalysis #10 anemia, hemoglobin 10.0 Plan From cardiology's perspective, we will not repeat an echocardiogram with Doppler study as patient recently had one in March, revealed a normal left ventricular systolic function. Patient was instructed to resume his Eliquis after one week at 2-1/2 mg twice a day. Continue Plavix. He may be able to be discharged home from cardiology's perspective. DNP note has been reviewed, I agree with a documented findings and plan of care. Patient was seen and examined.
--- NOTE | 2018-05-30 15:02 | PN ---
PROGRESS NOTE DATE OF SERVICE: 05/30/2010 This 76-year-old gentleman admitted with generalized weakness also cardiac bigeminy. The patient also hematuria. The patient has a self catheterization but recent cystoscopy did not show any acute abnormality cardiology urology is following the patient closely. Cardiology is recommended echocardiograms and Eliquis was dose reduced is on hold at this time. No chest pain. No palpitations. No fever and Urology as recommended all of the legs in current and the major thought to be due to chronic cystitis. Patient closely monitored. PHYSICAL EXAMINATION: Alert oriented x2. Pulse blood pressure 150/60, respirations 16, temperature 98 degrees, pulse ox 97% room air general next cardiac respiration the bases a few scattered rhonchi. No crackles. ABDOMEN: Soft, nontender. No mass. Legs are no system 4+. LAB STUDIES: Hemoglobin 10.3, otherwise UA noted assessment. 1. Generalized weakness and tiredness for evaluation possible anemia. 2. For cardiac arrhythmias, ventricular bigeminy. 3. Acute urinary tract infection present on admission. 4. 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 5. History of stent. 6. Coronary artery disease. 7. History of atrial fibrillation. 8. History of congestive heart failure. 9. History of cerebrovascular accident, transient ischemic attack. 10.Diabetes next GERD next hypertension hyperlipidemia next mitral infarction next history of prostate disorder next neurogenic bladder. Patient self catheterizes at home. 11.History of CAD stent, history of recent cardiac cath, stents in his dementia next history of nicotine dependence. 12.FULL CODE. RECOMMENDATIONS AND DISCUSSION: I recommend to continue current management at this time. Symptomatic treatment. Repeat labs. Continue the antibiotics. Closely follow with multiple consultants and some dried blood noted the renal area will continue to monitor. Urology and cardiology input appreciated further recommendations to follow. Hold off anticoagulants. MMODL / IJN: [id number] /
[2018-05-30] MEDS: ATORVASTATIN 80 MG TAB PO SCH (19:50)
[2018-05-30] MEDS: SENNOSIDES-DOCUSATE SODIUM 1 EACH TAB PO PRN (19:50)
[2018-05-31] MEDS: PANTOPRAZOLE 40 MG TABLET PO SCH (07:35)
[2018-05-31] MEDS: CALCIUM CARBONATE 500 MG CHEWABLE PO SCH (07:35)
[2018-05-31] MEDS: FUROSEMIDE 20 MG TAB PO SCH (07:36)
[2018-05-31] MEDS: CLOPIDOGREL 75 MG TAB PO SCH (07:36)
[2018-05-31] MEDS: LISINOPRIL 5 MG TAB PO SCH (07:36)
[2018-05-31] MEDS: TAMSULOSIN 0.4 MG CAP.ER.24H PO SCH (07:36)
[2018-05-31] MEDS: FERROUS SULFATE 325 MG TAB PO SCH ×2 (07:37→20:45)
[2018-05-31] MEDS: METOPROLOL TARTRATE 12.5 MG TAB PO SCH ×2 (07:37→20:45)
[2018-05-31] MEDS: FINASTERIDE 5 MG TAB PO SCH (07:37)
[2018-05-31] MEDS: ASCORBIC ACID 500 MG TAB PO SCH (07:37)
[2018-05-31] MEDS: CHOLECALCIFEROL 400 UNIT TAB PO SCH (07:48)
[2018-05-31 08:22] LABS: Basophils % (A) 0 %; Eosinophils # (A) 0.3 k/uL (0-0.7); Eosinophils % (A) 3 %; HCT 28.6 % (39.0-53.0); HGB 9.3 gm/dL (13.0-17.5); Lymphocytes % (A) 21 %; MCH 29.2 pg (25.0-35.0); MCHC 32.5 g/dL (31.0-37.0); MCV 89.8 fL (80.0-100.0); Mean Platelet Volume 7.9; Monocytes # (A) 0.5 k/uL (0-1.0); Monocytes % (A) 5 %; Neutrophils # (A) 6.6 k/uL (1.3-7.7); Neutrophils % (A) 69 %; Platelet Count 245 k/uL (150-450); RBC 3.19 m/uL (4.30-5.90); RDW 12.9 % (11.5-15.5); WBC 9.6 k/uL (3.8-10.6)
[2018-05-31 08:42] LABS: Calcium 8.7 mg/dL (8.4-10.2)
[2018-05-31] MEDS: MULTIVITAMINS, THERA 1 EACH TAB PO SCH (09:05)
--- NOTE | 2018-05-31 10:12 | P.PN ---
Subjective Progress Note Date: 05/31/18 The patient was recently seen by me and underwent cystoscopy and bladder biopsy for what turned out to be chronic inflammation and squamous metaplasia. He came to the hospital with gross hematuria. He normally self cath twice a day as he has a neurogenic bladder secondary to multiple sclerosis. He quit catheterizing himself. He has been on anticoagulation. I suspect the bleeding is due to a scab in the bladder fallen off secondary bleeding aggravated by anticoagulation. He should resume his self cath twice a day. He should stay off the Eliquis until there is no blood for at least 48 hours. He should follow-up in the office as previously directed. Objective - Vital Signs Vital signs: Vital Signs Temp 98.3 F 05/31/18 07:33 Pulse 78 05/31/18 08:00 Resp 18 05/31/18 08:00 BP 126/70 05/31/18 07:33 Pulse Ox 96 05/31/18 07:33 Intake & Output 05/30/18 05/31/18 05/31/18 18:59 06:59 18:59 Intake Total 1870 240 480 Output Total 155 800 Balance 1715 -560 480 Weight 96.5 kg Intake: Intake, IV Titration 50 Amount cefTRIAXone 1,000 mg In 50 Sodium Chloride 0.9% 50 ml @ 100 mls/hr IVPB Q24HR [facility] Rx#:[id number] Oral 1820 240 480 Output: Urine 300 Straight 300 Post Void Residual 155 500 Other: Voiding Method Incontinent Incontinent Incontinent # Voids 1 1 - Labs CBC & Chem 7: 05/31/18 07:51 05/31/18 07:51 Labs: Abnormal Lab Results - Last 24 Hours (Table) 05/31/18 05/31/18 Range/Units 07:51 07:51 RBC 3.19 L (4.30-5.90) m/uL Hgb 9.3 L (13.0-17.5) gm/dL Hct 28.6 L (39.0-53.0) % Chloride 111 H (98-107) mmol/L Glucose 122 H (74-99) mg/dL Microbiology - Last 24 Hours (Table) 05/28/18 19:30 Blood Culture - Preliminary Blood No Growth after 48 hours 05/29/18 17:10 Urine Culture - Preliminary Urine,Voided
--- NOTE | 2018-05-31 14:20 | P.PN ---
Subjective Progress Note Date: 05/31/18 This is a pleasant 77-year-old gentleman with past medical history significant for multiple sclerosis, coronary artery disease with prior angioplasty, most recently the patient was in the hospital here in March at which time he underwent a cardiac catheterization by Dr. Ybarra with subsequent stenting of the first obtuse marginal branch of the circumflex by Dr. Jimenez. Patient also has history of LAD stenting and left main stenting, paroxysmal atrial fibrillation, hypertension, hyperlipidemia, and diabetes. Patient primarily follows at [facility] in [place] for his cardiac needs. At the time of his discharge in March following his stent placement, patient was discharged home on a baby aspirin along with Plavix and Eliquis 5 mg one tablet by mouth twice a day. Tuesday night, patient states that he noticed a significant amount of blood in his urine and went to the emergency room yesterday, he was released from the emergency room yesterday morning, states that he went out for breakfast, had no appetite, became extremely pale and weak and was brought back to the hospital for further evaluation. The patient does straight cath himself because of his history of multiple sclerosis and subsequent incontinence. EKG shows normal sinus rhythm with occasional PVC and nonspecific ST-T wave changes. KUB did not reveal any acute osseus lesion. CAT scan of the brain did not reveal any acute intracranial hemorrhage or midline shift. There is moderate to severe diffuse age-related cerebral atrophy and chronic small vessel ischemic change noted. Cannot exclude underlying normal pressure hydrocephalus. Blood pressure 152/60 with a heart rate in the 70s, 98% on room air. White blood cell count on admission 19.1, 16.2 this morning. Hemoglobin on admission 12.2, 10.0 this morning. Platelet count 204. Blood gases were obtained, pH 7.4, pCO2 33, HCO3 21. Sodium 140, potassium 3.9, BUN 18, creatinine 1.1. Magnesium 1.9. Troponins 0.017, 0.032, 0.034. Upon review of prior records, patient was noted to have abnormality in troponin, his troponins on this admission are lower than previous. A urinalysis was obtained which came back with large amount of leukocyte Estrace, moderate bacteria. 05/30/2018 Patient was seen and examined this morning, continues to have mild hematuria. Blood pressure 150/60, heart rate in the 70s, 97% on room air. White blood cell count 11.7, hemoglobin 9.3, platelet count 205. Sodium 138, potassium 4.0 , BUN 17, creatinine 1.2. 05/31/2018 Patient was seen and examined this morning, continues to have significant hematuria. He was also seen in consultation by Dr. Allred, he underwent a cystoscopy and bladder biopsy recently by Dr. Khan for what turned out to be chronic inflammation and squamous metaplasia. He was seen today by Dr. Khan and instructed to continue to self catheterize. We will continue to hold the Eliquis for a total of one week. Then resume at 2-1/2 twice a day, continue Plavix. Objective - Vital Signs Vital signs: Vital Signs Temp 98.5 F 05/31/18 12:00 Pulse 74 05/31/18 12:00 Resp 18 05/31/18 12:00 BP 110/56 05/31/18 12:00 Pulse Ox 96 05/31/18 12:00 Intake & Output 05/30/18 05/31/18 05/31/18 18:59 06:59 18:59 Intake Total 1870 240 720 Output Total 155 800 400 Balance 1715 -560 320 Weight 96.5 kg Intake: Intake, IV Titration 50 Amount cefTRIAXone 1,000 mg In 50 Sodium Chloride 0.9% 50 ml @ 100 mls/hr IVPB Q24HR [facility] Rx#:[id number] Oral 1820 240 720 Output: Urine 300 400 Straight 300 400 Post Void Residual 155 500 Other: Voiding Method Incontinent Incontinent Incontinent # Voids 1 1 - Exam PHYSICAL EXAMINATION: GENERAL: 77-year-old gentleman in no acute distress at the time of my examination HEENT: Head is atraumatic, normocephalic. Pupils equal, round. Sclera anicteric. Conjunctiva are clear. Mucous membranes of the mouth are moist. Neck is supple. There is no elevated jugular venous pressure. No carotid bruit is heard. HEART EXAMINATION: Heart S1, S2 normal. No murmur or gallop heard. CHEST EXAMINATION: Lungs are clear to auscultation and precussion. No chest wall tenderness is noted on palpation or with deep breathing. ABDOMEN: Soft, nontender. Bowel sounds are heard. No organomegaly noted. EXTREMITIES: 2+ peripheral pulses with no evidence of peripheral edema and no calf tenderness noted. NEUROLOGIC patient is awake, alert and oriented 3 . - Labs CBC & Chem 7: 05/31/18 07:51 05/31/18 07:51 Labs: Abnormal Lab Results - Last 24 Hours (Table) 05/31/18 05/31/18 Range/Units 07:51 07:51 RBC 3.19 L (4.30-5.90) m/uL Hgb 9.3 L (13.0-17.5) gm/dL Hct 28.6 L (39.0-53.0) % Chloride 111 H (98-107) mmol/L Glucose 122 H (74-99) mg/dL Microbiology - Last 24 Hours (Table) 05/28/18 19:30 Blood Culture - Preliminary Blood No Growth after 48 hours Assessment and Plan Plan: Assessment and plan #1 symptoms of weakness and fatigue #2 hematuria #3 history of coronary artery disease with prior PCI, he has history of LAD and left main stenting, most recently patient underwent stent placement of the OM branch in March of this year, on Plavix and aspirin #4 paroxysmal atrial fibrillation, on Eliquis 5 mg twice a day #5 hypertension #6 multiple sclerosis #7 diabetes #8 hyperlipidemia #9 elevated white blood cell count with evidence of positive UTI on urinalysis #10 anemia, hemoglobin 10.0 Plan From cardiology's perspective, we will not repeat an echocardiogram with Doppler study as patient recently had one in March, revealed a normal left ventricular systolic function. Patient was instructed to resume his Eliquis after one week at 2-1/2 mg twice a day. Continue Plavix. He may be able to be discharged home from cardiology's perspective once cleared by primary and urology. DNP note has been reviewed, I agree with a documented findings and plan of care. Patient was seen and examined.
--- NOTE | 2018-05-31 18:57 | PN ---
PROGRESS NOTE DATE OF SERVICE: 05/31/2018 This 77-year-old gentleman admitted with multiple medical issues, including generalized weakness, tiredness, also had possibly cardiac arrhythmia. Patient also complaining of hematuria which is continuing at this time. Hemoglobin is stable. Urology has thought his scab might have dislodged and the patient is doing self catheterization also at home. Cardiology following the patient closely also. Xarelto is on hold and Plavix is being continued at this time. No chest pain. No palpitations. No fever. EXAM: Alert and oriented x3. The pulse is 78, blood pressure 117/60, respiration 18, temperature 97.5, pulse ox 96% on room air. HEENT: Conjunctivae normal. NECK: No jugular venous distention. CARDIOVASCULAR: S1, S2 muffled. RESPIRATORY: Breath sounds diminished in the bases. No rhonchi. No crackles. Abdomen is soft, nontender. Legs are no edema. No swelling. Nervous system: No focal deficits. Minimal bleeding from the urethra present. LABS: WBC 9.2, hemoglobin 9.3 and glucose 122. The cultures are negative so far. ASSESSMENT: 1. Generalized weakness and tiredness with possible secondary to anemia. 2. Acute urinary tract infection present on admission. 3. Ventricular cardiac catheter on admission. 4. Hematuria, possibly secondary to chronic cystitis. 5. History of coronary artery disease/stent. 6. History atrial fibrillation. 7. History of congestive heart failure. 8. History of cerebrovascular accident, transient ischemic attack. 9. History of gastroesophageal reflux disease. 10.Hypertension. 11.Hyperlipidemia. 12.History of myocardial infarction. 13.History of prostate disorder. 14.History of neurogenic bladder. 15.History of coronary artery disease/stent. 16.History of recent cardiac cath. 17.History of nicotine dependence. 18.FULL CODE. RECOMMENDATIONS AND DISCUSSION: Recommend to continue with current medications, monitoring and symptomatic treatment. Otherwise, at this time, I recommend continue with current medications. Hold Xarelto. Repeat labs. Follow the hematuria. Closely follow with Urology and Cardiology. Prognosis guarded. Further recommendations to follow. MMODL / IJN: [id number] / MTDD
[2018-05-31] MEDS: ATORVASTATIN 80 MG TAB PO SCH (20:45)
[2018-05-31] MEDS: SENNOSIDES-DOCUSATE SODIUM 1 EACH TAB PO PRN (20:45)
[2018-06-01 06:03] LABS: Basophils % (A) 0 %; Eosinophils # (A) 0.4 k/uL (0-0.7); Eosinophils % (A) 4 %; HCT 28.3 % (39.0-53.0); HGB 9.1 gm/dL (13.0-17.5); Lymphocytes # (A) 2.2 k/uL (1.0-4.8); Lymphocytes % (A) 23 %; MCHC 32.1 g/dL (31.0-37.0); MCV 90.5 fL (80.0-100.0); Mean Platelet Volume 7.7; Monocytes # (A) 0.6 k/uL (0-1.0); Monocytes % (A) 6 %; Neutrophils # (A) 5.9 k/uL (1.3-7.7); Neutrophils % (A) 63 %; Platelet Count 259 k/uL (150-450); RBC 3.13 m/uL (4.30-5.90); RDW 12.9 % (11.5-15.5); WBC 9.3 k/uL (3.8-10.6)
[2018-06-01 06:15] LABS: Calcium 8.7 mg/dL (8.4-10.2); Potassium 4.6 mmol/L (3.5-5.1)
[2018-06-01] MEDS: FINASTERIDE 5 MG TAB PO SCH (08:55)
[2018-06-01] MEDS: CLOPIDOGREL 75 MG TAB PO SCH (08:55)
[2018-06-01] MEDS: FUROSEMIDE 20 MG TAB PO SCH (08:55)
[2018-06-01] MEDS: METOPROLOL TARTRATE 12.5 MG TAB PO SCH ×2 (08:55→20:12)
[2018-06-01] MEDS: CHOLECALCIFEROL 400 UNIT TAB PO SCH (08:55)
[2018-06-01] MEDS: CALCIUM CARBONATE 500 MG CHEWABLE PO SCH (08:56)
[2018-06-01] MEDS: FERROUS SULFATE 325 MG TAB PO SCH ×2 (08:56→20:12)
[2018-06-01] MEDS: TAMSULOSIN 0.4 MG CAP.ER.24H PO SCH (08:56)
[2018-06-01] MEDS: LISINOPRIL 5 MG TAB PO SCH (08:56)
[2018-06-01] MEDS: MULTIVITAMINS, THERA 1 EACH TAB PO SCH (08:56)
[2018-06-01] MEDS: PANTOPRAZOLE 40 MG TABLET PO SCH (09:00)
--- NOTE | 2018-06-01 09:58 | P.PN ---
Subjective 77-year-old pleasant gentleman was admitted for hematuria urinary tract infection, hematuria improved but still has quite a bit of blood last night patient does straight catheterization. We'll monitor him 1 more night here possibility of discharge tomorrow and patient will resume his eliquis in about a week at 2.5 mg aspirin will be held and patient will continue his Plavix. Patient was assessed by physical therapy activation therapy well for his generalized weakness the recommending home care. Patient's CEA and urine cultures are positive for E. coli which is pansensitive continue with the Rocephin. Possibly of discharge tomorrow. Constitutional: Denied any fatigue denied any fever. Cardio vascular: denied any chest pain, palpitations Gastrointestinal denied any nausea vomiting Pulmonary: Denied any shortness of breath cough Neurologic denied any new focal deficits All inpatient medications were reviewed and appropriate changes in these medications as dictated in the interval history and assessment and plan. Objective - Vital Signs Vital signs: Vital Signs Temp 98 F 06/01/18 08:00 Pulse 96 06/01/18 08:00 Resp 18 06/01/18 08:00 BP 142/74 06/01/18 08:00 Pulse Ox 98 06/01/18 08:00 Intake & Output 05/31/18 06/01/18 06/01/18 18:59 06:59 18:59 Intake Total 1270 120 480 Output Total 700 700 Balance 570 -580 480 Weight 96.2 kg Intake: IV 50 cefTRIAXone 1,000 mg In 50 Sodium Chloride 0.9% 50 ml @ 100 mls/hr IVPB Q24HR [facility] Rx#:[id number] Oral 1220 120 480 Output: Urine 700 700 Straight 700 350 Other: Voiding Method Incontinent Incontinent Self-Catheterization # Voids 1 - Exam PHYSICAL EXAMINATION: GENERAL: The patient is alert and oriented x3, not in any acute distress. Well developed, well nourished. HEENT: Pupils are round and equally reacting to light. EOMI. No scleral icterus. No conjunctival pallor. Normocephalic, atraumatic. No pharyngeal erythema. No thyromegaly. CARDIOVASCULAR: S1 and S2 present. No murmurs, rubs, or gallops. PULMONARY: Chest is clear to auscultation, no wheezing or crackles. ABDOMEN: Soft, nontender, nondistended, normoactive bowel sounds. No palpable organomegaly. MUSCULOSKELETAL: No joint swelling or deformity. EXTREMITIES: No cyanosis, clubbing, or pedal edema. NEUROLOGICAL: Gross neurological examination did not reveal any focal deficits. SKIN: No rashes. - Labs CBC & Chem 7: 06/01/18 05:28 06/01/18 05:28 Labs: Abnormal Lab Results - Last 24 Hours (Table) 06/01/18 06/01/18 Range/Units 05:28 05:28 RBC 3.13 L (4.30-5.90) m/uL Hgb 9.1 L (13.0-17.5) gm/dL Hct 28.3 L (39.0-53.0) % Chloride 110 H (98-107) mmol/L Glucose 102 H (74-99) mg/dL Microbiology - Last 24 Hours (Table) 05/28/18 19:30 Blood Culture - Preliminary Blood No Growth after 72 hours 05/29/18 17:10 Urine Culture - Final Urine,Voided Assessment and Plan Plan: -Hematuria: Probably secondary to chronic cystitis along with dilation for A. fib and dual antiplatelet therapy. Further management with anti-correlation for A. fib and dual antiplatelet management as mentioned in the interval history. -Urinary tract infection and acute cystitis: Urine cultures positive for E. coli is pansensitive continue with Rocephin -Atrial fibrillation which is rate controlled, patient appears to have proximal atrial fibrillation -Coronary artery disease with stent placement -Hypertension next and-hyperlipidemia -Benign prostatic hypertrophy
--- NOTE | 2018-06-01 12:22 | CDI ---
Documentation Clarification Form Date: 06/01/2018 CDS: Lucy Chinchilla, CCS, CCDS Admit Date: 05/31/2018 Patient Name: Wesly Tee Discharge Date: ATTENTION: The Clinical Documentation Specialists (CDI) and [facility] Coding Staff appreciate your assistance in clarifying documentation. Please respond to the clarification below the line at the bottom and electronically sign. The CDI & [facility] Coding staff will review the response and follow-up if needed. Please note: Queries are made part of the Legal Health Record. If you have any questions, please contact the author of this message via ITS. Dr. Delia Witt M.D.: A diagnosis of anemia lacks specificity to accurately reflect your patients severity of condition and clarification is needed. History/Risk Factors: Chronic cystitis, self cath, A Fib, CVA/TIA, DM II, Hypertension, Neurogenic related to MS. Clinical indicators: Presented with gross hematuria, diagnosed with acute on chronic cystitis. Hemoglobin: 12.2 - 10.0 - 9.3 Hematocrit: 37.2 - 30.5 - 28.5 Treatment: H&H, IV fluid bolus (05/28), IV Rocephin In order to capture the severity of condition, please clarify the type of anemia and etiology if known: Acute blood loss anemia Acute on chronic blood loss anemia Chronic blood loss anemia Hemolytic anemia Drug induced anemia Unable to determine Other, please specify (Last Revision: March 2017) Acute blood loss anemia MTDD
--- NOTE | 2018-06-01 13:55 | P.PN ---
Subjective Progress Note Date: 06/01/18 This is a pleasant 77-year-old gentleman with past medical history significant for multiple sclerosis, coronary artery disease with prior angioplasty, most recently the patient was in the hospital here in March at which time he underwent a cardiac catheterization by Dr. Ybarra with subsequent stenting of the first obtuse marginal branch of the circumflex by Dr. Jimenez. Patient also has history of LAD stenting and left main stenting, paroxysmal atrial fibrillation, hypertension, hyperlipidemia, and diabetes. Patient primarily follows at the [facility] in [place] for his cardiac needs. At the time of his discharge in March following his stent placement, patient was discharged home on a baby aspirin along with Plavix and Eliquis 5 mg one tablet by mouth twice a day. Tuesday night, patient states that he noticed a significant amount of blood in his urine and went to the emergency room yesterday, he was released from the emergency room yesterday morning, states that he went out for breakfast, had no appetite, became extremely pale and weak and was brought back to the hospital for further evaluation. The patient does straight cath himself because of his history of multiple sclerosis and subsequent incontinence. EKG shows normal sinus rhythm with occasional PVC and nonspecific ST-T wave changes. KUB did not reveal any acute osseus lesion. CAT scan of the brain did not reveal any acute intracranial hemorrhage or midline shift. There is moderate to severe diffuse age-related cerebral atrophy and chronic small vessel ischemic change noted. Cannot exclude underlying normal pressure hydrocephalus. Blood pressure 152/60 with a heart rate in the 70s, 98% on room air. White blood cell count on admission 19.1, 16.2 this morning. Hemoglobin on admission 12.2, 10.0 this morning. Platelet count 204. Blood gases were obtained, pH 7.4, pCO2 33, HCO3 21. Sodium 140, potassium 3.9, BUN 18, creatinine 1.1. Magnesium 1.9. Troponins 0.017, 0.032, 0.034. Upon review of prior records, patient was noted to have abnormality in troponin, his troponins on this admission are lower than previous. A urinalysis was obtained which came back with large amount of leukocyte Estrace, moderate bacteria. 05/30/2018 Patient was seen and examined this morning, continues to have mild hematuria. Blood pressure 150/60, heart rate in the 70s, 97% on room air. White blood cell count 11.7, hemoglobin 9.3, platelet count 205. Sodium 138, potassium 4.0 , BUN 17, creatinine 1.2. 05/31/2018 Patient was seen and examined this morning, continues to have significant hematuria. He was also seen in consultation by Dr. Allred, he underwent a cystoscopy and bladder biopsy recently by Dr. Khan for what turned out to be chronic inflammation and squamous metaplasia. He was seen today by Dr. Khan and instructed to continue to self catheterize. We will continue to hold the Eliquis for a total of one week. Then resume at 2-1/2 twice a day, continue Plavix. 06/01/2018 Patient seen and examined this morning, overall he feels well. Continues to have hematuria, hemoglobin today is 9.1. He was again reinstructed today to hold the Eliquis for a week and then resume at 2-1/2 mg twice a day. Objective - Vital Signs Vital signs: Vital Signs Temp 97.9 F 06/01/18 12:00 Pulse 78 06/01/18 12:00 Resp 18 06/01/18 12:00 BP 142/81 06/01/18 12:00 Pulse Ox 98 06/01/18 12:00 Intake & Output 05/31/18 06/01/18 06/01/18 18:59 06:59 18:59 Intake Total 1270 120 480 Output Total 700 700 Balance 570 -580 480 Weight 96.2 kg Intake: IV 50 cefTRIAXone 1,000 mg In 50 Sodium Chloride 0.9% 50 ml @ 100 mls/hr IVPB Q24HR [facility] Rx#:[id number] Oral 1220 120 480 Output: Urine 700 700 Straight 700 350 Other: Voiding Method Incontinent Incontinent Incontinent Self-Catheterization Self-Catheterization # Voids 1 # Bowel Movements 1 - Exam PHYSICAL EXAMINATION: GENERAL: 77-year-old gentleman in no acute distress at the time of my examination HEENT: Head is atraumatic, normocephalic. Pupils equal, round. Sclera anicteric. Conjunctiva are clear. Mucous membranes of the mouth are moist. Neck is supple. There is no elevated jugular venous pressure. No carotid bruit is heard. HEART EXAMINATION: Heart S1, S2 normal. No murmur or gallop heard. CHEST EXAMINATION: Lungs are clear to auscultation and precussion. No chest wall tenderness is noted on palpation or with deep breathing. ABDOMEN: Soft, nontender. Bowel sounds are heard. No organomegaly noted. EXTREMITIES: 2+ peripheral pulses with no evidence of peripheral edema and no calf tenderness noted. NEUROLOGIC patient is awake, alert and oriented 3 . - Labs CBC & Chem 7: 06/01/18 05:28 06/01/18 05:28 Labs: Abnormal Lab Results - Last 24 Hours (Table) 06/01/18 06/01/18 Range/Units 05:28 05:28 RBC 3.13 L (4.30-5.90) m/uL Hgb 9.1 L (13.0-17.5) gm/dL Hct 28.3 L (39.0-53.0) % Chloride 110 H (98-107) mmol/L Glucose 102 H (74-99) mg/dL Microbiology - Last 24 Hours (Table) 05/28/18 19:30 Blood Culture - Preliminary Blood No Growth after 72 hours 05/29/18 17:10 Urine Culture - Final Urine,Voided Assessment and Plan Plan: Assessment and plan #1 symptoms of weakness and fatigue #2 hematuria #3 history of coronary artery disease with prior PCI, he has history of LAD and left main stenting, most recently patient underwent stent placement of the OM branch in March of this year, on Plavix and aspirin #4 paroxysmal atrial fibrillation, on Eliquis 5 mg twice a day #5 hypertension #6 multiple sclerosis #7 diabetes #8 hyperlipidemia #9 elevated white blood cell count with evidence of positive UTI on urinalysis #10 anemia, hemoglobin 10.0 Plan From cardiology's perspective, we will not repeat an echocardiogram with Doppler study as patient recently had one in March, revealed a normal left ventricular systolic function. Patient was instructed to resume his Eliquis after one week at 2-1/2 mg twice a day. Continue Plavix. He may be able to be discharged home from cardiology's perspective once cleared by primary and urology. DNP note has been reviewed, I agree with a documented findings and plan of care. Patient was seen and examined.
[2018-06-01] MEDS: ATORVASTATIN 80 MG TAB PO SCH (20:12)
[2018-06-01] MEDS: SENNOSIDES-DOCUSATE SODIUM 1 EACH TAB PO PRN (20:12)
[2018-06-02 06:39] LABS: Basophils # (A) 0.1 k/uL (0-0.2); Basophils % (A) 1 %; Eosinophils # (A) 0.3 k/uL (0-0.7); Eosinophils % (A) 3 %; HCT 28.7 % (39.0-53.0); HGB 8.9 gm/dL (13.0-17.5); Lymphocytes # (A) 2.3 k/uL (1.0-4.8); Lymphocytes % (A) 25 %; MCH 28.1 pg (25.0-35.0); MCHC 31.1 g/dL (31.0-37.0); MCV 90.2 fL (80.0-100.0); Mean Platelet Volume 7.8; Monocytes # (A) 0.7 k/uL (0-1.0); Monocytes % (A) 7 %; Neutrophils # (A) 5.8 k/uL (1.3-7.7); Neutrophils % (A) 62 %; Platelet Count 261 k/uL (150-450); RBC 3.18 m/uL (4.30-5.90); WBC 9.3 k/uL (3.8-10.6)
[2018-06-02 06:56] LABS: Calcium 8.9 mg/dL (8.4-10.2); Potassium 4.6 mmol/L (3.5-5.1)
[2018-06-02 09:28] VITALS: BP 157/75; PULSE 86; RESP 20; TEMP 97.8
[2018-06-02] MEDS: METOPROLOL TARTRATE 12.5 MG TAB PO SCH (09:35)
[2018-06-02] MEDS: FERROUS SULFATE 325 MG TAB PO SCH (09:35)
[2018-06-02] MEDS: FUROSEMIDE 20 MG TAB PO SCH (09:35)
[2018-06-02] MEDS: LISINOPRIL 5 MG TAB PO SCH (09:35)
[2018-06-02] MEDS: PANTOPRAZOLE 40 MG TABLET PO SCH (09:35)
[2018-06-02] MEDS: MULTIVITAMINS, THERA 1 EACH TAB PO SCH (09:35)
[2018-06-02] MEDS: TAMSULOSIN 0.4 MG CAP.ER.24H PO SCH (09:35)
[2018-06-02] MEDS: FINASTERIDE 5 MG TAB PO SCH (09:35)
[2018-06-02] MEDS: CHOLECALCIFEROL 400 UNIT TAB PO SCH (10:13)
[2018-06-02] MEDS: CALCIUM CARBONATE 500 MG CHEWABLE PO SCH (10:13)
--- NOTE | 2018-06-02 13:16 | P.DS ---
Providers Date of admission: 05/31/18 14:29 Attending physician: Delia Witt Consults: 05/28/18 18:59 Consult Physician Routine Consulting Provider: Dario Castanon Consult Reason/Comments: weakness, bigeminy Do you want consulting provider notified?: Yes 05/29/18 15:01 Consult Physician Urgent Consulting Provider: Justo Corbin Consult Reason/Comments: hematuria Do you want consulting provider notified?: Yes Primary care physician: [facility] Hospital Course: 77-year-old pleasant gentleman was admitted for hematuria urinary tract infection, hematuria improved but still has quite a bit of blood last night patient does straight catheterization. We'll monitor him 1 more night here possibility of discharge tomorrow and patient will resume his eliquis in about a week at 2.5 mg aspirin will be held and patient will continue his Plavix. Patient was assessed by physical therapy activation therapy well for his generalized weakness the recommending home care. Patient's CEA and urine cultures are positive for E. coli which is pansensitive continue with the Rocephin. Possibly of discharge tomorrow. 06/02/2018 Patient's hematuria significantly improved and very minimal at this time patient had a Estevse catheter discussed with urology in the recommending to keep the Esteves catheter and patient will follow-up with urology as an outpatient. Patient is only on Plavix at this time. Patient had headache at present and stenting in the past and patient still anti-correlation dose was cut down to half and patient will restart his anticoagulation as there is no blood in the urine in 5 days. Patient is being discharged on 5 more days of Cipro PHYSICAL EXAMINATION: GENERAL: The patient is alert and oriented x3, not in any acute distress. Well developed, well nourished. HEENT: Pupils are round and equally reacting to light. EOMI. No scleral icterus. No conjunctival pallor. Normocephalic, atraumatic. No pharyngeal erythema. No thyromegaly. CARDIOVASCULAR: S1 and S2 present. No murmurs, rubs, or gallops. PULMONARY: Chest is clear to auscultation, no wheezing or crackles. ABDOMEN: Soft, nontender, nondistended, normoactive bowel sounds. No palpable organomegaly. MUSCULOSKELETAL: No joint swelling or deformity. EXTREMITIES: No cyanosis, clubbing, or pedal edema. NEUROLOGICAL: Gross neurological examination did not reveal any focal deficits. SKIN: No rashes. Assessment and Plan Plan: -Hematuria: Probably secondary to chronic cystitis along with dilation for A. fib and dual antiplatelet therapy. Further management with anti-tach ablation for A. fib and dual antiplatelet management as mentioned in the history -Urinary tract infection and acute cystitis: Urine cultures positive for E. coli is pansensitive -Atrial fibrillation which is rate controlled, patient appears to have proximal atrial fibrillation -Coronary artery disease with stent placement -Hypertension -hyperlipidemia -Benign prostatic hypertrophy Patient Condition at Discharge: Good Plan - Discharge Summary Discharge Rx Participant: No New Discharge Prescriptions: New Ciprofloxacin HCl [Cipro] 500 mg PO Q12HR #10 tablet Continue Multivitamins, Thera [Multivitamin (formulary)] 1 tab PO DAILY Ferrous Sulfate [Feosol] 325 mg PO BID Cholecalciferol [Vitamin D3] 800 unit PO DAILY Calcium Carbonate 500 mg PO DAILY Tamsulosin [Flomax] 0.8 mg PO DAILY Finasteride [Proscar] 5 mg PO DAILY Atorvastatin [Lipitor] 80 mg PO HS Clopidogrel [Plavix] 75 mg PO DAILY tab Omeprazole 20 mg PO DAILY Furosemide [Lasix] 20 mg PO DAILY tab Ergocalciferol [Vitamin D2 (DRISDOL)] 50,000 unit PO SA Nitroglycerin Sl Tabs [Nitrostat] 0.4 mg SUBLINGUAL Q5M PRN #100 tab PRN Reason: Chest Pain Lisinopril [Zestril] 5 mg PO DAILY Phenyleph/Mineral Oil/Petrolat [Preparation H Ointment] 1 applic RECTAL BID PRN PRN Reason: Hemorrhoids Sennosides-Docusate Sodium [Senokot-S] 2 tab PO HS PRN PRN Reason: Constipation Changed Apixaban [Eliquis] 2.5 mg PO BID #0 Metoprolol Tartrate [Lopressor] 25 mg PO BID #0 Discontinued Ascorbic Acid [Vitamin C] 500 mg PO DAILY Cephalexin [Keflex] 500 mg PO QID #40 cap Discharge Medication List Atorvastatin [Lipitor] 80 mg PO HS 02/04/17 [History] Calcium Carbonate 500 mg PO DAILY 02/04/17 [History] Cholecalciferol [Vitamin D3] 800 unit PO DAILY 02/04/17 [History] Ferrous Sulfate [Feosol] 325 mg PO BID 02/04/17 [History] Finasteride [Proscar] 5 mg PO DAILY 02/04/17 [History] Multivitamins, Thera [Multivitamin (formulary)] 1 tab PO DAILY 02/04/17 [History ] Tamsulosin [Flomax] 0.8 mg PO DAILY 02/04/17 [History] Clopidogrel [Plavix] 75 mg PO DAILY tab 06/21/17 [Rx] Omeprazole 20 mg PO DAILY 06/24/17 [History] Furosemide [Lasix] 20 mg PO DAILY tab 07/01/17 [Rx] Ergocalciferol [Vitamin D2 (DRISDOL)] 50,000 unit PO SA 03/20/18 [History] Nitroglycerin Sl Tabs [Nitrostat] 0.4 mg SUBLINGUAL Q5M PRN #100 tab 03/23/18 [ Rx] Lisinopril [Zestril] 5 mg PO DAILY 05/28/18 [History] Phenyleph/Mineral Oil/Petrolat [Preparation H Ointment] 1 applic RECTAL BID PRN 05/28/18 [History] Sennosides-Docusate Sodium [Senokot-S] 2 tab PO HS PRN 05/28/18 [History] Apixaban [Eliquis] 2.5 mg PO BID #0 06/02/18 [Rx] Ciprofloxacin HCl [Cipro] 500 mg PO Q12HR #10 tablet 06/02/18 [Rx] Metoprolol Tartrate [Lopressor] 25 mg PO BID #0 06/02/18 [Rx] Follow up Appointment(s)/Referral(s): Bon Castaneda MD [STAFF PHYSICIAN] - 2 Weeks Justo Corbin MD [STAFF PHYSICIAN] - 1 Week [facility] [Primary Care Provider] - 3 Days (Patient to make his own follow up appointment per office.) Patient Instructions/Handouts: Urinary Tract Infection in Men (DC), Iron Rich Diet (DC), Weakness (DC), Anemia (DC) Activity/Diet/Wound Care/Special Instructions: Cardio cleared. D/C in 24 hours. Discharge Disposition: HOME WITH HOME HEALTH SERVICES
--- NOTE | 2018-06-02 14:08 | P.PN ---
Subjective Progress Note Date: 06/02/18 The patient is going home today. He had a catheter placed last night because of difficulty with self cath. It should stay in and I will see him as an outpatient in the next week or 2. Objective - Vital Signs Vital signs: Vital Signs Temp 97.8 F 06/02/18 09:27 Pulse 86 06/02/18 09:27 Resp 20 06/02/18 09:48 BP 157/75 06/02/18 09:27 Pulse Ox 97 06/02/18 09:27 Intake & Output 06/01/18 06/02/18 06/02/18 18:59 06:59 18:59 Intake Total 720 100 Output Total 1432 Balance 720 -1332 Weight 90.2 kg Intake: Oral 720 100 Output: Urine 850 Post Void Residual 582 Other: Voiding Method Incontinent Indwelling Catheter Indwelling Catheter Self-Catheterization # Bowel Movements 1 - Labs CBC & Chem 7: 06/02/18 05:39 06/02/18 05:39 Labs: Abnormal Lab Results - Last 24 Hours (Table) 06/02/18 06/02/18 Range/Units 05:39 05:39 RBC 3.18 L (4.30-5.90) m/uL Hgb 8.9 L (13.0-17.5) gm/dL Hct 28.7 L (39.0-53.0) % Chloride 109 H (98-107) mmol/L Microbiology - Last 24 Hours (Table) 05/28/18 19:30 Blood Culture - Preliminary Blood No Growth after 96 hours
[2018-06-02] MEDS ORDERED: MAG HYDROX/AL HYDROX/SIMETH 30 ML CUP PO PRN (15:21)
[2018-06-02] MEDS ORDERED: ACETAMINOPHEN TAB 325 MG TAB PO PRN (15:21)
[2018-06-02] MEDS ORDERED: ONDANSETRON 4 MG/2 ML VIAL IVP PRN (15:21)
[2018-06-02] MEDS ORDERED: MORPHINE SULFATE 2 MG/ML SYRINGE IVP PRN (15:25)
--- NOTE | 2018-06-02 15:29 | P.OP ---
Date of Procedure: 06/02/18 Preoperative Diagnosis: Bilateral infected renal calculi, staghorn, quadriplegia, status post nephrostomy tube placement, chronic renal failure Postoperative Diagnosis: Same Procedure(s) Performed: Percutaneous nephrostolithotomy, large, right with ultrasound Anesthesia: OBEY Surgeon: Justo Corbin Estimated Blood Loss (ml): 25 Pathology: other (Stone) Condition: stable Disposition: PACU Indications for Procedure: The patient is a 77-year-old quadriplegic for many years who came into the hospital recently and renal failure. Bilateral hydronephrosis due to bilateral staghorn calculi. He had bilateral nephrostomy tubes placed. The chronic indwelling catheter. He now comes for percutaneous nephrostolithotomy. He has admitted the hospital 2 days earlier because of hyperkalemia which is being controlled. Description of Procedure: The patient is brought to the operating suite. He is given a successful general endotracheal anesthesia on the transport gurlandrum. He's placed in a prone position with extreme care to airways and extremities. Through the established nephrostomy tube in the right sided pass an 035 wire into the renal pelvis. I removed the nephrostomy tube and over the wire pass a comfy catheter to direct the wire down the ureter. Over the wires and passed an 8 and 10- Bermudian ureteral exchange catheters. The 8-Bermudian is removed and through the ten is passed a 035 Super Stiff wire. Over the superstiff wire the dilating balloon dilate the nephrostomy tract. I then introduced the rigid nephroscope into the collecting system and remove any clot or free-floating stone which are several. I then used ultrasound to break down the greater than 2 cm renal pelvic stone. This was broken in either suction or grasp the collecting system. I then pass the flexible nephroscope throughout the collecting system and remove any remaining fragments of stone basket. At the end of the procedure there is no remaining stone. Over the working wire is passed a 10- Bermudian J nephrostomy tube the coils in the renal pelvis. It is secured to the skin. The working sheath is removed. The patient's awake and returned recovery in good condition. Blood loss is approximately 25 mL.
[2018-06-02] MEDS ORDERED: DEXTROSE 5%-0.45% NACL 1,000 ML IV SCH (15:30)
--- NOTE | 2018-06-02 17:07 | PN ---
PROGRESS NOTE Mr. Tee is status post stenting performed in March. He has significant hematuria. However, his hematuria has shown modest improvement and hemoglobin has dropped to 8.9. I am recommending that we take Plavix 75 mg every other day. Eliquis and aspirin have been held. He has no chest pain. Vitals are stable. S1-S2 heard normally. Short systolic murmur noted. Lungs reveal improved air entry. Abdomen lower extremity exam is unchanged. MMODL / IJN: [id number] /
[2018-06-03] MEDS ORDERED: CLOPIDOGREL 75 MG TAB PO SCH (09:00)
[2018-06-03] MEDS ORDERED: ERGOCALCIFEROL 50,000 UNIT CAP PO SCH (09:00)
== END 2018-06-02 14:33 | disposition home health service (06) | DRG 659 ==
LOC: EC 15:26 → 3SCARD 18:58 → OBSVTOIN 05-31 14:29 → 4MS4W 06-02 09:12
PROVIDERS: ADMIT Hospitalist; ATTEND Hospitalist
PROC: 0TC03ZZ Extirpation of Matter from Right Kidney, Percutaneous Approach (ICD-10-PCS; principal; 2018-06-02)
DX: N30.01 Acute cystitis with hematuria (principal); G82.50 Quadriplegia, unspecified; I13.0 Hypertensive heart and chronic kidney disease with heart failure and stage 1 through stage 4 chronic kidney disease, or unspecified chronic kidney disease; N13.2 Hydronephrosis with renal and ureteral calculous obstruction; D62 Acute posthemorrhagic anemia; D64.9 Anemia, unspecified; E11.22 Type 2 diabetes mellitus with diabetic chronic kidney disease; E78.5 Hyperlipidemia, unspecified; G35 Multiple sclerosis; I25.10 Atherosclerotic heart disease of native coronary artery without angina pectoris; I25.2 Old myocardial infarction; I44.1 Atrioventricular block, second degree; I48.0 Paroxysmal atrial fibrillation; I50.9 Heart failure, unspecified; K21.9 Gastro-esophageal reflux disease without esophagitis; N18.9 Chronic kidney disease, unspecified; N30.21 Other chronic cystitis with hematuria; N31.9 Neuromuscular dysfunction of bladder, unspecified; N40.0 Benign prostatic hyperplasia without lower urinary tract symptoms; Z79.01 Long term (current) use of anticoagulants; Z79.02 Long term (current) use of antithrombotics/antiplatelets; Z79.899 Other long term (current) drug therapy; Z82.49 Family history of ischemic heart disease and other diseases of the circulatory system; Z86.73 Personal history of transient ischemic attack (TIA), and cerebral infarction without residual deficits; Z87.891 Personal history of nicotine dependence; Z93.6 Other artificial openings of urinary tract status; Z95.5 Presence of coronary angioplasty implant and graft; B96.20 Unspecified Escherichia coli [E. coli] as the cause of diseases classified elsewhere
CPT/HCPCS: 36415; 70450; 71046; 80048; 80053; 81001; 82803; 83036; 83605; 83690; 83735; 83880; 84484; 85025; 85610; 87040; 87086; 93005; 96361; 96365; 99285

== ENCOUNTER 2018-06-02 21:14 | Emergency (ER) | payer MEDICARE, OTHER ==
[2018-06-02 22:13] LABS: Basophils % (A) 0 %; Eosinophils # (A) 0.2 k/uL (0-0.7); Eosinophils % (A) 2 %; HCT 32.1 % (39.0-53.0); HGB 10.5 gm/dL (13.0-17.5); Lymphocytes # (A) 2.1 k/uL (1.0-4.8); Lymphocytes % (A) 18 %; MCH 29.3 pg (25.0-35.0); MCHC 32.7 g/dL (31.0-37.0); MCV 89.6 fL (80.0-100.0); Mean Platelet Volume 8.2; Monocytes # (A) 0.7 k/uL (0-1.0); Monocytes % (A) 6 %; Neutrophils # (A) 8.6 k/uL (1.3-7.7); Neutrophils % (A) 73 %; Platelet Count 297 k/uL (150-450); RBC 3.58 m/uL (4.30-5.90); RDW 13.2 % (11.5-15.5); WBC 11.8 k/uL (3.8-10.6)
--- NOTE | 2018-06-02 22:17 | ED ---
SOB HPI - General Chief Complaint: Shortness of Breath Stated Complaint: Shortness of Breath Time Seen by Provider: 06/02/18 22:05 Source: patient Mode of arrival: ambulatory Limitations: no limitations - History of Present Illness Initial Comments: This patient is a 77-year-old man complaining of exertional dyspnea this afternoon. The patient states that he had been in the hospital for a number of days, going home this morning. He states that when he was at home he tried to put on his pants and became very short of breath. He was not having any chest pain or any other anginal type symptoms, including no dyspnea, palpitations, nausea or vomiting, lightheadedness or syncope. He is not having shortness of breath at rest. MD Complaint: shortness of breath -: hour(s) Consistency: now resolved Improves With: rest Worsens With: exertion Associated Symptoms: denies other symptoms Treatments Prior to Arrival: none - Related Data Home Oxygen Therapy: No Home Medications Medication Instructions Recorded Confirmed Atorvastatin [Lipitor] 80 mg PO HS 02/04/17 06/02/18 Calcium Carbonate 500 mg PO DAILY 02/04/17 06/02/18 Cholecalciferol [Vitamin D3] 800 unit PO DAILY 02/04/17 06/02/18 Ferrous Sulfate [Feosol] 325 mg PO BID 02/04/17 06/02/18 Finasteride [Proscar] 5 mg PO DAILY 02/04/17 06/02/18 Multivitamins, Thera [Multivitamin 1 tab PO DAILY 02/04/17 06/02/18 (formulary)] Tamsulosin [Flomax] 0.8 mg PO DAILY 02/04/17 06/02/18 Omeprazole 20 mg PO DAILY 06/24/17 06/02/18 Ergocalciferol [Vitamin D2 50,000 unit PO SA 03/20/18 06/02/18 (DRISDOL)] Lisinopril [Zestril] 5 mg PO DAILY 05/28/18 06/02/18 Phenyleph/Mineral Oil/Petrolat 1 applic RECTAL BID PRN 05/28/18 06/02/18 [Preparation H Ointment] Sennosides-Docusate Sodium 2 tab PO HS PRN 05/28/18 06/02/18 [Senokot-S] Previous Rx's Medication Instructions Recorded Clopidogrel [Plavix] 75 mg PO DAILY tab 06/21/17 Furosemide [Lasix] 20 mg PO DAILY tab 07/01/17 Nitroglycerin Sl Tabs [Nitrostat] 0.4 mg SUBLINGUAL Q5M PRN #100 tab 03/23/18 Apixaban [Eliquis] 2.5 mg PO BID #0 06/02/18 Ciprofloxacin HCl [Cipro] 500 mg PO Q12HR #10 tablet 06/02/18 Metoprolol Tartrate [Lopressor] 25 mg PO BID #0 06/02/18 Albuterol Inhaler [Ventolin Hfa 1 - 2 puff INHALATION Q6HR PRN #1 06/03/18 Inhaler] inhaler Allergies Allergy/AdvReac Type Severity Reaction Status Date / Time No Known Allergies Allergy Verified 06/02/18 21:47 Review of Systems ROS Statement: Those systems with pertinent positive or pertinent negative responses have been documented in the HPI. ROS Other: All systems not noted in ROS Statement are negative. Constitutional: Denies: fever, chills, weakness Respiratory: Denies: cough, dyspnea, wheezes, hemoptysis Cardiovascular: Reports: dyspnea on exertion. Denies: chest pain, palpitations , orthopnea, edema, syncope Gastrointestinal: Denies: abdominal pain, nausea, vomiting Genitourinary: Reports: hematuria, other (Patient states that he does have a Esteves catheter that he was discharged from the hospital with). Denies: dysuria , frequency Musculoskeletal: Denies: back pain Skin: Denies: rash Neurological: Denies: headache, weakness, numbness, confusion Hematological/Lymphatic: Denies: easy bleeding Past Medical History Past Medical History: Atrial Fibrillation, Coronary Artery Disease (CAD), Heart Failure, CVA/TIA, Diabetes Mellitus, GERD/Reflux, Hyperlipidemia, Hypertension, Myocardial Infarction ([place]), Neurologic Disorder, Prostate Disorder Additional Past Medical History / Comment(s): BPH, neurogenic bladder - pt self caths 2-3 times daily at home/some incont, wears briefs, diabetes mellitus which has been diet controlled, MS, Last Myocardial Infarction Date:: 06/25/2017 History of Any Multi-Drug Resistant Organisms: None Reported Past Surgical History: Adenoidectomy, Appendectomy, Heart Catheterization With Stent, Hernia Repair, Tonsillectomy Additional Past Surgical History / Comment(s): RECENT HEART CATH AT [facility] ON 02/02/17: stents were placed in the mid LAD, proximal LAD, and LEFT MAIN (4 stents total). Right hip repair 2011, BIOPSY IN APR 2018 Past Anesthesia/Blood Transfusion Reactions: No Reported Reaction Date of Last Stent Placement:: 02-02-17 Past Psychological History: No Psychological Hx Reported Smoking Status: Former smoker Past Alcohol Use History: Daily Past Drug Use History: None Reported - Past Family History Father Family Medical History: Coronary Artery Disease (CAD), Myocardial Infarction ([place] ) Additional Family Medical History / Comment(s): at age 65 Mother Family Medical History: No Reported History Additional Family Medical History / Comment(s): at age 80 not sure what cause Brother(s) Additional Family Medical History / Comment(s): TWIN BROTHER HAS MS. General Exam Limitations: no limitations General appearance: alert, in no apparent distress Head exam: Present: atraumatic, normocephalic Eye exam: Present: normal appearance. Absent: scleral icterus, conjunctival injection ENT exam: Present: normal oropharynx Respiratory exam: Present: normal lung sounds bilaterally. Absent: respiratory distress, wheezes, rales, rhonchi, stridor, accessory muscle use, decreased breath sounds, prolonged expiratory Cardiovascular Exam: Present: regular rate, normal rhythm, normal heart sounds. Absent: systolic murmur, diastolic murmur, rubs, gallop GI/Abdominal exam: Present: soft. Absent: distended, tenderness, guarding, rebound, rigid, mass Extremities exam: Present: normal inspection, normal capillary refill. Absent: pedal edema, calf tenderness Back exam: Present: normal inspection. Absent: CVA tenderness (R), CVA tenderness (L) Neurological exam: Present: alert Skin exam: Present: warm, dry, intact, normal color. Absent: rash Course Vital Signs 06/02/18 06/02/18 06/03/18 21:16 21:23 01:57 Temperature 98.3 F Pulse Rate 75 51 L Respiratory 20 20 17 Rate Blood Pressure 138/101 141/85 O2 Sat by Pulse 100 100 Oximetry 06/03/18 06/03/18 02:37 02:47 Temperature Pulse Rate 68 66 Respiratory Rate Blood Pressure O2 Sat by Pulse Oximetry Medical Decision Making - Lab Data Result diagrams: 06/02/18 21:25 06/02/18 21:25 Lab Results 06/02/18 06/02/18 06/02/18 Range/Units 21:25 21:25 21:25 WBC 11.8 H (3.8-10.6) k/uL RBC 3.58 L (4.30-5.90) m/uL Hgb 10.5 L (13.0-17.5) gm/dL Hct 32.1 L (39.0-53.0) % MCV 89.6 (80.0-100.0) fL MCH 29.3 (25.0-35.0) pg MCHC 32.7 (31.0-37.0) g/dL RDW 13.2 (11.5-15.5) % Plt Count 297 (150-450) k/uL Neutrophils % 73 % Lymphocytes % 18 % Monocytes % 6 % Eosinophils % 2 % Basophils % 0 % Neutrophils # 8.6 H (1.3-7.7) k/uL Lymphocytes # 2.1 (1.0-4.8) k/uL Monocytes # 0.7 (0-1.0) k/uL Eosinophils # 0.2 (0-0.7) k/uL Basophils # 0.0 (0-0.2) k/uL D-Dimer (<0.60) mg/L FEU Sodium (137-145) mmol/L Potassium (3.5-5.1) mmol/L Chloride (98-107) mmol/L Carbon Dioxide (22-30) mmol/L Anion Gap mmol/L BUN (9-20) mg/dL Creatinine (0.66-1.25) mg/dL Est GFR (CKD-EPI)AfAm (>60 ml/min/1.73 sqM) Est GFR (CKD-EPI)NonAf (>60 ml/min/1.73 sqM) Glucose (74-99) mg/dL Calcium (8.4-10.2) mg/dL Total Bilirubin (0.2-1.3) mg/dL AST (17-59) U/L ALT (21-72) U/L Alkaline Phosphatase (38-126) U/L Total Creatine Kinase 98 (55-170) U/L CK-MB (CK-2) 2.1 (0.0-2.4) ng/mL CK-MB (CK-2) Rel Index 2.1 Troponin I <0.012 (0.000-0.034) ng/mL NT-Pro-B Natriuret Pep 534 pg/mL Total Protein (6.3-8.2) g/dL Albumin (3.5-5.0) g/dL 06/02/18 06/02/18 Range/Units 21:25 21:25 WBC (3.8-10.6) k/uL RBC (4.30-5.90) m/uL Hgb (13.0-17.5) gm/dL Hct (39.0-53.0) % MCV (80.0-100.0) fL MCH (25.0-35.0) pg MCHC (31.0-37.0) g/dL RDW (11.5-15.5) % Plt Count (150-450) k/uL Neutrophils % % Lymphocytes % % Monocytes % % Eosinophils % % Basophils % % Neutrophils # (1.3-7.7) k/uL Lymphocytes # (1.0-4.8) k/uL Monocytes # (0-1.0) k/uL Eosinophils # (0-0.7) k/uL Basophils # (0-0.2) k/uL D-Dimer 1.01 H (<0.60) mg/L FEU Sodium 137 (137-145) mmol/L Potassium 4.6 (3.5-5.1) mmol/L Chloride 106 (98-107) mmol/L Carbon Dioxide 22 (22-30) mmol/L Anion Gap 9 mmol/L BUN 12 (9-20) mg/dL Creatinine 1.01 (0.66-1.25) mg/dL Est GFR (CKD-EPI)AfAm 84 (>60 ml/min/1.73 sqM) Est GFR (CKD-EPI)NonAf 73 (>60 ml/min/1.73 sqM) Glucose 115 H (74-99) mg/dL Calcium 9.4 (8.4-10.2) mg/dL Total Bilirubin 0.4 (0.2-1.3) mg/dL AST 32 (17-59) U/L ALT 39 (21-72) U/L Alkaline Phosphatase 63 (38-126) U/L Total Creatine Kinase (55-170) U/L CK-MB (CK-2) (0.0-2.4) ng/mL CK-MB (CK-2) Rel Index Troponin I (0.000-0.034) ng/mL NT-Pro-B Natriuret Pep pg/mL Total Protein 6.8 (6.3-8.2) g/dL Albumin 3.4 L (3.5-5.0) g/dL - EKG Data -: EKG Interpreted by Me EKG shows normal: sinus rhythm (With fusion beat.), intervals (AR interval 122 ms, QTC 471 ms, both normal. QRS duration 132 ms, prolonged, consistent with right bundle-branch block.), QRS complexes (Right bundle-branch block), ST-T waves (T inversions inferiorly, these are present from the EKG earlier this month.) Rate: normal (Rate 78 bpm) Disposition Clinical Impression: Dyspnea, COPD (chronic obstructive pulmonary disease) Disposition: HOME SELF-CARE Condition: Good Instructions: COPD (Chronic Obstructive Pulmonary Disease) (ED) Prescriptions: Albuterol Inhaler [Ventolin Hfa Inhaler] 1 - 2 puff INHALATION Q6HR PRN #1 inhaler PRN Reason: Wheezing Is patient prescribed a controlled substance at d/c from ED?: No Referrals: [facility]inic [Primary Care Provider] - 1-2 days
[2018-06-02 22:23] LABS: Albumin 3.4 g/dL (3.5-5.0); Calcium 9.4 mg/dL (8.4-10.2); Potassium 4.6 mmol/L (3.5-5.1); Total Bilirubin 0.4 mg/dL (0.2-1.3); Total Protein 6.8 g/dL (6.3-8.2)
[2018-06-02 22:27] LABS: Creatine Kinase 98 U/L (55-170)
[2018-06-02 22:40] LABS: Creatine Kinase MB 2.1 ng/mL (0.0-2.4); Troponin I <0.012 ng/mL (0.000-0.034)
--- NOTE | 2018-06-03 00:38 | US ---
EXAMINATION TYPE: US venous doppler duplex LE DATE OF EXAM: 06/03/2018 12:06 AM COMPARISON: NONE CLINICAL HISTORY: dyspnea. SOB, Elevated D-Dimer SIDE PERFORMED: Bilateral TECHNIQUE: The lower extremity deep venous system is examined utilizing real time linear array sonog mckinley with graded compression, doppler sonography and color-flow sonography. VESSELS IMAGED: External Iliac Vein (EIV) Common Femoral Vein Deep Femoral Vein Greater Saphenous Vein * Femoral Vein Popliteal Vein Small Saphenous Vein * Proximal Calf Veins (* superficial vessels) Right Leg: Negative for DVT Left Leg: Negative for DVT IMPRESSION: Normal exam. No evidence of deep venous thrombosis in both legs.
--- NOTE | 2018-06-03 01:32 | CT ---
EXAMINATION TYPE: CT chest angio for PE DATE OF EXAM: 06/03/2018 COMPARISON: None HISTORY: r/o pe short of breath CT DLP: 384.7 mGycm Automated exposure control for dose reduction was used. CONTRAST: CT Chest for pulmonary embolism performed with with IV Contrast, patient injected with 90 mL of Isovu e 370. FINDINGS: There are 3-D post processed images. There is minimal pleural thickening and emphysema in the upper l obes. There is no evidence of a pulmonary mass. There is subpleural reticular density at the lung bas es consistent with scarring and subsegmental atelectasis. There is no pleural effusion. There is larg e hiatal hernia. There is no pericardial effusion. Thoracic aorta shows no evidence of aneurysm or di ssection. There is no mediastinal adenopathy. There are no hilar masses. Ascending aorta measures 3.8 cm. There is normal contrast opacification of the pulmonary arteries. There are no filling defects. The b selene thorax is intact. IMPRESSION: No evidence of pulmonary embolism. Mild pleural and pulmonary scarring.
[2018-06-03 01:58] VITALS: RESP 17
[2018-06-03] MEDS ORDERED: ALBUTEROL NEBULIZED 2.5 MG/3 ML INHALATION STA (02:18)
[2018-06-03 06:39] VITALS: BP 125/92; PULSE 60; TEMP 98.2
== END 2018-06-03 03:46 | disposition home or self-care (01) ==
LOC: EC 21:14
DX: J44.9 Chronic obstructive pulmonary disease, unspecified (principal); I48.91 Unspecified atrial fibrillation; I25.10 Atherosclerotic heart disease of native coronary artery without angina pectoris; I11.0 Hypertensive heart disease with heart failure; I50.9 Heart failure, unspecified; E11.9 Type 2 diabetes mellitus without complications; K21.9 Gastro-esophageal reflux disease without esophagitis; E78.5 Hyperlipidemia, unspecified; I10 Essential (primary) hypertension; I25.2 Old myocardial infarction; N40.0 Benign prostatic hyperplasia without lower urinary tract symptoms; Z87.891 Personal history of nicotine dependence; Z79.899 Other long term (current) drug therapy; Z86.73 Personal history of transient ischemic attack (TIA), and cerebral infarction without residual deficits; Z95.5 Presence of coronary angioplasty implant and graft
CPT/HCPCS: 36415; 94640; 93005; 85379; 83880; 80053; 82550; 82553; 84484; 85025; 93970; 71275; 99285; Q9967

== ENCOUNTER 2018-06-03 15:49 | Emergency (ER) | payer OTHER ==
[2018-06-03 15:57] VITALS: BP 165/73; PULSE 108; RESP 20; TEMP 97.4
--- NOTE | 2018-06-03 16:57 | ED ---
General Adult HPI - General Chief complaint: Abdominal Pain Stated complaint: Urogenital Time Seen by Provider: 06/03/18 16:38 Source: patient Mode of arrival: ambulatory Limitations: no limitations - History of Present Illness Initial comments: Patient is a 77-year-old male who presents with a chief complaint of a Jeong catheter issue. The patient states that he was recently placed on a leg bag yesterday and states that this morning he has not had much drainage in his Jeong bag. The patient states that he had a bladder biopsy which necessitated the Jeong catheter. He states that for the last 2 years however he has been straight cathing himself. Patient has mild suprapubic pain, and states that he was having gross hematuria however over the last week is lightened up significantly. He denies fever, chills, back pain. - Related Data Home Medications Medication Instructions Recorded Confirmed Atorvastatin [Lipitor] 80 mg PO HS 02/04/17 06/02/18 Calcium Carbonate 500 mg PO DAILY 02/04/17 06/02/18 Cholecalciferol [Vitamin D3] 800 unit PO DAILY 02/04/17 06/02/18 Ferrous Sulfate [Feosol] 325 mg PO BID 02/04/17 06/02/18 Finasteride [Proscar] 5 mg PO DAILY 02/04/17 06/02/18 Multivitamins, Thera [Multivitamin 1 tab PO DAILY 02/04/17 06/02/18 (formulary)] Tamsulosin [Flomax] 0.8 mg PO DAILY 02/04/17 06/02/18 Omeprazole 20 mg PO DAILY 06/24/17 06/02/18 Ergocalciferol [Vitamin D2 50,000 unit PO SA 03/20/18 06/02/18 (DRISDOL)] Lisinopril [Zestril] 5 mg PO DAILY 05/28/18 06/02/18 Phenyleph/Mineral Oil/Petrolat 1 applic RECTAL BID PRN 05/28/18 06/02/18 [Preparation H Ointment] Sennosides-Docusate Sodium 2 tab PO HS PRN 05/28/18 06/02/18 [Senokot-S] Previous Rx's Medication Instructions Recorded Clopidogrel [Plavix] 75 mg PO DAILY tab 06/21/17 Furosemide [Lasix] 20 mg PO DAILY tab 07/01/17 Nitroglycerin Sl Tabs [Nitrostat] 0.4 mg SUBLINGUAL Q5M PRN #100 tab 03/23/18 Apixaban [Eliquis] 2.5 mg PO BID #0 06/02/18 Ciprofloxacin HCl [Cipro] 500 mg PO Q12HR #10 tablet 06/02/18 Metoprolol Tartrate [Lopressor] 25 mg PO BID #0 06/02/18 Albuterol Inhaler [Ventolin Hfa 1 - 2 puff INHALATION Q6HR PRN #1 06/03/18 Inhaler] inhaler Allergies Allergy/AdvReac Type Severity Reaction Status Date / Time No Known Allergies Allergy Verified 06/03/18 15:57 Review of Systems ROS Statement: Those systems with pertinent positive or pertinent negative responses have been documented in the HPI. ROS Other: All systems not noted in ROS Statement are negative. Gastrointestinal: Reports: abdominal pain Genitourinary: Reports: other (Urinary obstruction) Past Medical History Past Medical History: Atrial Fibrillation, Coronary Artery Disease (CAD), Heart Failure, CVA/TIA, Diabetes Mellitus, GERD/Reflux, Hyperlipidemia, Hypertension, Myocardial Infarction ([place]), Neurologic Disorder, Prostate Disorder Additional Past Medical History / Comment(s): BPH, neurogenic bladder - pt self caths 2-3 times daily at home/some incont, wears briefs, diabetes mellitus which has been diet controlled, MS, Last Myocardial Infarction Date:: 06/25/2017 History of Any Multi-Drug Resistant Organisms: None Reported Past Surgical History: Adenoidectomy, Appendectomy, Heart Catheterization With Stent, Hernia Repair, Tonsillectomy Additional Past Surgical History / Comment(s): RECENT HEART CATH AT [facility] ON 02/02/17: stents were placed in the mid LAD, proximal LAD, and LEFT MAIN (4 stents total). Right hip repair 2011, BIOPSY IN APR 2018 Past Anesthesia/Blood Transfusion Reactions: No Reported Reaction Date of Last Stent Placement:: 02-02-17 Past Psychological History: No Psychological Hx Reported Smoking Status: Former smoker Past Alcohol Use History: Daily Past Drug Use History: None Reported - Past Family History Father Family Medical History: Coronary Artery Disease (CAD), Myocardial Infarction ([place] ) Additional Family Medical History / Comment(s): at age 65 Mother Family Medical History: No Reported History Additional Family Medical History / Comment(s): at age 80 not sure what cause Brother(s) Additional Family Medical History / Comment(s): TWIN BROTHER HAS MS. General Exam Limitations: no limitations General appearance: alert, in no apparent distress Head exam: Present: atraumatic, normocephalic Eye exam: Present: normal appearance ENT exam: Present: normal exam Neck exam: Present: normal inspection Respiratory exam: Present: normal lung sounds bilaterally. Absent: respiratory distress Cardiovascular Exam: Present: regular rate, normal rhythm GI/Abdominal exam: Present: soft, tenderness (Suprapubic). Absent: distended Rectal exam: Present: deferred exam: Present: other (jeong catheter in place ) Extremities exam: Present: normal inspection Back exam: Present: normal inspection Neurological exam: Present: alert, oriented X3 Psychiatric exam: Present: normal affect, normal mood Skin exam: Present: warm, dry, intact Course Vital Signs 06/03/18 15:54 Temperature 97.4 F L Pulse Rate 108 H Respiratory 20 Rate Blood Pressure 165/73 O2 Sat by Pulse 96 Oximetry Medical Decision Making - Medical Decision Making Patient is a chief complaint of a Jeong catheter complication. The patient states that he has not had any output into his Jeong catheter bag and states that he had leakage of urine around his urethra. The patient is requesting to have the Jeong removed and states that he has been straight cathing himself for the last 2 years. Case discussed with Dr. Khan who states that he was willing to let the patient try to straight cath himself developed what he is comfortable with. 6:21 PM Urinalysis shows weak evidence of infection or patient is already taking Keflex. No indication for further antibiotic treatment. Patient states that he would like to have the Jeong removed and continue straight cathing himself. Jeong was removed, patient stable for discharge at this time. He was instructed to follow up with primary care and urology in 1-2 days, return to the ED if symptoms worsen or change. Of note, patient states that he would like to inquire about having home care. He was instructed to follow-up on this issue with his primary care doctor. - Lab Data Lab Results 06/03/18 Range/Units 17:00 Urine Color Light Red Urine Appearance Cloudy (Clear) Urine pH 6.0 (5.0-8.0) Ur Specific [place] 1.050 H (1.001-1.035) Urine Protein 1+ H (Negative) Urine Glucose (UA) Negative (Negative) Urine Ketones Negative (Negative) Urine Blood Large H (Negative) Urine Nitrite Negative (Negative) Urine Bilirubin Negative (Negative) Urine Urobilinogen <2.0 (<2.0) mg/dL Ur Leukocyte Esterase Moderate H (Negative) Urine RBC >182 H (0-5) /hpf Urine WBC 70 H (0-5) /hpf Urine WBC Clumps Occasional H (None) /hpf Ur Squamous Epith Cells 1 (0-4) /hpf Urine Mucus Rare H (None) /hpf Urine Yeast (Budding) Rare H (None) /hpf Disposition Clinical Impression: Urinary obstruction Disposition: HOME SELF-CARE Condition: Good Instructions: Jeong Catheter Removal (DC) Is patient prescribed a controlled substance at d/c from ED?: No Referrals: Rashi Briscoe DO [Primary Care Provider] - 1-2 days
[2018-06-03 17:57] LABS: Appearance,Urine Cloudy (Clear); Bilirubin,Urine Negative (Negative); Blood,Urine Large (Negative); Budding Yeast,Urine Rare /hpf; Color,Urine Light Red; Glucose,Urine (UA) Negative (Negative); Ketones,Urine Negative (Negative); Leukocyte Esterase,Urine Moderate (Negative); Mucus,Urine Rare /hpf; Nitrite,Urine Negative (Negative); Protein,Urine 1+ (Negative); RBC,Urine >182 /hpf (0-5); Squamous Epithelial Cell,Urine 1 /hpf (0-4); Urobilinogen,Urine <2.0 mg/dL (<2.0); WBC,Urine 70 /hpf (0-5)
== END 2018-06-03 18:53 | disposition home or self-care (01) ==
LOC: EC 15:49
DX: N13.9 Obstructive and reflux uropathy, unspecified (principal); N31.9 Neuromuscular dysfunction of bladder, unspecified; R10.30 Lower abdominal pain, unspecified; E78.5 Hyperlipidemia, unspecified; I11.0 Hypertensive heart disease with heart failure; I50.9 Heart failure, unspecified; I25.10 Atherosclerotic heart disease of native coronary artery without angina pectoris; I25.2 Old myocardial infarction; N40.0 Benign prostatic hyperplasia without lower urinary tract symptoms; E11.9 Type 2 diabetes mellitus without complications; K21.9 Gastro-esophageal reflux disease without esophagitis; I48.91 Unspecified atrial fibrillation; Z87.891 Personal history of nicotine dependence; Z79.899 Other long term (current) drug therapy; Z90.49 Acquired absence of other specified parts of digestive tract; Z95.5 Presence of coronary angioplasty implant and graft
CPT/HCPCS: 81001; 99284

== ENCOUNTER 2020-05-07 06:59 | Emergency (ER) | payer MEDICARE ==
[2020-05-07] MEDS ORDERED: SODIUM CHLORIDE 0.9% 1,000 ML IV STA ×2 (07:12)
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
[2020-05-07 07:46] LABS: Basophils % (A) 0 %; Eosinophils % (A) 0 %; HCT 36.4 % (39.0-53.0); HGB 12.5 gm/dL (13.0-17.5); Lymphocytes % (A) 8 %; MCH 29.7 pg (25.0-35.0); MCHC 34.3 g/dL (31.0-37.0); MCV 86.8 fL (80.0-100.0); Mean Platelet Volume 8.9; Monocytes # (A) 1.1 k/uL (0-1.0); Monocytes % (A) 8 %; Neutrophils # (A) 10.2 k/uL (1.3-7.7); Neutrophils % (A) 82 %; Platelet Count 222 k/uL (150-450); RDW 12.9 % (11.5-15.5); WBC 12.5 k/uL (3.8-10.6)
[2020-05-07 07:55] LABS: INR 1.1 (<1.2); Partial Thromboplastin Time 26.1 sec (22.0-30.0); Prothrombin Time 10.8 sec (9.0-12.0)
[2020-05-07 07:58] LABS: ALT 31 U/L (4-49); AST 37 U/L (17-59); African American GFR (CKD) >90 (>60 ml/min/1.73 sqM); Alkaline Phosphatase 73 U/L (38-126); Anion Gap 8 mmol/L; Blood Urea Nitrogen 10 mg/dL (9-20); Calcium 8.5 mg/dL (8.4-10.2); Carbon Dioxide 24 mmol/L (22-30); Chloride 105 mmol/L (98-107); Glucose 120 mg/dL (74-99); Magnesium 1.6 mg/dL (1.6-2.3); Non-African American GFR(CKD) 89 (>60 ml/min/1.73 sqM); Potassium 3.9 mmol/L (3.5-5.1); Sodium 137 mmol/L (137-145); Total Bilirubin 0.7 mg/dL (0.2-1.3); Total Protein 6.1 g/dL (6.3-8.2)
[2020-05-07] MEDS ORDERED: MORPHINE SULFATE 4 MG/ML SYRINGE IVP STA (07:59)
--- NOTE | 2020-05-07 08:27 | XR ---
EXAMINATION TYPE: XR pelvis AP view DATE OF EXAM: 05/07/2020 CLINICAL HISTORY: Left-sided pain from fall injury. TECHNIQUE: A single AP view of the pelvis is obtained. COMPARISON: Pelvic x-ray May 28, 2018 FINDINGS: There is no acute fracture/dislocation evident in the pelvis. The sacroiliac joints appea r symmetric and thought within normal limits. Pubic symphysis remains intact. Mild to moderate acetab ular spurring bilaterally. Fixation hardware proximal right femur redemonstrated. Vascular calcificat ion bilateral pelvis extends into bilateral groin region. IMPRESSION: There is no acute fracture or dislocation in the pelvis.
--- NOTE | 2020-05-07 08:31 | XR ---
EXAMINATION TYPE: XR chest 1V DATE OF EXAM: 05/07/2020 HISTORY: Shortness of breath. COMPARISON: 05/28/2018 TECHNIQUE: Single view of the chest is submitted. FINDINGS: Demonstrated are scattered senescent parenchymal change. There is no evidence for focal infiltrate. The heart is stable. Hilar and mediastinal structures are within normal limits. Degenerative changes are seen of the dorsal spine. IMPRESSION: 1. Chronic changes without evidence for acute pulmonary disease.
--- NOTE | 2020-05-07 08:42 | CT ---
EXAMINATION TYPE: CT brain cspine wo con DATE OF EXAM: 05/07/2020 COMPARISON: CT brain dated 05/28/2018. HISTORY: Fall, confusion, neck pain CT DLP: 1332.4 mGycm. Automated Exposure Control for Dose Reduction was Utilized. TECHNIQUE: CT scan of the head and cervical spine are performed without contrast. FINDINGS: There is no acute intracranial hemorrhage or midline shift identified. Diffuse ventricul ar and sulcal prominence consistent with mild to moderate atrophy. Moderate to severe Low attenuation in the deep and periventricular region is redemonstrated. The globes are intact and the visualized s inuses are clear. The calvarium is intact. Cervical spine is visualized in its entirety from C1 through upper thoracic levels and demonstrates s light grade 1 retrolisthesis C5 on C6 without evidence of acute fracture or dislocation. Prevertebra l soft tissue appears within normal limits. The C1-C2 articulation is within normal limits on the co hanane images. Vertebral body heights are maintained. Mild to moderate disc space narrowing C3-C4 and C5-C6 levels with mild spurring. Mild to moderate spurring and disc space narrowing C6-C7 level. Spi nal canal grossly preserved. Axial images show left greater than right L5 level uncovertebral facet d egenerative changes contributing to neural foraminal narrowing greatest bilateral C4-C5 level. There is fairly moderate calcified plaque bilateral carotid bulb level. [id number] biapical pleural/p arenchymal scarring in the lung apices. IMPRESSION: 1. There is no acute fracture or dislocation evident in the cervical spine. 2. No acute intracranial hemorrhage or midline shift is seen.
[2020-05-07 08:43] VITALS: RESP 16
--- NOTE | 2020-05-07 08:47 | CT ---
EXAMINATION TYPE: CT thor lumbar spine wo con DATE OF EXAM: 05/07/2020 COMPARISON: None. HISTORY: Fall, confusion, back pain CT DLP: 2061.3 mGycm Automated exposure control for dose reduction was used. FINDINGS: Transitional type L6 vertebra incidentally noted. Thoracolumbar spine show slight S-shaped scoliotic curvature on coronal images without evidence of acute fracture or dislocation. [id number] multi level anterior and lateral spurring. There is disc calcification noted at the L1-L2 level. Vertebral body heights are maintained. Mild to moderate disc space narrowing with vacuum disc phenomenon at the L5-L6 level. Spinal canal is grossly preserved. There is old healed fracture of the right posterior lateral left ninth rib image 39. Visualized lungs are grossly clear with respiratory motion artifact degradation. There are severe coronary artery rosalba cification. There is moderate size hiatal hernia. Dependent small stones and/or sludge in gallbladder . Moderate to severe calcified plaque of the abdominal aorta extends into iliac branch vessels. Some diverticula in the sigmoid colon. IMPRESSION: No acute fracture or dislocation in the thoracolumbar spine.
[2020-05-07 08:56] LABS: Amorphous Sediment,Urine Rare /hpf; Appearance,Urine Clear (Clear); Bacteria,Urine Rare /hpf; Bilirubin,Urine Negative (Negative); Blood,Urine Negative (Negative); Color,Urine Yellow; Glucose,Urine (UA) Negative (Negative); Ketones,Urine 1+ (Negative); Leukocyte Esterase,Urine Small (Negative); Mucus,Urine Rare /hpf; Nitrite,Urine Negative (Negative); PH, Urine 6.5 (5.0-8.0); Protein,Urine Trace (Negative); RBC,Urine 1 /hpf (0-5); Specific Gravity,Urine 1.012 (1.001-1.035); Squamous Epithelial Cell,Urine 1 /hpf (0-4); Urobilinogen,Urine <2.0 mg/dL (<2.0); WBC,Urine 7 /hpf (0-5)
[2020-05-07 10:18] VITALS: BP 152/77; PULSE 71; TEMP 98.1
== END 2020-05-07 10:51 | disposition home or self-care (01) ==
LOC: EC 06:59
DX: M54.9 Dorsalgia, unspecified (principal); G35 Multiple sclerosis; I48.91 Unspecified atrial fibrillation; I25.10 Atherosclerotic heart disease of native coronary artery without angina pectoris; I11.0 Hypertensive heart disease with heart failure; I50.9 Heart failure, unspecified; I25.2 Old myocardial infarction; E11.9 Type 2 diabetes mellitus without complications; E78.5 Hyperlipidemia, unspecified; K21.9 Gastro-esophageal reflux disease without esophagitis; Z79.01 Long term (current) use of anticoagulants; Z79.82 Long term (current) use of aspirin; Z79.899 Other long term (current) drug therapy; Z87.891 Personal history of nicotine dependence; Z95.5 Presence of coronary angioplasty implant and graft; Z99.3 Dependence on wheelchair; Z86.73 Personal history of transient ischemic attack (TIA), and cerebral infarction without residual deficits; W06.XXXA Fall from bed, initial encounter
CPT/HCPCS: 36415; 93005; 80053; 83605; 83735; 85025; 85610; 85730; 81001; 87086; 72170; 71045; 72128; 72125; 72131; 70450; 99285; 96374; 96361 ×3; J2270

== ENCOUNTER 2020-05-08 07:15 | Inpatient (IN) | payer OTHER, MEDICARE ==
[2020-05-08] MEDS ORDERED: methylPREDNISolone SOD SUCCI 125 MG/2 ML VIAL IM STA (07:25)
[2020-05-08] MEDS ORDERED: MORPHINE SULFATE 4 MG/ML SYRINGE IV STA (07:25)
--- NOTE | 2020-05-08 07:30 | ED ---
Back Pain HPI - General Chief Complaint: Back Pain/Injury Stated Complaint: Lumbar Pain Time Seen by Provider: 05/08/20 07:15 Source: EMS Limitations: no limitations - History of Present Illness Initial Comments: Patient is a 79-year-old male with a past medical history of MS who presents to the emergency department with continued back pain. Patient was seen in the emergency department yesterday complaining of back pain after he had a fall. Imaging was performed and no fractures were identified. Patient also had CT imaging of his head performed as he is on anticoagulation and could not provide details of the fall. Patient received pain medication while in the emergency department. He was adamant that he wanted to go home. There was concern that the patient would have difficulties getting around at home as he is wheelchair- bound. We attempted to get a hold of the patient's children however he states they are either [id number] or unreliable. We were unable to make contact. The patient remained adamant that he wanted to go home therefore he was given medications for pain control. Patient states that he went home and was taking the medications as directed however had no improvement in his symptoms. He presents today as he remains unable to get around. He stated that all night. Denies any new symptoms include fevers, chills, lower externally weakness. No abdominal pain. No changes in his bowel or bladder habits. No other alleviating, precipitating or modifying factors - Related Data Home Medications Medication Instructions Recorded Confirmed Cholecalciferol [Vitamin D3] 800 unit PO DAILY 02/04/17 05/08/20 Ferrous Sulfate [Feosol] 325 mg PO BID 02/04/17 05/08/20 Finasteride [Proscar] 5 mg PO DAILY 02/04/17 05/08/20 Multivitamins, Thera [Multivitamin 1 tab PO DAILY 02/04/17 05/08/20 (formulary)] Tamsulosin [Flomax] 0.8 mg PO DAILY 02/04/17 05/08/20 Omeprazole 20 mg PO DAILY 06/24/17 05/08/20 Apixaban [Eliquis] 5 mg PO BID 05/07/20 05/08/20 Ascorbic Acid [Vitamin C] 500 mg PO DAILY 05/07/20 05/08/20 Aspirin EC [Ecotrin Low Dose] 81 mg PO DAILY 05/07/20 05/08/20 Metoprolol Tartrate [Lopressor] 50 mg PO BID 05/07/20 05/08/20 Sennosides/Docusate Sodium [Senna 2 tab PO HS PRN 05/07/20 05/08/20 Plus 8.6-50 mg Tablet] haloperidoL [Haldol] 2 mg PO HS 05/07/20 05/08/20 Previous Rx's Medication Instructions Recorded Furosemide [Lasix] 20 mg PO DAILY tab 07/01/17 Acetaminophen-Codeine 300-30mg 1 tab PO Q6H PRN 3 Days #12 tablet 05/12/20 [Tylenol w/codeine #3] Allergies Allergy/AdvReac Type Severity Reaction Status Date / Time No Known Allergies Allergy Verified 05/08/20 13:30 Review of Systems ROS Statement: Those systems with pertinent positive or pertinent negative responses have been documented in the HPI. ROS Other: All systems not noted in ROS Statement are negative. Past Medical History Past Medical History: Atrial Fibrillation, Coronary Artery Disease (CAD), Heart Failure, CVA/TIA, Diabetes Mellitus, GERD/Reflux, Hyperlipidemia, Hypertension, Myocardial Infarction ([place]), Neurologic Disorder, Prostate Disorder Additional Past Medical History / Comment(s): BPH, neurogenic bladder - pt self caths 2-3 times daily at home/some incont, wears briefs, diabetes mellitus which has been diet controlled, MS, Last Myocardial Infarction Date:: 06/25/2017 History of Any Multi-Drug Resistant Organisms: None Reported Past Surgical History: Adenoidectomy, Appendectomy, Heart Catheterization With Stent, Hernia Repair, Tonsillectomy Additional Past Surgical History / Comment(s): RECENT HEART CATH AT [facility] ON 02/02/17: stents were placed in the mid LAD, proximal LAD, and LEFT MAIN (4 stents total). Right hip repair 2011, BIOPSY IN APR 2018 Past Anesthesia/Blood Transfusion Reactions: No Reported Reaction Date of Last Stent Placement:: 02-02-17 Past Psychological History: No Psychological Hx Reported Smoking Status: Former smoker Past Alcohol Use History: Daily Past Drug Use History: None Reported - Past Family History Father Family Medical History: Coronary Artery Disease (CAD), Myocardial Infarction ([place]) Additional Family Medical History / Comment(s): at age 65 Mother Family Medical History: No Reported History Additional Family Medical History / Comment(s): at age 80 not sure what cause Brother(s) Additional Family Medical History / Comment(s): TWIN BROTHER HAS MS. General Exam Limitations: no limitations General appearance: alert, in no apparent distress Eye exam: Present: normal appearance ENT exam: Present: normal exam, mucous membranes moist Neck exam: Present: normal inspection. Absent: tenderness, meningismus, lymphadenopathy Respiratory exam: Present: normal lung sounds bilaterally. Absent: respiratory distress, wheezes, rales, rhonchi, stridor Cardiovascular Exam: Present: regular rate, normal rhythm, normal heart sounds. Absent: systolic murmur, diastolic murmur, rubs, gallop, clicks GI/Abdominal exam: Present: soft, normal bowel sounds. Absent: distended, t enderness, guarding, rebound, rigid Extremities exam: Present: normal inspection, other (atrophy b/l le - 4/5 strength also chronic. No new weakness however painful flexion of b/l hip due to lumbar back pain) Back exam: Present: paraspinal tenderness (lumbar region. Tenderness over right SI joint. No step offs. Positive straight leg on the right. equal sensation over the medial, lateral and dorsal b/l le. 2+ DP and PT pulses bilaterally) Neurological exam: Present: alert, oriented X3, CN II-XII intact Psychiatric exam: Present: flat affect Course Vital Signs 05/08/20 05/08/20 05/08/20 07:16 11:31 14:33 Temperature 99.4 F 98.0 F Pulse Rate 84 97 94 Pulse Rate [ Pulse Oximetery ] Respiratory 16 16 18 Rate Blood Pressure 149/84 148/78 156/82 Blood Pressure [Right Arm] O2 Sat by Pulse 95 97 95 Oximetry 05/08/20 15:00 Temperature 97.7 F Pulse Rate Pulse Rate [ 89 Pulse Oximetery ] Respiratory 18 Rate Blood Pressure Blood Pressure 135/76 [Right Arm] O2 Sat by Pulse 93 L Oximetry Medical Decision Making - Medical Decision Making Upon arrival patient is placed into room 15. A thorough history and physical ex am was performed. Patient does not have any neurologic deficits. Does have pain with flexion of the right hip. IV was established. Pain medications were administered. I reviewed the patient's chart from yesterday. The results are discussed with the patient. Did recommend placement at this time for which the patient did agree to. I called and discussed the case with Dr. Thorpe. I will consult Dr. Kearney from orthopedics. Patient remained in stable condition awaiting a bed on the floor - Lab Data Result diagrams: 05/11/20 06:17 05/11/20 06:17 Lab Results 05/08/20 05/08/20 05/08/20 Range/Units 07:45 07:45 07:45 WBC 13.2 H (3.8-10.6) k/uL RBC 4.38 (4.30-5.90) m/uL Hgb 12.9 L (13.0-17.5) gm/dL Hct 37.8 L (39.0-53.0) % MCV 86.3 (80.0-100.0) fL MCH 29.4 (25.0-35.0) pg MCHC 34.1 (31.0-37.0) g/dL RDW 12.9 (11.5-15.5) % Plt Count 238 (150-450) k/uL MPV 8.8 Neutrophils % 83 % Lymphocytes % 6 % Monocytes % 7 % Eosinophils % 0 % Basophils % 1 % Neutrophils # 11.0 H (1.3-7.7) k/uL Lymphocytes # 0.8 L (1.0-4.8) k/uL Monocytes # 1.0 (0-1.0) k/uL Eosinophils # 0.1 (0-0.7) k/uL Basophils # 0.1 (0-0.2) k/uL Sodium 135 L (137-145) mmol/L Potassium 3.9 (3.5-5.1) mmol/L Chloride 105 (98-107) mmol/L Carbon Dioxide 23 (22-30) mmol/L Anion Gap 7 mmol/L BUN 10 (9-20) mg/dL Creatinine 0.73 (0.66-1.25) mg/dL Est GFR (CKD-EPI)AfAm >90 (>60 ml/min/1.73 sqM) Est GFR (CKD-EPI)NonAf 90 (>60 ml/min/1.73 sqM) Glucose 105 H (74-99) mg/dL Plasma Lactic Acid Robe 1.1 (0.7-2.0) mmol/L Calcium 8.6 (8.4-10.2) mg/dL Total Bilirubin 0.6 (0.2-1.3) mg/dL AST 40 (17-59) U/L ALT 36 (4-49) U/L Alkaline Phosphatase 69 (38-126) U/L C-Reactive Protein 66.9 H (<10.0) mg/L Total Protein 6.1 L (6.3-8.2) g/dL Albumin 2.9 L (3.5-5.0) g/dL Disposition Clinical Impression: Back pain Disposition: ADMITTED IP TO THIS [facility] Condition: Stable Is patient prescribed a controlled substance at d/c from ED?: No Decision to Admit Reason: Admit from EC Decision Date: 05/08/20 Decision Time: 08:49
[2020-05-08 08:05] LABS: Basophils # (A) 0.1 k/uL (0-0.2); Basophils % (A) 1 %; Eosinophils # (A) 0.1 k/uL (0-0.7); Eosinophils % (A) 0 %; HCT 37.8 % (39.0-53.0); HGB 12.9 gm/dL (13.0-17.5); Lymphocytes # (A) 0.8 k/uL (1.0-4.8); Lymphocytes % (A) 6 %; MCH 29.4 pg (25.0-35.0); MCHC 34.1 g/dL (31.0-37.0); MCV 86.3 fL (80.0-100.0); Mean Platelet Volume 8.8; Monocytes % (A) 7 %; Neutrophils % (A) 83 %; Platelet Count 238 k/uL (150-450); RBC 4.38 m/uL (4.30-5.90); RDW 12.9 % (11.5-15.5); WBC 13.2 k/uL (3.8-10.6)
[2020-05-08 08:25] LABS: ALT 36 U/L (4-49); AST 40 U/L (17-59); African American GFR (CKD) >90 (>60 ml/min/1.73 sqM); Albumin 2.9 g/dL (3.5-5.0); Alkaline Phosphatase 69 U/L (38-126); Anion Gap 7 mmol/L; Blood Urea Nitrogen 10 mg/dL (9-20); C Reactive Protein 66.9 mg/L (<10.0); Calcium 8.6 mg/dL (8.4-10.2); Carbon Dioxide 23 mmol/L (22-30); Chloride 105 mmol/L (98-107); Glucose 105 mg/dL (74-99); Non-African American GFR(CKD) 90 (>60 ml/min/1.73 sqM); Potassium 3.9 mmol/L (3.5-5.1); Sodium 135 mmol/L (137-145); Total Bilirubin 0.6 mg/dL (0.2-1.3); Total Protein 6.1 g/dL (6.3-8.2)
[2020-05-08] MEDS ORDERED: NALOXONE 0.4 MG/ML 1 ML VIAL IV PRN (08:50)
--- NOTE | 2020-05-08 10:28 | P.CNOR ---
History of Present Illness - [facility] Consult date: 05/08/20 Consult reason: low back pain History of present illness: Patient is a 79-year-old male with a past medical history of MS who presents to the emergency department with continued back pain. Patient was seen in the emergency department yesterday complaining of back pain after he had a fall. Imaging was performed and no fractures were identified. Patient also had CT imaging of his head performed as he is on anticoagulation and could not provide details of the fall. Patient received pain medication while in the emergency department. He was adamant that he wanted to go home. The patient was subsequently sent home with pain medication. He lives alone and returned to the emergency department as he was not able to ambulate or care for himself. He denies any neurologic deficits to the lower extremities. He denies bowel or bladder dysfunction. He states that his severe low back pain is making it sign ificantly difficult to ambulate. He is being admitted to internal medicine and orthopedics is consulted for spine evaluation. Past Medical History Past Medical History: Atrial Fibrillation, Coronary Artery Disease (CAD), Heart Failure, CVA/TIA, Diabetes Mellitus, GERD/Reflux, Hyperlipidemia, Hypertension, Myocardial Infarction ([place]), Neurologic Disorder, Prostate Disorder Additional Past Medical History / Comment(s): BPH, neurogenic bladder - pt self caths 2-3 times daily at home/some incont, wears briefs, diabetes mellitus which has been diet controlled, MS, Last Myocardial Infarction Date:: 06/25/2017 History of Any Multi-Drug Resistant Organisms: None Reported Past Surgical History: Adenoidectomy, Appendectomy, Heart Catheterization With Stent, Hernia Repair, Tonsillectomy Additional Past Surgical History / Comment(s): RECENT HEART CATH AT [facility] ON 02/02/17: stents were placed in the mid LAD, proximal LAD, and LEFT MAIN (4 stents total). Right hip repair 2011, BIOPSY IN APR 2018 Past Anesthesia/Blood Transfusion Reactions: No Reported Reaction Date of Last Stent Placement:: 02-02-17 Past Psychological History: No Psychological Hx Reported Smoking Status: Former smoker Past Alcohol Use History: Daily Past Drug Use History: None Reported - Past Family History Father Family Medical History: Coronary Artery Disease (CAD), Myocardial Infarction ([place]) Additional Family Medical History / Comment(s): at age 65 Mother Family Medical History: No Reported History Additional Family Medical History / Comment(s): at age 80 not sure what cause Brother(s) Additional Family Medical History / Comment(s): TWIN BROTHER HAS MS. Medications and Allergies Home Medications Medication Instructions Recorded Confirmed Type Cholecalciferol [Vitamin D3] 800 unit PO DAILY 02/04/17 05/07/20 History Ferrous Sulfate [Feosol] 325 mg PO BID 02/04/17 05/07/20 History Finasteride [Proscar] 5 mg PO DAILY 02/04/17 05/07/20 History Multivitamins, Thera [Multivitamin 1 tab PO DAILY 02/04/17 05/07/20 History (formulary)] Tamsulosin [Flomax] 0.8 mg PO DAILY 02/04/17 05/07/20 History Omeprazole 20 mg PO DAILY 06/24/17 05/07/20 History Furosemide [Lasix] 20 mg PO DAILY tab 07/01/17 05/07/20 Rx Acetaminophen-Codeine 300-30mg 1 tab PO Q6H PRN 3 Days #12 tablet 05/07/20 Rx [Tylenol w/codeine #3] Apixaban [Eliquis] 5 mg PO BID 05/07/20 05/07/20 History Ascorbic Acid [Vitamin C] 500 mg PO DAILY 05/07/20 05/07/20 History Aspirin EC [Ecotrin Low Dose] 81 mg PO DAILY 05/07/20 05/07/20 History Metoprolol Tartrate [Lopressor] 50 mg PO BID 05/07/20 05/07/20 History Sennosides/Docusate Sodium [Senna 2 tab PO HS PRN 05/07/20 05/07/20 History Plus 8.6-50 mg Tablet] haloperidoL [Haldol] 2 mg PO HS 05/07/20 05/07/20 History Allergies Allergy/AdvReac Type Severity Reaction Status Date / Time No Known Allergies Allergy Verified 05/07/20 09:41 Physical Examination This is a pleasant 79-year-old male in no acute distress. He is alert and oriented 3. He is evaluated in the emergency department. Exam of the head neck reveal no obvious deformity. He has fairly good cervical spine motion without difficulty or pain. No pain with palpation about cervical spine or paraspinal musculature. Exam of the upper extremities is unremarkable. He has fairly good motion to the elbow, wrist and fingers. Neurovascular status the upper extremities is int act. Exam of the thoracic and lumbar spine reveal no obvious deformity. Skin is intact. No erythema or ecchymosis. There is tenderness with direct palpation to the upper lumbar spine. There is minimal paraspinal musculature tenderness. He is nontender to thoracic spine. Exam the lower extremities reveals no obvious deformity. There is no hip pain with logroll bilaterally. He is able to lift each leg off the bed independently. Straight leg raise is positive on the right producing pain in the low back. Straight leg raise is negative on the left. He has full foot and ankle motion without difficulty or pain. He has +4/5 strength with dorsiflexion and plantarflexion against resistance to both feet. Pedal pulses are +2/4 bilaterally. Neurovascular status to the lower extremities is intact. Results CT of the thoracic and lumbar spine reveal no obvious acute fracture. He has multilevel degenerative disc disease and degenerative arthritis throughout the thoracic and lumbar spine. There is evidence of possibly old mild compression deformities to T11 and T12. - Labs Labs: Abnormal Lab Results - Last 24 Hours (Table) 05/08/20 05/08/20 Range/Units 07:45 07:45 WBC 13.2 H (3.8-10.6) k/uL Hgb 12.9 L (13.0-17.5) gm/dL Hct 37.8 L (39.0-53.0) % Neutrophils # 11.0 H (1.3-7.7) k/uL Lymphocytes # 0.8 L (1.0-4.8) k/uL Sodium 135 L (137-145) mmol/L Glucose 105 H (74-99) mg/dL C-Reactive Protein 66.9 H (<10.0) mg/L Total Protein 6.1 L (6.3-8.2) g/dL Albumin 2.9 L (3.5-5.0) g/dL H & H 05/08/20 Range/Units 07:45 Hgb 12.9 L (13.0-17.5) gm/dL Hct 37.8 L (39.0-53.0) % Result Diagrams: 05/08/20 07:45 05/08/20 07:45 Assessment and Plan (1) Status post fall Current Visit: Yes Status: Acute Code(s): Z91.81 - HISTORY OF FALLING SNOMED Code(s): 390915619 (2) Back pain Current Visit: Yes Status: Acute Code(s): M54.9 - DORSALGIA, UNSPECIFIED SNOMED Code(s): 564461078 (3) Multiple sclerosis Current Visit: No Status: Acute Code(s): G35 - MULTIPLE SCLEROSIS SNOMED Code(s): 99197027 (4) Weakness Current Visit: No Status: Acute Code(s): R53.1 - WEAKNESS SNOMED Code(s): 30951580 Plan: The clinical and radiographic findings are discussed with the patient. I have discussed the case with Dr. Kearney. We will keep him on SoluMedrol 80 mg every 8 hours 3 doses. I will also have pain management evaluate patient. I will consult physical therapy for ambulation and to evaluate and treat for low back pain. We will continue to follow.
--- NOTE | 2020-05-08 10:50 | P.HPIM ---
History of Present Illness Chief Complaint: back pain This is a 79-year-old white male with history of multiple sclerosis emergency room because of continued back pain. Apparently he was in the emergency room yesterday complaining of back pain that has happened after he sustained a fall. Patient continued to feel pain in his back that is moderate in severity. Patient lives by himself and he is chronically lethargic and weak. He has difficulty ambulating secondary to multiple sclerosis. Past Medical History Past Medical History: Atrial Fibrillation, Coronary Artery Disease (CAD), Heart Failure, CVA/TIA, Diabetes Mellitus, GERD/Reflux, Hyperlipidemia, Hypertension, Myocardial Infarction ([place]), Neurologic Disorder, Prostate Disorder Additional Past Medical History / Comment(s): BPH, neurogenic bladder - pt self caths 2-3 times daily at home/some incont, wears briefs, diabetes mellitus which has been diet controlled, MS, Last Myocardial Infarction Date:: 06/25/2017 History of Any Multi-Drug Resistant Organisms: None Reported Past Surgical History: Adenoidectomy, Appendectomy, Heart Catheterization With Stent, Hernia Repair, Tonsillectomy Additional Past Surgical History / Comment(s): RECENT HEART CATH AT [facility] ON 02/02/17: stents were placed in the mid LAD, proximal LAD, and LEFT MAIN (4 stents total). Right hip repair 2011, BIOPSY IN APR 2018 Past Anesthesia/Blood Transfusion Reactions: No Reported Reaction Date of Last Stent Placement:: 02-02-17 Past Psychological History: No Psychological Hx Reported Smoking Status: Former smoker Past Alcohol Use History: Daily Past Drug Use History: None Reported - Past Family History Father Family Medical History: Coronary Artery Disease (CAD), Myocardial Infarction ([place]) Additional Family Medical History / Comment(s): at age 65 Mother Family Medical History: No Reported History Additional Family Medical History / Comment(s): at age 80 not sure what cause Brother(s) Additional Family Medical History / Comment(s): TWIN BROTHER HAS MS. Medications and Allergies Home Medications Medication Instructions Recorded Confirmed Type Cholecalciferol [Vitamin D3] 800 unit PO DAILY 02/04/17 05/07/20 History Ferrous Sulfate [Feosol] 325 mg PO BID 02/04/17 05/07/20 History Finasteride [Proscar] 5 mg PO DAILY 02/04/17 05/07/20 History Multivitamins, Thera [Multivitamin 1 tab PO DAILY 02/04/17 05/07/20 History (formulary)] Tamsulosin [Flomax] 0.8 mg PO DAILY 02/04/17 05/07/20 History Omeprazole 20 mg PO DAILY 06/24/17 05/07/20 History Furosemide [Lasix] 20 mg PO DAILY tab 07/01/17 05/07/20 Rx Acetaminophen-Codeine 300-30mg 1 tab PO Q6H PRN 3 Days #12 tablet 05/07/20 Rx [Tylenol w/codeine #3] Apixaban [Eliquis] 5 mg PO BID 05/07/20 05/07/20 History Ascorbic Acid [Vitamin C] 500 mg PO DAILY 05/07/20 05/07/20 History Aspirin EC [Ecotrin Low Dose] 81 mg PO DAILY 05/07/20 05/07/20 History Metoprolol Tartrate [Lopressor] 50 mg PO BID 05/07/20 05/07/20 History Sennosides/Docusate Sodium [Senna 2 tab PO HS PRN 05/07/20 05/07/20 History Plus 8.6-50 mg Tablet] haloperidoL [Haldol] 2 mg PO HS 05/07/20 05/07/20 History Allergies Allergy/AdvReac Type Severity Reaction Status Date / Time No Known Allergies Allergy Verified 05/07/20 09:41 Physical Exam Vitals: Vital Signs Temp Pulse Resp BP Pulse Ox 05/08/20 07:16 99.4 F 84 16 149/84 95 Intake and Output 05/07/20 05/08/20 05/08/20 22:59 06:59 14:59 Other: Weight 90.718 kg Constitutional: No acute distress, conversant, pleasant Eyes: Anicteric sclerae, moist conjunctiva, no lid-lag, PERRLA ENMT: NC/AT,Oropharynx clear Neck:Supple, FROM, no masses, or JVD, No carotid bruits; No thyromegaly Lungs: Clear to auscultation, Clear to percussion, Normal respiratory effort, no accessory muscle use Cardiovascular: Heart regular in rate and rhythm, No murmurs, gallops, or rubs no peripheral edema Abdominal: Soft Nontender, nom distended, no guarding, no rebound or rigidity, Normoactive bowel sounds No hepatomegaly, No splenomegaly, No palpable mass No abdominal wall hernia noted Skin: Normal temperature, tone, texture, turgor, No induration No subcutaneous nodules, No rash, lesions, No ulcers Extremities:No digital cyanosis No clubbing, Pedal pulses intact and symmetrical Radial pulses intact and symmetrical Normal gait and station, No calf tenderness Psychiatric: Alert and oriented to person, place and time, Appropriate affect Intact judgement Neuro: Muscles Strength 5/5 bilateral upper extremities, 2-3/5 bilateral lower extremities Results CBC & Chem 7: 05/08/20 07:45 05/08/20 07:45 Labs: Abnormal Lab Results - Last 24 Hours (Table) 05/08/20 05/08/20 Range/Units 07:45 07:45 WBC 13.2 H (3.8-10.6) k/uL Hgb 12.9 L (13.0-17.5) gm/dL Hct 37.8 L (39.0-53.0) % Neutrophils # 11.0 H (1.3-7.7) k/uL Lymphocytes # 0.8 L (1.0-4.8) k/uL Sodium 135 L (137-145) mmol/L Glucose 105 H (74-99) mg/dL C-Reactive Protein 66.9 H (<10.0) mg/L Total Protein 6.1 L (6.3-8.2) g/dL Albumin 2.9 L (3.5-5.0) g/dL Assessment and Plan Plan: 1. Acute on chronic back pain status post mechanical fall: Appreciate orthopedic input, patient was started on Solu-Medrol, continue pain control as indicated. Consult physical therapy/occupational therapy. 2. History of congestive heart failure, chronic unknown systolic or diastolic, monitor. Oral Lasix 3. Coronary disease without evidence of acute coronary syndrome: Continue outpatient medications, aspirin and metoprolol 4. BPH: Continue Flomax and finasteride 5. GERD without esophagitis: Continue PPI 6. History of chronic atrial fibrillation: On Eliquis and metoprolol 7. 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 Weakness: Consult PT/OT Disposition: Pending clinical progression
[2020-05-08] MEDS: MORPHINE SULFATE 4 MG/ML SYRINGE IV PRN ×2 (11:58→16:28)
[2020-05-08] MEDS: methylPREDNISolone SOD SUCCI 125 MG/2 ML VIAL IV SCH (16:28)
[2020-05-08] MEDS: METOPROLOL TARTRATE 50 MG TAB PO SCH (22:02)
[2020-05-08] MEDS: APIXABAN 5 MG TAB PO SCH (22:03)
[2020-05-08 22:07] LABS: Glucose,Whole Blood 142 mg/dL (75-99)
[2020-05-09] MEDS: methylPREDNISolone SOD SUCCI 125 MG/2 ML VIAL IV SCH ×2 (00:03→08:31)
[2020-05-09 06:30] LABS: Glucose,Whole Blood 148 mg/dL (75-99)
[2020-05-09] MEDS: PANTOPRAZOLE 40 MG TABLET PO SCH (06:33)
[2020-05-09] MEDS: APIXABAN 5 MG TAB PO SCH ×2 (08:30→21:29)
[2020-05-09] MEDS: FUROSEMIDE 20 MG TAB PO SCH (08:30)
[2020-05-09] MEDS: MULTIVITAMINS, THERA 1 EACH TAB PO SCH (08:30)
[2020-05-09] MEDS: TAMSULOSIN 0.4 MG CAP.ER.24H PO SCH (08:30)
[2020-05-09] MEDS: ASPIRIN 81 MG PO SCH (08:30)
[2020-05-09] MEDS: CHOLECALCIFEROL 400 UNIT TAB PO SCH (08:31)
[2020-05-09] MEDS: METOPROLOL TARTRATE 50 MG TAB PO SCH ×2 (08:31→21:29)
[2020-05-09] MEDS: FINASTERIDE 5 MG TAB PO SCH (08:32)
--- NOTE | 2020-05-09 09:15 | P.PN ---
Subjective Progress Note Date: 05/09/20 Principal diagnosis: Intractable low back pain. Status post fall. Patient is a 79-year-old male with a past medical history of MS who presents to the emergency department with continued back pain. Patient was seen in the emergency department yesterday complaining of back pain after he had a fall. Imaging was performed and no fractures were identified. Patient also had CT sudhir ging of his head performed as he is on anticoagulation and could not provide details of the fall. Patient received pain medication while in the emergency department. He was adamant that he wanted to go home. The patient was subsequently sent home with pain medication. He lives alone and returned to the emergency department as he was not able to ambulate or care for himself. He denies any neurologic deficits to the lower extremities. He denies bowel or bladder dysfunction. He states that his severe low back pain is making it significantly difficult to ambulate. He is being admitted to internal medicine and orthopedics is consulted for spine evaluation. 05/09/2020: The patient continues to have pain. He has a bit agitated this morning. He has not yet been evaluated by physical therapy. Vital signs are stable. Objective - Vital Signs Vital signs: Vital Signs Temp 98.3 F 05/09/20 08:39 Pulse 71 05/09/20 08:39 Resp 18 05/09/20 08:39 BP 135/64 05/09/20 08:39 Pulse Ox 93 L 05/09/20 08:39 Intake & Output 05/08/20 05/09/20 05/09/20 18:59 06:59 18:59 Intake Total 200 Output Total 300 Balance -100 Weight 90.718 kg Intake: Oral 200 Output: Urine 300 Other: Voiding Method Self-Catheterization Self-Catheterization # Voids 1 - Exam This is a 79-year-old male in no acute distress. He is alert and oriented. He is agitated. He is able to move in bed without too much difficulty. He is able lift each leg off the bed independently. No hip pain with logroll. Full foot and ankle motion bilaterally. Neurovascular status to the lower extremities is intact. - Labs CBC & Chem 7: 05/08/20 07:45 05/08/20 07:45 Labs: Abnormal Lab Results - Last 24 Hours (Table) 05/08/20 05/09/20 Range/Units 22:02 06:29 POC Glucose (mg/dL) 142 H 148 H (75-99) mg/dL Assessment and Plan (1) Status post fall Current Visit: Yes Status: Acute Code(s): Z91.81 - HISTORY OF FALLING SNOMED Code(s): 285245513 (2) Back pain Current Visit: Yes Status: Acute Code(s): M54.9 - DORSALGIA, UNSPECIFIED SNOMED Code(s): 519563400 (3) Multiple sclerosis Current Visit: No Status: Acute Code(s): G35 - MULTIPLE SCLEROSIS SNOMED Code(s): 66121528 (4) Weakness Current Visit: No Status: Acute Code(s): R53.1 - WEAKNESS SNOMED Code(s): 00227198 Plan: The clinical and radiographic findings are discussed with the patient. Await evaluation with physical therapy. I will order MRI of the lumbar spine today. Continue current care.
[2020-05-09] MEDS: MORPHINE SULFATE 4 MG/ML SYRINGE IV PRN (09:27)
[2020-05-09 09:41] LABS: Basophils % (A) 0 %; Eosinophils % (A) 0 %; HCT 41.1 % (39.0-53.0); HGB 13.3 gm/dL (13.0-17.5); Lymphocytes # (A) 0.8 k/uL (1.0-4.8); Lymphocytes % (A) 5 %; MCH 28.5 pg (25.0-35.0); MCHC 32.4 g/dL (31.0-37.0); MCV 87.9 fL (80.0-100.0); Monocytes # (A) 0.6 k/uL (0-1.0); Monocytes % (A) 4 %; Neutrophils # (A) 16.3 k/uL (1.3-7.7); Neutrophils % (A) 91 %; Platelet Count 348 k/uL (150-450); RBC 4.68 m/uL (4.30-5.90); RDW 13.4 % (11.5-15.5); WBC 17.9 k/uL (3.8-10.6)
[2020-05-09 09:59] LABS: ALT 45 U/L (4-49); AST 47 U/L (17-59); African American GFR (CKD) >90 (>60 ml/min/1.73 sqM); Albumin 3.1 g/dL (3.5-5.0); Alkaline Phosphatase 69 U/L (38-126); Anion Gap 6 mmol/L; Blood Urea Nitrogen 20 mg/dL (9-20); Calcium 9.2 mg/dL (8.4-10.2); Carbon Dioxide 24 mmol/L (22-30); Chloride 109 mmol/L (98-107); Glucose 155 mg/dL (74-99); Non-African American GFR(CKD) 89 (>60 ml/min/1.73 sqM); Potassium 4.1 mmol/L (3.5-5.1); Sodium 139 mmol/L (137-145); Total Bilirubin 0.5 mg/dL (0.2-1.3); Total Protein 6.5 g/dL (6.3-8.2)
--- NOTE | 2020-05-09 10:35 | P.PN ---
Subjective Progress Note Date: 05/09/20 Feels o k, pain is better , no cp no n/v no dizziness Objective - Vital Signs Vital signs: Vital Signs Temp 98.3 F 05/09/20 08:39 Pulse 71 05/09/20 08:39 Resp 18 05/09/20 08:39 BP 135/64 05/09/20 08:39 Pulse Ox 93 L 05/09/20 08:39 Intake & Output 05/08/20 05/09/20 05/09/20 18:59 06:59 18:59 Intake Total 200 Output Total 300 Balance -100 Weight 90.718 kg Intake: Oral 200 Output: Urine 300 Other: Voiding Method Self-Catheterization Self-Catheterization # Voids 1 - Exam Constitutional: No acute distress, conversant, pleasant Eyes: Anicteric sclerae, moist conjunctiva, no lid-lag, PERRLA ENMT: NC/AT,Oropharynx clear Neck:Supple, FROM, no masses, or JVD, No carotid bruits; No thyromegaly Lungs: Clear to auscultation, Clear to percussion, Normal respiratory effort, no accessory muscle use Cardiovascular: Heart regular in rate and rhythm, No murmurs, gallops, or rubs no peripheral edema Abdominal: Soft Nontender, nom distended, no guarding, no rebound or rigidity, Normoactive bowel sounds No hepatomegaly, No splenomegaly, No palpable mass No abdominal wall hernia noted Skin: Normal temperature, tone, texture, turgor, No induration No subcutaneous nodules, No rash, lesions, No ulcers Extremities:No digital cyanosis No clubbing, Pedal pulses intact and symmetrical Radial pulses intact and symmetrical Normal gait and station, No calf tenderness Psychiatric: Alert and oriented to person, place and time, Appropriate affect Intact judgement Neuro: lower ext weakness - Labs CBC & Chem 7: 05/09/20 09:19 05/09/20 09:19 Labs: Abnormal Lab Results - Last 24 Hours (Table) 05/08/20 05/09/20 05/09/20 Range/Units 22:02 06:29 09:19 WBC 17.9 H (3.8-10.6) k/uL Neutrophils # 16.3 H (1.3-7.7) k/uL Lymphocytes # 0.8 L (1.0-4.8) k/uL Chloride (98-107) mmol/L Glucose (74-99) mg/dL POC Glucose (mg/dL) 142 H 148 H (75-99) mg/dL Albumin (3.5-5.0) g/dL 05/09/20 Range/Units 09:19 WBC (3.8-10.6) k/uL Neutrophils # (1.3-7.7) k/uL Lymphocytes # (1.0-4.8) k/uL Chloride 109 H (98-107) mmol/L Glucose 155 H (74-99) mg/dL POC Glucose (mg/dL) (75-99) mg/dL Albumin 3.1 L (3.5-5.0) g/dL Assessment and Plan Plan: 1. Acute on chronic back pain status post mechanical fall: Appreciate orthopedic input, patient was started on Solu-Medrol, continue pain control as indicated. Consult physical therapy/occupational therapy.Spine MRI 2. History of congestive heart failure, chronic unknown systolic or diastolic, monitor. Oral Lasix 3. Coronary disease without evidence of acute coronary syndrome: Continue outpatient medications, aspirin and metoprolol 4. BPH: Continue Flomax and finasteride 5. GERD without esophagitis: Continue PPI 6. History of chronic atrial fibrillation: On Eliquis and metoprolol 7. 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 Weakness: Consult PT/OT, input appreciated Disposition: Pending clinical progression, likely needs rehab
--- NOTE | 2020-05-09 13:12 | P.CNOR ---
History of Present Illness - [facility] Consult date: 05/09/20 Consult reason: low back pain History of present illness: Patient is a 79-year-old male who is a nonambulator over the past 12 years. He has a history of MS and apparently had been working until he was 67 years old but after that time is no longer been working in no longer been able to ambulate. He uses a wheelchair at home. He lives by himself. He does not drive. He transfers himself up to a wheelchair and is able get around his home. Over the past 2 weeks he's been having some increased pain in his back and somewhat down his left leg. He said that this pain is new for him and his back and his lower extremity. He is somewhat of a poor historian. He says that a week ago he had a very slight fall but it was nothing significant wear he does, slid from a chair had to put his hand out and braced himself as he landed on his bottom. He said that he was having pain before that happened. He does not have any new deficits since that happened. He has bilateral lower extremity deficits with trying to mobilize. He has some weakness in his lower extremities present sure of what type of weakness. He denies any changes in bowel bladder function. He was seen yesterday by Annel blanton our physician assistant property manager and I reviewed the images yesterday as well. I am and agreement with her assessment plan history and physical and evaluation. Review of Systems As stated above. Patient is not ambulatory for over the past decade. He transfers himself to wheelchair. He lives by himself. He had a very slight fall about a week ago but was having pain for the past 2 weeks in his lower back and into his lower extremity is worse on the left than the right. He has a history of MS. Past Medical History Past Medical History: Atrial Fibrillation, Coronary Artery Disease (CAD), Heart Failure, CVA/TIA, Diabetes Mellitus, GERD/Reflux, Hyperlipidemia, Hypertension, Myocardial Infarction (MT), Neurologic Disorder, Prostate Disorder Additional Past Medical History / Comment(s): BPH, neurogenic bladder - pt self caths 2-3 times daily at home/some incont, wears briefs, diabetes mellitus which has been diet controlled, MS, Last Myocardial Infarction Date:: 06/25/2017 History of Any Multi-Drug Resistant Organisms: None Reported Past Surgical History: Adenoidectomy, Appendectomy, Heart Catheterization With Stent, Hernia Repair, Tonsillectomy Additional Past Surgical History / Comment(s): RECENT HEART CATH AT [facility] ON 02/02/17: stents were placed in the mid LAD, proximal LAD, and LEFT MAIN (4 stents total). Right hip repair 2011, BIOPSY IN APR 2018 Past Anesthesia/Blood Transfusion Reactions: No Reported Reaction Date of Last Stent Placement:: 02-02-17 Past Psychological History: No Psychological Hx Reported Additional Psychological History / Comment(s): lives with his brother mariam. uses electric scooter when outside the home and w/c in the house. receives no home care services. Smoking Status: Never smoker Past Alcohol Use History: Daily Additional Past Alcohol Use History / Comment(s): started smoking in 1964 and quit 1989, smoked 1 ppd. quit drinking 2009 used to have 2 drinks per day Past Drug Use History: None Reported - Past Family History Father Family Medical History: Coronary Artery Disease (CAD), Myocardial Infarction (MT) Additional Family Medical History / Comment(s): at age 65 Mother Family Medical History: No Reported History Additional Family Medical History / Comment(s): at age 80 not sure what cause Brother(s) Additional Family Medical History / Comment(s): TWIN BROTHER HAS MS. Medications and Allergies Home Medications Medication Instructions Recorded Confirmed Type Cholecalciferol [Vitamin D3] 800 unit PO DAILY 02/04/17 05/08/20 History Ferrous Sulfate [Feosol] 325 mg PO BID 02/04/17 05/08/20 History Finasteride [Proscar] 5 mg PO DAILY 02/04/17 05/08/20 History Multivitamins, Thera [Multivitamin 1 tab PO DAILY 02/04/17 05/08/20 History (formulary)] Tamsulosin [Flomax] 0.8 mg PO DAILY 02/04/17 05/08/20 History Omeprazole 20 mg PO DAILY 06/24/17 05/08/20 History Furosemide [Lasix] 20 mg PO DAILY tab 07/01/17 05/08/20 Rx Acetaminophen-Codeine 300-30mg 1 tab PO Q6H PRN 3 Days #12 tablet 05/07/20 05/08/20 Rx [Tylenol w/codeine #3] Apixaban [Eliquis] 5 mg PO BID 05/07/20 05/08/20 History Ascorbic Acid [Vitamin C] 500 mg PO DAILY 05/07/20 05/08/20 History Aspirin EC [Ecotrin Low Dose] 81 mg PO DAILY 05/07/20 05/08/20 History Metoprolol Tartrate [Lopressor] 50 mg PO BID 05/07/20 05/08/20 History Sennosides/Docusate Sodium [Senna 2 tab PO HS PRN 05/07/20 05/08/20 History Plus 8.6-50 mg Tablet] haloperidoL [Haldol] 2 mg PO HS 05/07/20 05/08/20 History Allergies Allergy/AdvReac Type Severity Reaction Status Date / Time No Known Allergies Allergy Verified 05/08/20 13:30 Physical Examination Osteopathic Statement: *. No significant issues noted on an osteopathic structural exam other than those noted in the History and Physical/Consult. - L Spine: dermatomal strength & reflexes bilateral Strength: hip flexion: 4/5 (His back is nontender. There is no open wounds lacerations or abrasions. His lower extremities he has some weakness of his left globally particular dorsiflexion plantarflexion with 3 out of 5 dorsiflexion and plantarflexion. Otherwise he essentially has 4 out of 5 at his hips knees and ankles and) Results - Labs Labs: Abnormal Lab Results - Last 24 Hours (Table) 05/08/20 05/09/20 05/09/20 Range/Units 22:02 06:29 09:19 WBC 17.9 H (3.8-10.6) k/uL Neutrophils # 16.3 H (1.3-7.7) k/uL Lymphocytes # 0.8 L (1.0-4.8) k/uL Chloride (98-107) mmol/L Glucose (74-99) mg/dL POC Glucose (mg/dL) 142 H 148 H (75-99) mg/dL Albumin (3.5-5.0) g/dL 05/09/20 Range/Units 09:19 WBC (3.8-10.6) k/uL Neutrophils # (1.3-7.7) k/uL Lymphocytes # (1.0-4.8) k/uL Chloride 109 H (98-107) mmol/L Glucose 155 H (74-99) mg/dL POC Glucose (mg/dL) (75-99) mg/dL Albumin 3.1 L (3.5-5.0) g/dL H & H 05/08/20 05/09/20 Range/Units 07:45 09:19 Hgb 12.9 L 13.3 (13.0-17.5) gm/dL Hct 37.8 L 41.1 (39.0-53.0) % Result Diagrams: 05/09/20 09:19 05/09/20 09:19 - Diagnostic results CT Scan - lumbar: report reviewed, image reviewed (Computed tomography scan his thoracic and lumbar spines reviewed. There are some diffuse degenerative changes. There may be a small superior endplate compression fracture at T11. The report was read as negative. He does not have significant ankylosis collapse or instability.) Assessment and Plan Assessment: Long history of MS Nonambulator over the past 12 years New low back pain over the past 2 weeks with bilateral lower extremity symptoms worse on the left than the right Possible T11 superior endplate compression fracture low energy fall approximately 1 week ago Plan: Long history of MS Nonambulator over the past 12 years New low back pain over the past 2 weeks with bilateral lower extremity symptoms worse on the left than the right Possible T11 superior endplate compression fracture low energy fall approximately 1 week ago The patient has new low back pain and some issues and his lower extremities. He has long history of issues with his MS and is a nonambulator. He feels his symptoms at his back and his left leg are somewhat new for him. He is not having significant benefit despite pain medication and steroid use. I think he has been treated appropriately thus far. With his lack of improvement acutely I think that further imaging is worthwhile. We will order a new MRI for him and it is pending for his low back. I think it would be worthwhile to have a management see him in case an original pain management may be helpful. There may be a superior endplate compression deformity at T11. The initial computed tomography scan was read as negative but the MRI would help delineate that even if we are only able to see sagittal views. I don't think that he needs acute bracing for his low back as he is able to move his back fairly well today. Although he may require brace if the MRI shows more information about the T11 space. Continue following him along with you.
--- NOTE | 2020-05-09 16:04 | MR ---
EXAMINATION TYPE: MR lumbar spine wo con DATE OF EXAM: 05/09/2020 COMPARISON: None HISTORY: Acute low back pain, recent fall CONTRAST: 0 mL intravenous Gadavist. TECHNIQUE: Multiplanar, multisequence images of the lumbar spine were acquired. FINDINGS: L5-S1: No significant disc bulge or disc herniation. No spinal canal stenosis. No foraminal stenosi s. . L4-L5: Mild broad-based disc bulge is present with anterior thecal sac flattening. No AP spinal canal stenosis present. Facet hypertrophy is present slightly greater on the left. There is moderate right foraminal narrowing due to disc bulging. Right foramen is patent. Disc space narrowing is present. L3-L4: No significant disc bulge or disc herniation. No spinal canal stenosis. No foraminal stenosi s. Mild facet hypertrophy is present.. L2-L3: No significant disc bulge or disc herniation. No spinal canal stenosis. No foraminal stenosi s. Facet hypertrophy is present.. L1-L2: No significant disc bulge or disc herniation. No spinal canal stenosis. No foraminal stenosi s. . T12-L1: No significant disc bulge or disc herniation. No spinal canal stenosis. No foraminal stenos is. . No acute osseous abnormality is evident. Some degenerative endplate changes are present. IMPRESSION: 1. Mild broad-based disc bulge with anterior thecal sac flattening L5-S1. 2. Facet hypertrophy left L4-5 and mildly at L3-4 and L2-3
[2020-05-09 20:42] LABS: Glucose,Whole Blood 172 mg/dL (75-99)
[2020-05-10] MEDS: MORPHINE SULFATE 4 MG/ML SYRINGE IV PRN ×2 (06:17→14:30)
[2020-05-10] MEDS: PANTOPRAZOLE 40 MG TABLET PO SCH (06:18)
[2020-05-10] MEDS: FUROSEMIDE 20 MG TAB PO SCH (08:52)
[2020-05-10] MEDS: ASPIRIN 81 MG PO SCH (08:52)
[2020-05-10] MEDS: METOPROLOL TARTRATE 50 MG TAB PO SCH ×2 (08:52→21:14)
[2020-05-10] MEDS: MULTIVITAMINS, THERA 1 EACH TAB PO SCH (08:52)
[2020-05-10] MEDS: TAMSULOSIN 0.4 MG CAP.ER.24H PO SCH (08:52)
[2020-05-10] MEDS: APIXABAN 5 MG TAB PO SCH ×2 (08:53→21:14)
[2020-05-10] MEDS: FINASTERIDE 5 MG TAB PO SCH (08:54)
[2020-05-10 10:33] LABS: Basophils % (A) 0 %; Eosinophils % (A) 0 %; HCT 37.8 % (39.0-53.0); HGB 12.5 gm/dL (13.0-17.5); Lymphocytes # (A) 1.5 k/uL (1.0-4.8); Lymphocytes % (A) 7 %; MCH 28.9 pg (25.0-35.0); MCHC 33.2 g/dL (31.0-37.0); Monocytes # (A) 1.5 k/uL (0-1.0); Monocytes % (A) 7 %; Neutrophils # (A) 18.3 k/uL (1.3-7.7); Neutrophils % (A) 85 %; Platelet Count 341 k/uL (150-450); RBC 4.35 m/uL (4.30-5.90); RDW 12.8 % (11.5-15.5); WBC 21.5 k/uL (3.8-10.6)
--- NOTE | 2020-05-10 10:35 | P.PN ---
Subjective Progress Note Date: 05/10/20 Principal diagnosis: Intractable low back pain. Status post fall. Patient is a 79-year-old male with a past medical history of MS who presents to the emergency department with continued back pain. Patient was seen in the emergency department yesterday complaining of back pain after he had a fall. Imaging was performed and no fractures were identified. Patient also had CT sudhir ging of his head performed as he is on anticoagulation and could not provide details of the fall. Patient received pain medication while in the emergency department. He was adamant that he wanted to go home. The patient was subsequently sent home with pain medication. He lives alone and returned to the emergency department as he was not able to ambulate or care for himself. He denies any neurologic deficits to the lower extremities. He denies bowel or bladder dysfunction. He states that his severe low back pain is making it significantly difficult to ambulate. He is being admitted to internal medicine and orthopedics is consulted for spine evaluation. 05/10/2020: The patient is feelingt a little better today. He continues to have mid to low back pain and states that he has not yet been up with physical therapy. His MRI reveals no acute fractures. 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 T11 is not visualized on the MRI. He has no new complaints today. Vital signs are stable. Objective - Vital Signs Vital signs: Vital Signs Temp 98.0 F 05/10/20 03:00 Pulse 58 L 05/10/20 03:00 Resp 18 05/10/20 03:00 BP 155/70 05/10/20 03:00 Pulse Ox 96 05/10/20 03:00 Intake & Output 05/09/20 05/10/20 05/10/20 18:59 06:59 18:59 Intake Total 1280 Balance 1280 Intake: Oral 1280 Other: Voiding Method Self-Catheterization Self-Catheterization # Voids 1 1 - Exam This is a 79-year-old male in no acute distress. He is alert and oriented. His mood is improved today. He is able to move in bed without too much difficulty. He continues to have pain on palpation about the lower thoracic and upper to mid lumbar spine. He is able lift each leg off the bed independently. No hip pain with logroll. Full foot and ankle motion bilaterally. Neurovascular status to the lower extremities is intact. - Labs CBC & Chem 7: 05/09/20 09:19 05/09/20 09:19 Labs: Abnormal Lab Results - Last 24 Hours (Table) 05/09/20 Range/Units 20:40 POC Glucose (mg/dL) 172 H (75-99) mg/dL Assessment and Plan (1) Status post fall Current Visit: Yes Status: Acute Code(s): Z91.81 - HISTORY OF FALLING SNOMED Code(s): 538112527 (2) Back pain Current Visit: Yes Status: Acute Code(s): M54.9 - DORSALGIA, UNSPECIFIED SNOMED Code(s): 371596970 (3) Multiple sclerosis Current Visit: No Status: Acute Code(s): G35 - MULTIPLE SCLEROSIS SNOMED Code(s): 82805017 (4) Weakness Current Visit: No Status: Acute Code(s): R53.1 - WEAKNESS SNOMED Code(s): 86765234 Plan: The clinical and radiographic findings are discussed with the patient. I have discussed the case with Dr. Kearney. I will order an upright thoracic spine x-ray for further evaluation of T11. I've also consulted pain management for evaluation.
--- NOTE | 2020-05-10 10:46 | XR ---
EXAMINATION TYPE: XR thoracic spine complete DATE OF EXAM: 05/10/2020 CLINICAL HISTORY: Back pain. TECHNIQUE: Frontal, lateral, and swimmer's view of thoracic spine are obtained. COMPARISON: CT thoracolumbar spine 3 days ago. FINDINGS: Thoracic spine show slight scoliotic curvature on the frontal view and straightening of spi ne on lateral view. Osseous structures are demineralized making evaluation suboptimal. Mild height loss superior endplates lower thoracic spine redemonstrated. No new acute displaced fracture. Vascula r calcification overlying aorta redemonstrated. Mild to moderate multilevel anterior spurring in the lower thoracic spine redemonstrated. IMPRESSION: As above.
[2020-05-10 10:48] LABS: ALT 47 U/L (4-49); AST 54 U/L (17-59); African American GFR (CKD) >90 (>60 ml/min/1.73 sqM); Albumin 2.8 g/dL (3.5-5.0); Alkaline Phosphatase 58 U/L (38-126); Anion Gap 4 mmol/L; Blood Urea Nitrogen 29 mg/dL (9-20); Carbon Dioxide 27 mmol/L (22-30); Chloride 107 mmol/L (98-107); Glucose 186 mg/dL (74-99); Non-African American GFR(CKD) 82 (>60 ml/min/1.73 sqM); Potassium 3.9 mmol/L (3.5-5.1); Sodium 138 mmol/L (137-145); Total Bilirubin 0.5 mg/dL (0.2-1.3); Total Protein 5.9 g/dL (6.3-8.2)
--- NOTE | 2020-05-10 11:33 | P.PN ---
Subjective Progress Note Date: 05/10/20 Feels better, pain is better , no cp no n/v no dizziness . In bed not in distress Objective - Vital Signs Vital signs: Vital Signs Temp 97.9 F 05/10/20 09:00 Pulse 79 05/10/20 09:00 Resp 18 05/10/20 09:00 BP 128/60 05/10/20 09:00 Pulse Ox 94 L 05/10/20 09:00 Intake & Output 05/09/20 05/10/20 05/10/20 18:59 06:59 18:59 Intake Total 1280 240 Balance 1280 240 Intake: Oral 1280 240 Other: Voiding Method Self-Catheterization Self-Catheterization Self-Catheterization # Voids 1 1 1 - Exam Constitutional: No acute distress, conversant, pleasant Eyes: Anicteric sclerae, moist conjunctiva, no lid-lag, PERRLA ENMT: NC/AT Neck:Supple, FROM, no masses Lungs: Clear to auscultation, Clear to percussion, Normal respiratory effort, no accessory muscle use Cardiovascular: Heart regular in rate and rhythm, No murmurs, gallops, or rubs no peripheral edema Abdominal: Soft Nontender, nom distended, no guarding, no rebound or rigidity, Normoactive bowel sounds No hepatomegaly, No splenomegaly, No palpable mass No abdominal wall hernia noted Skin: Normal temperature, tone, texture, turgor, No induration No subcutaneous nodules, No rash, lesions, No ulcers Extremities:No digital cyanosis No clubbing, Pedal pulses intact and symm etrical Radial pulses intact and symmetrical Normal gait and station, No calf tenderness Psychiatric: Alert and oriented to person, place and time, Appropriate affect Intact judgement Neuro: lower ext weakness - Labs CBC & Chem 7: 05/10/20 09:59 05/10/20 09:59 Labs: Abnormal Lab Results - Last 24 Hours (Table) 05/09/20 05/10/20 05/10/20 Range/Units 20:40 09:59 09:59 WBC 21.5 H (3.8-10.6) k/uL Hgb 12.5 L (13.0-17.5) gm/dL Hct 37.8 L (39.0-53.0) % Neutrophils # 18.3 H (1.3-7.7) k/uL Monocytes # 1.5 H (0-1.0) k/uL BUN 29 H (9-20) mg/dL Glucose 186 H (74-99) mg/dL POC Glucose (mg/dL) 172 H (75-99) mg/dL Total Protein 5.9 L (6.3-8.2) g/dL Albumin 2.8 L (3.5-5.0) g/dL Assessment and Plan Plan: 1. Acute on chronic back pain status post mechanical fall: Appreciate orthopedic input, patient was started on Solu-Medrol, continue pain control as indicated. Consult physical therapy/occupational therapy.Spine MRI and spine xray , pain management consulted , continue pain control for now 2. History of congestive heart failure, chronic unknown systolic or diastolic, monitor. Oral Lasix 3. Coronary disease without evidence of acute coronary syndrome: Continue outpatient medications, aspirin and metoprolol 4. BPH: Continue Flomax and finasteride 5. GERD without esophagitis: Continue PPI 6. History of chronic atrial fibrillation: On Eliquis and metoprolol 7. 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 Weakness: Consult PT/OT, input appreciated 9. leukocytosis : likely 2/2 steroids , monitor Disposition: Pending clinical progression, to Rehab likely Tuesday after pain management consult
[2020-05-10] MEDS: CHOLECALCIFEROL 400 UNIT TAB PO SCH (13:55)
[2020-05-11] MEDS: MORPHINE SULFATE 4 MG/ML SYRINGE IV PRN (04:42)
[2020-05-11] MEDS: PANTOPRAZOLE 40 MG TABLET PO SCH (06:16)
[2020-05-11 06:39] LABS: Basophils % (A) 0 %; Eosinophils # (A) 0.1 k/uL (0-0.7); Eosinophils % (A) 1 %; HCT 39.8 % (39.0-53.0); HGB 13.3 gm/dL (13.0-17.5); Lymphocytes # (A) 1.9 k/uL (1.0-4.8); Lymphocytes % (A) 14 %; MCH 29.1 pg (25.0-35.0); MCHC 33.4 g/dL (31.0-37.0); MCV 87.2 fL (80.0-100.0); Mean Platelet Volume 8.7; Monocytes # (A) 1.3 k/uL (0-1.0); Monocytes % (A) 9 %; Neutrophils % (A) 74 %; Platelet Count 322 k/uL (150-450); RBC 4.56 m/uL (4.30-5.90); RDW 12.8 % (11.5-15.5); WBC 13.6 k/uL (3.8-10.6)
[2020-05-11 07:20] LABS: ALT 54 U/L (4-49); AST 53 U/L (17-59); African American GFR (CKD) >90 (>60 ml/min/1.73 sqM); Albumin 2.8 g/dL (3.5-5.0); Alkaline Phosphatase 63 U/L (38-126); Anion Gap 3 mmol/L; Blood Urea Nitrogen 25 mg/dL (9-20); Calcium 8.8 mg/dL (8.4-10.2); Carbon Dioxide 31 mmol/L (22-30); Chloride 105 mmol/L (98-107); Glucose 95 mg/dL (74-99); Non-African American GFR(CKD) 83 (>60 ml/min/1.73 sqM); Potassium 4.5 mmol/L (3.5-5.1); Sodium 139 mmol/L (137-145); Total Bilirubin 0.6 mg/dL (0.2-1.3)
--- NOTE | 2020-05-11 08:53 | P.PN ---
Subjective Progress Note Date: 05/11/20 Principal diagnosis: Intractable low back pain. Status post fall. Patient is a 79-year-old male with a past medical history of MS who presents to the emergency department with continued back pain. Patient was seen in the emergency department yesterday complaining of back pain after he had a fall. Imaging was performed and no fractures were identified. Patient also had CT sudhir ging of his head performed as he is on anticoagulation and could not provide details of the fall. Patient received pain medication while in the emergency department. He was adamant that he wanted to go home. The patient was subsequently sent home with pain medication. He lives alone and returned to the emergency department as he was not able to ambulate or care for himself. He denies any neurologic deficits to the lower extremities. He denies bowel or bladder dysfunction. He states that his severe low back pain is making it significantly difficult to ambulate. He is being admitted to internal medicine and orthopedics is consulted for spine evaluation. 05/10/2020: The patient is feelingt a little better today. He continues to have mid to low back pain and states that he has not yet been up with physical therapy. His MRI reveals no acute fractures. 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 T11 is not visualized on the MRI. He had thoracic spine x-rays yesterday which show slight compression of T11, age indeterminate. He has no new complaints today. Vital signs are stable. Objective - Vital Signs Vital signs: Vital Signs Temp 98.0 F 05/11/20 03:00 Pulse 65 05/11/20 03:00 Resp 18 05/11/20 03:00 BP 149/66 05/11/20 03:00 Pulse Ox 97 05/11/20 03:00 Intake & Output 05/10/20 05/11/20 05/11/20 18:59 06:59 18:59 Intake Total 480 Balance 480 Intake: Oral 480 Other: Voiding Method Self-Catheterization Self-Catheterization # Voids 2 1 - Exam This is a 79-year-old male in no acute distress. He is alert and oriented. He is able to move in bed without too much difficulty. He continues to have pain on palpation about the lower thoracic and upper to mid lumbar spine. He is able lift each leg off the bed independently. No hip pain with logroll. Full foot and ankle motion bilaterally. Neurovascular status to the lower extremities is intact. - Labs CBC & Chem 7: 05/11/20 06:17 05/11/20 06:17 Labs: Abnormal Lab Results - Last 24 Hours (Table) 05/10/20 05/10/20 05/11/20 Range/Units 09:59 09:59 06:17 WBC 21.5 H 13.6 H (3.8-10.6) k/uL Hgb 12.5 L (13.0-17.5) gm/dL Hct 37.8 L (39.0-53.0) % Neutrophils # 18.3 H 10.0 H (1.3-7.7) k/uL Monocytes # 1.5 H 1.3 H (0-1.0) k/uL Carbon Dioxide (22-30) mmol/L BUN 29 H (9-20) mg/dL Glucose 186 H (74-99) mg/dL ALT (4-49) U/L Total Protein 5.9 L (6.3-8.2) g/dL Albumin 2.8 L (3.5-5.0) g/dL 05/11/20 Range/Units 06:17 WBC (3.8-10.6) k/uL Hgb (13.0-17.5) gm/dL Hct (39.0-53.0) % Neutrophils # (1.3-7.7) k/uL Monocytes # (0-1.0) k/uL Carbon Dioxide 31 H (22-30) mmol/L BUN 25 H (9-20) mg/dL Glucose (74-99) mg/dL ALT 54 H (4-49) U/L Total Protein 6.0 L (6.3-8.2) g/dL Albumin 2.8 L (3.5-5.0) g/dL Assessment and Plan (1) Status post fall Current Visit: Yes Status: Acute Code(s): Z91.81 - HISTORY OF FALLING SNOMED Code(s): 220569159 (2) Back pain Current Visit: Yes Status: Acute Code(s): M54.9 - DORSALGIA, UNSPECIFIED SNOMED Code(s): 622886898 (3) Multiple sclerosis Current Visit: No Status: Acute Code(s): G35 - MULTIPLE SCLEROSIS SNOMED Code(s): 51480055 (4) Weakness Current Visit: No Status: Acute Code(s): R53.1 - WEAKNESS SNOMED Code(s): 55327484 Plan: The clinical and radiographic findings are discussed with the patient. I have discussed the case with Dr. Kearney. He is awaiting pain management consult and possible rehab placement.
[2020-05-11] MEDS: FINASTERIDE 5 MG TAB PO SCH (10:44)
[2020-05-11] MEDS: FUROSEMIDE 20 MG TAB PO SCH (10:44)
[2020-05-11] MEDS: APIXABAN 5 MG TAB PO SCH ×2 (10:44→23:18)
[2020-05-11] MEDS: ASPIRIN 81 MG PO SCH (10:44)
[2020-05-11] MEDS: TAMSULOSIN 0.4 MG CAP.ER.24H PO SCH (10:44)
[2020-05-11] MEDS: METOPROLOL TARTRATE 50 MG TAB PO SCH ×2 (10:45→23:18)
[2020-05-11] MEDS: MULTIVITAMINS, THERA 1 EACH TAB PO SCH (10:45)
--- NOTE | 2020-05-11 12:01 | P.PN ---
Subjective Progress Note Date: 05/11/20 Principal diagnosis: CC: Back pain Patient was given 1 dose of IV morphine this morning. Patient stated that he still has back pain. Patient states that he is wheelchair-bound. Patient states that he came in with his wheelchair. He is wondering where his wheelchair is. I discussed with the nurse and told her to give oral pain medication before giving IV meds. PT OT consult pending. Pain management consult is pending. Patient states that he is amenable to going to rehab if he qualifies. 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 Acute on chronic back pain status post mechanical fall: Orthopedic surgery following. MRI spine and xray spine reviewed, pain management consult pending , PT OT consult pending, continue pain control for now 2. History of congestive heart failure, chronic unknown systolic or diastolic, monitor. Oral Lasix 3. Coronary disease without evidence of acute coronary syndrome: Continue outpatient medications, aspirin and metoprolol 4. BPH: Continue Flomax and finasteride 5. GERD without esophagitis: Continue PPI 6. History of chronic atrial fibrillation: On Eliquis and metoprolol 7. 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 Weakness: Consult PT/OT, input appreciated 9. leukocytosis : likely 2/2 steroids , trending down Disposition: Pending clinical progression, to Rehab likely Tuesday after pain yennifer su consult
[2020-05-11] MEDS: Acetaminophen-Codeine 300-30mg TAB PO PRN ×2 (12:37→17:53)
[2020-05-11] MEDS: CHOLECALCIFEROL 1,000 UNIT TAB PO SCH (12:37)
[2020-05-12] MEDS: PANTOPRAZOLE 40 MG TABLET PO SCH (07:04)
[2020-05-12] MEDS: FUROSEMIDE 20 MG TAB PO SCH (09:03)
[2020-05-12] MEDS: ASPIRIN 81 MG PO SCH (09:03)
[2020-05-12] MEDS: CHOLECALCIFEROL 1,000 UNIT TAB PO SCH (09:04)
[2020-05-12] MEDS: FINASTERIDE 5 MG TAB PO SCH (09:04)
[2020-05-12] MEDS: METOPROLOL TARTRATE 50 MG TAB PO SCH ×2 (09:04→20:33)
[2020-05-12] MEDS: MULTIVITAMINS, THERA 1 EACH TAB PO SCH (09:04)
[2020-05-12] MEDS: APIXABAN 5 MG TAB PO SCH ×2 (09:04→20:33)
[2020-05-12] MEDS: TAMSULOSIN 0.4 MG CAP.ER.24H PO SCH (09:04)
--- NOTE | 2020-05-12 10:40 | P.PN ---
<Annel Cornejo - Last Filed: 05/12/20 10:39> Subjective Progress Note Date: 05/12/20 Principal diagnosis: Intractable low back pain. Status post fall. Patient is a 79-year-old male with a past medical history of MS who presents to the emergency department with continued back pain. Patient was seen in the emergency department yesterday complaining of back pain after he had a fall. Imaging was performed and no fractures were identified. Patient also had CT imaging of his head performed as he is on anticoagulation and could not provide details of the fall. Patient received pain medication while in the emergency department. He was adamant that he wanted to go home. The patient was subs equently sent home with pain medication. He lives alone and returned to the emergency department as he was not able to ambulate or care for himself. He denies any neurologic deficits to the lower extremities. He denies bowel or bladder dysfunction. He states that his severe low back pain is making it significantly difficult to ambulate. He is being admitted to internal medicine and orthopedics is consulted for spine evaluation. 05/10/2020: The patient is feeling a little better today. He continues to have mid to low back pain and states that he has not yet been up with physical therapy. His MRI reveals no acute fractures. 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 T11 is not visualized on the MRI. He had thoracic spine x-rays yesterday which show slight compression of T11, age indeterminate. He has no new complaints today. Vital signs are s table. 05/11/2020: The patient has no new complaints or concerns today. He is awaiting evaluation with pain management. He still has not been of much and is not tolerating anything out of bed. Objective - Vital Signs Vital signs: Vital Signs Temp 98.3 F 05/12/20 09:00 Pulse 73 05/12/20 09:00 Resp 16 05/12/20 09:00 BP 152/76 05/12/20 09:00 Pulse Ox 93 L 05/12/20 09:00 Intake & Output 05/11/20 05/12/20 05/12/20 18:59 06:59 18:59 Intake Total 720 Balance 720 Intake: Oral 720 Other: Voiding Method Self-Catheterization # Voids 3 1 1 - Exam This is a 79-year-old male in no acute distress. He is alert and oriented. He is able to move in bed without too much difficulty. He continues to have pain on palpation about the lower thoracic and upper to mid lumbar spine. He is able lift each leg off the bed independently. No hip pain with logroll. Full foot and ankle motion bilaterally. Neurovascular status to the lower extremities is intact. - Labs CBC & Chem 7: 05/11/20 06:17 05/11/20 06:17 Assessment and Plan (1) Status post fall Current Visit: Yes Status: Acute Code(s): Z91.81 - HISTORY OF FALLING SNOMED Code(s): 952773485 (2) Back pain Current Visit: Yes Status: Acute Code(s): M54.9 - DORSALGIA, UNSPECIFIED SNOMED Code(s): 573516411 (3) Multiple sclerosis Current Visit: No Status: Acute Code(s): G35 - MULTIPLE SCLEROSIS SNOMED Code(s): 84223189 (4) Weakness Current Visit: No Status: Acute Code(s): R53.1 - WEAKNESS SNOMED Code(s): 89431837 Plan: The clinical and radiographic findings are discussed with the patient. I have discussed the case with Dr. Kearney. He is awaiting pain management consult and possible rehab placement. I have ordered an LSO brace for comfort. <Ranjit Kearney - Last Filed: 05/12/20 16:54> Objective - Vital Signs Vital signs: Vital Signs Temp 98.3 F 05/12/20 09:00 Pulse 73 05/12/20 09:00 Resp 16 05/12/20 09:00 BP 152/76 05/12/20 09:00 Pulse Ox 93 L 05/12/20 09:00 Intake & Output 05/11/20 05/12/20 05/12/20 18:59 06:59 18:59 Intake Total 720 Balance 720 Intake: Oral 720 Other: Voiding Method Self-Catheterization # Voids 3 1 1 - Labs CBC & Chem 7: 05/11/20 06:17 05/11/20 06:17 Assessment and Plan Plan: As above. No plans for acute surgical intervention. LSO brace may help for comfort and mobility. Likely rehab/SNF
--- NOTE | 2020-05-12 12:05 | P.PN ---
Subjective Progress Note Date: 05/12/20 Principal diagnosis: CC: Back pain Patient states that his pain is controlled on his home dose of Tylenol No. 3. Patient is amenable to going to rehab. I discussed with licensed social worker who said we are waiting on bed availability. 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 Acute on chronic back pain status post mechanical fall: Orthopedic surgery recommends rehab and pain management. MRI spine and xray spine reviewed. PT OT consult ->SNF. Patient's pain is controlled on his home dose of Tylenol No. 3. Pain management has been consulted by previous attending on service 2. History of congestive heart failure, chronic unknown systolic or diastolic, monitor. Oral Lasix 3. Coronary disease without evidence of acute coronary syndrome: Continue outpatient medications, aspirin and metoprolol 4. BPH: Continue Flomax and finasteride 5. GERD without esophagitis: Continue PPI 6. History of chronic atrial fibrillation: On Eliquis and metoprolol 7. 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 Weakness: Consult PT/OT, input appreciated 9. leukocytosis : likely 2/2 steroids , trending down Disposition: Patient medically stable for discharge to SNF. I discussed with licensed social worker who said that we're waiting on that availability
--- NOTE | 2020-05-12 15:49 | P.DS ---
Providers Date of admission: 05/08/20 08:50 Expected date of discharge: 05/12/20 Attending physician: Tierra Redd MD Consults: 05/08/20 08:51 Consult Physician Urgent Consulting Provider: Ranjit Kearney Consult Reason/Comments: low back pain, s/p fall Do you want consulting provider notified?: Yes 05/10/20 10:10 Consult Physician Urgent Consulting Provider: Yuniel Pineda Consult Reason/Comments: pain management, low back pain Do you want consulting provider notified?: Yes Primary care physician: Stated None Hospital Course: Discharge Diagnosis 1. Acute on chronic back pain status post mechanical fall: 2. History of congestive heart failure, chronic unknown systolic or diastolic, monitor. 3. Coronary disease without evidence of acute coronary syndrome: 4. BPH: 5. GERD without esophagitis: 6. History of chronic atrial fibrillation: 7. 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 Weakness: 9. leukocytosis : likely 2/2 steroids Hospital Course Patient is a 79 yo M who present with a mechanical fall and acute on chronic back pain. Patient imaging did not show any acute fractures. Patient was seen by ortho who recommended pain control and rehab. His pain was controlled on his home dose of tylenol 3. PT/OT recommended SNF. cleaning and maintenance worker arranged for transfer to SNF. Patient deemed stable for discharge. 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 Psych - Calm and cooperative Patient Condition at Discharge: Stable Plan - Discharge Summary New Discharge Prescriptions: Continue Multivitamins, Thera [Multivitamin (formulary)] 1 tab PO DAILY Ferrous Sulfate [Feosol] 325 mg PO BID Cholecalciferol [Vitamin D3] 800 unit PO DAILY Tamsulosin [Flomax] 0.8 mg PO DAILY Finasteride [Proscar] 5 mg PO DAILY Omeprazole 20 mg PO DAILY Furosemide [Lasix] 20 mg PO DAILY tab haloperidoL [Haldol] 2 mg PO HS Ascorbic Acid [Vitamin C] 500 mg PO DAILY Sennosides/Docusate Sodium [Senna Plus 8.6-50 mg Tablet] 2 tab PO HS PRN PRN Reason: Constipation Aspirin EC [Ecotrin Low Dose] 81 mg PO DAILY Metoprolol Tartrate [Lopressor] 50 mg PO BID Apixaban [Eliquis] 5 mg PO BID Acetaminophen-Codeine 300-30mg [Tylenol w/codeine #3] 1 tab PO Q6H PRN 3 Days #12 tablet PRN Reason: Pain Discharge Medication List Cholecalciferol [Vitamin D3] 800 unit PO DAILY 02/04/17 [History] Ferrous Sulfate [Feosol] 325 mg PO BID 02/04/17 [History] Finasteride [Proscar] 5 mg PO DAILY 02/04/17 [History] Multivitamins, Thera [Multivitamin (formulary)] 1 tab PO DAILY 02/04/17 [History] Tamsulosin [Flomax] 0.8 mg PO DAILY 02/04/17 [History] Omeprazole 20 mg PO DAILY 06/24/17 [History] Furosemide [Lasix] 20 mg PO DAILY tab 07/01/17 [Rx] Acetaminophen-Codeine 300-30mg [Tylenol w/codeine #3] 1 tab PO Q6H PRN 3 Days #12 tablet 05/07/20 [Rx] Apixaban [Eliquis] 5 mg PO BID 05/07/20 [History] Ascorbic Acid [Vitamin C] 500 mg PO DAILY 05/07/20 [History] Aspirin EC [Ecotrin Low Dose] 81 mg PO DAILY 05/07/20 [History] Metoprolol Tartrate [Lopressor] 50 mg PO BID 05/07/20 [History] Sennosides/Docusate Sodium [Senna Plus 8.6-50 mg Tablet] 2 tab PO HS PRN 05/07/20 [History] haloperidoL [Haldol] 2 mg PO HS 05/07/20 [History] Follow up Appointment(s)/Referral(s): Vernon Avery, [NON-STAFF] - As Needed None,Stated [Primary Care Provider] - 1-2 days Sheila Charlton [NON-STAFF] - As Needed (LSO back brace) Discharge Disposition: TRANSFER TO SNF/ECF
[2020-05-12] MEDS: Acetaminophen-Codeine 300-30mg TAB PO PRN (16:03)
--- NOTE | 2020-05-12 18:35 | P.PN ---
Progress Note - Text Progress Note Date: 05/12/20 Received perfect serve from nursing that patient COVID test from 05/06 came back positive. Discharge held. Will order stat COVID test.
[2020-05-13] MEDS: PANTOPRAZOLE 40 MG TABLET PO SCH (06:29)
[2020-05-13] MEDS: FUROSEMIDE 20 MG TAB PO SCH (10:51)
[2020-05-13] MEDS: CHOLECALCIFEROL 1,000 UNIT TAB PO SCH (10:51)
[2020-05-13] MEDS: ASPIRIN 81 MG PO SCH (10:51)
[2020-05-13] MEDS: TAMSULOSIN 0.4 MG CAP.ER.24H PO SCH (10:51)
[2020-05-13] MEDS: MULTIVITAMINS, THERA 1 EACH TAB PO SCH (10:51)
[2020-05-13] MEDS: APIXABAN 5 MG TAB PO SCH ×2 (10:52→21:22)
[2020-05-13] MEDS: METOPROLOL TARTRATE 50 MG TAB PO SCH ×2 (10:52→21:22)
[2020-05-13] MEDS: FINASTERIDE 5 MG TAB PO SCH (10:53)
--- NOTE | 2020-05-13 12:58 | P.PN ---
Subjective Progress Note Date: 05/13/20 Patient is doing well today. He does not have any complaints. Objective - Vital Signs Vital signs: Vital Signs Temp 97.6 F 05/13/20 07:45 Pulse 76 05/13/20 07:45 Resp 14 05/13/20 07:45 BP 156/69 05/13/20 07:45 Pulse Ox 93 L 05/13/20 07:45 Intake & Output 05/12/20 05/13/20 05/13/20 18:59 06:59 18:59 Other: Voiding Method Self-Catheterization Diaper Incontinent # Voids 1 1 1 - Exam General: The patient is awake and alert, in no distress Eye: there is normal conjunctiva bilaterally. Neck: The neck is supple, there is no JVD. Cardiovascular: Normal S1-S2, no S3-S4, no murmurs. Respiratory: Lungs clear to auscultation bilaterally Gastrointestinal: Abdomen is soft, nontender Musculoskeletal: There is no pedal edema. Neurological:. Speech is normal. Skin: Skin is warm and dry - Labs CBC & Chem 7: 05/11/20 06:17 05/11/20 06:17 Assessment and Plan Assessment: 1. Acute on chronic back pain status post mechanical fall: 2. History of congestive heart failure, chronic unknown systolic or diastolic, monitor. 3. Coronary disease without evidence of acute coronary syndrome: 4. BPH: 5. GERD without esophagitis: 6. History of chronic atrial fibrillation: 7. 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 Weakness: 9. leukocytosis : likely 2/2 steroids Hospital Course Patient is a 79 yo M who present with a mechanical fall and acute on chronic back pain. Patient imaging did not show any acute fractures. Patient was seen by ortho who recommended pain control and rehab. His pain was controlled on his h ome dose of tylenol 3. PT/OT recommended SNF. bottle line worker arranged for transfer to SNF but now having difficulty placement as patient had a positive Covid19 teslas week prior to his presentation as reported by his daughter. I asked nursing staff to obtain a formal report of the positive test. Patient himself does not recall where the test was done. Awaiting his daughter to call back. Social work is working on finding a place to accept this patient right now. Repeat PCR here in the hospital was negative.
[2020-05-14] MEDS: Acetaminophen-Codeine 300-30mg TAB PO PRN ×2 (01:14→08:45)
[2020-05-14] MEDS: PANTOPRAZOLE 40 MG TABLET PO SCH (06:55)
[2020-05-14 07:51] VITALS: TEMP 97.6
[2020-05-14 08:36] VITALS: BP 154/80; PULSE 75; RESP 16
[2020-05-14] MEDS: FINASTERIDE 5 MG TAB PO SCH (08:45)
[2020-05-14] MEDS: ASPIRIN 81 MG PO SCH (08:45)
[2020-05-14] MEDS: CHOLECALCIFEROL 1,000 UNIT TAB PO SCH (08:46)
[2020-05-14] MEDS: APIXABAN 5 MG TAB PO SCH (08:46)
[2020-05-14] MEDS: MULTIVITAMINS, THERA 1 EACH TAB PO SCH (08:46)
[2020-05-14] MEDS: FUROSEMIDE 20 MG TAB PO SCH (08:46)
[2020-05-14] MEDS: TAMSULOSIN 0.4 MG CAP.ER.24H PO SCH (08:46)
[2020-05-14] MEDS: METOPROLOL TARTRATE 50 MG TAB PO SCH (08:46)
--- NOTE | 2020-05-14 09:16 | P.DS ---
Providers Date of admission: 05/08/20 08:50 Expected date of discharge: 05/14/20 Attending physician: Tierra Redd MD Consults: 05/08/20 08:51 Consult Physician Urgent Consulting Provider: Ranjit Kearney Consult Reason/Comments: low back pain, s/p fall Do you want consulting provider notified?: Yes 05/10/20 10:10 Consult Physician Urgent Consulting Provider: Yuniel Pineda Consult Reason/Comments: pain management, low back pain Do you want consulting provider notified?: Yes Primary care physician: Stated None Hospital Course: 1. Acute on chronic back pain status post mechanical fall 2. History of congestive heart failure, chronic unknown systolic or diastolic, monitor. 3. Coronary disease without evidence of acute coronary syndrome 4. BPH 5. GERD without esophagitis 6. History of chronic atrial fibrillation on anticoagulation with Eliquis 7. 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 Weakness Hospital Course Patient is a 79 yo M who present with a mechanical fall and acute on chronic back pain. Patient imaging did not show any acute fractures. Patient was seen by ortho who recommended pain control and rehab. His pain was controlled on his home dose of tylenol 3. PT/OT recommended SNF. rehabilitation worker arranged for transfer to SNF in [facility]. Follow up as directed. For further details about this hospitalization please refer to the electronic chart. Patient Condition at Discharge: Stable Plan - Discharge Summary New Discharge Prescriptions: Continue Multivitamins, Thera [Multivitamin (formulary)] 1 tab PO DAILY Ferrous Sulfate [Feosol] 325 mg PO BID Cholecalciferol [Vitamin D3] 800 unit PO DAILY Tamsulosin [Flomax] 0.8 mg PO DAILY Finasteride [Proscar] 5 mg PO DAILY Omeprazole 20 mg PO DAILY Furosemide [Lasix] 20 mg PO DAILY tab haloperidoL [Haldol] 2 mg PO HS Ascorbic Acid [Vitamin C] 500 mg PO DAILY Sennosides/Docusate Sodium [Senna Plus 8.6-50 mg Tablet] 2 tab PO HS PRN PRN Reason: Constipation Aspirin EC [Ecotrin Low Dose] 81 mg PO DAILY Metoprolol Tartrate [Lopressor] 50 mg PO BID Apixaban [Eliquis] 5 mg PO BID Acetaminophen-Codeine 300-30mg [Tylenol w/codeine #3] 1 tab PO Q6H PRN 3 Days #12 tablet PRN Reason: Pain Discharge Medication List Cholecalciferol [Vitamin D3] 800 unit PO DAILY 02/04/17 [History] Ferrous Sulfate [Feosol] 325 mg PO BID 02/04/17 [History] Finasteride [Proscar] 5 mg PO DAILY 02/04/17 [History] Multivitamins, Thera [Multivitamin (formulary)] 1 tab PO DAILY 02/04/17 [History] Tamsulosin [Flomax] 0.8 mg PO DAILY 02/04/17 [History] Omeprazole 20 mg PO DAILY 06/24/17 [History] Furosemide [Lasix] 20 mg PO DAILY tab 07/01/17 [Rx] Apixaban [Eliquis] 5 mg PO BID 05/07/20 [History] Ascorbic Acid [Vitamin C] 500 mg PO DAILY 05/07/20 [History] Aspirin EC [Ecotrin Low Dose] 81 mg PO DAILY 05/07/20 [History] Metoprolol Tartrate [Lopressor] 50 mg PO BID 05/07/20 [History] Sennosides/Docusate Sodium [Senna Plus 8.6-50 mg Tablet] 2 tab PO HS PRN 05/07/20 [History] haloperidoL [Haldol] 2 mg PO HS 05/07/20 [History] Acetaminophen-Codeine 300-30mg [Tylenol w/codeine #3] 1 tab PO Q6H PRN 3 Days #12 tablet 05/12/20 [Rx] Follow up Appointment(s)/Referral(s): Ranjit Kearney, [Doctor of Osteopathic Medicine] - 2 Weeks [facility], [NON-STAFF] - As Needed None,Stated [Primary Care Provider] - 1-2 days Sheila Charlton [NON-STAFF] - As Needed (LSO back brace) Patient Instructions/Handouts: Lumbar Brace (GEN) Activity/Diet/Wound Care/Special Instructions: Wear brace when sitting and with ambulation. May remove when lying in bed. Discharge Disposition: TRANSFER TO SNF/ECF
== END 2020-05-14 12:10 | DRG 552 ==
LOC: EC 07:15 → 1SOBS 08:50 → OBSVTOIN 08:50 → 1SOBS 14:30
PROVIDERS: ADMIT Internal Medicine; ATTEND Internal Medicine
DX: M54.5 Low back pain (principal); I48.20 Chronic atrial fibrillation, unspecified; D72.829 Elevated white blood cell count, unspecified; T38.0X5A Adverse effect of glucocorticoids and synthetic analogues, initial encounter; N40.1 Benign prostatic hyperplasia with lower urinary tract symptoms; N39.498 Other specified urinary incontinence; Z20.828 Contact with and (suspected) exposure to other viral communicable diseases; I50.9 Heart failure, unspecified; K21.9 Gastro-esophageal reflux disease without esophagitis; N31.9 Neuromuscular dysfunction of bladder, unspecified; W18.30XA Fall on same level, unspecified, initial encounter; Z79.01 Long term (current) use of anticoagulants; Z79.82 Long term (current) use of aspirin; E11.9 Type 2 diabetes mellitus without complications; E78.5 Hyperlipidemia, unspecified; G35 Multiple sclerosis; G89.29 Other chronic pain; I25.10 Atherosclerotic heart disease of native coronary artery without angina pectoris; M47.816 Spondylosis without myelopathy or radiculopathy, lumbar region; M47.814 Spondylosis without myelopathy or radiculopathy, thoracic region; Z90.89 Acquired absence of other organs; Z86.73 Personal history of transient ischemic attack (TIA), and cerebral infarction without residual deficits; I25.2 Old myocardial infarction; Z79.899 Other long term (current) drug therapy; Z82.49 Family history of ischemic heart disease and other diseases of the circulatory system; Z87.891 Personal history of nicotine dependence; Z91.81 History of falling; Z99.3 Dependence on wheelchair; Z60.2 Problems related to living alone; Z82.0 Family history of epilepsy and other diseases of the nervous system
CPT/HCPCS: 36415; 72072; 72148; 80053; 83605; 85025; 86140; 87635; 96374; 96375; 96376; 99285